=== PATIENT | male | born 1975 ===

== ENCOUNTER 2017-05-04 20:59 | Inpatient (IN) | payer MEDICARE, MEDICAID ==
[2017-05-04 20:59] VITALS: BMI 27.4
[2017-05-04] MEDS ORDERED: Sodium Chloride 0.9% 1,000 ML IV STA (22:27)
[2017-05-04] MEDS ORDERED: Oxycodone/Acetaminophen 5/325 mg Tab PO STA (22:39)
[2017-05-04 22:58] LABS: VENOUS BLOOD GAS BASE EXCESS -10.5 mmol/L (0.0-2.0); VENOUS BLOOD GAS MODE ROOM AIR; VENOUS BLOOD GAS PCO2 67 mmHg (40-60); VENOUS BLOOD PH 7.09 (7.32-7.43)
[2017-05-04] MEDS ORDERED: Povidone Iodine Topical 10% Sol ONE (22:58)
[2017-05-04] MEDS ORDERED: Lidocaine 2% w Epi 1:100,000 Inj IJ ONE (22:59)
[2017-05-04 23:00] LABS: BASO # 0.1 K/uL (0.0-0.2); BASO % 1.5 % (0.0-2.0); EOS % 0.3 % (0.0-4.0); HEMATOCRIT 40.2 % (35.0-51.0); LYMPH # 1.2 K/uL (1.0-4.3); LYMPH % 18.7 % (20.0-40.0); MEAN CELL VOLUME 84.7 fl (80.0-94.0); MEAN CORPUSCULAR HEMOGLOBIN 28.1 pg (27.0-31.0); MEAN CORPUSCULAR HGB CONC 33.2 g/dL (33.0-37.0); MEAN PLATELET VOLUME 10.5 fl (7.2-11.7); MONO # 0.5 K/uL (0.0-0.8); MONO % 8.4 % (0.0-10.0); NEUT # 4.6 K/uL (1.8-7.0); NEUT % 71.1 % (50.0-75.0); NRBC % 0.1 % (0.0-0.0); RED CELL DISTRIBUTION WIDTH 15.1 % (11.5-14.5); WHITE BLOOD COUNT 6.4 K/uL (4.8-10.8)
[2017-05-04] MEDS ORDERED: Insulin Regular 100 units/ml IVP STA (23:00)
[2017-05-04 23:10] LABS: ALB/GLOB RATIO 1.1 (1.0-2.1); ALKALINE PHOSPHATASE 169 U/L (38-126); ALT/SGPT 58 U/L (21-72); AST/SGOT 36 U/L (17-59); BILIRUBIN,TOTAL 1.1 mg/dl (0.2-1.3); BLOOD UREA NITROGEN 15 mg/dl (9-20); CALCIUM 9.4 mg/dL (8.4-10.2); CARBON DIOXIDE 19 mmol/L (22-30); CHLORIDE 103 mmol/L (98-107); GFR AFRICAN-AMERICAN > 60; SODIUM 132 mmol/l (132-148); TOTAL PROTEIN 7.4 G/DL (6.3-8.2)
[2017-05-04 23:13] LABS: GLUCOSE,RANDOM 602 mg/dL (75-110)
[2017-05-04] MEDS ORDERED: Piperacillin/Tazobact 3.375 GM in Sodium Chloride 0.9% 100 ML IV STA (23:45)
[2017-05-04] MEDS ORDERED: Insulin Regular 100 UNITS in Sodium Chloride 0.9% 100 ML IV SCH (23:45)
[2017-05-04 23:53] LABS: POTASSIUM 4.5 MMOL/L (3.6-5.0)
--- NOTE | 2017-05-04 23:54 | ED PDOC ---
HPI: Skin/Bite Injury Time Seen by Provider: 05/04/17 21:30 Chief Complaint (Nursing): Abnormal Skin Integrity Chief Complaint (Provider): LEFT leg abscess Onset/Duration Of Symptoms: Days (2 weeks) Current Symptoms Are (Timing): Still Present Quality Of Symptoms: Painful, Swollen Additional Complaint(s): Gradual onset No fever/chills Reports compliance with diabetes meds Denies lesions elsewhere PMD Dr Alex Klein Past Medical History Reviewed: Historical Data, Nursing Documentation, Vital Signs Vital Signs: Last Vital Signs Temp 98.2 F 05/05/17 12:00 Pulse 76 05/05/17 12:00 Resp 14 05/05/17 12:00 BP 96/62 L 05/05/17 12:00 Pulse Ox 99 05/05/17 12:00 - Medical History PMH: Diabetes, HTN, Hypercholesterolemia, Hypothyroidism Denies: Chronic Kidney Disease - Surgical History Surgical History: Appendectomy, Tonsillectomy Other surgeries: Toe amputation - Family History Family History: States: No Known Family Hx - Social History Drugs: Denies - Immunization History Hx Tetanus Toxoid Vaccination: Yes Hx Influenza Vaccination: Yes Hx Pneumococcal Vaccination: No - Home Medications Home Medications: Ambulatory Orders Medication Instructions Recorded Insulin Detemir [Levemir] 80 unit SC HS 11/08/14 Aspirin [Ecotrin] 81 mg PO DAILY 03/27/17 Atorvastatin Calcium 40 mg PO DAILY 03/27/17 Clopidogrel [Plavix] 75 mg PO DAILY 03/27/17 Fenofibrate [Triglide] 160 mg PO DAILY 03/27/17 Gabapentin [Neurontin] 800 mg PO BID 03/27/17 Insulin Lispro [Humalog (Insulin 45 unit SQ TID 03/27/17 Lispro)] Levothyroxine [Synthroid] 1 tab PO DAILY 03/27/17 Lisinopril 2.5 mg PO DAILY 03/27/17 [id number] Ethyl Esters [OMEGA 3] 2 tab PO BID 03/27/17 Topiramate [Topamax] 50 mg PO BID 03/27/17 Cyclobenzaprine [Flexeril] 10 mg PO HS 05/05/17 Metoprolol Tartrate [Lopressor] 12.5 mg PO BID 05/05/17 Vit B Comp C 19/Folic Acid/D3 1 tab PO DAILY 05/05/17 [Nephronex-Sl Tablet] - Allergies Allergies/Adverse Reactions: Allergies Allergy/AdvReac Type Severity Reaction Status Date / Time No Known Allergies Allergy Verified 11/08/14 21:27 Review of Systems ROS Statement: Except As Marked, All Systems Reviewed And Found Negative Constitutional: Negative for: Fever, Chills Physical Exam - Reviewed Nursing Documentation Reviewed: Yes Vital Signs Reviewed: Yes - Physical Exam Appears: Positive for: Uncomfortable, In Acute Distress Head Exam: Positive for: ATRAUMATIC, NORMOCEPHALIC Skin: Positive for: Warm, Dry, Rash (Multiple excoriated psoriatic areas on extremities, LEFT upper inner thigh: fluctuant dark erythematous lesion) Eye Exam: Positive for: EOMI, PERRL ENT: Positive for: Other (tacky muc membranes). Negative for: Pharyngeal Erythema, Tonsillar Exudate Neck: Positive for: Painless ROM, Supple Cardiovascular/Chest: Positive for: Murmur, Tachycardia (reg rhythm) Respiratory: Positive for: Normal Breath Sounds. Negative for: Respiratory Distress Gastrointestinal/Abdominal: Positive for: Soft. Negative for: Tenderness Back: Positive for: Normal Inspection. Negative for: Decreased ROM Extremity: Positive for: Other (extremity muscle wasting) Lymphatic: Negative for: Adenopathy Neurologic/Psych: Positive for: Alert. Negative for: Motor/Sensory Deficits - Laboratory Results Result Diagrams: 05/05/17 05:30 05/05/17 15:30 - ECG O2 Sat by Pulse Oximetry: 99 - Progress ED Course And Treament: Pt initially only wanted I&D of abscess but strongly advised to have evaluation given history of uncontrolled diabetes, making him prone to more severe infection and sepsis. He was agreeable to having labwork performed, and when results demonstrated possible DKA, he was very reluctant to have IV placed. He refused to have large line placed in neck and allowed RN to place peripheral IV , which was done successfully. It was advised that he have a larger line anyway for multiple IV meds and aggressive fluid hydration, but he refused. IV antibiotics, IV insulin infusion, IVF ordered. Condition: Improving,but remains with symptoms - Critical Care Total Time (In Min): 30 Documented Critical Care: Time excludes all time spent performint seperately billable procedures Disposition - Clinical Impression Clinical Impression: Groin abscess, DKA (diabetic ketoacidoses) Discussed With DrLenny: Angel Howell Counseled Patient/Family Regarding: Studies Performed, Diagnosis - Disposition Disposition Time: 23:00 Condition: CRITICAL - Pt Status Changed To: Hospital Disposition Of: Inpatient - Admit Certification Admit to Inpatient:: After my assessment, the patient will require hospitalization for at least two midnights. This is because of the severity of symptoms shown, intensity of services needed, and/or the medical risk in this patient being treated as an outpatient. - POA Present On Arrival: Poor Glycemic Control - Incision & Drainage Of Abscess Anesthesia: Lidocaine 2%, With Epi Prep Used: Betadine Procedure: Incised W/Scalpel Blade#: (11), Drained Pus (yellow and bloody and malodorous), Probed To Break Up Loculations, Packed W/Gauze, Cultures Obtained And Sent To Lab
[2017-05-05] MEDS ORDERED: Vancomycin 1 g Inj ONE (00:04)
[2017-05-05] MEDS ORDERED: Piperacillin/Tazobact 3.375 gm Inj IVPB ONE (00:04)
[2017-05-05] MEDS ORDERED: Insulin Regular 100 units/ml ONE (00:06)
--- NOTE | 2017-05-05 00:11 | CP.PCM.CON ---
History of Present Illness - History of Present Illness History of Present Illness: PCP: Dr Alex Klein Vascular Surgeon: Dr Vigil of [facility] Reason for Consult: Critical care Management Chief Complaint: Left thigh abscess Patient seen and examined in the ED HPI: He is a 41 years old male with Hx of HTN, PVD s/p right toes amputation and arterial stent placement at the left lower extremity. [facility] with a two weeks pain swelling with erythema at the surrounding site.He was having difficulty to walk because of the pain. No fever , chills, Dysuria, urinary frequency nor diarrhea. His last skin abscess was at the age of 16 years. 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 absent: Anorexia, Chills, Fever, Headache - EENT Eyes: Requires Corrective Lenses. absent: Diplopia, Floaters, Photophobia, Sees Flashes Ears: absent: Decreased Hearing, Ear Discharge, Ear Pain, Tinnitus Nose/Mouth/Throat: absent: Epistaxis, Nasal Congestion, Nasal Discharge, Sinus Pain, Sinus Pressure - Cardiovascular Cardiovascular: absent: Chest Pain, Dyspnea, Edema - Respiratory Respiratory: absent: Cough, Dyspnea, Wheezing, Chest Congestion - Gastrointestinal Gastrointestinal: absent: Abdominal Pain, Diarrhea, Melena, Nausea, Vomiting - Genitourinary Genitourinary: absent: Dysuria, Flank Pain, Hematuria, Urinary Frequency - Musculoskeletal Musculoskeletal: Arthralgias, Myalgias - Integumentary Integumentary: Swelling. absent: Pruritus, Rash Additional comments: left Heel with ulceration - Neurological Neurological: absent: Confusion, Focal Weakness, Headaches, Vertigo, Weakness - Psychiatric Psychiatric: absent: Anxiety, Confusion, Depression, Panic Attacks - Endocrine Endocrine: Polydipsia, Polyphagia. absent: Palpitations, Polyuria - Hematologic/Lymphatic Hematologic: absent: Easy Bleeding, Easy Bruising Past Patient History - Past Medical History & Family History Past Medical History?: Yes - Past Social History Smoking Status: Never Smoked Chewing Tobacco Use: No Cigar Use: No Alcohol: None Drugs: Denies Home Situation {Lives}: With Family - CARDIAC Hx Hypercholesterolemia: Yes Hx Hypertension: Yes - PULMONARY Hx Respiratory Disorders: No - NEUROLOGICAL Hx Neurological Disorder: Yes (PERIPHERAL NEUROPATHY) - HEENT Hx HEENT Problems: No - RENAL Hx Chronic Kidney Disease: No - ENDOCRINE/METABOLIC Hx Diabetes Mellitus Type 2: Yes Hx Hypothyroidism: Yes - HEMATOLOGICAL/ONCOLOGICAL Hx Blood Disorders: No - INTEGUMENTARY Hx Dermatological Problems: Yes (HX GANGRENE TOES RIGHT FOOT AMPUTATION) - MUSCULOSKELETAL/RHEUMATOLOGICAL Hx Musculoskeletal Disorders: Yes Other/Comment: 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 - GASTROINTESTINAL Hx Gastrointestinal Disorders: No - GENITOURINARY/GYNECOLOGICAL Hx Genitourinary Disorders: No - PSYCHIATRIC Hx Psychophysiologic Disorder: No Hx Substance Use: No - SURGICAL HISTORY Hx Appendectomy: Yes Hx Tonsillectomy: Yes - ANESTHESIA Hx Anesthesia: Yes Hx Anesthesia Reactions: No Hx Malignant Hyperthermia: No Meds Allergies/Adverse Reactions: Allergies Allergy/AdvReac Type Severity Reaction Status Date / Time No Known Allergies Allergy Verified 11/08/14 21:27 - Medications Medications: Current Medications Vancomycin HCl 1 gm/ Sodium (Chloride) 250 mls @ 166.667 mls/hr IV STAT STA Stop: 05/05/17 01:14 Piperacillin Sod/Tazobactam (Sod 3.375 gm/ Sodium Chloride) 100 mls @ 100 mls/ hr IV STAT STA Stop: 05/05/17 00:44 Insulin Human Regular 100 (units/ Sodium Chloride) 101 mls @ 8.08 mls/hr IV .[id number] JULIANA; 8 UNITS/HR PRN Reason: Protocol Physical Exam - Constitutional Appears: No Acute Distress - Head Exam Head Exam: ATRAUMATIC, NORMAL INSPECTION, NORMOCEPHALIC - Eye Exam Eye Exam: EOMI, Normal appearance Pupil Exam: NORMAL ACCOMODATION, PERRL - ENT Exam ENT Exam: Mucous Membranes Moist, Normal Exam, Normal External Ear Exam, Normal Oropharynx - Neck Exam Neck exam: Positive for: Normal Inspection, Tenderness - Respiratory Exam Respiratory Exam: Clear to Auscultation Bilateral. absent: Rales, Rhonchi, Wheezes - Cardiovascular Exam Cardiovascular Exam: REGULAR RHYTHM, RRR, +S2. absent: Gallop, JVD - GI/Abdominal Exam GI & Abdominal Exam: Normal Bowel Sounds, Organomegaly, Soft. absent: Mass, Pulsatile Mass, Tenderness - Rectal Exam Rectal Exam: Deferred - Extremities Exam Additional comments: Pain to the left leg. - Back Exam Back exam: NORMAL INSPECTION. absent: CVA tenderness (L), CVA tenderness (R) - Neurological Exam Neurological exam: Alert, CN II-XII Intact, Oriented x3, Reflexes Normal - Psychiatric Exam Psychiatric exam: Normal Affect, Normal Mood - Skin Skin Exam: Dry, Intact, Normal Color, Warm - Additional Findings Additional findings: Swelling 2cm Fluccent, surrounded by erythema, painful to palpation Results - Vital Signs Recent Vital Signs: Last Vital Signs Temp 98.1 F 05/04/17 21:24 Pulse 101 H 05/04/17 21:24 Resp 20 05/04/17 21:24 BP 120/70 05/04/17 21:24 Pulse Ox 99 05/05/17 00:00 - Labs Result Diagrams: 05/04/17 22:50 05/04/17 22:50 Labs: Laboratory Results - last 24 hr 05/04/17 05/04/17 05/04/17 22:48 22:50 22:50 WBC 6.4 RBC 4.75 Hgb 13.3 Hct 40.2 MCV 84.7 MCH 28.1 MCHC 33.2 RDW 15.1 H Plt Count 139 MPV 10.5 Neut % (Auto) 71.1 Lymph % (Auto) 18.7 L [place] % (Auto) 8.4 Eos % (Auto) 0.3 Baso % (Auto) 1.5 Neut # 4.6 Lymph # 1.2 [place] # 0.5 Eos # 0.0 Baso # 0.1 pO2 42 VBG pH 7.09 L* VBG pCO2 67 H* VBG HCO3 15.6 VBG Total CO2 22.4 VBG O2 Sat (Calc) 72.8 H VBG Base Excess -10.5 L Sodium 122.0 L 132 Chloride 97.0 L 103 Glucose 660 H* Lactate 1.8 FiO2 21.0 Crit Value Called To leandro An md Crit Value Called By Aileen gutierrez Crit Value Read Back Y Blood Gas Notified Time 2257 Potassium 4.5 Carbon Dioxide 19 L Anion Gap 15 BUN 15 Creatinine 0.9 Est GFR ( Amer) > 60 Est GFR (Non-Af Amer) > 60 Random Glucose 602 H* Calcium 9.4 Total Bilirubin 1.1 AST 36 ALT 58 Alkaline Phosphatase 169 H Total Protein 7.4 Albumin 3.9 Globulin 3.6 Albumin/Globulin Ratio 1.1 Assessment & Plan - Assessment and Plan (Free Text) Assessment: #. DKA #. DM II with Peripheral Neuropathy #. Left groin Abscess #. HTN #. PVD Plan: 41 years old male with Hx of HTN, PVD s/p right toes amputation and arterial stent placement at the left lower extremity. He was sent from the [facility] with a two weeks pain swelling with erythema at the surrounding site.He was having difficulty to walk because of the pain. No fever, chills, Dysuria, nor urinary frequency. #. DKA Triggered by the abscess/Cellulitis - IV Fluids NS 200mls/hr - IV Insulin drip according to DKA protocol - Follow Electrolytes #. DM II with Peripheral Neuropathy - Treat as above. Restart Sub Q levemir and Lispro when acidosis is resolved - Pain management - Follow HbA1c #. Left groin Abscess - Consult ID Dr Beach - Vancomycin 1gm Q12h - Zosyn IVPB Q6H #. HTN - Metoprolol/Lisinopril - Follow Blood pressures #. PVD - ASA/ Plavix #. Stress Ulcer prophylaxis with Pepcid #. DVT Prophylaxis with Lovenox # Code Status: Full - Date & Time Date: 05/05/17 Time: 00:10
[2017-05-05 01:45] LABS: VENOUS BLOOD GAS BASE EXCESS -4.9 mmol/L (0.0-2.0); VENOUS BLOOD GAS PCO2 35 mmHg (40-60); VENOUS BLOOD PH 7.36 (7.32-7.43)
[2017-05-05] MEDS ORDERED: Sodium Chloride 0.9% 1,000 ML IV SCH (01:45)
[2017-05-05] MEDS ORDERED: Potassium Chloride 20 mEq ER Tab PO ONE (01:47)
[2017-05-05 06:19] LABS: BASO # 0.2 K/uL (0.0-0.2); EOS # 0.1 K/uL (0.0-0.7); EOS % 1.2 % (0.0-4.0); HEMATOCRIT 35.7 % (35.0-51.0); LYMPH # 0.9 K/uL (1.0-4.3); LYMPH % 14.4 % (20.0-40.0); MEAN CELL VOLUME 85.4 fl (80.0-94.0); MEAN CORPUSCULAR HEMOGLOBIN 27.8 pg (27.0-31.0); MEAN CORPUSCULAR HGB CONC 32.6 g/dL (33.0-37.0); MEAN PLATELET VOLUME 10.1 fl (7.2-11.7); MONO # 0.4 K/uL (0.0-0.8); MONO % 7.2 % (0.0-10.0); NEUT # 4.6 K/uL (1.8-7.0); NEUT % 74.2 % (50.0-75.0); NRBC % 0.1 % (0.0-0.0); PLATELET COUNT 124 K/uL (130-400); WHITE BLOOD COUNT 6.2 K/uL (4.8-10.8)
[2017-05-05] MEDS ORDERED: Levothyroxine 25 MCG TAB PO SCH (06:30)
[2017-05-05 07:02] LABS: BLOOD UREA NITROGEN 14 mg/dl (9-20); CALCIUM 8.5 mg/dL (8.4-10.2); CARBON DIOXIDE 19 mmol/L (22-30); CHLORIDE 111 mmol/L (98-107); GFR AFRICAN-AMERICAN > 60; GLUCOSE,RANDOM 271 mg/dL (75-110); PHOSPHOROUS 2.9 mg/dl (2.5-4.5); SODIUM 138 mmol/l (132-148)
[2017-05-05 07:20] LABS: POTASSIUM 3.3 MMOL/L (3.6-5.0)
[2017-05-05 07:43] LABS: EOSINOPHIL 2 % (0-7); NEUTROPHIL 77 % (42-75); TOTAL CELLS COUNTED 100
[2017-05-05 07:44] LABS: LARGE PLATELETS PRESENT
[2017-05-05] MEDS ORDERED: Patient's Own Med (Gabapentin [Neurontin] 800 MG) PO SCH (09:00)
[2017-05-05] MEDS: Levothyroxine 25 MCG TAB PO SCH (09:10)
[2017-05-05] MEDS: Enoxaparin 40 mg Syringe SC SCH (09:11)
[2017-05-05] MEDS: Potassium CL 10 MEQ/50 ML 50 ML IVPB SCH ×2 (09:17→11:30)
[2017-05-05] MEDS: Piperacillin/Tazobact 3.375 GM in Sodium Chloride 0.9% 100 ML IVPB SCH ×3 (09:20→21:30)
[2017-05-05] MEDS ORDERED: Insulin Lispro (humaLOG) 100 Units/ml Inj SC SCH (11:30)
[2017-05-05 16:05] LABS: BLOOD UREA NITROGEN 11 mg/dl (9-20); CALCIUM 8.3 mg/dL (8.4-10.2); CARBON DIOXIDE 19 mmol/L (22-30); CHLORIDE 111 mmol/L (98-107); GFR AFRICAN-AMERICAN > 60; GLUCOSE,RANDOM 209 mg/dL (75-110); SODIUM 138 mmol/l (132-148)
[2017-05-05] MEDS: Insulin Lispro (humaLOG) 100 Units/ml Inj SC SCH (16:30)
--- NOTE | 2017-05-05 16:30 | CP.PCM.CON ---
History of Present Illness - History of Present Illness History of Present Illness: Surgery: Dr. Barrett Reason for consult: left groin abscess CC: left groin abscess HPI: Patient is a 41 y/o male w/ hx of DM and PVD presents complaining of left groin pain and swelling for the past couple of days. He denies f/c/n/v. He denies having similar symptoms in the past. Patient abscess was drained in ER and culture was obtained. Packing placed in wound. Upon arrival to ED patient found to have elevated sugar reading and concern was for DKA. Patient was admitted to [facility] for treatment. PMH: DM, PAD, HTN, Hypothyroid, neuropathy PSH: right TMA, LLE stent placed, appy Social: denies drug or ETOH abuse. Review of Systems - Review of Systems All systems: reviewed and no additional remarkable complaints except Review of Systems: unless stated in HPI Past Patient History - Past Medical History & Family History Past Medical History?: Yes - Past Social History Smoking Status: Never Smoked Chewing Tobacco Use: No Cigar Use: No Alcohol: None Drugs: Denies Home Situation {Lives}: With Family - CARDIAC Hx Hypercholesterolemia: Yes Hx Hypertension: Yes - PULMONARY Hx Respiratory Disorders: No - NEUROLOGICAL Hx Neurological Disorder: Yes (PERIPHERAL NEUROPATHY) - HEENT Hx HEENT Problems: No - RENAL Hx Chronic Kidney Disease: No - ENDOCRINE/METABOLIC Hx Diabetes Mellitus Type 2: Yes Hx Hypothyroidism: Yes - HEMATOLOGICAL/ONCOLOGICAL Hx Blood Disorders: No - INTEGUMENTARY Hx Dermatological Problems: Yes (HX GANGRENE TOES RIGHT FOOT AMPUTATION) - MUSCULOSKELETAL/RHEUMATOLOGICAL Hx Musculoskeletal Disorders: Yes Other/Comment: 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 - GASTROINTESTINAL Hx Gastrointestinal Disorders: No - GENITOURINARY/GYNECOLOGICAL Hx Genitourinary Disorders: No - PSYCHIATRIC Hx Psychophysiologic Disorder: No Hx Substance Use: No - SURGICAL HISTORY Hx Appendectomy: Yes Hx Tonsillectomy: Yes - ANESTHESIA Hx Anesthesia: Yes Hx Anesthesia Reactions: No Hx Malignant Hyperthermia: No Meds Allergies/Adverse Reactions: Allergies Allergy/AdvReac Type Severity Reaction Status Date / Time No Known Allergies Allergy Verified 11/08/14 21:27 - Medications Medications: Current Medications Aspirin (Ecotrin) 81 mg PO DAILY [facility] Last Admin: 05/05/17 09:10 Dose: 81 mg Atorvastatin Calcium (Lipitor) 40 mg PO DAILY [facility] Last Admin: 05/05/17 09:12 Dose: 40 mg Clopidogrel Bisulfate (Plavix) 75 mg PO DAILY [facility] Last Admin: 05/05/17 09:13 Dose: 75 mg Cyclobenzaprine HCl (Flexeril) 10 mg PO HS [facility] Enoxaparin Sodium (Lovenox) 40 mg SC DAILY [facility] PRN Reason: Protocol Last Admin: 05/05/17 09:11 Dose: 40 mg Famotidine (Pepcid) 20 mg IVP Q12 [facility] Last Admin: 05/05/17 09:16 Dose: 20 mg Fenofibrate (Tricor) 145 mg PO DAILY [facility] Last Admin: 05/05/17 09:10 Dose: 145 mg Gabapentin (Neurontin) 800 mg PO BID [facility] Last Admin: 05/05/17 09:11 Dose: 800 mg Insulin Human Regular 100 (units/ Sodium Chloride) 101 mls @ 8.08 mls/hr IV .[id number] JULIANA; 8 UNITS/HR PRN Reason: Protocol Sodium Chloride (Sodium Chloride 0.9%) 1,000 mls @ 200 mls/hr IV .Q5H [facility] Stop: 05/06/17 01:37 Last Admin: 05/05/17 01:38 Dose: 200 mls/hr Vancomycin HCl 1 gm/ Sodium (Chloride) 250 mls @ 166.667 mls/hr IVPB Q12 [facility] Last Admin: 05/05/17 09:18 Dose: 166.667 mls/hr Piperacillin Sod/Tazobactam (Sod 3.375 gm/ Sodium Chloride) 100 mls @ 100 mls/ hr IVPB Q6 [facility] Last Admin: 05/05/17 09:20 Dose: 100 mls/hr Ketorolac Tromethamine (Toradol) 15 mg IVP Q6 PRN PRN Reason: Pain, moderate (4-7) Ketorolac Tromethamine (Toradol) 30 mg IM Q6 PRN PRN Reason: Pain, severe (8-10) Last Admin: 05/05/17 01:40 Dose: 30 mg Levothyroxine Sodium (Synthroid) 25 mcg PO DAILY@0630 [facility] Last Admin: 05/05/17 09:10 Dose: 25 mcg Lisinopril (Zestril) 2.5 mg PO DAILY [facility] Last Admin: 05/05/17 09:19 Dose: 2.5 mg Metoprolol Tartrate (Lopressor) 12.5 mg PO BID [facility] Last Admin: 05/05/17 09:10 Dose: 12.5 mg Physical Exam - Constitutional Appears: Non-toxic, No Acute Distress - Head Exam Head Exam: ATRAUMATIC, NORMOCEPHALIC - ENT Exam ENT Exam: Mucous Membranes Moist - Respiratory Exam Respiratory Exam: NORMAL BREATHING PATTERN. absent: Respiratory Distress - Cardiovascular Exam Cardiovascular Exam: REGULAR RHYTHM. absent: Tachycardia - GI/Abdominal Exam GI & Abdominal Exam: Soft. absent: Distended, Guarding, Tenderness - Extremities Exam Extremities exam: Negative for: calf tenderness Additional comments: right TMA. Left groin abscess, golf ball size, small incision in area of fluctuance, packing in place. mild erythema surrounding incision. NO drainage expressable from wound. Results - Vital Signs Recent Vital Signs: Last Vital Signs Temp 98.2 F 05/05/17 12:00 Pulse 76 05/05/17 12:00 Resp 14 05/05/17 12:00 BP 96/62 L 05/05/17 12:00 Pulse Ox 99 05/05/17 12:00 - Labs Result Diagrams: 05/05/17 05:30 05/05/17 15:30 Labs: Laboratory Results - last 24 hr 05/05/17 05/05/17 05/05/17 01:42 03:35 04:17 WBC RBC Hgb Hct MCV MCH MCHC RDW Plt Count MPV Neut % (Auto) Lymph % (Auto) [place] % (Auto) Eos % (Auto) Baso % (Auto) Neut # Lymph # [place] # Eos # Baso # Neutrophils % (Manual) Lymphocytes % (Manual) Monocytes % (Manual) Eosinophils % (Manual) Platelet Estimate Large Platelets Anisocytosis (manual) pO2 47 VBG pH 7.36 VBG pCO2 35 L VBG HCO3 20.7 VBG Total CO2 20.9 L VBG O2 Sat (Calc) 88.5 H VBG Base Excess -4.9 L VBG Potassium 3.5 L Sodium 140.0 Chloride 112.0 H Glucose 379 H Lactate 1.2 FiO2 21.0 Potassium Carbon Dioxide Anion Gap BUN Creatinine Est GFR ( Amer) Est GFR (Non-Af Amer) POC Glucose (mg/dL) 361 H 367 H Random Glucose Calcium Phosphorus Magnesium Venous Blood Potassium 3.5 L 09/10/2005/05/17 05/05/17 05:25 05:30 05:30 WBC 6.2 RBC 4.19 L Hgb 11.7 L Hct 35.7 MCV 85.4 MCH 27.8 MCHC 32.6 L RDW 15.0 H Plt Count 124 L MPV 10.1 Neut % (Auto) 74.2 Lymph % (Auto) 14.4 L [place] % (Auto) 7.2 Eos % (Auto) 1.2 Baso % (Auto) 3.0 H Neut # 4.6 Lymph # 0.9 L [place] # 0.4 Eos # 0.1 Baso # 0.2 Neutrophils % (Manual) 77 H Lymphocytes % (Manual) 18 L Monocytes % (Manual) 3 Eosinophils % (Manual) 2 Platelet Estimate Slightly decreased L Large Platelets Present Anisocytosis (manual) Slight pO2 VBG pH VBG pCO2 VBG HCO3 VBG Total CO2 VBG O2 Sat (Calc) VBG Base Excess VBG Potassium Sodium 138 Chloride 111 H Glucose Lactate FiO2 Potassium 3.3 L Carbon Dioxide 19 L Anion Gap 11 BUN 14 Creatinine 0.9 Est GFR ( Amer) > 60 Est GFR (Non-Af Amer) > 60 POC Glucose (mg/dL) 321 H Random Glucose 271 H Calcium 8.5 Phosphorus 2.9 Magnesium 2.0 Venous Blood Potassium 05/05/17 05/05/17 05/05/17 07:02 08:04 09:01 WBC RBC Hgb Hct MCV MCH MCHC RDW Plt Count MPV Neut % (Auto) Lymph % (Auto) [place] % (Auto) Eos % (Auto) Baso % (Auto) Neut # Lymph # [place] # Eos # Baso # Neutrophils % (Manual) Lymphocytes % (Manual) Monocytes % (Manual) Eosinophils % (Manual) Platelet Estimate Large Platelets Anisocytosis (manual) pO2 VBG pH VBG pCO2 VBG HCO3 VBG Total CO2 VBG O2 Sat (Calc) VBG Base Excess VBG Potassium Sodium Chloride Glucose Lactate FiO2 Potassium Carbon Dioxide Anion Gap BUN Creatinine Est GFR ( Amer) Est GFR (Non-Af Amer) POC Glucose (mg/dL) 242 H 175 H 142 H Random Glucose Calcium Phosphorus Magnesium Venous Blood Potassium 05/05/17 05/05/17 05/05/17 09:56 11:07 12:00 WBC RBC Hgb Hct MCV MCH MCHC RDW Plt Count MPV Neut % (Auto) Lymph % (Auto) [place] % (Auto) Eos % (Auto) Baso % (Auto) Neut # Lymph # [place] # Eos # Baso # Neutrophils % (Manual) Lymphocytes % (Manual) Monocytes % (Manual) Eosinophils % (Manual) Platelet Estimate Large Platelets Anisocytosis (manual) pO2 VBG pH VBG pCO2 VBG HCO3 VBG Total CO2 VBG O2 Sat (Calc) VBG Base Excess VBG Potassium Sodium Chloride Glucose Lactate FiO2 Potassium Carbon Dioxide Anion Gap BUN Creatinine Est GFR ( Amer) Est GFR (Non-Af Amer) POC Glucose (mg/dL) 204 H 207 H 189 H Random Glucose Calcium Phosphorus Magnesium Venous Blood Potassium 05/05/17 05/05/17 05/05/17 13:24 14:08 15:12 WBC RBC Hgb Hct MCV MCH MCHC RDW Plt Count MPV Neut % (Auto) Lymph % (Auto) [place] % (Auto) Eos % (Auto) Baso % (Auto) Neut # Lymph # [place] # Eos # Baso # Neutrophils % (Manual) Lymphocytes % (Manual) Monocytes % (Manual) Eosinophils % (Manual) Platelet Estimate Large Platelets Anisocytosis (manual) pO2 VBG pH VBG pCO2 VBG HCO3 VBG Total CO2 VBG O2 Sat (Calc) VBG Base Excess VBG Potassium Sodium Chloride Glucose Lactate FiO2 Potassium Carbon Dioxide Anion Gap BUN Creatinine Est GFR ( Amer) Est GFR (Non-Af Amer) POC Glucose (mg/dL) 214 H 213 H 212 H Random Glucose Calcium Phosphorus Magnesium Venous Blood Potassium 05/05/17 05/05/17 15:30 16:17 WBC RBC Hgb Hct MCV MCH MCHC RDW Plt Count MPV Neut % (Auto) Lymph % (Auto) [place] % (Auto) Eos % (Auto) Baso % (Auto) Neut # Lymph # [place] # Eos # Baso # Neutrophils % (Manual) Lymphocytes % (Manual) Monocytes % (Manual) Eosinophils % (Manual) Platelet Estimate Large Platelets Anisocytosis (manual) pO2 VBG pH VBG pCO2 VBG HCO3 VBG Total CO2 VBG O2 Sat (Calc) VBG Base Excess VBG Potassium Sodium 138 Chloride 111 H Glucose Lactate FiO2 Potassium 4.0 Carbon Dioxide 19 L Anion Gap 12 BUN 11 Creatinine 0.9 Est GFR ( Amer) > 60 Est GFR (Non-Af Amer) > 60 POC Glucose (mg/dL) 263 H Random Glucose 209 H Calcium 8.3 L Phosphorus Magnesium Venous Blood Potassium Assessment & Plan - Assessment and Plan (Free Text) Assessment: 41 y/o male with left groin abscess s/p I&D Plan: -change packing Sunday -warm compresses to groin -dry dressing in place -no further surgical management at this time -con abx and f/u cultures -d/w Dr. Barrett [facility] PGY3
[2017-05-05] MEDS ORDERED: Ergocalciferol 50,000 Intl Units Cap PO SCH ×2 (17:00)
[2017-05-05] MEDS: Cilostazol 100 mg Tab UD PO SCH (17:31)
--- NOTE | 2017-05-05 21:58 | PN ---
DATE: 05/05/2017 CRITICAL CARE PROGRESS NOTE The patient in ICU, bed 422. TIME SPENT: 35 minutes. SUBJECTIVE: The patient is seen and examined at the bedside. Case discussed with overnight hospitalist. Events since admission noted. Past medical, surgical, and social history reviewed. A 41-year-old male with history of diabetes mellitus type II insulin requiring with peripheral neuropathy, hypertension, hyperlipidemia, hypothyroidism, peripheral vascular disease status post right foot partial amputation, appendectomy, and tonsillectomy admitted with complaining of pain and swelling of left groin, noted to have an abscess plus status post incision and drainage, admitted to ICU for control of hyperglycemia with a blood sugar on admission 602 mg/dL. The patient is complaining of pain at the site of incision otherwise unremarkable. No headache, shortness of breath, chest pain, palpitations, abdominal pain, diarrhea, or dysuria. PHYSICAL EXAMINATION VITAL SIGNS: VITAL SIGNS: Temperature 98.2, heart rate 76, blood pressure 109/73, respiratory rate 14, oxygen saturating 99% on room air. Intake of 1782 and output 900. Balance positive 882. Weight 170 pounds. HEAD, EYES, EARS, NOSE, AND THROAT: Pupils are reactive. Conjunctivae pink. Sclerae white. NECK: Supple. CHEST: Bilateral breath sounds clear to auscultation. HEART: Rhythm regular. S1 and S2 normal intensity. No S3, S4 gallop. No audible murmur. ABDOMEN: Bowel sounds present and soft. Liver and spleen not palpable. Bladder not distended. EXTREMITIES: Left heel with ulceration. Induration of left inguinal area status post incision. Dressing intact. LABORATORY DATA: WBC 6.2, hemoglobin 11.7, hematocrit 35.7,and platelet count 124. Neutrophils 74, lymphocytes 14.4, monocytes 7.2. ABG, pH 7.36, PO2 of 35, PCO2 47. Glucose 379, lactate 1.2. SMA-7, sodium 138, potassium 3.3, chloride 111, CO2 19, blood urea nitrogen 14, creatinine 0.9, and random glucose 242, the last was 204. Calcium 8.5, phosphorus 2.9, magnesium 2, with anion gap of 8. CURRENT MEDICATIONS: Aspirin 81 mg p.o. daily, Lipitor 40 mg p.o. daily, Plavix 75 mg p.o. daily, Flexeril 10 mg p.o. at bedtime, Lovenox 40 subcutaneous daily, Pepcid 20 mg IV q. 12 hours, TriCor 145 mg p.o. daily, Neurontin 800 mg p.o. twice daily, insulin drip as per DKA protocol, Toradol 50 mg IV q. 6 hours p.r.n. for pain, levothyroxine 25 mcg daily, Zestril 2.5 mg p.o. daily, Lopressor 12.5 p.o. twice daily, Zosyn 3.375 g IV q. 6 hours, and vancomycin 1 g IV q. 12 hours. IMPRESSION: 1. Neurology: Oriented to name, place, and time. 2. Cardiac: Hypertension controlled on metoprolol and lisinopril. 3. Pulmonary: Stable. 4. Endocrine: Admitted with hyperglycemia with normal anion gap, and questionable DKA, on insulin drip as per protocol to maintain until surgical evaluation is completed and no other surgical exploration is planned. 5. Infectious Disease: Inguinal abscess status post incision and drainage. Culture report pending. Infectious Disease evaluation requested. 6. Gastrointestinal: Remains no issues. 7. Skin: Right foot partial amputation. Out of bed to chair once insulin drip is completed, DVT prophylaxis. Lorenzo Parsons MD
[2017-05-05] MEDS ORDERED: Insulin Detemir 100 Units/ml Inj SC SCH ×2 (22:00)
[2017-05-06] MEDS: Piperacillin/Tazobact 3.375 GM in Sodium Chloride 0.9% 100 ML IVPB SCH ×3 (03:01→16:46)
[2017-05-06] MEDS: Levothyroxine 25 MCG TAB PO SCH (07:19)
[2017-05-06] MEDS: Insulin Lispro (humaLOG) 100 Units/ml Inj SC SCH ×3 (07:30→16:40)
--- NOTE | 2017-05-06 07:39 | CP.PCM.PN ---
Subjective - Date & Time of Evaluation Date of Evaluation: 05/06/17 Time of Evaluation: 07:37 - Subjective Subjective: Surgery: Dr. Barrett Patient reports some discomfort to groin. Denies f/c. Reports drainage from abscess. Objective - Vital Signs/Intake and Output Vital Signs (last 24 hours): Temp Pulse Resp BP Pulse Ox 97.8 F 82 14 90/54 L 98 05/06/17 04:00 05/06/17 06:00 05/06/17 04:00 05/06/17 06:00 05/06/17 04:00 Intake and Output: 05/06/17 05/06/17 06:59 18:59 Intake Total 2350 Output Total 300 Balance 2049 - Medications Medications: Current Medications Aspirin (Ecotrin) 81 mg PO DAILY [facility] Last Admin: 05/05/17 09:10 Dose: 81 mg Atorvastatin Calcium (Lipitor) 40 mg PO DAILY [facility] Last Admin: 05/05/17 09:12 Dose: 40 mg Cilostazol (Pletal) 100 mg PO BID [facility] Last Admin: 05/05/17 17:31 Dose: 100 mg Clopidogrel Bisulfate (Plavix) 75 mg PO DAILY [facility] Last Admin: 05/05/17 09:13 Dose: 75 mg Cyclobenzaprine HCl (Flexeril) 10 mg PO HS [facility] Last Admin: 05/05/17 22:50 Dose: 10 mg Enoxaparin Sodium (Lovenox) 40 mg SC DAILY [facility] PRN Reason: Protocol Last Admin: 05/05/17 09:11 Dose: 40 mg Ergocalciferol (Drisdol 50,000 Intl Units Cap) 1 cap PO Q7D [facility] Last Admin: 05/05/17 17:31 Dose: 1 cap Famotidine (Pepcid) 20 mg IVP Q12 [facility] Last Admin: 05/05/17 21:29 Dose: 20 mg Fenofibrate (Tricor) 145 mg PO DAILY [facility] Last Admin: 05/05/17 09:10 Dose: 145 mg Gabapentin (Neurontin) 800 mg PO BID [facility] Last Admin: 05/05/17 09:11 Dose: 800 mg Vancomycin HCl 1 gm/ Sodium (Chloride) 250 mls @ 166.667 mls/hr IVPB Q12 [facility] Last Admin: 05/05/17 22:50 Dose: 166.667 mls/hr Piperacillin Sod/Tazobactam (Sod 3.375 gm/ Sodium Chloride) 100 mls @ 100 mls/ hr IVPB Q6 [facility] Last Admin: 05/06/17 03:01 Dose: 100 mls/hr Insulin Detemir (Levemir) 80 units SC HS [facility] Last Admin: 05/05/17 22:51 Dose: 80 units Insulin Human Lispro (Humalog) 45 units SC TIDAC [facility] Last Admin: 05/05/17 16:30 Dose: 45 units Ketorolac Tromethamine (Toradol) 15 mg IVP Q6 PRN PRN Reason: Pain, moderate (4-7) Ketorolac Tromethamine (Toradol) 30 mg IM Q6 PRN PRN Reason: Pain, severe (8-10) Last Admin: 05/06/17 03:00 Dose: 30 mg Levothyroxine Sodium (Synthroid) 25 mcg PO DAILY@0630 [facility] Last Admin: 05/06/17 07:19 Dose: 25 mcg Lisinopril (Zestril) 2.5 mg PO DAILY [facility] Last Admin: 05/05/17 09:19 Dose: 2.5 mg Metoprolol Tartrate (Lopressor) 12.5 mg PO BID [facility] Last Admin: 05/05/17 09:10 Dose: 12.5 mg - Labs Labs: 05/05/17 05:30 05/05/17 15:30 - Constitutional Appears: Non-toxic, No Acute Distress - Head Exam Head Exam: ATRAUMATIC, NORMOCEPHALIC - Eye Exam Eye Exam: EOMI, Normal appearance - ENT Exam ENT Exam: Mucous Membranes Moist - Respiratory Exam Respiratory Exam: NORMAL BREATHING PATTERN. absent: Respiratory Distress - Cardiovascular Exam Cardiovascular Exam: REGULAR RHYTHM. absent: Tachycardia - Extremities Exam Additional comments: left groin abscess s/p I&D, dressing w/ dry SA drainage. Packing removed from cavity. Clean dry dressing replaced. no erythema noted. Assessment and Plan - Assessment and Plan (Free Text) Assessment: 41 y/o male with left groin abscess s/p I&D Plan: -change packing Sunday -warm compresses to groin -dry dressing in place -no further surgical management at this time -con abx and f/u cultures -d/w Dr. Barrett [facility] PGY3 Plan: -packing removed -warm compresses to groin -dry dressing in place -no further surgical management at this time -con abx and f/u cultures -d/w Dr. Barrett [facility] PGY3
[2017-05-06] MEDS: Cilostazol 100 mg Tab UD PO SCH ×2 (09:15→16:45)
[2017-05-06 09:16] VITALS: BP 99/50; PULSE 78
[2017-05-06] MEDS: Enoxaparin 40 mg Syringe SC SCH (09:16)
[2017-05-06 12:08] VITALS: TEMP 98.7
[2017-05-06 15:28] LABS: BLOOD UREA NITROGEN 10 mg/dl (9-20); CALCIUM 8.5 mg/dL (8.4-10.2); CARBON DIOXIDE 20 mmol/L (22-30); CHLORIDE 113 mmol/L (98-107); GFR AFRICAN-AMERICAN > 60; GLUCOSE,RANDOM 161 mg/dL (75-110); POTASSIUM 3.8 MMOL/L (3.6-5.0); SODIUM 140 mmol/l (132-148)
[2017-05-06 16:40] LABS: RBC URINE 1 /hpf (0-3); URINE BILIRUBIN NEGATIVE (NEGATIVE); URINE BLOOD NEGATIVE (NEGATIVE); URINE COLOR YELLOW (YELLOW); URINE GLUCOSE (UA) >=500 mg/dL (Normal); URINE KETONE NEGATIVE (NEGATIVE); URINE LEUKOCYTE ESTERASE NEG Leu/uL (Negative); URINE PROTEIN NEGATIVE (NEGATIVE); URINE UROBILINOGEN 0.2-1.0 mg/dL (0.2-1.0); WBC URINE 1 /hpf (0-5)
--- NOTE | 2017-05-06 16:49 | PN ---
DATE: 05/06/2017 CRITICAL CARE PROGRESS NOTE The patient in ICU, bed 422. TIME SPENT: 35 minutes. SUBJECTIVE: The patient seen and examined at the bedside. Events since admission reviewed. Past medical, surgical, and social history noted. A 41-year-old male with diabetes mellitus type II insulin requiring, peripheral neuropathy, peripheral vascular disease status post stent to left leg, hypertension, hyperlipidemia, hypothyroidism, status post transmetatarsal amputation, appendectomy and tonsillectomy, admitted with pain and swelling of left groin with abscess, status post incision and drainage in the ear, seen by surgical consult. No further fluctuation or drainage noted. Packing in place, dressing changed, off insulin drip, started on usual bolus and basal insulin regimen. This morning, alert, awake, follows commands appropriately, complaining of discomfort at the left groin from the incision site. PHYSICAL EXAMINATION VITAL SIGNS: Temperature 98.2, telemetry sinus rhythm, respiratory rate 16 thoracoabdominal, blood pressure 99/50, oxygen saturation 98%. Intake 2350, output 1300. Positive balance 1050. Weight 170 pounds. HEAD, EYES, EARS, NOSE, AND THROAT: Pupils reactive. Conjunctivae pink. Sclerae white. NECK: Supple. CHEST: Bilateral breath sounds clear to auscultation. HEART: Rhythm regular. S1 and S2 normal intensity. No S3, S4 gallop. No audible murmur. ABDOMEN: Bowel sounds present, soft. Liver and spleen not palpable. Bladder not distended. EXTREMITIES: Incision with packing noted on the left groin. Transmetatarsal amputation. Dorsalis pedis palpable but reduced in intensity. LABORATORY DATA: No new lab data from today. CURRENT MEDICATIONS: Noted, include aspirin, atorvastatin, Pletal, Plavix, Flexeril, Lovenox, Pepcid, TriCor, insulin Levemir 80 units subcu at night and insulin lispro 45 units 3 times a day. IMPRESSION: Abscess, left inguinal area, status post incision and drainage, packing intact, minimal drainage; continue current antibiotic vancomycin and Zosyn; diabetes mellitus type 2, on Levemir and lispro; hypothyroidism, on levothyroxine; hypertension controlled on lisinopril and metoprolol. Keep head of bed 30 degrees up. The patient can be monitored in the med surgical floor, optimize the medications to control hyperglycemia, follow up by ID, and optimize treatment for inguinal abscess. Lorenzo Parsons MD [facility]
[2017-05-06 17:42] VITALS: RESP 22; O2SAT 100
--- NOTE | 2017-05-07 04:04 | DS ---
REASON FOR ADMISSION: This is a 41-year-old male with history of insulin-dependent diabetes mellitus, who was admitted for uncontrolled diabetes in the range of 600 and left upper thigh abscess. COURSE OF HOSPITALIZATION: The patient's abscess was drained in the emergency room, and he was started on both vancomycin and Zosyn. The patient also was started on insulin drip due to uncontrolled diabetes with dehydration and mild ketoacidosis. The patient was switched to long-acting insulin, and he did well. The patient also was cleared by Surgery and he was discharged home on clindamycin 300 mg 3 times a day with probiotic, and he will follow with primary care physician. The patient was not compliant with diabetes medication, and he was advised regarding compliance and to resume his home medication and follow with his primary care physician. FINAL DIAGNOSES: Left upper thigh abscess, uncontrolled diabetes with acidosis due to noncompliance as well as due to the left upper thigh abscess. Angel Howell MD
--- NOTE | 2017-05-08 08:23 | HP ---
HISTORY OF PRESENT ILLNESS: This is a 41 years old male with history of insulin dependent diabetes mellitus for the last 19 years. The patient has been on multiple medications including insulin. The patient stated that he was not compliant to his insulin regimen as. The patient was complaining of pain on the left upper thigh, it was started before 2 weeks and it was building up. The patient was evaluated in the emergency room where he was found to have left upper thigh abscess and he had partial I&D in the emergency room. The patient also was found to have blood glucose of 602 and anion gap of 15. The patient was admitted to intensive care unit for DKA secondary to noncompliance of insulin regimen and left upper thigh abscess. REVIEW OF SYSTEMS: Reveal that the patient has numbness and weakness of the left side of the face with also ptosis, for which the patient has been followed with neuroophthalmologist during the last one month. Other review of system is negative. ALLERGIES: NO KNOWN ALLERGIES. HOME MEDICATIONS: Include; Humalog 45 units 3 times a day, Levemir 80 units at bedtime, Topamax 50 mg twice a day, metoprolol 12.5 twice a day, lisinopril 2.5 once a day, Synthroid, gabapentin, fenofibrate, Flexeril, Plavix, atorvastatin and aspirin. PAST MEDICAL HISTORY: Insulin dependent diabetes mellitus, diabetic neuropathy, left-sided upper eyelid ptosis and hypothyroidism. FAMILY HISTORY: Noncontributory. SOCIAL HISTORY: Denies history of smoking, EtOH or substance abuse. PHYSICAL EXAMINATION GENERAL: The patient is in bed, comfortable, not in any cardiopulmonary distress. VITAL SIGNS: Blood pressure 109/73, temperature 97.9, respiratory rate 17 and pulse 80. HEENT: Pupils equal, reactive to light. Normal appearing mucosa of the conjunctivae, oropharyngeal and nasal membrane mucosa. NECK: Supple. No JVD. No carotid bruit. No lymph node. No thyromegaly. CHEST AND LUNGS: Bilateral symmetrical expansion. Good air exchange. No rales. No rhonchi. CARDIOVASCULAR SYSTEM: PMI not localized. S1 and S2. No additional sounds. ABDOMEN: Normoactive bowel sounds. No tenderness. No organomegaly. No masses. EXTREMITIES: No cyanosis, no clubbing, no edema. CENTRAL NERVOUS SYSTEM: Alert, awake and oriented x2. No neurological deficits could be appreciated except for the left upper eyelid ptosis. ASSESSMENT: 1. Diabetic ketoacidosis. 2. Left upper thigh abscess. 3. Hypothyroidism. 4. Diabetic neuropathy. PLAN: We will change IV fluids to D5 half normal saline. Adjust supplemental electrolytes and give potassium chloride 40 mEq today. Monitor any change of the electrolytes and continue insulin drip. Discussed the patient condition in detail with the patient himself who expressed understanding at the bedside. The patient also was discussed with the tape stringer as well as with the nurse. Time spent in this patient was 40 minutes. [facility] MD Dante
== END 2017-05-06 17:30 | disposition home or self-care (01) | DRG 579 ==
LOC: H.ER 20:59 → H.ERHOLD 23:54 → OBSVTOIN 23:54 → H.ICU/CCU 05-05 02:07
PROVIDERS: ADMIT Internal Medicine; ATTEND Internal Medicine
PROC: 0Y960ZZ Drainage of Left Inguinal Region, Open Approach (ICD-10-PCS; principal; 2017-05-04)
DX: L02.214 Cutaneous abscess of groin (principal); E13.10 Other specified diabetes mellitus with ketoacidosis without coma; E11.42 Type 2 diabetes mellitus with diabetic polyneuropathy; E11.51 Type 2 diabetes mellitus with diabetic peripheral angiopathy without gangrene; L97.429 Non-pressure chronic ulcer of left heel and midfoot with unspecified severity; I10 Essential (primary) hypertension; Z79.4 Long term (current) use of insulin; E78.00 Pure hypercholesterolemia, unspecified; E03.9 Hypothyroidism, unspecified; E78.5 Hyperlipidemia, unspecified; Z91.19 Patient's noncompliance with other medical treatment and regimen; E86.0 Dehydration; Z89.431 Acquired absence of right foot

== ENCOUNTER 2017-09-15 13:39 | Inpatient (IN) | payer MEDICARE, MEDICAID ==
[2017-09-15 13:39] VITALS: BMI 27.4
[2017-09-15] MEDS ORDERED: Morphine 4 MG/ML VIAL ONE ×3 (14:12→18:48)
[2017-09-15 14:43] LABS: BASO # 0.1 K/uL (0.0-0.2); BASO % 0.9 % (0.0-2.0); EOS % 0.2 % (0.0-4.0); HEMOGLOBIN 11.3 g/dL (12.0-18.0); LYMPH # 2.4 K/uL (1.0-4.3); LYMPH % 20.8 % (20.0-40.0); MEAN CELL VOLUME 82.9 fl (80.0-94.0); MEAN CORPUSCULAR HEMOGLOBIN 26.7 pg (27.0-31.0); MEAN CORPUSCULAR HGB CONC 32.2 g/dL (33.0-37.0); MEAN PLATELET VOLUME 8.8 fl (7.2-11.7); MONO # 0.8 K/uL (0.0-0.8); MONO % 6.5 % (0.0-10.0); NEUT # 8.3 K/uL (1.8-7.0); NEUT % 71.6 % (50.0-75.0); NRBC % 0.1 % (0.0-0.0); RBC 4.24 Mil/uL (4.40-5.90); RED CELL DISTRIBUTION WIDTH 14.1 % (11.5-14.5); WHITE BLOOD COUNT 11.6 K/uL (4.8-10.8)
--- NOTE | 2017-09-15 14:45 | RAD ---
HISTORY: SOB COMPARISON: No prior. FINDINGS: LUNGS: No active pulmonary disease. PLEURA: No significant pleural effusion identified, no pneumothorax apparent. CARDIOVASCULAR: Normal. OSSEOUS STRUCTURES: No significant abnormalities. VISUALIZED UPPER ABDOMEN: Normal. OTHER FINDINGS: None. IMPRESSION: No active disease.
[2017-09-15 15:01] LABS: ALB/GLOB RATIO 0.7 (1.0-2.1); ALBUMIN 3.9 g/dL (3.5-5.0); CALCIUM 9.6 mg/dL (8.4-10.2); GFR AFRICAN-AMERICAN > 60; GFR NON-AFRICAN AMERICAN > 60; LIPASE 305 U/L (23-300)
[2017-09-15 15:14] LABS: B-TYPE NATRIURETIC PEPTIDE 137 pg/ml (0-450)
[2017-09-15 15:15] LABS: ALT/SGPT 30 U/L (21-72); AST/SGOT 69 U/L (17-59); BLOOD UREA NITROGEN 14 mg/dl (9-20)
[2017-09-15] MEDS ORDERED: Sodium Chloride 0.9% 50 ML IV ONE (15:16)
[2017-09-15] MEDS ORDERED: Iodixanol 320 MG/ML 100 ML BOTTLE IV ONE (15:16)
[2017-09-15] MEDS ORDERED: Sodium Chloride 0.9% 1,000 ML IV STA (15:22)
[2017-09-15 15:38] LABS: INR 1.2 (0.9-1.2); PARTIAL THROMBOPLASTIN TIME 28.9 Seconds (25.6-37.1); PROTHROMBIN TIME 13.6 Seconds (9.8-13.1)
[2017-09-15 15:40] LABS: VENOUS BLOOD GAS BASE EXCESS 4.3 mmol/L (0.0-2.0); VENOUS BLOOD GAS PCO2 53 mmHg (40-60); VENOUS BLOOD GAS PO2 28 mm/Hg (30-55); VENOUS BLOOD PH 7.37 (7.32-7.43)
--- NOTE | 2017-09-15 17:18 | CT ---
PROCEDURE: CT Chest with contrast (Pulmonary Angiogram) HISTORY: chest pain tachycardia recent L BKA COMPARISON: None available. TECHNIQUE: Axial computed tomography images were obtained of the chest in the pulmonary arterial phase of enhancement. Coronal and sagittal reformatted images were created and reviewed. Intravenous contrast dose: 100 mL Visipaque 320 Radiation dose: Total exam DLP = 415 mGy-cm. This CT exam was performed using one or more of the following dose reduction techniques: Automated exposure control, adjustment of the mA and/or kV according to patient size, and/or use of iterative reconstruction technique. FINDINGS: PULMONARY ARTERIES: Unremarkable. No pulmonary embolism. AORTA: No acute findings. No thoracic aortic aneurysm. LUNGS: Dependent atelectasis. No nodule, mass or pulmonary consolidation. PLEURAL SPACES: Unremarkable. No effusion or pneuomothorax. HEART: Unremarkable. No cardiomegaly. No significant pericardial effusion. LYMPH NODES: No lymphadenopathy. BONES, CHEST WALL: Unremarkable. No fracture or destructive lesion OTHER FINDINGS: Unremarkable. IMPRESSION: Unremarkable CT pulmonary angiogram. No pulmonary embolus.
--- NOTE | 2017-09-15 17:45 | ED PDOC ---
HPI: Chest Pain Time Seen by Provider: 09/15/17 14:00 Chief Complaint (Nursing): Chest Pain Chief Complaint (Provider): chest pain, SOB, leg pain History Per: Patient, Family (mother) Onset/Duration Of Symptoms: Hrs (4), Sudden Onset Current Symptoms Are (Timing): Still Present Severity: Severe Quality: Sharp, Tightness Associated Symptoms: Dyspnea. denies: Nausea, Diaphoresis Modifying Factors: None Exacerbating Factors: Movement, Deep Breathing Additional Complaint(s): 41yo male s/p L B[facility], presents c/o sudden onset chest pain and SOB this morning. Denies syncope, fever, cough or hemoptysis. States takes pradaxa and ASA daily. BKA due to severe PVD. Past Medical History Reviewed: Historical Data, Nursing Documentation, Vital Signs Vital Signs: Last Vital Signs Temp 96.7 F L 09/15/17 13:42 Pulse 101 H 09/15/17 16:03 Resp 16 09/15/17 16:03 BP 128/78 09/15/17 16:03 Pulse Ox 97 09/15/17 16:03 - Medical History PMH: Anxiety, Diabetes, HTN, Hypercholesterolemia, Hypothyroidism Denies: Chronic Kidney Disease Other PMH: PVD - Surgical History Surgical History: Appendectomy, Tonsillectomy Other surgeries: R TMA , L BKA - Living Arrangements Living Arrangements: [facility] - Social History Current smoker - smoking cessation education provided: No - Immunization History Hx Tetanus Toxoid Vaccination: Yes Hx Influenza Vaccination: Yes Hx Pneumococcal Vaccination: No - Home Medications Home Medications: Ambulatory Orders Medication Instructions Recorded Acetaminophen [Tylenol 325mg tab] 2 tab PO Q4 09/15/17 Acetaminophen/Oxycodone Hydr 1 tab PO Q6 PRN 09/15/17 [Percocet 2.5/325 mg Tab] Aluminum Hydroxide/Magnesium 30 ml PO QID 09/15/17 [Maalox Plus 30 ml] Clopidogrel [Plavix] 75 mg PO DAILY 09/15/17 Famotidine [Pepcid] 20 mg PO DAILY 09/15/17 Fentanyl [Duragesic Patch] 1 patch TOP Q72 09/15/17 Gabapentin [Neurontin] 800 mg PO TID 09/15/17 Insulin Glargine, Recombina 12 unit SC HS 09/15/17 [Lantus] Insulin Lispro [humALOG] 1 unit SC BID 09/15/17 Levothyroxine [Synthroid] 25 mg PO DAILY 09/15/17 Magnesium Hydroxide [Milk Of 30 ml PO DAILY PRN 09/15/17 Magnesia] Metoprolol Tartrate [Lopressor] 25 mg PO Q12 09/15/17 Temazepam [Restoril] 15 mg PO HS 09/15/17 guaiFENesin [Robitussin] 10 ml PO Q4 09/15/17 oxyCODONE/Acetaminophen [Percocet 1 tab PO Q6 PRN 09/15/17 5/325 mg Tab] - Allergies Allergies/Adverse Reactions: Allergies Allergy/AdvReac Type Severity Reaction Status Date / Time No Known Allergies Allergy Verified 11/08/14 21:27 Review of Systems ROS Statement: Except As Marked, All Systems Reviewed And Found Negative Constitutional: Negative for: Fever, Chills Cardiovascular: Positive for: Chest Pain, Palpitations, Light Headedness. Negative for: Orthopnea, Edema Respiratory: Positive for: Cough, Shortness of Breath Gastrointestinal: Negative for: Abdominal Pain Genitourinary Male: Negative for: Dysuria Musculoskeletal: Negative for: Neck Pain Skin: Negative for: Rash, Lesions Neurological: Positive for: Weakness, Dizziness. Negative for: Numbness, Headache Psych: Negative for: Suicidal ideation Physical Exam - Reviewed Nursing Documentation Reviewed: Yes Vital Signs Reviewed: Yes - Physical Exam Appears: Positive for: Non-toxic, Uncomfortable (chronically ill appearing) Head Exam: Positive for: ATRAUMATIC, NORMAL INSPECTION, NORMOCEPHALIC Skin: Positive for: Normal Color, Warm, DRY Eye Exam: Positive for: EOMI, Normal appearance, PERRL ENT: Positive for: Normal ENT Inspection Neck: Positive for: Normal, Painless ROM Cardiovascular/Chest: Positive for: Tachycardia, Other (fentanyl 50mg patch on anterior chest wall). Negative for: Irregularly Irregular Respiratory: Positive for: Normal Breath Sounds. Negative for: Rhonchi, Respiratory Distress Gastrointestinal/Abdominal: Positive for: Bowel Sounds, Soft. Negative for: Tenderness Back: Positive for: Normal Inspection Extremity: Positive for: Tenderness, Swelling (mild LLE BKA stump edema, mynor in place, no bleeding or discharge) Neurologic/Psych: Positive for: Alert, Oriented. Negative for: Motor/Sensory Deficits - Laboratory Results Result Diagrams: 09/15/17 14:33 09/15/17 14:33 - ECG O2 Sat by Pulse Oximetry: 97 Disposition - Disposition Condition: STABLE
[2017-09-15] MEDS ORDERED: OXYCODONE HYDR PO PRN (18:10)
[2017-09-15] MEDS ORDERED: Magnesium Hydroxide Susp 30 ml UD PO PRN (18:10)
[2017-09-15] MEDS ORDERED: ACETAMINOPHEN PO PRN (18:10)
--- NOTE | 2017-09-15 18:15 | CP.PCM.HP ---
History of Present Illness - History of Present Illness History of Present Illness: chief complaint chest pain History of present illness: 41-year-old male past medical history of Diabetes, HTN, Hypercholesterolemia, Hypothyroidism, and is status post left BKA 2 weeks ago at [facility], presents to the emergency room today with acute onset chest pain several hours prior to admission, moderate in nature associated with dyspnea nonradiating. In the ER, patient EKG and troponin have been unremarkable. We will trend cardiac enzymes and rule out for concern for ACS. Patient is hemodynamically stable in no distress. ROS: Per HPI all other systems reviewed by me Present on Admission - Present on Admission Any Indicators Present on Admission: No Past Patient History - Past Medical History & Family History Past Medical History?: Yes - Past Social History Smoking Status: Never Smoked - CARDIAC Hx Hypercholesterolemia: Yes Hx Hypertension: Yes - PULMONARY Hx Respiratory Disorders: No - NEUROLOGICAL Hx Neurological Disorder: Yes (PERIPHERAL NEUROPATHY) Other/Comment: Neuralgia, Neuritis - HEENT Hx HEENT Problems: No - RENAL Hx Chronic Kidney Disease: No - ENDOCRINE/METABOLIC Hx Hypothyroidism: Yes - HEMATOLOGICAL/ONCOLOGICAL Hx Blood Disorders: No - INTEGUMENTARY Hx Dermatological Problems: Yes (HX GANGRENE TOES RIGHT FOOT AMPUTATION) - MUSCULOSKELETAL/RHEUMATOLOGICAL Hx Musculoskeletal Disorders: Yes Other/Comment: 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 - GASTROINTESTINAL Hx Gastrointestinal Disorders: No - GENITOURINARY/GYNECOLOGICAL Hx Genitourinary Disorders: No - PSYCHIATRIC Hx Anxiety: Yes - SURGICAL HISTORY Hx Appendectomy: Yes Hx Tonsillectomy: Yes - ANESTHESIA Hx Anesthesia: Yes Hx Anesthesia Reactions: No Hx Malignant Hyperthermia: No Meds Allergies/Adverse Reactions: Allergies Allergy/AdvReac Type Severity Reaction Status Date / Time No Known Allergies Allergy Verified 11/08/14 21:27 Physical Exam - Constitutional Appears: Non-toxic, No Acute Distress - Head Exam Head Exam: ATRAUMATIC, NORMOCEPHALIC - Eye Exam Eye Exam: EOMI, Normal appearance, PERRL Pupil Exam: NORMAL ACCOMODATION - ENT Exam ENT Exam: Mucous Membranes Moist, Normal Oropharynx - Neck Exam Neck exam: Positive for: Full Rom, Normal Inspection - Respiratory Exam Respiratory Exam: Clear to Auscultation Bilateral, NORMAL BREATHING PATTERN - Cardiovascular Exam Cardiovascular Exam: RRR, +S1, +S2 - GI/Abdominal Exam GI & Abdominal Exam: Normal Bowel Sounds, Soft. absent: Organomegaly, Tenderness - Extremities Exam Extremities exam: Negative for: joint swelling, pedal edema - Back Exam Back exam: absent: CVA tenderness (L), CVA tenderness (R), paraspinal tenderness - Neurological Exam Neurological exam: Alert, Oriented x3 - Psychiatric Exam Psychiatric exam: Normal Affect, Normal Mood Results - Vital Signs Recent Vital Signs: Last Vital Signs Temp 96.7 F L 09/15/17 13:42 Pulse 101 H 09/15/17 16:03 Resp 16 09/15/17 16:03 BP 128/78 09/15/17 16:03 Pulse Ox 97 09/15/17 17:46 - Labs Result Diagrams: 09/15/17 14:33 09/15/17 14:33 Labs: Laboratory Results - last 24 hr 09/15/17 09/15/17 09/15/17 14:33 14:33 14:33 WBC 11.6 H D RBC 4.24 L Hgb 11.3 L Hct 35.1 MCV 82.9 D MCH 26.7 L MCHC 32.2 L RDW 14.1 Plt Count 430 H D MPV 8.8 Neut % (Auto) 71.6 Lymph % (Auto) 20.8 [place] % (Auto) 6.5 Eos % (Auto) 0.2 Baso % (Auto) 0.9 Neut # 8.3 H Lymph # 2.4 Jewell # 0.8 Eos # 0.0 Baso # 0.1 PT 13.6 H INR 1.2 APTT 28.9 pO2 VBG pH VBG pCO2 VBG HCO3 VBG Total CO2 VBG O2 Sat (Calc) VBG Base Excess VBG Potassium Glucose Lactate FiO2 Sodium 137 Potassium 5.0 Chloride 99 Carbon Dioxide 29 Anion Gap 14 BUN 14 Creatinine 0.8 Est GFR ( Amer) > 60 Est GFR (Non-Af Amer) > 60 Random Glucose 196 H Calcium 9.6 Total Bilirubin 0.6 AST 69 H D ALT 30 Alkaline Phosphatase 273 H D Troponin I < 0.0120 NT-Pro-B Natriuret Pep 137 Total Protein 9.2 H Albumin 3.9 Globulin 5.3 H Albumin/Globulin Ratio 0.7 L Lipase 305 H Venous Blood Potassium 09/15/17 15:24 WBC RBC Hgb Hct MCV MCH MCHC RDW Plt Count MPV Neut % (Auto) Lymph % (Auto) Jewell % (Auto) Eos % (Auto) Baso % (Auto) Neut # Lymph # Jewell # Eos # Baso # PT INR APTT pO2 28 L VBG pH 7.37 VBG pCO2 53 VBG HCO3 27.3 VBG Total CO2 32.2 H VBG O2 Sat (Calc) 55.1 VBG Base Excess 4.3 H VBG Potassium 4.5 Glucose 174 H Lactate 0.9 FiO2 21.0 Sodium 136.0 Potassium Chloride 102.0 Carbon Dioxide Anion Gap BUN Creatinine Est GFR ( Amer) Est GFR (Non-Af Amer) Random Glucose Calcium Total Bilirubin AST ALT Alkaline Phosphatase Troponin I NT-Pro-B Natriuret Pep Total Protein Albumin Globulin Albumin/Globulin Ratio Lipase Venous Blood Potassium 4.5 Assessment & Plan - Assessment and Plan (Free Text) Plan: 41-year-old male past medical history of Diabetes, HTN, Hypercholesterolemia, Hypothyroidism, and is status post left BKA 2 weeks ago at [facility], presents to the emergency room today with acute onset chest pain several hours prior to admission, moderate in nature associated with dyspnea nonradiating. In the ER, patient EKG and troponin have been unremarkable. We will trend cardiac enzymes and rule out for concern for ACS. Patient is hemodynamically stable in no distress. Chest Pain CAD? EKG and Troponin in ER intially unremarkable trend cardiac enzymes, lipid panel pending cont ASA, Plavix monitor on telemetry overnight DM accuchecks insulin sliding scale home lantus S/P BKA pain control with percocet and fentanyl patch Hypothyroid cont synthroid VTE ppx lovenox
[2017-09-15] MEDS ORDERED: Oxycodone/Acetaminophen 5/325 mg Tab PO PRN (18:51)
[2017-09-15] MEDS: Morphine 4 MG/ML VIAL IVP PRN (21:30)
[2017-09-15] MEDS ORDERED: Insulin Detemir 100 Units/ml Inj SC SCH (22:00)
[2017-09-15] MEDS: Insulin Lispro (humaLOG) 100 Units/ml Inj SC SCH (23:08)
[2017-09-15] MEDS: Alum-Mag Hydrox-Simethicone Susp (30 mL) PO SCH (23:09)
[2017-09-16] MEDS: Morphine 4 MG/ML VIAL IVP PRN ×2 (03:00→08:22)
[2017-09-16] MEDS ORDERED: Morphine 4 MG/ML VIAL IVP ONE (05:00)
[2017-09-16 06:25] LABS: HEMOGLOBIN 10.6 g/dL (12.0-18.0); MEAN CELL VOLUME 83.1 fl (80.0-94.0); MEAN CORPUSCULAR HEMOGLOBIN 26.8 pg (27.0-31.0); MEAN CORPUSCULAR HGB CONC 32.3 g/dL (33.0-37.0); RBC 3.95 Mil/uL (4.40-5.90); RED CELL DISTRIBUTION WIDTH 14.4 % (11.5-14.5); WHITE BLOOD COUNT 8.6 K/uL (4.8-10.8)
[2017-09-16] MEDS ORDERED: Levothyroxine 25 MCG TAB PO SCH (06:30)
[2017-09-16 06:45] LABS: BLOOD UREA NITROGEN 10 mg/dl (9-20); CALCIUM 9.1 mg/dL (8.4-10.2); GFR AFRICAN-AMERICAN > 60; GFR NON-AFRICAN AMERICAN > 60; HDL CHOLESTEROL 25 MG/DL (30-70)
[2017-09-16] MEDS: Insulin Lispro (humaLOG) 100 Units/ml Inj SC SCH ×2 (06:46→12:37)
[2017-09-16 06:53] LABS: LDL CHOLESTEROL < 30 mg/dL (0-129)
[2017-09-16] MEDS ORDERED: Enoxaparin 40 mg Syringe SC SCH (09:00)
--- NOTE | 2017-09-16 09:27 | CP.PCM.DIS ---
Provider - Provider Date of Admission: 09/15/17 17:43 Attending physician: Lilia Daniel DO Primary care physician: Dr. Hickey Consults: none Time Spent in preparation of Discharge (in minutes): 15 Hospital Course - Lab Results Lab Results: Most Recent Lab Values WBC 8.6 K/uL (4.8-10.8) 09/16/17 05:50 RBC 3.95 Mil/uL (4.40-5.90) L 09/16/17 05:50 Hgb 10.6 g/dL (12.0-18.0) L 09/16/17 05:50 Hct 32.8 % (35.0-51.0) L 09/16/17 05:50 MCV 83.1 fl (80.0-94.0) 09/16/17 05:50 MCH 26.8 pg (27.0-31.0) L 09/16/17 05:50 MCHC 32.3 g/dL (33.0-37.0) L 09/16/17 05:50 RDW 14.4 % (11.5-14.5) 09/16/17 05:50 Plt Count 350 K/uL (130-400) 09/16/17 05:50 MPV 8.8 fl (7.2-11.7) 09/15/17 14:33 Neut % (Auto) 71.6 % (50.0-75.0) 09/15/17 14:33 Lymph % (Auto) 20.8 % (20.0-40.0) 09/15/17 14:33 [place] % (Auto) 6.5 % (0.0-10.0) 09/15/17 14:33 Eos % (Auto) 0.2 % (0.0-4.0) 09/15/17 14:33 Baso % (Auto) 0.9 % (0.0-2.0) 09/15/17 14:33 Neut # 8.3 K/uL (1.8-7.0) H 09/15/17 14:33 Lymph # 2.4 K/uL (1.0-4.3) 09/15/17 14:33 [place] # 0.8 K/uL (0.0-0.8) 09/15/17 14:33 Eos # 0.0 K/uL (0.0-0.7) 09/15/17 14:33 Baso # 0.1 K/uL (0.0-0.2) 09/15/17 14:33 PT 13.6 Seconds (9.8-13.1) H 09/15/17 14:33 INR 1.2 (0.9-1.2) 09/15/17 14:33 APTT 28.9 Seconds (25.6-37.1) 09/15/17 14:33 pO2 28 mm/Hg (30-55) L 09/15/17 15:24 VBG pH 7.37 (7.32-7.43) 09/15/17 15:24 VBG pCO2 53 mmHg (40-60) 09/15/17 15:24 VBG HCO3 27.3 mmol/L 09/15/17 15:24 VBG Total CO2 32.2 mmol/L (22-28) H 09/15/17 15:24 VBG O2 Sat (Calc) 55.1 % (40-65) 09/15/17 15:24 VBG Base Excess 4.3 mmol/L (0.0-2.0) H 09/15/17 15:24 VBG Potassium 4.5 mmol/L (3.6-5.2) 09/15/17 15:24 Sodium 136.0 mmol/L (132-148) 09/15/17 15:24 Chloride 102.0 mmol/L (98-107) 09/15/17 15:24 Glucose 174 mg/dL (75-110) H 09/15/17 15:24 Lactate 0.9 mmol/L (0.7-2.1) 09/15/17 15:24 FiO2 21.0 % 09/15/17 15:24 Sodium 139 mmol/l (132-148) 09/16/17 05:50 Potassium 4.3 MMOL/L (3.6-5.0) 09/16/17 05:50 Chloride 103 mmol/L (98-107) 09/16/17 05:50 Carbon Dioxide 26 mmol/L (22-30) 09/16/17 05:50 Anion Gap 14 (10-20) 09/16/17 05:50 BUN 10 mg/dl (9-20) 09/16/17 05:50 Creatinine 0.7 mg/dl (0.8-1.5) L 09/16/17 05:50 Est GFR ( Amer) > 60 09/16/17 05:50 Est GFR (Non-Af Amer) > 60 09/16/17 05:50 POC Glucose (mg/dL) 126 mg/dL (65-110) H 09/16/17 05:35 Random Glucose 145 mg/dL (75-110) H 09/16/17 05:50 Calcium 9.1 mg/dL (8.4-10.2) 09/16/17 05:50 Total Bilirubin 0.6 mg/dl (0.2-1.3) 09/15/17 14:33 AST 69 U/L (17-59) H D 09/15/17 14:33 ALT 30 U/L (21-72) 09/15/17 14:33 Alkaline Phosphatase 273 U/L (38-126) H D 09/15/17 14:33 Troponin I < 0.0120 ng/mL (0.00-0.120) 09/16/17 05:50 NT-Pro-B Natriuret Pep 137 pg/ml (0-450) 09/15/17 14:33 Total Protein 9.2 G/DL (6.3-8.2) H 09/15/17 14:33 Albumin 3.9 g/dL (3.5-5.0) 09/15/17 14:33 Globulin 5.3 gm/dL (2.2-3.9) H 09/15/17 14:33 Albumin/Globulin Ratio 0.7 (1.0-2.1) L 09/15/17 14:33 Triglycerides 167 mg/DL (0-149) H 09/16/17 05:50 Cholesterol 85 mg/dL (0-199) 09/16/17 05:50 LDL Cholesterol Direct < 30 mg/dL (0-129) 09/16/17 05:50 HDL Cholesterol 25 MG/DL (30-70) L 09/16/17 05:50 Lipase 305 U/L (23-300) H 09/15/17 14:33 Venous Blood Potassium 4.5 mmol/L (3.6-5.2) 09/15/17 15:24 - Hospital Course Hospital Course: 41-year-old male with past medical history of Diabetes, HTN, Hypercholesterolemia, Hypothyroidism, and is status post left BKA 2 weeks ago at [facility], presented to the emergency room today with acute onset chest pain several hours prior to admission, moderate in nature associated with dyspnea nonradiating. In the ER, patient EKG and troponin have been unremarkable. CT chest showed no PE , no active disease. patient was placed under observation in telemtery for chest pain to rule out ACS. . cardiac enzymes were prdered Q8 hours and were all negative.Acute coronary syndrome ruled out. At present patient is chest pain free, hemodynamically stable. Will discharge patient back to [facility] with same home mediations. Follow up with PMD Dr. Hickey 1. Atypical Chest Pain-- ACS ruled out trop x3 negative continue ASa and plavix 2.DM controlled accuchecks insulin sliding scale home lantus 3.S/P left BKA pain control with percocet and fentanyl patch 4.Hypothyroid cont synthroid 5.HTN resumed home meds controlled 6. Anemia unclear etiology Hgb 10 Discharge Exam - Head Exam Head Exam: ATRAUMATIC, NORMOCEPHALIC - Eye Exam Eye Exam: PERRL - ENT Exam ENT Exam: Mucous Membranes Moist, Normal Exam - Neck Exam Neck exam: Normal Inspection - Respiratory Exam Respiratory Exam: Clear to PA & Lateral, NORMAL BREATHING PATTERN. absent: Rhonchi, Wheezes, Respiratory Distress - Cardiovascular Exam Cardiovascular Exam: REGULAR RHYTHM, RRR, +S1, +S2. absent: JVD - GI/Abdominal Exam GI & Abdominal Exam: Normal Bowel Sounds, Soft. absent: Distended, Guarding, Rebound, Tenderness - Rectal Exam Rectal Exam: Deferred - Extremities Exam Additional comments: Left BKA stump with mynor and edema right TMA - Back Exam Back exam: NORMAL INSPECTION - Neurological Exam Neurological exam: Alert, CN II-XII Intact, Oriented x3 - Psychiatric Exam Psychiatric exam: Normal Affect - Skin Skin Exam: Dry, Warm Discharge Plan - Follow Up Plan Condition: STABLE Disposition: TRANSF TO SNF Patient education suggested?: Yes Referrals: Juan Hickey MD [Family Provider] -
[2017-09-16] MEDS: Alum-Mag Hydrox-Simethicone Susp (30 mL) PO SCH ×2 (10:01→12:39)
[2017-09-16 12:41] VITALS: BP 99/67; PULSE 96; RESP 18; TEMP 98.4; O2SAT 95
== END 2017-09-16 15:00 | DRG 313 ==
LOC: H.ER 13:39 → H.ERHOLD 17:43 → H.TEL 19:38
PROVIDERS: ADMIT Student in an Organized Health Care Education/Training Program; ATTEND Student in an Organized Health Care Education/Training Program
DX: R07.89 Other chest pain (principal); E11.42 Type 2 diabetes mellitus with diabetic polyneuropathy; E11.51 Type 2 diabetes mellitus with diabetic peripheral angiopathy without gangrene; E78.00 Pure hypercholesterolemia, unspecified; Z89.512 Acquired absence of left leg below knee; Z90.49 Acquired absence of other specified parts of digestive tract; F41.9 Anxiety disorder, unspecified; Z89.421 Acquired absence of other right toe(s); D64.9 Anemia, unspecified; E03.9 Hypothyroidism, unspecified; Z79.4 Long term (current) use of insulin

== ENCOUNTER 2017-09-20 00:55 | Observation (INO) | payer MEDICARE, MEDICAID ==
[2017-09-20 00:56] VITALS: BMI 27.4
--- NOTE | 2017-09-20 01:39 | ED PDOC ---
Lower Extremity Pain/Injury Time Seen by Provider: 09/20/17 01:14 Chief Complaint (Nursing): Lower Extremity Problem/Injury Chief Complaint (Provider): Left Leg Pain History Per: Patient History/Exam Limitations: no limitations Onset/Duration Of Symptoms: Days (14 days ago) Current Symptoms Are (Timing): Still Present Additional Complaint(s): 41 y/o male with a history Diabetes Mellitus and Peripheral Arterial Disease, presents to the ED complaining of intractable leg pain radiating to the lower back, onset of 14 days ago. Patient reports of having a below the knee amputation, secondary to the patient's PAD, 2 weeks ago at [facility] , and states that the pain began shortly after. As per facility, patient has received Percocet around the clock, is on a Fentanyl patch without any relief. Of note, patient also sustained a toe amputation on the right foot. pcp: Juan Hickey Past Medical History Reviewed: Historical Data, Nursing Documentation, Vital Signs Vital Signs: Last Vital Signs Temp 98.4 F 09/20/17 00:58 Pulse 119 H 09/20/17 00:58 Resp 16 09/20/17 00:58 BP 131/72 09/20/17 00:58 Pulse Ox 98 09/20/17 00:58 - Medical History PMH: Anxiety, Diabetes, HTN, Hypercholesterolemia, Hypothyroidism Denies: Chronic Kidney Disease Other PMH: Peripheral Arterial Disease - Surgical History Surgical History: Appendectomy, Tonsillectomy Other surgeries: Below knee amputation to left leg; Amputation of toes on rt foot - Family History Family History: States: Unknown Family Hx - Social History Current smoker - smoking cessation education provided: No Ex-Smoker (has not smoked in the last 12 months): No Alcohol: None Drugs: Denies - Immunization History Hx Tetanus Toxoid Vaccination: Yes Hx Influenza Vaccination: Yes Hx Pneumococcal Vaccination: No - Home Medications Home Medications: Ambulatory Orders Medication Instructions Recorded Acetaminophen [Tylenol 325mg tab] 2 tab PO Q4 09/15/17 Acetaminophen/Oxycodone Hydr 1 tab PO Q6 PRN 09/15/17 [Percocet 2.5/325 mg Tab] Aluminum Hydroxide/Magnesium 30 ml PO QID 09/15/17 [Maalox Plus 30 ml] Clopidogrel [Plavix] 75 mg PO DAILY 09/15/17 Famotidine [Pepcid] 20 mg PO DAILY 09/15/17 Fentanyl [Duragesic Patch] 1 patch TOP Q72 09/15/17 Gabapentin [Neurontin] 800 mg PO TID 09/15/17 Insulin Glargine, Recombina 12 unit SC HS 09/15/17 [Lantus] Insulin Lispro [humALOG] 1 unit SC BID 09/15/17 Levothyroxine [Synthroid] 25 mg PO DAILY 09/15/17 Magnesium Hydroxide [Milk Of 30 ml PO DAILY PRN 09/15/17 Magnesia] Metoprolol Tartrate [Lopressor] 25 mg PO Q12 09/15/17 Temazepam [Restoril] 15 mg PO HS 09/15/17 guaiFENesin [Robitussin] 10 ml PO Q4 09/15/17 oxyCODONE/Acetaminophen [Percocet 1 tab PO Q6 PRN 09/15/17 5/325 mg Tab] - Allergies Allergies/Adverse Reactions: Allergies Allergy/AdvReac Type Severity Reaction Status Date / Time No Known Allergies Allergy Verified 11/08/14 21:27 Review of Systems ROS Statement: Except As Marked, All Systems Reviewed And Found Negative Constitutional: Negative for: Fever Musculoskeletal: Positive for: Back Pain (lower back pain), Leg Pain (left ) Skin: Negative for: Rash Physical Exam - Reviewed Nursing Documentation Reviewed: Yes Vital Signs Reviewed: Yes - Physical Exam Appears: Positive for: Non-toxic, No Acute Distress. Negative for: Uncomfortable Head Exam: Positive for: ATRAUMATIC, NORMOCEPHALIC Skin: Positive for: Normal Color, Warm Eye Exam: Positive for: Normal appearance, EOMI, PERRL Neck: Positive for: Normal, Painless ROM, Supple Cardiovascular/Chest: Positive for: Regular Rate, Rhythm. Negative for: Murmur Respiratory: Positive for: Normal Breath Sounds. Negative for: Respiratory Distress Pulses-Radial (L): 2+ Pulses-Radial (R): 2+ Gastrointestinal/Abdominal: Positive for: Normal Exam, Soft. Negative for: Tenderness Back: Positive for: Normal Inspection Extremity: Positive for: Normal ROM, Tenderness (mild tenderness to left belown knee), Other (soft, mild tender, no crepitus, no discharge, no erythema, wound present at site of amputation is healing, Scar along amputation site). Negative for: Pedal Edema, Swelling Neurologic/Psych: Positive for: Alert, Oriented. Negative for: Motor/Sensory Deficits - Laboratory Results Result Diagrams: 09/20/17 01:55 09/20/17 01:55 - ECG O2 Sat by Pulse Oximetry: 98 (RA) Pulse Ox Interpretation: Normal Medical Decision Making Medical Decision Making: Time: --01:24 Impression: --Leg Pain status post BKA Differential: --Post operative pain vs. Pain from Peripheral Arterial Disease vs. Sciatica vs. Diabetic Neuropathy. R/o osteomyelitis. No evidence of compartment syndrome. Plan: --CT EXT Lower with Contrast --Labs --Erythrocyte Sedimentation --Hydromorphone 1mg IVP --Finger Stick Reassess --03:43 EXAM:CT Left Lower Extremity With Intravenous Contrast, Femur FINDINGS: Bones/joints: Below the knee amputation. No acute fracture. No dislocation. No definite cortical destruction. Heterotopic ossification about left ischium. Soft tissues: No discrete peripherally enhancing fluid collection. Vasculature: Atherosclerotic disease of visualized arteries. Stents within left superficial femoral to popliteal arteries. Occlusion of superficial femoral to popliteal arteries. Moderate stenosis of left common femoral artery. IMPRESSION: 1. Below the knee amputation. 2. Occlusion of left superficial femoral to popliteal arteries. 3. Incidental/non-acute findings are described above. Thank you for allowing us to participate in the care of your patient. --:18 Labs reviewed and were remarkable for elevated ESR. Patient still complains of sever pain that has not improved after being given Hydromorphone. Patient to be admitted under [facility] for intractable pain. Scribe Attestation: Documented by Frandy Aviles acting as a scribe for Andi Frances MD Disposition - Clinical Impression Clinical Impression: Intractable pain, Left leg pain - Patient ED Disposition Is Patient to be Admitted: Yes Discussed With DrLenny: Javon Crockett Doctor Will See Patient In The: Hospital Counseled Patient/Family Regarding: Studies Performed, Diagnosis, Need For Followup - Disposition Disposition Time: :18 Condition: FAIR - Pt Status Changed To: Hospital Disposition Of: Observation - POA Present On Arrival: None
[2017-09-20 02:23] LABS: BLOOD UREA NITROGEN 13 mg/dl (9-20); CALCIUM 9.5 mg/dL (8.4-10.2); GFR AFRICAN-AMERICAN > 60; GFR NON-AFRICAN AMERICAN > 60
[2017-09-20 02:29] LABS: BASO % 0.5 % (0.0-2.0); EOS # 0.1 K/uL (0.0-0.7); EOS % 0.6 % (0.0-4.0); HEMOGLOBIN 10.4 g/dL (12.0-18.0); LYMPH % 19.9 % (20.0-40.0); MEAN CORPUSCULAR HEMOGLOBIN 26.4 pg (27.0-31.0); MEAN CORPUSCULAR HGB CONC 32.2 g/dL (33.0-37.0); MEAN PLATELET VOLUME 8.5 fl (7.2-11.7); MONO # 0.6 K/uL (0.0-0.8); MONO % 5.9 % (0.0-10.0); NEUT # 7.4 K/uL (1.8-7.0); NEUT % 73.1 % (50.0-75.0); PLATELET COUNT 347 K/uL (130-400); RBC 3.93 Mil/uL (4.40-5.90); RED CELL DISTRIBUTION WIDTH 14.3 % (11.5-14.5); WHITE BLOOD COUNT 10.1 K/uL (4.8-10.8)
[2017-09-20] MEDS ORDERED: Sodium Chloride 0.9% 50 ML IV ONE (02:52)
[2017-09-20] MEDS ORDERED: Iohexol 300 100 ML IJ ONE (02:52)
--- NOTE | 2017-09-20 03:43 | CT ---
EXAM: CT Left Lower Extremity With Intravenous Contrast, Femur CLINICAL HISTORY: 41 years old, male; Pain; Thigh; Left; Prior surgery; Surgery date: <1 month; Surgery type: Bka; Additional info: Left lower leg pain sp bka TECHNIQUE: Axial computed tomography images of the left femur with intravenous contrast. All CT scans at this facility use one or more dose reduction techniques, viz.: automated exposure control; ma/kV adjustment per patient size (including targeted exams where dose is matched to indication; i.e. head); or iterative reconstruction technique. Coronal and sagittal reformatted images were created and reviewed. CONTRAST: 90 mL of cucmlxyal673 administered intravenously. COMPARISON: No relevant prior studies available. FINDINGS: Bones/joints: Below the knee amputation. No acute fracture. No dislocation. No definite cortical destruction. Heterotopic ossification about left ischium. Soft tissues: No discrete peripherally enhancing fluid collection. Vasculature: Atherosclerotic disease of visualized arteries. Stents within left superficial femoral to popliteal arteries. Occlusion of superficial femoral to popliteal arteries. Moderate stenosis of left common femoral artery. IMPRESSION: 1. Below the knee amputation. 2. Occlusion of left superficial femoral to popliteal arteries. 3. Incidental/non-acute findings are described above.
[2017-09-20] MEDS ORDERED: Sodium Chloride 0.9% 1,000 ML IV STA (04:19)
[2017-09-20] MEDS ORDERED: HYDROmorphone 0.5 mg/0.5 ml ISec IVP ONE (06:05)
[2017-09-20] MEDS ORDERED: Magnesium Hydroxide Susp 30 ml UD PO PRN (06:06)
[2017-09-20] MEDS ORDERED: HYDROmorphone 0.5 mg/0.5 ml ISec ONE (06:08)
[2017-09-20] MEDS ORDERED: HYDROmorphone 0.5 mg/0.5 ml ISec IVP PRN (06:10)
[2017-09-20] MEDS ORDERED: Silver Sulfadiazine 1% Cream (20 gm) TOP SCH (06:15)
[2017-09-20] MEDS ORDERED: Albuterol 0.042% Inhal Sol (1.25 mg/3 mL) UD INH SCH (06:15)
--- NOTE | 2017-09-20 06:46 | CP.PCM.HP ---
History of Present Illness - History of Present Illness History of Present Illness: This is a 41 year old male with a pmh significant for diabetes mellitus, HTN, hypercholesterolemia, hypothyroidism, s/p left BKA 2.5 weeks ago at [facility], who presented to the ED today complaining of worsening pain to his BKA site since yesterday. The pain is sharp, shooting pain, characterized as severe. The patient is on Fentanyl, Percocet, and Gabapentin at home for this pain but relates that these medications are not helping. In the ED, he has gotten Dilaudid with only minimal relief. The patient is to be admitted for further workup and management. He is hemodynamically stable at this time. Denies chest pain, sob, lethargy, headache, nausea, vomiting, or diarrhea. Labs are significant for an ESR of > 120. ROS: Per HPI all other systems reviewed by me. Present on Admission - Present on Admission Any Indicators Present on Admission: Yes History of Uncontrolled Diabetes: Yes Past Patient History - Past Medical History & Family History Past Medical History?: Yes - Past Social History Alcohol: None Drugs: Denies - CARDIAC Hx Hypercholesterolemia: Yes Hx Hypertension: Yes - PULMONARY Hx Respiratory Disorders: No - NEUROLOGICAL Hx Neurological Disorder: Yes (PERIPHERAL NEUROPATHY) Other/Comment: Neuralgia, Neuritis - HEENT Hx HEENT Problems: No - RENAL Hx Chronic Kidney Disease: No - ENDOCRINE/METABOLIC Hx Hypothyroidism: Yes - HEMATOLOGICAL/ONCOLOGICAL Hx Blood Disorders: No - INTEGUMENTARY Hx Dermatological Problems: Yes (HX GANGRENE TOES RIGHT FOOT AMPUTATION) - MUSCULOSKELETAL/RHEUMATOLOGICAL Hx Falls: No - GASTROINTESTINAL Hx Gastrointestinal Disorders: No - GENITOURINARY/GYNECOLOGICAL Hx Genitourinary Disorders: No - PSYCHIATRIC Hx Anxiety: Yes - SURGICAL HISTORY Hx Appendectomy: Yes Hx Tonsillectomy: Yes - ANESTHESIA Hx Anesthesia: Yes Hx Anesthesia Reactions: No Hx Malignant Hyperthermia: No Meds Allergies/Adverse Reactions: Allergies Allergy/AdvReac Type Severity Reaction Status Date / Time No Known Allergies Allergy Verified 11/08/14 21:27 Physical Exam - Additional Findings Additional findings: - Head Exam Head Exam: ATRAUMATIC, NORMOCEPHALIC - Eye Exam Eye Exam: PERRL - ENT Exam ENT Exam: Mucous Membranes Moist, Normal Exam - Neck Exam Neck exam: Normal Inspection - Respiratory Exam Respiratory Exam: Clear to PA & Lateral, NORMAL BREATHING PATTERN. absent: Rhonchi, Wheezes, Respiratory Distress - Cardiovascular Exam Cardiovascular Exam: REGULAR RHYTHM, RRR, +S1, +S2. absent: JVD - GI/Abdominal Exam GI & Abdominal Exam: Normal Bowel Sounds, Soft. absent: Distended, Guarding, Rebound, Tenderness - Rectal Exam Rectal Exam: Deferred - Extremities Exam Additional comments: Left BKA stump with mynor and edema right TMA - Back Exam Back exam: NORMAL INSPECTION - Neurological Exam Neurological exam: Alert, CN II-XII Intact, Oriented x3 - Psychiatric Exam Psychiatric exam: Normal Affect - Skin Skin Exam: Dry, Warm Results - Vital Signs Recent Vital Signs: Last Vital Signs Temp 98.2 F 09/20/17 04:19 Pulse 111 H 09/20/17 06:30 Resp 12 09/20/17 06:30 BP 90/56 L 09/20/17 06:30 Pulse Ox 97 09/20/17 06:30 - Labs Result Diagrams: 09/20/17 01:55 09/20/17 01:55 Labs: Laboratory Results - last 24 hr 09/20/17 09/20/17 09/20/17 01:39 01:55 01:55 WBC 10.1 RBC 3.93 L Hgb 10.4 L Hct 32.2 L MCV 82.0 MCH 26.4 L MCHC 32.2 L RDW 14.3 Plt Count 347 MPV 8.5 Neut % (Auto) 73.1 Lymph % (Auto) 19.9 L [place] % (Auto) 5.9 Eos % (Auto) 0.6 Baso % (Auto) 0.5 Neut # 7.4 H Lymph # 2.0 [place] # 0.6 Eos # 0.1 Baso # 0.0 ESR > 120 H Sodium 140 Potassium 4.3 Chloride 103 Carbon Dioxide 30 Anion Gap 11 BUN 13 Creatinine 0.8 Est GFR ( Amer) > 60 Est GFR (Non-Af Amer) > 60 POC Glucose (mg/dL) 120 H Random Glucose 131 H Calcium 9.5 Assessment & Plan - Assessment and Plan (Free Text) Plan: ASSESSMENT/PLAN This is a 41 year old male with a pmh significant for diabetes mellitus, HTN, hypercholesterolemia, hypothyroidism, s/p left BKA 2.5 weeks ago at [facility], who presented to the ED today complaining of worsening pain to his BKA site since yesterday. The pain is sharp, shooting pain, characterized as severe. The patient is on Fentanyl, Percocet, and Gabapentin at home for this pain but relates that these medications are not helping. In the ED, he has gotten Dilaudid with only minimal relief. The patient is to be admitted for further workup and management of his pain 1) Intractable pain to left BKA site - Place on tele/obs - Consultation with Dr. Harvey for PAD - Pain management consultation - Dilaudid sliding scale - Continue Fentanyl patch - Continue Gabapentin 2) DM - Accuchecks - Insulin sliding scale - Home lantus 3) Hypothyroidism - Continue Synthroid 4) DVT prophylaxis - Heparin SQ
[2017-09-20] MEDS ORDERED: Alum-Mag Hydrox-Simethicone Susp (30 mL) PO PRN (07:17)
[2017-09-20] MEDS ORDERED: Insulin Lispro (humaLOG) 100 Units/ml Inj SC SCH (07:30)
[2017-09-20] MEDS: Insulin Lispro (humaLOG) 100 Units/ml Inj SC SCH ×5 (07:45→22:52)
[2017-09-20] MEDS: Levothyroxine 25 MCG TAB PO SCH (08:00)
[2017-09-20] MEDS: Sodium Chloride 0.9% 1,000 ML IV SCH ×2 (08:09→14:15)
[2017-09-20] MEDS ORDERED: Alum-Mag Hydrox-Simethicone Susp (30 mL) PO SCH (09:00)
[2017-09-20] MEDS: HYDROmorphone 0.5 mg/0.5 ml ISec IVP PRN ×2 (11:55→17:57)
[2017-09-20] MEDS: Cilostazol 100 mg Tab UD PO SCH ×2 (11:58→22:25)
[2017-09-20] MEDS: Lidocaine 5% Patch TD SCH (12:05)
[2017-09-20] MEDS: guaiFENesin 100 mg/5 ml Syrup UD PO SCH ×3 (12:08→22:40)
--- NOTE | 2017-09-20 12:58 | CP.PCM.CON ---
History of Present Illness - History of Present Illness History of Present Illness: I was asked to evaluate patient given history of PAD. Patient is a 41 year old male with PMH DM, HTN, severe PAD who is s/p L BKA. The patient had surgery at [facility] one week ago, and now presents with pain in the surgical limb. He denies chest pain or dyspnea. Review of Systems - Constitutional Constitutional: absent: As Per HPI, Anorexia, Chills, Daytime Sleepiness, Excessive Sweating, Fatigue, Fever, Frequent Falls, Headache, Increased Appetite , Lethargy, Malaise, Night Sweats, Snoring, Sleep Apnea, Weight Gain, Weight Loss, Weakness, Other - EENT Eyes: absent: As Per HPI, Blind Spots, Blurred Vision, Change in Vision, Decreased Night Vision, Diplopia, Discharge, Dry Eye, Exophthalmos, Floaters, Irritation, Itchy Eyes, Loss of Peripheral Vision, Pain, Photophobia, Requires Corrective Lenses, Sees Flashes, Spots in Vision, Tunnel Vision, Other Visual Disturbances, Loss of Vision, Other Ears: absent: As Per HPI, Decreased Hearing, Ear Discharge, Ear Pain, Tinnitus, Abnormal Hearing, Disequilibrium, Dizziness, Other Nose/Mouth/Throat: absent: As Per HPI, Epistaxis, Nasal Congestion, Nasal Discharge, Nasal Obstruction, Nasal Trauma, Nose Pain, Post Nasal Drip, Sinus Pain, Sinus Pressure, Bleeding Gums, Change in Voice, Dental Pain, Dry Mouth, Dysphagia, Halitosis, Hoarsness, Lip Swelling, Mouth Lesions, Mouth Pain, Odynophagia, Sore Throat, Throat Swelling, Tongue Swelling, Facial Pain, Neck Pain, Neck Mass, Other - Cardiovascular Cardiovascular: absent: As Per HPI, Acrocyanosis, Chest Pain, Chest Pain at Rest , Chest Pain with Activity, Claudication, Diaphoresis, Dyspnea, Dyspnea on Exertion, Edema, Irregular Heart Rhythm, Pain Radiating to Arm/Neck/Jaw, Leg Edema, Leg Ulcers, Lightheadedness, Orthopnea, Palpitations, Paroxysmal Nocturnal Dyspnea, Pedal Edema, Radiating Pain, Rapid Heart Rate, Slow Heart Rate, Syncope, Other - Respiratory Respiratory: absent: As Per HPI, Cough, Dyspnea, Hemoptysis, Dyspnea on Exertion , Wheezing, Snoring, Stridor, Pain on Inspiration, Chest Congestion, Excessive Mucous Production, Change in Mucous Color, Pain with Coughing, Other - Gastrointestinal Gastrointestinal: absent: As Per HPI, Abdominal Pain, Belching, Bloating, Change in Bowel Habits, Change in Stool Character, Coffee Ground Emesis, Constipation, Cramping, Diarrhea, Dyspepsia, Dysphagia, Early Satiety, Excessive Flatus, Fecal Incontinence, Heartburn, Hematemesis, Hematochezia, Loose Stools, Melena, Nausea, Odynophagia, Temesmus, Vomiting, Other - Genitourinary Genitourinary: absent: As Per HPI, Change in Urinary Stream, Difficulty Urinating, Dysuria, Flank Pain, Hematuria, Pyuria, Nocturia, Urinary Incontinence, Urinary Frequency, Urinary Hesitance, Urinary Urgency, Voiding Freq/Small Amts, Freq UTI, Hx Renal/Bladder Calculi, Hx /Renal Surgery, Bladder Distension, Other - Musculoskeletal Musculoskeletal: Radiating Pain into Limb - Integumentary Integumentary: absent: As Per HPI, Acne, Alopecia, Bleeding Lesions, Change in Hair, Change in Nails, Change in Pigmentation, Changing Lesions, Dry Skin, Erythema, Furuncle, Hirsutism, Lesions, New Lesions, Non-Healing Lesions, Photosensitivity, Pruritus, Rash, Skin Pain, Skin Ulcer, Sores, Striae, Swelling , Unusual Bruising, Wounds, Jaundice, Other - Neurological Neurological: absent: As Per HPI, Abnormal Gait, Abnormal Hearing, Abnormal Movements, Abnormal Speech, Behavioral Changes, Burning Sensations, Confusion, Convulsions, Disequilibrium, Dizziness, Numbness, Focal Weakness, Frequent Falls , Headaches, Lack of Coordination, Loss of Vision, Memory Loss, Paresthesias, Radicular Pain, Restless Legs, Sensory Deficit, Syncope, Tingling, Tremor, Vertigo, Weakness, Other Visual Disturbances, Other - Psychiatric Psychiatric: absent: As Per HPI, Abnormal Sleep Pattern, Anhedonia, Anxiety, Auditory Hallucinations, Behavioral Changes, Change in Appetite, Change in Libido, Confusion, Depression, Difficulty Concentrating, Hallucinations, Homicidal Ideation, Hopelessness, Irritability, Memory Loss, Mood Swings, Panic Attacks, Paranoia, Suicidal Ideation, Visual Hallucinations, Tactile Hallucinations, Other - Endocrine Endocrine: absent: As Per HPI, Change in Body Appearance, Change in Libido, Cold Intolorance, Deepening of Voice, Excessive Sweating, Fatigue, Flushing, Heat Intolorance, Increase in Ring/Shoe/Hat Size, Palpitations, Polydipsia, Polyphagia, Polyuria, Other - Hematologic/Lymphatic Hematologic: absent: As Per HPI, Easy Bleeding, Easy Bruising, Lymphadenopathy, Other Past Patient History - Past Medical History & Family History Past Medical History?: Yes - Past Social History Smoking Status: Former Smoker - CARDIAC Hx Cardiac Disorders: Yes (HTN) Hx Hypercholesterolemia: Yes Hx Hypertension: Yes Hx Peripheral Vascular Disease: Yes - PULMONARY Hx Respiratory Disorders: No - NEUROLOGICAL Hx Neurological Disorder: Yes (PERIPHERAL NEUROPATHY) - HEENT Hx HEENT Problems: No - RENAL Hx Chronic Kidney Disease: No - ENDOCRINE/METABOLIC Hx Endocrine Disorders: Yes Hx Diabetes Mellitus Type 2: Yes Hx Hypothyroidism: Yes - HEMATOLOGICAL/ONCOLOGICAL Hx Blood Disorders: No Hx AIDS: No Hx Human Immunodeficiency Virus (HIV): No - INTEGUMENTARY Hx Dermatological Problems: Yes (HX GANGRENE TOES RIGHT FOOT AMPUTATION) - MUSCULOSKELETAL/RHEUMATOLOGICAL Hx Musculoskeletal Disorders: No Hx Falls: No - GASTROINTESTINAL Hx Gastrointestinal Disorders: No - GENITOURINARY/GYNECOLOGICAL Hx Genitourinary Disorders: No - PSYCHIATRIC Hx Psychophysiologic Disorder: Yes Hx Anxiety: Yes Hx Substance Use: No - SURGICAL HISTORY Hx Surgeries: Yes Hx Amputation: Yes Hx Appendectomy: Yes Hx Tonsillectomy: Yes Other/Comment: lt. BKA, rt. foot toe amputations - ANESTHESIA Hx Anesthesia: Yes Hx Anesthesia Reactions: No Hx Malignant Hyperthermia: No Has any member of the family had a problem w/ anesthesia?: No Meds Allergies/Adverse Reactions: Allergies Allergy/AdvReac Type Severity Reaction Status Date / Time No Known Allergies Allergy Verified 11/08/14 21:27 - Medications Medications: Current Medications Acetaminophen (Tylenol 325mg Tab) 650 mg PO Q4H PRN PRN Reason: Pain, Mild (1-3) Al Hydrox/Mg Hydrox/Simethicone (Maalox Plus 30 Ml) 30 ml PO QID PRN PRN Reason: Indigestion Atorvastatin Calcium (Lipitor) 40 mg PO HS [facility] Bacitracin (Bacitracin Oint) 1 applic TOP HS [facility] Cilostazol (Pletal) 100 mg PO Q12 [facility] Last Admin: 09/20/17 11:58 Dose: 100 mg Clopidogrel Bisulfate (Plavix) 75 mg PO DAILY [facility] Last Admin: 09/20/17 12:11 Dose: 75 mg Docusate Sodium (Colace) 100 mg PO Q12 [facility] Last Admin: 09/20/17 11:58 Dose: 100 mg Famotidine (Pepcid) 20 mg PO DAILY [facility] Last Admin: 09/20/17 12:11 Dose: 20 mg Fentanyl (Duragesic) 1 patch TD Q72 [facility] PRN Reason: Protocol Gabapentin (Neurontin) 800 mg PO TID [facility] Last Admin: 09/20/17 12:06 Dose: 800 mg Guaifenesin (Robitussin) 200 mg PO Q4 [facility] Last Admin: 09/20/17 12:08 Dose: Not Given Heparin Sodium (Porcine) (Heparin) 5,000 units SC Q12 [facility] PRN Reason: Protocol Last Admin: 09/20/17 12:15 Dose: 5,000 units Hydromorphone HCl (Dilaudid) 0.5 mg IVP Q6 PRN PRN Reason: Pain, moderate (4-7) Hydromorphone HCl (Dilaudid) 1 mg IVP Q6H PRN PRN Reason: Pain, severe (8-10) Last Admin: 09/20/17 11:55 Dose: 1 mg Sodium Chloride (Sodium Chloride 0.9%) 1,000 mls @ 125 mls/hr IV .Q8H [facility] Last Admin: 09/20/17 08:09 Dose: 125 mls/hr Insulin Detemir (Levemir) 14 units SC [facility] Insulin Human Lispro (Humalog) 0 units SC ACCU-CHECK [facility] PRN Reason: Protocol Last Admin: 09/20/17 12:22 Dose: Not Given Lactic Acid (Lac-Hydrin 12% Lotion (225 G)) 1 applic TOP BID [facility] Last Admin: 09/20/17 12:14 Dose: 1 applic Levothyroxine Sodium (Synthroid) 25 mcg PO DAILY@0630 [facility] Last Admin: 09/20/17 08:00 Dose: 25 mcg Lidocaine (Lidoderm) 1 ea TD DAILY [facility] Last Admin: 09/20/17 12:05 Dose: 1 ea Magnesium Hydroxide (Milk Of Magnesia) 30 ml PO DAILY PRN PRN Reason: Constipation Mirtazapine (Remeron) 15 mg PO HS [facility] Ondansetron HCl (Zofran Inj) 4 mg IVP Q6 PRN PRN Reason: Nausea/Vomiting Silver Sulfadiazine (Silvadene 1% 20 Gm) 1 ea TOP QSHIFT [facility] Temazepam (Restoril) 15 mg PO HS [facility] Physical Exam - Constitutional Appears: Non-toxic - Head Exam Head Exam: NORMAL INSPECTION - Eye Exam Eye Exam: Normal appearance - ENT Exam ENT Exam: Mucous Membranes Moist - Neck Exam Neck exam: Positive for: Normal Inspection - Respiratory Exam Respiratory Exam: NORMAL BREATHING PATTERN - Cardiovascular Exam Cardiovascular Exam: REGULAR RHYTHM - GI/Abdominal Exam GI & Abdominal Exam: Normal Bowel Sounds - Rectal Exam Rectal Exam: Deferred - Extremities Exam Additional comments: BKA site c/D/I - Back Exam Back exam: NORMAL INSPECTION - Neurological Exam Neurological exam: Alert, Oriented x3 - Psychiatric Exam Psychiatric exam: Normal Affect - Skin Skin Exam: Normal Color Results - Vital Signs Recent Vital Signs: Last Vital Signs Temp 99.2 F 09/20/17 12:00 Pulse 112 H 09/20/17 12:00 Resp 18 09/20/17 12:00 BP 174/68 H 09/20/17 12:00 Pulse Ox 97 09/20/17 12:00 - Labs Result Diagrams: 09/20/17 01:55 09/20/17 01:55 Labs: Laboratory Results - last 24 hr 09/20/17 09/20/17 09/20/17 01:39 01:55 01:55 WBC 10.1 RBC 3.93 L Hgb 10.4 L Hct 32.2 L MCV 82.0 MCH 26.4 L MCHC 32.2 L RDW 14.3 Plt Count 347 MPV 8.5 Neut % (Auto) 73.1 Lymph % (Auto) 19.9 L [place] % (Auto) 5.9 Eos % (Auto) 0.6 Baso % (Auto) 0.5 Neut # 7.4 H Lymph # 2.0 [place] # 0.6 Eos # 0.1 Baso # 0.0 ESR > 120 H Sodium 140 Potassium 4.3 Chloride 103 Carbon Dioxide 30 Anion Gap 11 BUN 13 Creatinine 0.8 Est GFR ( Amer) > 60 Est GFR (Non-Af Amer) > 60 POC Glucose (mg/dL) 120 H Random Glucose 131 H Calcium 9.5 09/20/17 09/20/17 07:47 10:46 WBC RBC Hgb Hct MCV MCH MCHC RDW Plt Count MPV Neut % (Auto) Lymph % (Auto) [place] % (Auto) Eos % (Auto) Baso % (Auto) Neut # Lymph # [place] # Eos # Baso # ESR Sodium Potassium Chloride Carbon Dioxide Anion Gap BUN Creatinine Est GFR ( Amer) Est GFR (Non-Af Amer) POC Glucose (mg/dL) 124 H 135 H Random Glucose Calcium - EKG Data EKG Interpreted by: Myself Assessment & Plan (1) PAD (peripheral artery disease) Assessment and Plan: Patient has surgical site pain. no signs of limb infection. recommend pain control. can consider arterial duplex, but limb is warm. continue Plavix, Pletal. Status: Acute
--- NOTE | 2017-09-20 14:17 | CARD ---
APPROVED REPORT EKG Measurement Heart [id number] <Conclusion> Sinus tachycardia Otherwise normal ECG
[2017-09-20] MEDS ORDERED: Bacitracin OINT 15GM TOP SCH (22:00)
[2017-09-20] MEDS: Insulin Detemir 100 Units/ml Inj SC SCH (23:11)
[2017-09-21] MEDS: guaiFENesin 100 mg/5 ml Syrup UD PO SCH ×6 (00:58→21:35)
[2017-09-21] MEDS: Sodium Chloride 0.9% 1,000 ML IV SCH ×3 (00:58→21:35)
[2017-09-21 06:33] LABS: HEMOGLOBIN 9.4 g/dL (12.0-18.0); MEAN CELL VOLUME 82.9 fl (80.0-94.0); MEAN CORPUSCULAR HEMOGLOBIN 27.1 pg (27.0-31.0); MEAN CORPUSCULAR HGB CONC 32.7 g/dL (33.0-37.0); RBC 3.45 Mil/uL (4.40-5.90); RED CELL DISTRIBUTION WIDTH 14.6 % (11.5-14.5); WHITE BLOOD COUNT 7.1 K/uL (4.8-10.8)
[2017-09-21] MEDS: Levothyroxine 25 MCG TAB PO SCH (06:39)
[2017-09-21 06:59] LABS: BLOOD UREA NITROGEN 6 mg/dl (9-20); CALCIUM 8.8 mg/dL (8.4-10.2); GFR AFRICAN-AMERICAN > 60; GFR NON-AFRICAN AMERICAN > 60
[2017-09-21] MEDS: Insulin Lispro (humaLOG) 100 Units/ml Inj SC SCH ×3 (08:31→16:40)
[2017-09-21] MEDS: Lidocaine 5% Patch TD SCH (08:32)
[2017-09-21] MEDS: Cilostazol 100 mg Tab UD PO SCH ×2 (08:34→21:22)
[2017-09-21] MEDS: Oxycodone/Acetaminophen 5/325 mg Tab PO PRN ×2 (13:03→21:24)
--- NOTE | 2017-09-21 14:05 | CP.PCM.DIS ---
Provider - Provider Date of Admission: 09/20/17 04:10 Attending physician: Rogerio Crockett DO Primary care physician: Juan Hickey MD Consults: cardiology consult Time Spent in preparation of Discharge (in minutes): 20 Hospital Course - Lab Results Lab Results: Most Recent Lab Values WBC 7.1 K/uL (4.8-10.8) 09/21/17 04:18 RBC 3.45 Mil/uL (4.40-5.90) L 09/21/17 04:18 Hgb 9.4 g/dL (12.0-18.0) L 09/21/17 04:18 Hct 28.6 % (35.0-51.0) L 09/21/17 04:18 MCV 82.9 fl (80.0-94.0) 09/21/17 04:18 MCH 27.1 pg (27.0-31.0) 09/21/17 04:18 MCHC 32.7 g/dL (33.0-37.0) L 09/21/17 04:18 RDW 14.6 % (11.5-14.5) H 09/21/17 04:18 Plt Count 301 K/uL (130-400) 09/21/17 04:18 MPV 8.5 fl (7.2-11.7) 09/20/17 01:55 Neut % (Auto) 73.1 % (50.0-75.0) 09/20/17 01:55 Lymph % (Auto) 19.9 % (20.0-40.0) L 09/20/17 01:55 [place] % (Auto) 5.9 % (0.0-10.0) 09/20/17 01:55 Eos % (Auto) 0.6 % (0.0-4.0) 09/20/17 01:55 Baso % (Auto) 0.5 % (0.0-2.0) 09/20/17 01:55 Neut # 7.4 K/uL (1.8-7.0) H 09/20/17 01:55 Lymph # 2.0 K/uL (1.0-4.3) 09/20/17 01:55 [place] # 0.6 K/uL (0.0-0.8) 09/20/17 01:55 Eos # 0.1 K/uL (0.0-0.7) 09/20/17 01:55 Baso # 0.0 K/uL (0.0-0.2) 09/20/17 01:55 ESR > 120 mm/hr (0-15) H 09/20/17 01:55 Sodium 142 mmol/l (132-148) 09/21/17 04:18 Potassium 3.7 MMOL/L (3.6-5.0) 09/21/17 04:18 Chloride 106 mmol/L (98-107) 09/21/17 04:18 Carbon Dioxide 28 mmol/L (22-30) 09/21/17 04:18 Anion Gap 12 (10-20) 09/21/17 04:18 BUN 6 mg/dl (9-20) L 09/21/17 04:18 Creatinine 0.7 mg/dl (0.8-1.5) L 09/21/17 04:18 Est GFR ( Amer) > 60 09/21/17 04:18 Est GFR (Non-Af Amer) > 60 09/21/17 04:18 POC Glucose (mg/dL) 100 mg/dL (65-110) 09/21/17 11:04 Random Glucose 92 mg/dL (75-110) 09/21/17 04:18 Calcium 8.8 mg/dL (8.4-10.2) 09/21/17 04:18 - Hospital Course Hospital Course: 41 year old male with a pmh significant for diabetes mellitus, HTN, hypercholesterolemia, hypothyroidism,PED , s/p left BKA 2.5 weeks ago at [facility] brought to Er for evaluation from [facility] ( [facility] ) complaining of worsening pain to his BKA site. The pain is sharp, shooting pain , characterized as severe. The patient is on Fentanyl, Percocet, and Gabapentin for this pain but relates that these medications are not helping. In the ED, he has gotten Dilaudid with only minimal relief. The patient was placed under observation for pain control His lab work up showed ESR 120. Physical exam of the stump showed well healing surgical wound with mynor in place Interventional cardiology was called to evaluate patient , Dr. Harvey give the results of CT of LLE that showed :Atherosclerotic disease of visualized arteries. Stents within left superficial femoral to popliteal arteries. Occlusion of superficial femoral to popliteal arteries. Moderate stenosis of left common femoral artery. 2. Occlusion of left superficial femoral to popliteal arteries. As per Dr. Harvey patient has no signs of occlusion since the limb is warm and need to continue Plavix, pletal and Statin Patient has no signs of infection . Most likely pain is due to recent surgical [place]. [place] [address] mg po TID . Continue Fentanyl and percoset PRN for pain . PT consulted and stump was wrapped up with jeff bandage to help with pain . Desensitization techniques were taught to patient. All findings and results were discussed with patient and mother and all questions answered. Will discharge patient back to [facility].Follow up with his surgeon as scheduled for staple removal 1. Intractable pain to left BKA site surgical site pain no signs of infection increased gabapentin to 1200 mg po TID Continue Fentanyl and percoset follow up with his surgeon for staple removal 2. DM controlled Accuchecks Insulin sliding scale Home lantus 3. Hypothyroidism Continue Synthroid 4. PAD interventional cardio consulted continue pletal , statin and plavix Ct LLE : 1. Below the knee amputation. 2. Occlusion of left superficial femoral to popliteal arteries. interventional cardio consulted Dr. Harvey, and recommended Pletal , plavix and statin 5. Anemia of chronic disease Hgb stable , 9.4 6. Anixiety / depression on Remeron and xanax Discharge Exam - Head Exam Head Exam: NORMAL INSPECTION - Eye Exam Eye Exam: Nystagmus - ENT Exam ENT Exam: Mucous Membranes Moist, Normal Exam - Neck Exam Neck exam: Full Rom - Respiratory Exam Respiratory Exam: Clear to PA & Lateral, NORMAL BREATHING PATTERN. absent: Rales, Rhonchi, Wheezes, Respiratory Distress - Cardiovascular Exam Cardiovascular Exam: Tachycardia, REGULAR RHYTHM, +S1, +S2. absent: JVD - GI/Abdominal Exam GI & Abdominal Exam: Normal Bowel Sounds, Soft. absent: Distended, Guarding, Rebound, Tenderness - Rectal Exam Rectal Exam: Deferred - Extremities Exam Additional comments: left BKA stump with mynor in place , no erythema right TMA - Back Exam Back exam: NORMAL INSPECTION - Neurological Exam Neurological exam: Alert, CN II-XII Intact - Psychiatric Exam Psychiatric exam: Anxious, Flat Affect - Skin Skin Exam: Dry, Pallor, Warm Discharge Plan - Discharge Medications Prescriptions: Gabapentin 1,200 mg PO TID #160 tablet - Follow Up Plan Condition: STABLE Disposition: TRANSF TO SNF Patient education suggested?: Yes Additional Instructions: Follow up with ortho as scheduled Referrals: Juan Hickey MD [Primary Care Provider] -
[2017-09-21 16:17] VITALS: O2SAT 95
[2017-09-21 19:16] VITALS: BP 103/68; PULSE 104; RESP 18; TEMP 98
[2017-09-21] MEDS: Insulin Detemir 100 Units/ml Inj SC SCH (21:32)
== END 2017-09-21 22:45 ==
LOC: H.ER 00:55 → UNDOADMOB 04:10 → H.ERHOLD 04:10 → H.TEL 09:19
PROVIDERS: ADMIT Internal Medicine; ATTEND Internal Medicine
DX: G89.18 Other acute postprocedural pain (principal); Y83.5 Amputation of limb(s) as the cause of abnormal reaction of the patient, or of later complication, without mention of misadventure at the time of the procedure; E11.51 Type 2 diabetes mellitus with diabetic peripheral angiopathy without gangrene; Z89.421 Acquired absence of other right toe(s); I10 Essential (primary) hypertension; E78.00 Pure hypercholesterolemia, unspecified; E03.9 Hypothyroidism, unspecified; E11.42 Type 2 diabetes mellitus with diabetic polyneuropathy; D63.8 Anemia in other chronic diseases classified elsewhere; F32.9 Major depressive disorder, single episode, unspecified; F41.9 Anxiety disorder, unspecified; Z89.512 Acquired absence of left leg below knee
CPT/HCPCS: 36415; 73701; 80048; 82948; 85025; 85027; 85651; 93005; 96361; 96372; 96374; 96376; 97162; 97530; 99283; G0378; G8978; G8979; J1170; J1644; J7040; Q9967

== ENCOUNTER 2017-09-23 18:59 | Emergency (ER) | payer MEDICARE, MEDICAID ==
[2017-09-23 18:59] VITALS: BMI 27.4
[2017-09-23 19:04] VITALS: BP 125/72; PULSE 116; RESP 16; TEMP 99.1; O2SAT 100
[2017-09-23] MEDS ORDERED: Oxycodone/Acetaminophen 5/325 mg Tab PO STA (20:19)
[2017-09-23] MEDS ORDERED: Oxycodone/Acetaminophen 5/325 mg Tab ONE (20:30)
--- NOTE | 2017-09-23 20:52 | ED PDOC ---
Lower Extremity Pain/Injury Time Seen by Provider: 09/23/17 19:09 Chief Complaint (Nursing): Lower Extremity Problem/Injury Chief Complaint (Provider): Pain to Left Stump History Per: Patient History/Exam Limitations: no limitations Onset/Duration Of Symptoms: Persistent Current Symptoms Are (Timing): Still Present Additional Complaint(s): Jason Nolen, a 41 year old male presents to the Emergency Department complaining of persistent pain to his left stump. He has had a below the knee amputation about two weeks ago and has been taking Tylenol, Percocet, and Fentanyl patch for pain relief. Yesterday, at the rehab, he fell in the bathroom so the pain has now radiated to his stomach. He was admitted to ED on September 21 for similar complaint and was evaluated and then discharged home with diagnosis of post-surgical pain. PMD: Dr Juan Lopez Past Medical History Reviewed: Historical Data, Nursing Documentation, Vital Signs Vital Signs: Last Vital Signs Temp 99.1 F 09/23/17 19:01 Pulse 116 H 09/23/17 19:01 Resp 16 09/23/17 19:01 BP 125/72 09/23/17 19:01 Pulse Ox 100 09/23/17 19:01 - Medical History PMH: Anxiety, Diabetes, HTN, Hypercholesterolemia, Hypothyroidism Denies: HIV, Chronic Kidney Disease - Surgical History Surgical History: Appendectomy, Tonsillectomy - Family History Family History: States: Unknown Family Hx - Immunization History Hx Tetanus Toxoid Vaccination: Yes Hx Influenza Vaccination: Yes Hx Pneumococcal Vaccination: No - Home Medications Home Medications: Ambulatory Orders Medication Instructions Recorded Aluminum Hydroxide/Magnesium 30 ml PO QID 09/15/17 [Maalox Plus 30 ml] Clopidogrel [Plavix] 75 mg PO DAILY 09/15/17 Famotidine [Pepcid] 20 mg PO DAILY 09/15/17 Fentanyl [Duragesic Patch] 50 mcg TOP Q72 09/15/17 Insulin Glargine, Recombina 14 unit SC HS 09/15/17 [Lantus] Insulin Lispro [humALOG] 1 unit SC ACHS 09/15/17 Levothyroxine [Synthroid] 25 mg PO DAILY 09/15/17 Magnesium Hydroxide [Milk Of 30 ml PO DAILY PRN 09/15/17 Magnesia] Temazepam [Restoril] 15 mg PO HS 09/15/17 guaiFENesin [Robitussin] 10 ml PO Q4 09/15/17 oxyCODONE/Acetaminophen [Percocet 1 tab PO Q6 PRN 09/15/17 5/325 mg Tab] ALPRAZolam [Xanax] 0.25 mg PO Q6H 09/20/17 Acetaminophen [Tylenol 325mg tab] 650 mg PO Q4H 09/20/17 Albuterol 0.042% [Albuterol 0.042% 1 inh NEB Q6H 09/20/17 Inhal Lisa (1.25mg/3ml) UD] Ammonium Lactate 12% [Lac-Hydrin 1 appl TOP BID 09/20/17 12% Lotion (225 g)] Atorvastatin Calcium 40 mg PO HS 09/20/17 Bacitracin Ointment [Bacitracin] 1 appl TOP HS 09/20/17 Cilostazol [Pletal] 100 mg PO Q12 09/20/17 Docusate [Colace] 100 mg PO Q12 09/20/17 Methyl Salicylate/Menthol [Bengay 1 patch TOP DAILY 09/20/17 Greaseless Cream] Mirtazapine [Remeron] 15 mg PO HS 09/20/17 Silver Sulfadiazine 1% [Silvadene 1 appl TOP QSHIFT 09/20/17 1%] Gabapentin 1,200 mg PO TID #160 tablet 09/21/17 Diclofenac Sodium [Voltaren] 100 gm TP BID PRN #1 tub 09/23/17 traMADol [Ultram] 50 mg PO TID PRN #10 tab 09/23/17 - Allergies Allergies/Adverse Reactions: Allergies Allergy/AdvReac Type Severity Reaction Status Date / Time No Known Allergies Allergy Verified 11/08/14 21:27 Review of Systems ROS Statement: Except As Marked, All Systems Reviewed And Found Negative (As per HPI, otherwise negative) Constitutional: Negative for: Fever, Chills Musculoskeletal: Positive for: Leg Pain Physical Exam - Reviewed Nursing Documentation Reviewed: Yes Vital Signs Reviewed: Yes - Physical Exam Appears: Positive for: Non-toxic, In Acute Distress (but also somewhat sleepy) Head Exam: Positive for: ATRAUMATIC, NORMOCEPHALIC Skin: Positive for: Warm, Dry. Negative for: Rash Extremity: Positive for: Other (LEFT stump: healing surgical wound with mynor clean dry and intact, no disharge, no erythema, some tenderness to palpation diffusely around stump, warm extremity except for the most distal part of stump (but similar in temp to distal part of contralateral stump) <2 sec CR) Lymphatic: Negative for: Adenopathy Neurologic/Psych: Positive for: Other (Somewhat sleepy but arousable, has slightly slurred speech) - ECG O2 Sat by Pulse Oximetry: 100 (RA) Pulse Ox Interpretation: Normal Medical Decision Making Medical Decision Making: Time: 19:26 Initial Impression: Post-surgery pain, contusion of lower left extremity Initial Plan: --Knee Views LT --Percocet 5/325mg --Toradol 15mg --Ultram 50mg PO DW Dr Harvey Cardiology/Interventional, who evaluated pt in last admission. Advises no other intervention at this point. DW Dr Holden Surgeon who performed amputation. Pt likely has persistent ischemic pain and that the plan was to evaluate for how healing went with AKA, but BKA is highly considered. Pain was anticipated because BKA may be the more definitive surgery. Pt reports persistent pain, however somewhat sleepy. Clinically does not warrant further narcotic medication in ER, no hospitalization. Will rx tramadol to add to regiment, also strongly recommended pain management. Scribe Attestation: Documented by Celestino Pierson, acting as a scribe for Azalea An MD Provider Scribe Attestation: All medical record entries made by the Scribe were at my direction and personally dictated by me. I have reviewed the chart and agree that the record accurately reflects my personal performance of the history, physical exam, medical decision making, and the department course for this patient. I have also personally directed, reviewed, and agree with the discharge instructions and disposition. Disposition - Clinical Impression Clinical Impression: Amputation stump pain - Disposition Referrals: Michael Castaneda MD [Staff Provider] - (FOLLOW UP WITH PAIN MANAGEMENT SOON POSSIBLE) Juan Lopez MD [Staff Provider] - 09/24/17 (YOU MAY NEED TO SEE DR LOPEZ FOR REFERRAL TO PAIN MANAGEMENT) Disposition: Routine/Home Disposition Time: 21:00 Condition: STABLE Additional Instructions: PLEASE FOLLOW UP SOON YOU CAN WITH YOUR SURGEON Prescriptions: Diclofenac Sodium [Voltaren] 100 gm TP BID PRN #1 tub PRN Reason: PAIN traMADol [Ultram] 50 mg PO TID PRN #10 tab PRN Reason: SEVERE PAIN ONLY Instructions: Pain Management After Surgery (GEN), Narcotic Pain Management (ED ) Forms: SeeJay (Chinese)
--- NOTE | 2017-09-24 08:28 | RAD ---
PROCEDURE: Left Knee Radiographs. HISTORY: Pain. COMPARISON: None. FINDINGS: BONES: No acute fracture or destructive bony lesion identified. Patient is status post a below the knee amputation as well as lengthy series of wall stents placed at the region of the distal left superficial femoral artery and left popliteal artery as well. Vascular calcifications are identified posteriorly at popliteal fossa in skin mynor noted at the below the amputation resection site. Postop changes felt to manifest by edematous changes in the distal stump soft tissues. No emphysema soft tissue changes are identified or definitive retained radiodense foreign body. JOINTS: Normal. No osteoarthritis. JOINT EFFUSION: None. OTHER FINDINGS: None. IMPRESSION: Mild postoperative changes are seen seen status post [id number] amputation. No acute fracture dislocation identified. A a lengthy series of wall stents are noted in the posterior distal thigh and knee soft tissues
== END 2017-09-23 21:45 | disposition home or self-care (01) ==
LOC: H.ER 18:59
DX: T87.89 Other complications of amputation stump (principal); E11.9 Type 2 diabetes mellitus without complications; Z79.4 Long term (current) use of insulin; E03.9 Hypothyroidism, unspecified; E78.00 Pure hypercholesterolemia, unspecified; I10 Essential (primary) hypertension
CPT/HCPCS: 73562; 96372; 99284; J1885

== ENCOUNTER 2017-10-05 18:53 | Observation (INO) | payer MEDICARE, MEDICAID ==
[2017-10-05 18:53] VITALS: BMI 27.4
--- NOTE | 2017-10-05 20:07 | ED PDOC ---
HPI: Chest Pain Time Seen by Provider: 10/05/17 19:31 Chief Complaint (Nursing): Chest Pain Chief Complaint (Provider): Chest Pain History Per: Patient History/Exam Limitations: no limitations Onset/Duration Of Symptoms: Hrs (2 hours agp) Current Symptoms Are (Timing): Still Present Additional Complaint(s): 42 yo male, brought in by EMS, with a history of hypertension, peripheral vascular disease, diabetes, and chronic leg pain, presents to the ED with non- radiating, non-exertion anterior chest pain, onset of 2 hours ago. Patient reports of being given Aspirin for the pain and experienced minimal relief. 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 Patient also states that he currently sees a vascular doctor at [facility], who diagnosed him with stage one gangrene and states that he plans to meet with him to schedule a surgery soon. Of note, patient currently stays at a rehab facility where he is prescribed a fentanyl patch and takes Tramadol, Plavix, and Percocet for his chronic leg pain. He denies any leg swelling, difficulty breathing, palpitations, or dizziness. Past Medical History Reviewed: Historical Data, Nursing Documentation, Vital Signs Vital Signs: Last Vital Signs Temp 98.1 F 10/06/17 02:00 Pulse 99 H 10/06/17 02:00 Resp 18 10/06/17 02:26 BP 129/71 10/06/17 02:00 Pulse Ox 95 10/06/17 02:00 - Medical History PMH: Anxiety, Diabetes, HTN, Hypercholesterolemia, Hypothyroidism Denies: HIV, Chronic Kidney Disease Other PMH: peripheral vascular disease and chronic leg pain - Surgical History Surgical History: Appendectomy, Tonsillectomy Other surgeries: below the knee amputation on the left leg and right toe amputation - Family History Family History: States: Unknown Family Hx - Living Arrangements Living Arrangements: Other (rehab facility) - Social History Current smoker - smoking cessation education provided: No Ex-Smoker (has not smoked in the last 12 months): No Alcohol: None Drugs: Denies - Immunization History Hx Tetanus Toxoid Vaccination: Yes Hx Influenza Vaccination: Yes Hx Pneumococcal Vaccination: No - Home Medications Home Medications: Ambulatory Orders Medication Instructions Recorded Aluminum Hydroxide/Magnesium 30 ml PO QID 09/15/17 [Maalox Plus 30 ml] Clopidogrel [Plavix] 75 mg PO DAILY 09/15/17 Famotidine [Pepcid] 20 mg PO DAILY 09/15/17 Fentanyl [Duragesic Patch] 50 mcg TOP Q72 09/15/17 Insulin Glargine, Recombina 14 unit SC HS 09/15/17 [Lantus] Insulin Lispro [humALOG] 1 unit SC ACHS 09/15/17 Levothyroxine [Synthroid] 25 mg PO DAILY 09/15/17 Magnesium Hydroxide [Milk Of 30 ml PO DAILY PRN 09/15/17 Magnesia] Temazepam [Restoril] 15 mg PO HS 09/15/17 oxyCODONE/Acetaminophen [Percocet 1 tab PO Q6 PRN 09/15/17 5/325 mg Tab] ALPRAZolam [Xanax] 0.25 mg PO Q6H 09/20/17 Acetaminophen [Tylenol 325mg tab] 650 mg PO Q4H 09/20/17 Albuterol 0.042% [Albuterol 0.042% 1 inh NEB Q6H 09/20/17 Inhal Lisa (1.25mg/3ml) UD] Ammonium Lactate 12% [Lac-Hydrin 1 appl TOP BID 09/20/17 12% Lotion (225 g)] Atorvastatin Calcium 40 mg PO HS 09/20/17 Bacitracin Ointment [Bacitracin] 1 appl TOP HS 09/20/17 Cilostazol [Pletal] 100 mg PO Q12 09/20/17 Docusate [Colace] 100 mg PO Q12 09/20/17 Mirtazapine [Remeron] 15 mg PO HS 09/20/17 Silver Sulfadiazine 1% [Silvadene 1 appl TOP QSHIFT 09/20/17 1%] Gabapentin 1,200 mg PO TID #160 tablet 09/21/17 Diclofenac Sodium [Voltaren] 100 gm TP BID PRN #1 tub 09/23/17 traMADol [Ultram] 50 mg PO TID PRN #10 tab 09/23/17 - Allergies Allergies/Adverse Reactions: Allergies Allergy/AdvReac Type Severity Reaction Status Date / Time No Known Allergies Allergy Verified 11/08/14 21:27 WESLEY Risk Score for UA/NSTEMI - WESLEY Risk Score Age > 64: NO 3 or more CAD Risk Factors: YES Known CAD (Stenosis greater than 50%): NO Aspirin use in past 7 days: YES Severe Angina: NO EKG ST changes greater than 0.5mm: NO Positive Cardiac Marker: NO WESLEY Score: 2 Risk %: 8% Wells Criteria for PE - Wells Criteria for Pulmonary Embolism Clinical Signs and Symptoms of DVT: No P.E is #1 Diagnosis, or Equally Likely: No Heart Rate >100: No Immobilization at least 3 days;Surgery previous 4 weeks: No Previous, objectively diagnosed PE or DVT: No Hemoptysis: No Malignancy w/treatment within 6 months, or palliative: No Total Score: 0 Review of Systems ROS Statement: Except As Marked, All Systems Reviewed And Found Negative Cardiovascular: Positive for: Chest Pain (anterior ). Negative for: Palpitations Respiratory: Negative for: Shortness of Breath Musculoskeletal: Positive for: Leg Pain (chronic). Negative for: Other (leg swelling) Neurological: Negative for: Dizziness Physical Exam - Reviewed Nursing Documentation Reviewed: Yes Vital Signs Reviewed: Yes - Physical Exam Appears: Positive for: Non-toxic, Uncomfortable (due to pain) Head Exam: Positive for: ATRAUMATIC, NORMAL INSPECTION, NORMOCEPHALIC Skin: Positive for: Normal Color, Warm Eye Exam: Positive for: Normal appearance, EOMI, PERRL Neck: Positive for: Normal, Painless ROM, Supple Cardiovascular/Chest: Positive for: Regular Rate, Rhythm. Negative for: Murmur Respiratory: Positive for: Normal Breath Sounds. Negative for: Respiratory Distress Back: Positive for: Normal Inspection Extremity: Positive for: Normal ROM, Tenderness (to stump when touched), Deformity (below knee status post amputation: there is a stump; chronic discoloration and scar o on bottom of the stump). Negative for: Pedal Edema, Swelling, Other (redness; ) Neurologic/Psych: Positive for: Alert, Oriented - Laboratory Results Result Diagrams: 10/05/17 20:31 10/05/17 20:31 - ECG ECG Rhythm: Positive for: Normal QRS, Sinus Tachycardia. Negative for: ST/T Changes Rate: 108 O2 Sat by Pulse Oximetry: 96 (RA) Pulse Ox Interpretation: Normal Medical Decision Making Medical Decision Making: Time: --19:47 Impression: --Chest Pain and Chronic Leg Pain Differential: --Rule out Acute Coronary Syndrome, Chronic Leg Pain due to chronic Gangrene of the left leg status post amputation, stump Plan: --ECG --Labs --Troponin I --Partial Thromboplastin time --Prothrombin time --chest x-ray --Aspirin 325 mg PO --Nitroglycerin 0.4mg Reassess --21:49 Provider discussed case with the hospitalist, Dr. Palacios. Patient to be admitted under Dr. Palacios Diagnosis: Chest pain, observation and telemetry Scribe Attestation: Documented by Frandy Aviles acting as a scribe for Andi Frances MD. Provider Attestation: All medical record entries made by the Scribe were at my direction and personally dictated by me. I have reviewed the chart and agree that the record accurately reflects my personal performance of the history, physical exam, medical decision making, and the department course for this patient. I have also personally directed, reviewed, and agree with the discharge instructions and disposition. Disposition - Clinical Impression Clinical Impression: Chest pain, Left leg pain, Intractable pain - Patient ED Disposition Is Patient to be Admitted: Yes Discussed With : Sara Palacios Doctor Will See Patient In The: ED - Disposition Disposition Time: 21:49 Condition: FAIR - Pt Status Changed To: Hospital Disposition Of: Observation - POA Present On Arrival: None
[2017-10-05 20:35] LABS: BASO # 0.1 K/uL (0.0-0.2); BASO % 0.9 % (0.0-2.0); EOS % 0.4 % (0.0-4.0); HEMOGLOBIN 10.2 g/dL (12.0-18.0); LYMPH # 2.2 K/uL (1.0-4.3); LYMPH % 21.3 % (20.0-40.0); MEAN CELL VOLUME 80.5 fl (80.0-94.0); MEAN CORPUSCULAR HGB CONC 32.3 g/dL (33.0-37.0); MEAN PLATELET VOLUME 8.3 fl (7.2-11.7); MONO # 0.6 K/uL (0.0-0.8); MONO % 6.2 % (0.0-10.0); NEUT # 7.4 K/uL (1.8-7.0); NEUT % 71.2 % (50.0-75.0); RBC 3.93 Mil/uL (4.40-5.90); RED CELL DISTRIBUTION WIDTH 15.1 % (11.5-14.5); WHITE BLOOD COUNT 10.3 K/uL (4.8-10.8)
[2017-10-05 21:06] LABS: INR 1.3 (0.9-1.2); PROTHROMBIN TIME 14.7 Seconds (9.8-13.1)
[2017-10-05] MEDS ORDERED: Oxycodone/Acetaminophen 5/325 mg Tab PO STA (21:17)
[2017-10-05 21:20] LABS: BLOOD UREA NITROGEN 16 mg/dl (9-20); GFR AFRICAN-AMERICAN > 60; GFR NON-AFRICAN AMERICAN > 60
[2017-10-05 21:21] LABS: CALCIUM 9.9 mg/dL (8.4-10.2)
[2017-10-05] MEDS ORDERED: Insulin Detemir 100 Units/ml Inj SC SCH (22:00)
--- NOTE | 2017-10-05 22:08 | CP.PCM.HP ---
History of Present Illness - History of Present Illness History of Present Illness: CC: CP HPI: This is a 42 y/o male with MHx significant for known DM2 and PVD with multiple amputations, HTN, HLD, hypothyroid and chronic pain who is brought to the ED with CP. CP had onset about 2-3 hours ago at rest. There was no radiation , no SOB. No f/c/n/v/d. Of note, patient is followed at [facility] where he has his vascular surgeon and where his procedures are done. ROS: 14 systems reviewed, negative other than HPI MHx: DM2, HTN, HLD, Hypothyroid, anxiety, PVD SHx: Appx, tonsils, BKA on L, and R toe Family Hx: Not able to provide Social Hx: Lives in rehab facility, no tobacco, no EtOH Present on Admission - Present on Admission Any Indicators Present on Admission: No Past Patient History - Past Medical History & Family History Past Medical History?: Yes - Past Social History Alcohol: None Drugs: Denies - CARDIAC Hx Hypercholesterolemia: Yes Hx Hypertension: Yes - PULMONARY Hx Respiratory Disorders: No - NEUROLOGICAL Hx Neurological Disorder: Yes (PERIPHERAL NEUROPATHY) - HEENT Hx HEENT Problems: No - RENAL Hx Chronic Kidney Disease: No - ENDOCRINE/METABOLIC Hx Hypothyroidism: Yes - HEMATOLOGICAL/ONCOLOGICAL Hx Human Immunodeficiency Virus (HIV): No - INTEGUMENTARY Hx Dermatological Problems: Yes (HX GANGRENE TOES RIGHT FOOT AMPUTATION) - MUSCULOSKELETAL/RHEUMATOLOGICAL Hx Musculoskeletal Disorders: No Hx Falls: No - GASTROINTESTINAL Hx Gastrointestinal Disorders: No - GENITOURINARY/GYNECOLOGICAL Hx Genitourinary Disorders: No - PSYCHIATRIC Hx Anxiety: Yes - SURGICAL HISTORY Hx Appendectomy: Yes Hx Tonsillectomy: Yes - ANESTHESIA Hx Anesthesia: Yes Hx Anesthesia Reactions: No Hx Malignant Hyperthermia: No Meds Allergies/Adverse Reactions: Allergies Allergy/AdvReac Type Severity Reaction Status Date / Time No Known Allergies Allergy Verified 11/08/14 21:27 Physical Exam - Constitutional Appears: Cachectic, Chronically Ill - Head Exam Head Exam: ATRAUMATIC, NORMOCEPHALIC - Eye Exam Eye Exam: EOMI, PERRL - ENT Exam ENT Exam: Mucous Membranes Moist - Neck Exam Neck exam: Positive for: Full Rom - Respiratory Exam Respiratory Exam: Clear to Auscultation Bilateral, NORMAL BREATHING PATTERN - Cardiovascular Exam Cardiovascular Exam: REGULAR RHYTHM, +S1, +S2 - GI/Abdominal Exam GI & Abdominal Exam: Normal Bowel Sounds, Soft - Extremities Exam Additional comments: L BKA - Neurological Exam Neurological exam: Alert, CN II-XII Intact, Oriented x3 - Psychiatric Exam Psychiatric exam: Normal Affect, Normal Mood - Skin Skin Exam: Dry, Warm Results - Vital Signs Recent Vital Signs: Last Vital Signs Temp 98.0 F 10/05/17 19:00 Pulse 108 H 10/05/17 21:52 Resp 18 10/05/17 21:30 BP 118/77 10/05/17 19:00 Pulse Ox 96 10/05/17 21:52 - Labs Result Diagrams: 10/05/17 20:31 10/05/17 20:31 Labs: Laboratory Results - last 24 hr 10/05/17 10/05/17 10/05/17 20:31 20:31 20:31 WBC 10.3 RBC 3.93 L Hgb 10.2 L Hct 31.6 L MCV 80.5 D MCH 26.0 L MCHC 32.3 L RDW 15.1 H Plt Count 406 H D MPV 8.3 Neut % (Auto) 71.2 Lymph % (Auto) 21.3 Ogle % (Auto) 6.2 Eos % (Auto) 0.4 Baso % (Auto) 0.9 Neut # (Auto) 7.4 H Lymph # (Auto) 2.2 Ogle # (Auto) 0.6 Eos # (Auto) 0.0 Baso # (Auto) 0.1 PT 14.7 H INR 1.3 H APTT 25.0 L Sodium 141 Potassium 4.6 Chloride 101 Carbon Dioxide 26 Anion Gap 19 BUN 16 Creatinine 0.8 Est GFR ( Amer) > 60 Est GFR (Non-Af Amer) > 60 Random Glucose 112 H Calcium 9.9 Troponin I < 0.0120 - EKG Data EKG Interpreted by: Myself EKG shows normal: Sinus rhythm Rate: Normal - Impressions Impression: No acute findings - Imaging and Cardiology Chest x-ray Status: Image reviewed by me (WNL) Assessment & Plan (1) Chest pain Assessment and Plan: 42 y/o with DM and and PVD among other medical conditions presenting again with CP. 1) CP/PVD/HLD -obs tele -Serial trops -EKG in AM -Consider echo in AM -ASA, SLNG -Cont Plavix, statin 2) DM2 -Accucheck achs with SSI -Cont LA insulin -DM2 diet 3) Hypothyroid -- cont home medications 4) DVT PPx -- SQ Lovenox Status: Acute (2) PAD (peripheral artery disease) Status: Acute (3) DM2 (diabetes mellitus, type 2) Status: Acute (4) Hypothyroid Status: Acute (5) HTN (hypertension) Status: Acute (6) HLD (hyperlipidemia) Status: Acute
[2017-10-05] MEDS ORDERED: Oxycodone/Acetaminophen 5/325 mg Tab PO PRN (22:21)
[2017-10-05] MEDS ORDERED: Albuterol 0.042% Inhal Sol (1.25 mg/3 mL) UD ONE (22:47)
[2017-10-05] MEDS: Albuterol 0.042% Inhal Sol (1.25 mg/3 mL) UD INH SCH (23:03)
[2017-10-06] MEDS ORDERED: Levothyroxine 25 MCG TAB PO SCH ×2 (06:30→09:00)
[2017-10-06] MEDS: Albuterol 0.042% Inhal Sol (1.25 mg/3 mL) UD INH SCH (08:14)
[2017-10-06] MEDS: Insulin Lispro (humaLOG) 100 Units/ml Inj SC SCH ×2 (08:30→11:56)
[2017-10-06 08:42] LABS: HEMOGLOBIN 9.6 g/dL (12.0-18.0); MEAN CELL VOLUME 81.2 fl (80.0-94.0); MEAN CORPUSCULAR HEMOGLOBIN 25.5 pg (27.0-31.0); MEAN CORPUSCULAR HGB CONC 31.4 g/dL (33.0-37.0); RBC 3.75 Mil/uL (4.40-5.90); WHITE BLOOD COUNT 8.8 K/uL (4.8-10.8)
[2017-10-06] MEDS ORDERED: Cilostazol 100 mg Tab UD PO SCH (09:00)
[2017-10-06] MEDS ORDERED: Enoxaparin 40 mg Syringe SC SCH (09:00)
[2017-10-06 09:07] LABS: BLOOD UREA NITROGEN 15 mg/dl (9-20); CALCIUM 9.7 mg/dL (8.4-10.2); GFR AFRICAN-AMERICAN > 60; GFR NON-AFRICAN AMERICAN > 60
--- NOTE | 2017-10-06 09:34 | CARD ---
APPROVED REPORT EKG Measurement Heart [id number] IA [id number] <Conclusion> Normal sinus rhythm Nonspecific intraventricular conduction delay Borderline ECG
--- NOTE | 2017-10-06 09:34 | CARD ---
APPROVED REPORT EKG Measurement Heart [id number] FL [id number] <Conclusion> Sinus tachycardia Nonspecific intraventricular conduction delay Borderline ECG
--- NOTE | 2017-10-06 10:33 | RAD ---
PROCEDURE: CHEST RADIOGRAPH, 1 VIEW HISTORY: chest pain COMPARISON: Chest radiograph dated 09/15/2017 FINDINGS: LUNGS: Clear. PLEURA: No pneumothorax or pleural fluid seen. CARDIOVASCULAR: Normal. OSSEOUS STRUCTURES: No significant abnormalities. VISUALIZED UPPER ABDOMEN: Normal. OTHER FINDINGS: None. IMPRESSION: No active disease.
[2017-10-06] MEDS: Alum-Mag Hydrox-Simethicone Susp (30 mL) PO SCH ×2 (11:32→14:16)
[2017-10-06 12:16] VITALS: RESP 20; TEMP 98.3
[2017-10-06 16:12] VITALS: BP 109/73; PULSE 111; O2SAT 98
--- NOTE | 2017-10-06 19:30 | CP.PCM.DIS ---
Provider - Provider Date of Admission: 10/05/17 21:46 Attending physician: Sara Palacios MD Primary care physician: Dr. Hickey Time Spent in preparation of Discharge (in minutes): 15 Hospital Course - Lab Results Lab Results: Most Recent Lab Values WBC 10.3 K/uL (4.8-10.8) 10/05/17 20: RBC 3.93 Mil/uL (4.40-5.90) L 10/05/17 20: Hgb 10.2 g/dL (12.0-18.0) L 10/05/17 20: Hct 31.6 % (35.0-51.0) L 10/05/17 20: MCV 80.5 fl (80.0-94.0) 10/05/17 20: MCH 26.0 pg (27.0-31.0) L 10/05/17 20: MCHC 32.3 g/dL (33.0-37.0) L 10/05/17 20: RDW 15.1 % (11.5-14.5) H 10/05/17 20: Plt Count 406 K/uL (130-400) H 10/05/17 20: MPV 8.3 fl (7.2-11.7) 10/05/17 20: Neut % (Auto) 71.2 % (50.0-75.0) 10/05/17 20: Lymph % (Auto) 21.3 % (20.0-40.0) 10/05/17 20: [place] % (Auto) 6.2 % (0.0-10.0) 10/05/17 20: Eos % (Auto) 0.4 % (0.0-4.0) 10/05/17 20: Baso % (Auto) 0.9 % (0.0-2.0) 10/05/17 20: Neut # (Auto) 7.4 K/uL (1.8-7.0) H 10/05/17 20: Lymph # (Auto) 2.2 K/uL (1.0-4.3) 10/05/17 20: [place] # (Auto) 0.6 K/uL (0.0-0.8) 10/05/17 20:31 Eos # (Auto) 0.0 K/uL (0.0-0.7) 10/05/17 20:31 Baso # (Auto) 0.1 K/uL (0.0-0.2) 10/05/17 20:31 PT 14.7 Seconds (9.8-13.1) H 10/05/17 20:31 INR 1.3 (0.9-1.2) H 10/05/17 20:31 APTT 25.0 Seconds (25.6-37.1) L 10/05/17 20:31 Sodium 139 mmol/l (132-148) 10/06/17 07:25 Potassium 4.2 MMOL/L (3.6-5.0) 10/06/17 07:25 Chloride 101 mmol/L (98-107) 10/06/17 07:25 Carbon Dioxide 28 mmol/L (22-30) 10/06/17 07:25 Anion Gap 14 (10-20) 10/06/17 07:25 BUN 15 mg/dl (9-20) 10/06/17 07:25 Creatinine 0.7 mg/dl (0.8-1.5) L 10/06/17 07:25 Est GFR ( Amer) > 60 10/06/17 07:25 Est GFR (Non-Af Amer) > 60 10/06/17 07:25 POC Glucose (mg/dL) 116 mg/dL (65-110) H 10/06/17 11:06 Random Glucose 104 mg/dL (75-110) 10/06/17 07:25 Calcium 9.7 mg/dL (8.4-10.2) 10/06/17 07:25 Troponin I < 0.0120 ng/mL (0.00-0.120) 10/06/17 13:00 - Hospital Course Hospital Course: 41-year-old male with past medical history of Diabetes, HTN, Hypercholesterolemia, Hypothyroidism, status post left BKA at [facility] name, presented to the emergency room today with acute onset chest pain several hours prior to admission, moderate in.Patient was placed under observation in telemetry for chest pain to rule out ACS. Cardiac enzymes were cycled q6 h x 3 and were all negative.Acute coronary syndrome ruled out. At present patient is chest pain free, hemodynamically stable. Will discharge patient back to [facility] with same home mediations. Follow up with PMD Dr. Hickey Follow up with his equipment validation specialist Dr. Harvey Follow up with 1. Atypical Chest Pain-- ACS ruled out trop x3 negative continue ASa and plavix 2.DM controlled accuchecks insulin sliding scale home lantus 3.S/P left BKA pain control with percocet, gabapentin and fentanyl patch follow up with his surgeon next week Sunday 4.Hypothyroid cont synthroid 5.HTN resumed home meds controlled 6. Anemia unclear etiology Hgb 10 Discharge Exam - Head Exam Head Exam: ATRAUMATIC, NORMAL INSPECTION, NORMOCEPHALIC Additional comments: chronically ill - Eye Exam Eye Exam: Nystagmus, PERRL Pupil Exam: NORMAL ACCOMODATION - ENT Exam ENT Exam: Normal Exam Additional comments: dry lips - Neck Exam Neck exam: Normal Inspection - Respiratory Exam Respiratory Exam: Clear to PA & Lateral, NORMAL BREATHING PATTERN. absent: Rales, Rhonchi, Wheezes - Cardiovascular Exam Cardiovascular Exam: REGULAR RHYTHM, RRR, +S1, +S2. absent: JVD - GI/Abdominal Exam GI & Abdominal Exam: Normal Bowel Sounds, Soft. absent: Tenderness - Rectal Exam Rectal Exam: Deferred - Extremities Exam Additional comments: right AKA left BKA with mynor in place , dry overlying scab 4 x 4 cm - Neurological Exam Neurological exam: Alert, CN II-XII Intact - Psychiatric Exam Psychiatric exam: Normal Affect - Skin Skin Exam: Dry, Warm Discharge Plan - Follow Up Plan Condition: FAIR Disposition: REHAB FACILITY/REHAB UNIT Instructions: Chest Pain (DC) Additional Instructions: Follow up with his vascular/ ortho surgeon follow up with Dr. Harvey his equipment validation specialist
== END 2017-10-06 16:28 ==
LOC: H.ER 18:53 → H.ERHOLD 21:46 → H.TEL 10-06 01:40
PROVIDERS: ADMIT Internal Medicine; ATTEND Internal Medicine
DX: R07.89 Other chest pain (principal); E11.51 Type 2 diabetes mellitus with diabetic peripheral angiopathy without gangrene; I10 Essential (primary) hypertension; G89.29 Other chronic pain; Z89.512 Acquired absence of left leg below knee; F41.9 Anxiety disorder, unspecified; E03.9 Hypothyroidism, unspecified; E78.00 Pure hypercholesterolemia, unspecified; E11.40 Type 2 diabetes mellitus with diabetic neuropathy, unspecified; E78.5 Hyperlipidemia, unspecified; D64.9 Anemia, unspecified; Z89.421 Acquired absence of other right toe(s)
CPT/HCPCS: 36415; 71045; 80048; 82948; 84484; 85025; 85027; 85610; 85730; 93005; 96374; 99285; G0378; J1170; J1650

== ENCOUNTER 2017-10-16 14:18 | Inpatient (IN) | payer MEDICARE, MEDICAID ==
[2017-10-16 14:18] VITALS: BMI 27.4
[2017-10-16] MEDS ORDERED: Etomidate 20 mg/10ml Inj IV ONE (15:16)
[2017-10-16] MEDS ORDERED: Succinylcholine 200 mg/10 ml Inj IV ONE (15:16)
[2017-10-16] MEDS ORDERED: Naloxone 0.4 mg/ml Inj (Adult) ONE (15:17)
[2017-10-16] MEDS ORDERED: Propofol 10 mg/ml 2,000 MG/200 ML VIAL ONE (15:17)
[2017-10-16] MEDS ORDERED: Glucagon Recombinant 1 mg Inj ONE (15:17)
[2017-10-16] MEDS ORDERED: Propofol 10 mg/ml Inj (20 ML) ONE (15:17)
[2017-10-16 15:30] LABS: ABG ALLEN TEST YES; ARTERIAL BLOOD GAS HCO3 23.7 mmol/L (21-28); ARTERIAL BLOOD GAS O2 SAT 99.6 % (95-98); ARTERIAL BLOOD GAS PCO2 57 mm/Hg (35-45); ARTERIAL BLOOD GAS PH 7.27 (7.35-7.45); ARTERIAL BLOOD GAS PO2 275 mm/Hg (80-100); ARTERIAL BLOOD GAS TCO2 27.9 mmol/L (22-28)
--- NOTE | 2017-10-16 16:06 | ED PDOC ---
Hyperglycemia/Hypoglycemia Time Seen by Provider: 10/16/17 14:32 Chief Complaint (Nursing): Altered Mental Status Chief Complaint (Provider): altered mental status History Per: EMS History/Exam Limitations: clinical condition : The patient does not have any of the infectious symptoms listed except for those marked. Additional Complaint(s): Brought from home by EMS. Pt was reported to be poorly responsive at home and reported that the patient was possibly hypoglycemic. Pt had just been discharged from [facility] after AKA (initially was a BKA). Past Medical History Reviewed: Historical Data, Nursing Documentation, Vital Signs Vital Signs: Last Vital Signs Temp Pulse 102 H 10/16/17 15:08 Resp 14 10/16/17 14:26 BP 93/57 L 10/16/17 14:26 Pulse Ox 74 L 10/16/17 14:26 - Medical History PMH: Anxiety, Diabetes, HTN, Hypercholesterolemia, Hypothyroidism Denies: HIV, Chronic Kidney Disease - Surgical History Surgical History: Appendectomy, Tonsillectomy Other surgeries: AKA Left lower leg - Family History Family History: States: Unknown Family Hx - Social History Current smoker - smoking cessation education provided: No Drugs: Denies - Immunization History Hx Tetanus Toxoid Vaccination: Yes Hx Influenza Vaccination: Yes Hx Pneumococcal Vaccination: No - Home Medications Home Medications: Ambulatory Orders Medication Instructions Recorded Clopidogrel [Plavix] 75 mg PO DAILY 09/15/17 Fentanyl [Duragesic Patch] 50 mcg TOP Q72 09/15/17 Levothyroxine [Synthroid] 25 mg PO DAILY 09/15/17 ALPRAZolam [Xanax] 0.25 mg PO Q6H PRN 09/20/17 Atorvastatin Calcium 40 mg PO QPM 09/20/17 Cilostazol [Pletal] 100 mg PO Q12 09/20/17 Aspirin [Ecotrin] 81 mg PO DAILY 10/16/17 Dabigatran [Pradaxa] 75 mg PO Q12H 10/16/17 Fenofibrate [Triglide] 160 mg PO DAILY 10/16/17 Gabapentin 1,200 mg PO Q12H 10/16/17 HYDROmorphone [Dilaudid] 2 mg PO Q4H PRN 10/16/17 Insulin Detemir [Levemir] 90 unit SC HS 10/16/17 Insulin Lispro [humALOG] 50 unit SC ACTID 10/16/17 Lisinopril [Zestril] 2.5 mg PO DAILY 10/16/17 Metoprolol Tartrate [Lopressor] 12.5 mg PO Q12H 10/16/17 [id number] Ethyl Esters 1 GM 1 gm PO Q12H 10/16/17 [Lovaza] Pantoprazole [Protonix EC Tab] 40 mg PO DAILY 10/16/17 Tamsulosin [Flomax] 0.4 mg PO DAILY 10/16/17 Temazepam [Restoril] 15 mg PO HS 10/16/17 Vitamin B Complex/Vitamin C 1 tab PO DAILY 10/16/17 [Berocca] Zolpidem [Ambien] 5 mg PO HS PRN 10/16/17 - Allergies Allergies/Adverse Reactions: Allergies Allergy/AdvReac Type Severity Reaction Status Date / Time No Known Allergies Allergy Verified 10/16/17 14:25 Review of Systems Review Of Systems: ROS cannot be obtained secondary to pt's inabilty to answer questions. Physical Exam - Reviewed Nursing Documentation Reviewed: Yes Vital Signs Reviewed: Yes - Physical Exam Appears: Positive for: In Acute Distress (poorly responsive ) Head Exam: Positive for: ATRAUMATIC, NORMOCEPHALIC Skin: Positive for: Pallor (and cool) Eye Exam: Positive for: Other (roving eye movements) ENT: Positive for: Other (bilateral nasal trumpets) Neck: Positive for: Supple, Trachea Midline Cardiovascular/Chest: Positive for: Chest Non Tender, Tachycardia. Negative for : Murmur Respiratory: Positive for: Other (shallow breaths). Negative for: Accessory Muscle Use, Crackles, Wheezing Gastrointestinal/Abdominal: Positive for: Soft. Negative for: Tenderness Back: Positive for: Normal Inspection. Negative for: Decreased ROM Extremity: Positive for: Other (LEFT AKA) - Laboratory Results Result Diagrams: 10/16/17 16:27 10/16/17 16:27 - ECG O2 Sat by Pulse Oximetry: 74 - Progress ED Course And Treament: At bedside at time of arrival due to critical state. Minimal response to painful stimuli. Accucheck <20. Access difficult and RIGHT femoral central line placed. D50 given with arousal of patient, but pt vomited with possible aspiration. He became apneic and pulseless and CPR was started. Pt intubate after aggressive suctioning of emesis. ROSC after ~5 min. Levophed and amiodarone started. EKG changed from wide complex tachycardia to narrow rate controlled afib to sinus tach. Inital repeat accucheck after 2 rounds of D50 was 151, then fell to 81. Additional D50 given to maintain glucose at higher level. Pt slowly became more alert, BP in low normal range. At times appear very somnolent but arousable to voice and appears to interact with . He 315p Pt on levophed drip and IVF maintaining BP. Propofol drip that was initially started discontinued due to low BPs. Disposition - Disposition
--- NOTE | 2017-10-16 16:18 | RAD ---
HISTORY: code blue COMPARISON: 10/05/2017. FINDINGS: LUNGS: Perihilar infiltrates right greater than left likely asymmetrical pulmonary edema. PLEURA: No significant pleural effusion identified, no pneumothorax apparent. CARDIOVASCULAR: No radiographic findings to suggest acute or significant cardiovascular disease. OSSEOUS STRUCTURES: No significant abnormalities. VISUALIZED UPPER ABDOMEN: Normal. OTHER FINDINGS: Satisfactory position of recently placed endotracheal tube. IMPRESSION: Asymmetric perihilar infiltrates likely acute pulmonary edema. Satisfactory position of recently placed endotracheal tube.
[2017-10-16] MEDS ORDERED: Dextrose 50% SYRINGE Inj (50 ml) ONE (16:35)
--- NOTE | 2017-10-16 16:45 | CP.CCUPN ---
<Maria L Steinberg - Last Filed: 10/16/17 17:43> CCU Subjective - Physician Review Subjective (Free Text): 10/16/17 42 y/o Male with PMHx of IDDM, HTN, Hypercholesterolemia, Hypothyroidism, S/P left AKA in [facility]. Patient was recently discharge from [facility] after Left AKA (initially was a BKA). Patient was brought from home by EMS because he was unresponsive at home and possible hypoglycemic as per his report. Noted in records that in ER accucheck was <20, and patient was found to have difficult IV access, and a right femoral central line was placed in ER. D50 given with arousal of patient, but patient vomited with possible aspiration, became apneic and pulseless, and CPR was started. Patient was intubated after aggressive suctioning of emesis. ROSC after epinephrine once and defibrillation. Patient was started on levophed drip and amiodarone. 10/16/17 16:58 Critical Care Time Spent (in minutes): 45 CCU Objective - Vital Signs / Intake & Output Vital Signs (Last 4 hours): Vital Signs Pulse Resp BP Pulse Ox 10/16/17 16:25 74 L 10/16/17 15:08 102 H 10/16/17 14:26 85 14 93/57 L 74 L Intake and Output (Last 8hrs): Intake & Output 10/16/17 10/16/17 10/16/17 06:59 14:59 22:59 Weight 145 lb - Physical Exam Physical Exam Limitations: Positive for: Other (intubated) Respiratory/Chest: Positive for: Other (intubated on mechanical ventilation) Cardiovascular: Positive for: Regular Rate and Rhythm, Normal S1, S2, Tachycardic Lower Extremity: Positive for: Other (left AKA) - Patient Studies Lab Studies: Lab Studies 10/16/17 10/16/17 10/16/17 Range/Units 16:07 15:20 15:06 pCO2 57 H (35-45) mm/Hg pO2 275 H (80-100) mm/Hg HCO3 23.7 (21-28) mmol/L ABG pH 7.27 L (7.35-7.45) ABG Total CO2 27.9 (22-28) mmol/L ABG O2 Saturation 99.6 H (95-98) % ABG Base Excess -1.7 (-2.0-3.0) mmol/L Prabhakar Test Yes ABG Potassium 3.1 L (3.6-5.2) mmol/L A-a O2 Difference 367.0 mm/Hg Sodium 139.0 (132-148) mmol/L Chloride 104.0 (98-107) mmol/L Glucose 510 H* D (75-110) mg/dL Lactate 4.1 H* (0.7-2.1) mmol/L Vent Mode Prvc/ac Mechanical Rate 12 FiO2 100.0 % Tidal Volume 500 PEEP 5 Crit Value Called To Dr leandro conner Crit Value Called By Rt Crit Value Read Back Y Blood Gas Notified Time 1529 POC Glucose (mg/dL) 419 H* 281 H (65-110) mg/dL Arterial Blood Potassium 3.1 L (3.6-5.2) mmol/L Laboratory Results - last 24 hr 10/16/17 10/16/17 10/16/17 15:06 15:20 16:07 pCO2 57 H pO2 275 H HCO3 23.7 ABG pH 7.27 L ABG Total CO2 27.9 ABG O2 Saturation 99.6 H ABG Base Excess -1.7 Prabhakar Test Yes ABG Potassium 3.1 L A-a O2 Difference 367.0 Sodium 139.0 Chloride 104.0 Glucose 510 H* D Lactate 4.1 H* Vent Mode Prvc/ac Mechanical Rate 12 FiO2 100.0 Tidal Volume 500 PEEP 5 Crit Value Called To Dr leandro conner Crit Value Called By Rt Crit Value Read Back Y Blood Gas Notified Time 1529 POC Glucose (mg/dL) 281 H 419 H* Arterial Blood Potassium 3.1 L EKG/Cardiology Studies: Cardiology / EKG Studies 10/16/17 14:52 ELECTROCARDIOGRAM Stat Comment: Mode Of Transportation: Reason For Exam: code [id number] 10/16/17 15:46 ELECTROCARDIOGRAM Stat Comment: Mode Of Transportation: Reason For Exam: ROSC ELECTROCARDIOGRAM Stat Comment: Mode Of Transportation: Reason For Exam: rhythm change Fingerstick Blood Sugar Results: 20 Review of Systems - Review of Systems Review of Systems: unable to assess because patient is intubated Assessment/Plan - Assessment and Plan (Free Text) Assessment: 42 y/o Male with PMHx of IDDM, HTN, Hypercholesterolemia, Hypothyroidism, S/P left AKA presenting with altered mental status and hypoglycemic event, s/p cardiorespiratory arrest and CPR/defibrillation. Plan: Cardiac Arrest -ICU unit -S/P CPR in ER -Intubated In ER -s/p epinephrine once -s/p defibrillation -continuous cardiac sonographer -has a right femoral central line placed in Er -consider propofol for sedation -F/u ABG and CXR in AM -S/P intubation CXR pending official reading -No in Hypothermia protocol because GCS >8 Circulatory shock -on levophed -re-assess and titrate as needed Respiratory acidosis -most likely 2/2 to cardiorespiratory arrest -ABG showed PH 7.27 -hypercapnia 57 -Intubated on Mechanical ventilation -f/u ABG in AM Anemia -Acute on chronic anemia -H/H: 7.7/24.6 -consider PRBC transfusion Hypokalemia -K+ 3.1 -replace potassium Hypertension -hold BP meds for now Insulin Dependent Diabetes Mellitus -Hypoglycemic event, s/p Cardiac arrest -s/p D50 IV once in ER -Accucheck ACHS -hold insulin for now -hypoglycemic protocol Hypothyroidism -hold levothyroxine for now Prophylaxis -Protonix 40 mg IV daily for stress ulcer prophylaxis -Heparin 5000 units SC Q 12 for DVT prophylaxis -pressure ulcers precautions - Date & Time Date: 10/16/17 Time: 16:00 <Wilfrid Dial - Last Filed: 10/16/17 18:48> CCU Objective - Vital Signs / Intake & Output Vital Signs (Last 4 hours): Vital Signs Pulse Resp BP Pulse Ox 10/16/17 17:31 74 L 10/16/17 16:30 106 H 27 H 92/46 L 97 10/16/17 16:00 110 H 23 87/58 L 97 10/16/17 15:30 118 H 104/63 23 L 10/16/17 15:08 102 H 10/16/17 15:00 77 23 80/36 L 99 Intake and Output (Last 8hrs): Intake & Output 10/16/17 10/16/17 10/16/17 06:59 14:59 22:59 Weight 145 lb - Medications Active Medications: Active Medications Generic Name Dose Route Start Last Admin Trade Name Freq PRN Reason Stop Dose Admin Heparin Sodium (Porcine) 5,000 units 10/16/17 21:00 Heparin SC Q12 [facility] Protocol Propofol 1,000 mg in 100 mls @ 1.973 mls/hr 10/16/17 18:00 10/16/17 18:17 Diprivan IV 10/17/17 17:57 5 mcg/kg/min .Q24H JULIANA 1.973 mls/hr Protocol Administration 5 MCG/KG/MIN Lactated Ringer's 1,000 mls @ 75 mls/hr 10/16/17 18:15 Lactated Ringer's IV .[id number] [facility] Clindamycin Phosphate 600 mg in 50 mls @ 50 mls/hr 10/16/17 18:15 Cleocin In Normal Saline IVPB Q8 [facility] Protocol Insulin Human Lispro 0 units 10/16/17 22:00 Humalog SC Q6 [facility] Protocol Levothyroxine Sodium 25 mcg 10/17/17 06:30 Synthroid PO DAILY@0630 [facility] - Patient Studies Lab Studies: Lab Studies 10/16/17 10/16/17 10/16/17 Range/Units 16:27 16:27 16:27 WBC 12.2 H (4.8-10.8) K/uL RBC 3.08 L (4.40-5.90) Mil/uL Hgb 7.7 L D (12.0-18.0) g/dL Hct 24.6 L (35.0-51.0) % MCV 79.9 L (80.0-94.0) fl MCH 25.1 L (27.0-31.0) pg MCHC 31.4 L (33.0-37.0) g/dL RDW 15.7 H (11.5-14.5) % Plt Count 360 (130-400) K/uL MPV 8.5 (7.2-11.7) fl Neut % (Auto) 92.4 H (50.0-75.0) % Lymph % (Auto) 5.7 L (20.0-40.0) % [place] % (Auto) 1.6 (0.0-10.0) % Eos % (Auto) 0.1 (0.0-4.0) % Baso % (Auto) 0.2 (0.0-2.0) % Neut # (Auto) 11.3 H (1.8-7.0) K/uL Lymph # (Auto) 0.7 L (1.0-4.3) K/uL [place] # (Auto) 0.2 (0.0-0.8) K/uL Eos # (Auto) 0.0 (0.0-0.7) K/uL Baso # (Auto) 0.0 (0.0-0.2) K/uL PT 15.1 H (9.8-13.1) Seconds INR 1.4 H (0.9-1.2) APTT 16.6 L (25.6-37.1) Seconds pCO2 (35-45) mm/Hg pO2 (80-100) mm/Hg HCO3 (21-28) mmol/L ABG pH (7.35-7.45) ABG Total CO2 (22-28) mmol/L ABG O2 Saturation (95-98) % ABG Base Excess (-2.0-3.0) mmol/L Prabhakar Test ABG Potassium (3.6-5.2) mmol/L A-a O2 Difference mm/Hg Sodium 143 (132-148) mmol/L Chloride 105 (98-107) mmol/L Glucose (75-110) mg/dL Lactate (0.7-2.1) mmol/L Vent Mode Mechanical Rate FiO2 % Tidal Volume PEEP Crit Value Called To Crit Value Called By Crit Value Read Back Blood Gas Notified Time Potassium 3.1 L (3.6-5.0) MMOL/L Carbon Dioxide 29 (22-30) mmol/L Anion Gap 12 (10-20) BUN 10 (9-20) mg/dl Creatinine 0.6 L (0.8-1.5) mg/dl Est GFR ( Amer) > 60 Est GFR (Non-Af Amer) > 60 POC Glucose (mg/dL) (65-110) mg/dL Random Glucose 378 H (75-110) mg/dL Calcium 9.4 (8.4-10.2) mg/dL Phosphorus 5.5 H (2.5-4.5) mg/dl Magnesium 1.8 (1.6-2.3) MG/DL Total Bilirubin 0.6 (0.2-1.3) mg/dl AST 234 H D (17-59) U/L ALT 101 H D (21-72) U/L Alkaline Phosphatase 124 (38-126) U/L Troponin I 0.0180 (0.00-0.120) ng/mL NT-Pro-B Natriuret Pep 318 (0-450) pg/ml Total Protein 6.3 (6.3-8.2) G/DL Albumin 2.5 L D (3.5-5.0) g/dL Globulin 3.8 (2.2-3.9) gm/dL Albumin/Globulin Ratio 0.7 L (1.0-2.1) Arterial Blood Potassium (3.6-5.2) mmol/L Alcohol, Quantitative < 10 (0-10) mg/dl Blood Type Antibody Screen BBK History Checked 10/16/17 10/16/17 10/16/17 Range/Units 16:20 16:07 15:20 WBC (4.8-10.8) K/uL RBC (4.40-5.90) Mil/uL Hgb (12.0-18.0) g/dL Hct (35.0-51.0) % MCV (80.0-94.0) fl MCH (27.0-31.0) pg MCHC (33.0-37.0) g/dL RDW (11.5-14.5) % Plt Count (130-400) K/uL MPV (7.2-11.7) fl Neut % (Auto) (50.0-75.0) % Lymph % (Auto) (20.0-40.0) % [place] % (Auto) (0.0-10.0) % Eos % (Auto) (0.0-4.0) % Baso % (Auto) (0.0-2.0) % Neut # (Auto) (1.8-7.0) K/uL Lymph # (Auto) (1.0-4.3) K/uL [place] # (Auto) (0.0-0.8) K/uL Eos # (Auto) (0.0-0.7) K/uL Baso # (Auto) (0.0-0.2) K/uL PT (9.8-13.1) Seconds INR (0.9-1.2) APTT (25.6-37.1) Seconds pCO2 57 H (35-45) mm/Hg pO2 275 H (80-100) mm/Hg HCO3 23.7 (21-28) mmol/L ABG pH 7.27 L (7.35-7.45) ABG Total CO2 27.9 (22-28) mmol/L ABG O2 Saturation 99.6 H (95-98) % ABG Base Excess -1.7 (-2.0-3.0) mmol/L Prabhakar Test Yes ABG Potassium 3.1 L (3.6-5.2) mmol/L A-a O2 Difference 367.0 mm/Hg Sodium 139.0 (132-148) mmol/L Chloride 104.0 (98-107) mmol/L Glucose 510 H* D (75-110) mg/dL Lactate 4.1 H* (0.7-2.1) mmol/L Vent Mode Prvc/ac Mechanical Rate 12 FiO2 100.0 % Tidal Volume 500 PEEP 5 Crit Value Called To Dr leandro conner Crit Value Called By Rt Crit Value Read Back Y Blood Gas Notified Time 1529 Potassium (3.6-5.0) MMOL/L Carbon Dioxide (22-30) mmol/L Anion Gap (10-20) BUN (9-20) mg/dl Creatinine (0.8-1.5) mg/dl Est GFR ( Amer) Est GFR (Non-Af Amer) POC Glucose (mg/dL) 419 H* (65-110) mg/dL Random Glucose (75-110) mg/dL Calcium (8.4-10.2) mg/dL Phosphorus (2.5-4.5) mg/dl Magnesium (1.6-2.3) MG/DL Total Bilirubin (0.2-1.3) mg/dl AST (17-59) U/L ALT (21-72) U/L Alkaline Phosphatase (38-126) U/L Troponin I (0.00-0.120) ng/mL NT-Pro-B Natriuret Pep (0-450) pg/ml Total Protein (6.3-8.2) G/DL Albumin (3.5-5.0) g/dL Globulin (2.2-3.9) gm/dL Albumin/Globulin Ratio (1.0-2.1) Arterial Blood Potassium 3.1 L (3.6-5.2) mmol/L Alcohol, Quantitative (0-10) mg/dl Blood Type A POSITIVE Antibody Screen Negative BBK History Checked No verified bt 10/16/17 Range/Units 15:06 WBC (4.8-10.8) K/uL RBC (4.40-5.90) Mil/uL Hgb (12.0-18.0) g/dL Hct (35.0-51.0) % MCV (80.0-94.0) fl MCH (27.0-31.0) pg MCHC (33.0-37.0) g/dL RDW (11.5-14.5) % Plt Count (130-400) K/uL MPV (7.2-11.7) fl Neut % (Auto) (50.0-75.0) % Lymph % (Auto) (20.0-40.0) % [place] % (Auto) (0.0-10.0) % Eos % (Auto) (0.0-4.0) % Baso % (Auto) (0.0-2.0) % Neut # (Auto) (1.8-7.0) K/uL Lymph # (Auto) (1.0-4.3) K/uL [place] # (Auto) (0.0-0.8) K/uL Eos # (Auto) (0.0-0.7) K/uL Baso # (Auto) (0.0-0.2) K/uL PT (9.8-13.1) Seconds INR (0.9-1.2) APTT (25.6-37.1) Seconds pCO2 (35-45) mm/Hg pO2 (80-100) mm/Hg HCO3 (21-28) mmol/L ABG pH (7.35-7.45) ABG Total CO2 (22-28) mmol/L ABG O2 Saturation (95-98) % ABG Base Excess (-2.0-3.0) mmol/L Prabhakar Test ABG Potassium (3.6-5.2) mmol/L A-a O2 Difference mm/Hg Sodium (132-148) mmol/L Chloride (98-107) mmol/L Glucose (75-110) mg/dL Lactate (0.7-2.1) mmol/L Vent Mode Mechanical Rate FiO2 % Tidal Volume PEEP Crit Value Called To Crit Value Called By Crit Value Read Back Blood Gas Notified Time Potassium (3.6-5.0) MMOL/L Carbon Dioxide (22-30) mmol/L Anion Gap (10-20) BUN (9-20) mg/dl Creatinine (0.8-1.5) mg/dl Est GFR ( Amer) Est GFR (Non-Af Amer) POC Glucose (mg/dL) 281 H (65-110) mg/dL Random Glucose (75-110) mg/dL Calcium (8.4-10.2) mg/dL Phosphorus (2.5-4.5) mg/dl Magnesium (1.6-2.3) MG/DL Total Bilirubin (0.2-1.3) mg/dl AST (17-59) U/L ALT (21-72) U/L Alkaline Phosphatase (38-126) U/L Troponin I (0.00-0.120) ng/mL NT-Pro-B Natriuret Pep (0-450) pg/ml Total Protein (6.3-8.2) G/DL Albumin (3.5-5.0) g/dL Globulin (2.2-3.9) gm/dL Albumin/Globulin Ratio (1.0-2.1) Arterial Blood Potassium (3.6-5.2) mmol/L Alcohol, Quantitative (0-10) mg/dl Blood Type Antibody Screen BBK History Checked Laboratory Results - last 24 hr 10/16/17 10/16/17 10/16/17 15:06 15:20 16:07 WBC RBC Hgb Hct MCV MCH MCHC RDW Plt Count MPV Neut % (Auto) Lymph % (Auto) [place] % (Auto) Eos % (Auto) Baso % (Auto) Neut # (Auto) Lymph # (Auto) [place] # (Auto) Eos # (Auto) Baso # (Auto) PT INR APTT pCO2 57 H pO2 275 H HCO3 23.7 ABG pH 7.27 L ABG Total CO2 27.9 ABG O2 Saturation 99.6 H ABG Base Excess -1.7 Prabhakar Test Yes ABG Potassium 3.1 L A-a O2 Difference 367.0 Sodium 139.0 Chloride 104.0 Glucose 510 H* D Lactate 4.1 H* Vent Mode Prvc/ac Mechanical Rate 12 FiO2 100.0 Tidal Volume 500 PEEP 5 Crit Value Called To Dr leandro conner Crit Value Called By Rt Crit Value Read Back Y Blood Gas Notified Time 1529 Potassium Carbon Dioxide Anion Gap BUN Creatinine Est GFR ( Amer) Est GFR (Non-Af Amer) POC Glucose (mg/dL) 281 H 419 H* Random Glucose Calcium Phosphorus Magnesium Total Bilirubin AST ALT Alkaline Phosphatase Troponin I NT-Pro-B Natriuret Pep Total Protein Albumin Globulin Albumin/Globulin Ratio Arterial Blood Potassium 3.1 L Alcohol, Quantitative Blood Type Antibody Screen BBK History Checked 10/16/17 10/16/17 10/16/17 16:20 16:27 16:27 WBC 12.2 H RBC 3.08 L Hgb 7.7 L D Hct 24.6 L MCV 79.9 L MCH 25.1 L MCHC 31.4 L RDW 15.7 H Plt Count 360 MPV 8.5 Neut % (Auto) 92.4 H Lymph % (Auto) 5.7 L [place] % (Auto) 1.6 Eos % (Auto) 0.1 Baso % (Auto) 0.2 Neut # (Auto) 11.3 H Lymph # (Auto) 0.7 L [place] # (Auto) 0.2 Eos # (Auto) 0.0 Baso # (Auto) 0.0 PT INR APTT pCO2 pO2 HCO3 ABG pH ABG Total CO2 ABG O2 Saturation ABG Base Excess Prabhakar Test ABG Potassium A-a O2 Difference Sodium 143 Chloride 105 Glucose Lactate Vent Mode Mechanical Rate FiO2 Tidal Volume PEEP Crit Value Called To Crit Value Called By Crit Value Read Back Blood Gas Notified Time Potassium 3.1 L Carbon Dioxide 29 Anion Gap 12 BUN 10 Creatinine 0.6 L Est GFR ( Amer) > 60 Est GFR (Non-Af Amer) > 60 POC Glucose (mg/dL) Random Glucose 378 H Calcium 9.4 Phosphorus 5.5 H Magnesium 1.8 Total Bilirubin 0.6 AST 234 H D ALT 101 H D Alkaline Phosphatase 124 Troponin I 0.0180 NT-Pro-B Natriuret Pep 318 Total Protein 6.3 Albumin 2.5 L D Globulin 3.8 Albumin/Globulin Ratio 0.7 L Arterial Blood Potassium Alcohol, Quantitative < 10 Blood Type A POSITIVE Antibody Screen Negative BBK History Checked No verified bt 10/16/17 16:27 WBC RBC Hgb Hct MCV MCH MCHC RDW Plt Count MPV Neut % (Auto) Lymph % (Auto) [place] % (Auto) Eos % (Auto) Baso % (Auto) Neut # (Auto) Lymph # (Auto) [place] # (Auto) Eos # (Auto) Baso # (Auto) PT 15.1 H INR 1.4 H APTT 16.6 L pCO2 pO2 HCO3 ABG pH ABG Total CO2 ABG O2 Saturation ABG Base Excess Prabhakar Test ABG Potassium A-a O2 Difference Sodium Chloride Glucose Lactate Vent Mode Mechanical Rate FiO2 Tidal Volume PEEP Crit Value Called To Crit Value Called By Crit Value Read Back Blood Gas Notified Time Potassium Carbon Dioxide Anion Gap BUN Creatinine Est GFR ( Amer) Est GFR (Non-Af Amer) POC Glucose (mg/dL) Random Glucose Calcium Phosphorus Magnesium Total Bilirubin AST ALT Alkaline Phosphatase Troponin I NT-Pro-B Natriuret Pep Total Protein Albumin Globulin Albumin/Globulin Ratio Arterial Blood Potassium Alcohol, Quantitative Blood Type Antibody Screen BBK History Checked EKG/Cardiology Studies: Cardiology / EKG Studies 10/16/17 14:52 ELECTROCARDIOGRAM Stat Comment: Mode Of Transportation: Reason For Exam: code [id number] 10/16/17 15:46 ELECTROCARDIOGRAM Stat Comment: Mode Of Transportation: Reason For Exam: ROSC ELECTROCARDIOGRAM Stat Comment: Mode Of Transportation: Reason For Exam: rhythm change 10/16/17 16:44 ELECTROCARDIOGRAM Stat Comment: Mode Of Transportation: Reason For Exam: rhythm change Critical Care Progress Note - Nutrition Nutrition: Nutrition Category Date Time Status NPO Diet [DIET] Diets 10/17/17 Breakfast Ordered Attending/Attestation - Attestation I have personally seen and examined this patient.: Yes I have fully participated in the care of the patient.: Yes I have reviewed all pertinent clinical information: Yes Notes (Text): 10/16/17 18:41 I have seen and examined the patient. Medical records, lab studies, and imaging were reviewed by me and a management plan was formulated on multidisciplinary rounds with resident Dr. Steinberg. I agree with their above documented assessment and plan. The patient was intubated for airway protection secondary to aspiration immediately after his cardiac arrest. He is alert and following commands, no indication for hypothermia protocol. I am keeping him intubated as we are unsure as to whether his aspiration has caused a pneumonitis or pneumonia. Started empirically on clindamycin. Will monitor and initiate pressure support trials depending on his pulmonary status tomorrow. Critical Care Time minutes. Multi-disciplinary rounds were performed with house staff, nursing, speech therapy, respiratory therapy, pharmacy and nutrition with integrated input from the primary team/attending and other consulting services. The documented time is cumulative and includes review of patient data/exams/labs/chart review and examination of the patient on rounds and throughout the day; time is exclusive of any procedures or teaching time.
[2017-10-16 16:56] LABS: BASO % 0.2 % (0.0-2.0); EOS % 0.1 % (0.0-4.0); HEMOGLOBIN 7.7 g/dL (12.0-18.0); LYMPH # 0.7 K/uL (1.0-4.3); LYMPH % 5.7 % (20.0-40.0); MEAN CELL VOLUME 79.9 fl (80.0-94.0); MEAN CORPUSCULAR HEMOGLOBIN 25.1 pg (27.0-31.0); MEAN CORPUSCULAR HGB CONC 31.4 g/dL (33.0-37.0); MEAN PLATELET VOLUME 8.5 fl (7.2-11.7); MONO # 0.2 K/uL (0.0-0.8); MONO % 1.6 % (0.0-10.0); NEUT # 11.3 K/uL (1.8-7.0); NEUT % 92.4 % (50.0-75.0); PLATELET COUNT 360 K/uL (130-400); RBC 3.08 Mil/uL (4.40-5.90); RED CELL DISTRIBUTION WIDTH 15.7 % (11.5-14.5); WHITE BLOOD COUNT 12.2 K/uL (4.8-10.8)
[2017-10-16 16:57] LABS: B-TYPE NATRIURETIC PEPTIDE 318 pg/ml (0-450)
[2017-10-16 17:02] LABS: ALB/GLOB RATIO 0.7 (1.0-2.1); ALBUMIN 2.5 g/dL (3.5-5.0); ALT/SGPT 101 U/L (21-72); AST/SGOT 234 U/L (17-59); BLOOD UREA NITROGEN 10 mg/dl (9-20); CALCIUM 9.4 mg/dL (8.4-10.2); GFR AFRICAN-AMERICAN > 60; GFR NON-AFRICAN AMERICAN > 60; MAGNESIUM 1.8 MG/DL (1.6-2.3)
[2017-10-16 17:15] LABS: INR 1.4 (0.9-1.2); PROTHROMBIN TIME 15.1 Seconds (9.8-13.1)
[2017-10-16 17:16] LABS: PARTIAL THROMBOPLASTIN TIME 16.6 Seconds (25.6-37.1)
[2017-10-16] MEDS ORDERED: Midazolam 2 MG/2 ML VIAL ONE (17:49)
--- NOTE | 2017-10-16 17:54 | CP.PCM.HP ---
History of Present Illness - History of Present Illness History of Present Illness: 42 yo male with history of DM2, HTN, HLD, Hypothyroid recently discharged last night from [facility] after having AKA of the left leg. claimed that she noted the patient profusely diaphoretic while in bed, awake but not talking. She did an accuchek and it read as 32mg%. According to her the patient received Levemir 90 units SC last night and this morning Humulog 50 units SC. She called 911 and when they arrived patient was very lethargic and barely responsive. He was immediately brought to the ER and was intubated. Patient also received IV glucose. Present on Admission - Present on Admission Any Indicators Present on Admission: No History of DVT/PE: No History of Uncontrolled Diabetes: No Urinary Catheter: No Decubitus Ulcer Present: No Review of Systems - Review of Systems Systems not reviewed;Unavailable: Intubated Past Patient History - Tetanus Immunizations Tetanus Immunization: Unknown - Past Medical History & Family History Past Medical History?: Yes - Past Social History Smoking Status: Never Smoked Alcohol: None Drugs: Denies Home Situation {Lives}: With Family - CARDIAC Hx Hypercholesterolemia: Yes Hx Hypertension: Yes - PULMONARY Hx Respiratory Disorders: No - NEUROLOGICAL Hx Neurological Disorder: No - HEENT Hx HEENT Problems: No - RENAL Hx Chronic Kidney Disease: No - ENDOCRINE/METABOLIC Hx Hypothyroidism: Yes - HEMATOLOGICAL/ONCOLOGICAL Hx Human Immunodeficiency Virus (HIV): No - INTEGUMENTARY Hx Dermatological Problems: No - MUSCULOSKELETAL/RHEUMATOLOGICAL Hx Musculoskeletal Disorders: Yes Hx Falls: Yes Hx Unsteady Gait: Yes - GASTROINTESTINAL Hx Gastrointestinal Disorders: No - GENITOURINARY/GYNECOLOGICAL Hx Genitourinary Disorders: No - PSYCHIATRIC Hx Anxiety: Yes - SURGICAL HISTORY Hx Amputation: Yes (right TMA; Left BKA, Aug, 2017; Left, AKA, Oct, 2017) Hx Appendectomy: Yes Hx Tonsillectomy: Yes - ANESTHESIA Hx Anesthesia: Yes Hx Anesthesia Reactions: No Hx Malignant Hyperthermia: No Meds Allergies/Adverse Reactions: Allergies Allergy/AdvReac Type Severity Reaction Status Date / Time No Known Allergies Allergy Verified 10/16/17 14:25 Physical Exam - Constitutional Appears: No Acute Distress (intubated), Other - Head Exam Head Exam: ATRAUMATIC - Eye Exam Eye Exam: PERRL. absent: Scleral icterus - Neck Exam Neck exam: Negative for: Meningismus - Respiratory Exam Respiratory Exam: absent: Rhonchi, Wheezes, Respiratory Distress - Cardiovascular Exam Cardiovascular Exam: Tachycardia - GI/Abdominal Exam GI & Abdominal Exam: Soft. absent: Tenderness - Rectal Exam Rectal Exam: Deferred - Extremities Exam Extremities exam: Negative for: normal inspection (Right TMA; Left AKA) - Neurological Exam Neurological exam: Altered - Psychiatric Exam Psychiatric exam: Flat Affect - Skin Skin Exam: Dry, Intact Results - Vital Signs Recent Vital Signs: Last Vital Signs Temp Pulse 102 H 10/16/17 15:08 Resp 14 10/16/17 14:26 BP 93/57 L 10/16/17 14:26 Pulse Ox 74 L 10/16/17 17:31 - Labs Result Diagrams: 10/16/17 16:27 10/16/17 16:27 Labs: Laboratory Results - last 24 hr 10/16/17 10/16/17 10/16/17 15:06 15:20 16:07 WBC RBC Hgb Hct MCV MCH MCHC RDW Plt Count MPV Neut % (Auto) Lymph % (Auto) [place] % (Auto) Eos % (Auto) Baso % (Auto) Neut # (Auto) Lymph # (Auto) [place] # (Auto) Eos # (Auto) Baso # (Auto) PT INR APTT pCO2 57 H pO2 275 H HCO3 23.7 ABG pH 7.27 L ABG Total CO2 27.9 ABG O2 Saturation 99.6 H ABG Base Excess -1.7 Prabhakar Test Yes ABG Potassium 3.1 L A-a O2 Difference 367.0 Sodium 139.0 Chloride 104.0 Glucose 510 H* D Lactate 4.1 H* Vent Mode Prvc/ac Mechanical Rate 12 FiO2 100.0 Tidal Volume 500 PEEP 5 Crit Value Called To Dr leandro conner Crit Value Called By Rt Crit Value Read Back Y Blood Gas Notified Time 1529 Potassium Carbon Dioxide Anion Gap BUN Creatinine Est GFR ( Amer) Est GFR (Non-Af Amer) POC Glucose (mg/dL) 281 H 419 H* Random Glucose Calcium Phosphorus Magnesium Total Bilirubin AST ALT Alkaline Phosphatase Troponin I NT-Pro-B Natriuret Pep Total Protein Albumin Globulin Albumin/Globulin Ratio Arterial Blood Potassium 3.1 L Alcohol, Quantitative 10/16/17 10/16/17 10/16/17 16:27 16:27 16:27 WBC 12.2 H RBC 3.08 L Hgb 7.7 L D Hct 24.6 L MCV 79.9 L MCH 25.1 L MCHC 31.4 L RDW 15.7 H Plt Count 360 MPV 8.5 Neut % (Auto) 92.4 H Lymph % (Auto) 5.7 L [place] % (Auto) 1.6 Eos % (Auto) 0.1 Baso % (Auto) 0.2 Neut # (Auto) 11.3 H Lymph # (Auto) 0.[address] [place] # (Auto) 0.2 Eos # (Auto) 0.0 Baso # (Auto) 0.0 PT 15.1 H INR 1.4 H APTT 16.6 L pCO2 pO2 HCO3 ABG pH ABG Total CO2 ABG O2 Saturation ABG Base Excess Prabhakar Test ABG Potassium A-a O2 Difference Sodium 143 Chloride 105 Glucose Lactate Vent Mode Mechanical Rate FiO2 Tidal Volume PEEP Crit Value Called To Crit Value Called By Crit Value Read Back Blood Gas Notified Time Potassium 3.1 L Carbon Dioxide 29 Anion Gap 12 BUN 10 Creatinine 0.6 L Est GFR ( Amer) > 60 Est GFR (Non-Af Amer) > 60 POC Glucose (mg/dL) Random Glucose 378 H Calcium 9.4 Phosphorus 5.5 H Magnesium 1.8 Total Bilirubin 0.6 AST 234 H D ALT 101 H D Alkaline Phosphatase 124 Troponin I 0.0180 NT-Pro-B Natriuret Pep 318 Total Protein 6.3 Albumin 2.5 L D Globulin 3.8 Albumin/Globulin Ratio 0.7 L Arterial Blood Potassium Alcohol, Quantitative < 10 Assessment & Plan - Assessment and Plan (Free Text) Assessment: 42 yo male with history of DM2, HTN, HLD, Hypothyroid recently discharged last night from [facility] left post AKA. This morning patient was noted to be severely diaphoretic and lethargic with an accuchek of 32mg%. 911 was called and patient was brought to ER where he received IV glucose and was intubated to protect the airway. 1. Hypoglycemia serial Troponin and EKG endocrinology consult with Dr Regulo JERRY with normal Lispro coverage intubated to protect airway prepare patient for possible extubation 2. DM2 BS uncontrolled accuchek KEYLAS with Lispro coverage 3. 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 DVT Prophylaxis Heparin 5000 units SC q 12hrs
[2017-10-16] MEDS ORDERED: Midazolam 2 MG/2 ML VIAL IV ONE (17:56)
[2017-10-16] MEDS ORDERED: Propofol 10 mg/ml 1,000 MG/100 ML VIAL IV SCH (18:00)
[2017-10-16] MEDS ORDERED: Clindamycin 600mg/50ml NS 600 MG/50 ML BAG IVPB SCH (18:15)
[2017-10-16] MEDS ORDERED: Lactated Ringer's 1,000 ML IV SCH (18:15)
[2017-10-16 19:18] LABS: ANISOCYTOSIS MARKED; BANDS 7 % (0-2); HYPOCHROMIC MODERATE; LYMPHOCYTE 7 % (20-50); MICROCYTOSIS MODERATE; MONOCYTE 3 % (0-10); NEUTROPHIL 83 % (42-75); OVALOCYTES SLIGHT; PLATELET ESTIMATE NORMAL (NORMAL); POIKILOCYTOSIS SLIGHT; SICKLE CELLS MODERATE; TOTAL CELLS COUNTED 100
[2017-10-16 19:19] LABS: BURR CELLS SLIGHT; TARGET CELLS SLIGHT
[2017-10-16] MEDS ORDERED: Insulin Lispro (humaLOG) 100 Units/ml Inj SC SCH (22:00)
[2017-10-17] MEDS: Insulin Lispro (humaLOG) 100 Units/ml Inj SC SCH ×6 (00:40→20:06)
[2017-10-17] MEDS ORDERED: Propofol 10 mg/ml 1,000 MG/100 ML VIAL IV SCH (02:15)
[2017-10-17 04:41] LABS: ABG ALLEN TEST YES; ARTERIAL BLOOD GAS O2 SAT 99.4 % (95-98); ARTERIAL BLOOD GAS PCO2 45 mm/Hg (35-45); ARTERIAL BLOOD GAS PH 7.45 (7.35-7.45); ARTERIAL BLOOD GAS PO2 125 mm/Hg (80-100); ARTERIAL BLOOD GAS TCO2 32.7 mmol/L (22-28)
--- NOTE | 2017-10-17 05:09 | CON ---
DATE: ENDOCRINOLOGY CONSULTATION LOCATION: In ICU room 425. HISTORY OF PRESENT ILLNESS: This is a 42-year-old male with known history of type 2 insulin-requiring diabetes presenting here with symptomatic hypoglycemia and associated lethargy and hypersomnolence and was found to have a blood glucose level of 32 mg/dL at home and was given D50 bolus injections with a brief bout of responsiveness and was brought to the Emergency Room as noted thereof. However in the Emergency Room, the repeat glucose level was less than 20 mg/dL as noted and the had given him Levemir 90 units last night and Humalog 50 units this morning as noted. His oral intake has been quite variable and suboptimal at this time since the very recent discharge from [facility] following an above knee amputation in the left leg as noted. Moreover in the Emergency Room, he became tachycardic and tachypneic and had supervening vomiting episodes with possible aspiration pneumonia with sudden apnea and hypoxemia and asystole and was thus intubated thereof. He is being referred now for diabetic evaluation and management. PAST MEDICAL HISTORY: As per the discussion with the and review of the hospital records, he was actually been given a high dose of an insulin combination with Levemir given as 90 units subcu at bedtime daily and Humalog given as 50 units subcu t.i.d. before meals as noted. His primary physician is Dr. Perico Klein in [place]. History of type 2 insulin-requiring diabetes, on the above insulin regimen as mentioned, history of hypertensive cardiovascular disease and dyslipidemia. Also known history of diabetic retinopathy and polyneuropathy with severe diabetic vasculopathy with peripheral arterial disease as noted. He had a prior right transmetatarsal amputation a few years ago followed in 08/2017 with a left below-knee amputation as noted. This month in 10/2017, he underwent a left above knee amputation at [facility] as noted, history of hypertensive cardiovascular disease and dyslipidemia, history of cardiac tachyarrhythmias, currently on oral anticoagulation therapy, using Pradaxa medications as noted, history of generalized anxiety and insomnia, on psychotropic medications, history of hypothyroidism, currently on a very low-dose levothyroxine at 25 mcg daily as noted. FAMILY HISTORY: Positive for hypertension and diabetes. SOCIAL HISTORY: The patient has supportive family. No known substance use. REVIEW OF SYSTEMS: Not possible at this time, but the chart has been reviewed in detail and the [facility] [employer] notes have been also reviewed in detail. PHYSICAL EXAMINATION: GENERAL: This is an overweight male, currently intubated and sedated. VITAL SIGNS: Blood pressure of 90/70, pulse of 120 beats per minute regular, temperature 100, respirations as per ventilator parameters. Height is 5 feet 2 inches, weight is 145 pounds. HEENT: Head normocephalic. Eyes: Anicteric with very pale conjunctivae. Funduscopy is not possible at this time. Ears, nose and throat otherwise normal. NECK: Supple. Thyroid gland is normal in size. No carotid bruits or cervical adenopathy. CARDIOPULMONARY: Some adynamic precordium. S1, S2 is rapid and regular. LUNGS: Shows scattered rhonchi. ABDOMEN: Abdomen is flat, soft with positive bowel sounds. EXTREMITIES: The right lower extremity showed no edema with diminished pulses. The left above-knee amputation stump has a dry dressing as noted. LABORATORY DATA: The chemistries showed a BUN of 10, sodium 143, potassium 3.1, chloride 105, CO2 of 29, glucose 378 and creatinine 0.6. The latest fingerstick is 156 and earlier the glucose following D50 bolus injection was 419 mg/dL. ASSESSMENT: This is a 42-year-old male with known history of type 2 insulin-requiring diabetes, who underwent a recent left above-knee amputation and was just discharged from [facility] and developed supervening symptomatic hypoglycemia and associated neuroglycopenic and hyperadrenergic manifestations noted both at the home and in the Emergency Room. Moreover, he also had sudden onset of vomiting episodes and possible acute aspiration pneumonia with subsequent acute respiratory failure and is now currently endotracheally intubated and sedated at this time. He also has diabetic microvascular complications of retinopathy and severe polyneuropathy with diabetic macrovascular complications of coronary artery disease and peripheral arterial disease and vasculopathy with a previous right transmetatarsal amputation and a recent left above-knee amputation as noted. Plan of management as discussed with the nursing staff. We will intensify his glucose monitoring and we will modify the Humalog coverage as given and ordered. We will do fingerstick glucose every 4 hours and Humalog with Humalog insulin coverage as given. We will also start him on basal insulin with Levemir to be given as 12 units subcu every 12 hours at 08:00 a.m. and 08:00 p.m. daily as ordered and we will titrate incrementally as indicated to optimize metabolic control. We will obtain a hemoglobin A1c to confirm his prior glycemic control and baseline thyroid function studies will be ordered and we will modify his levothyroxine dose accordingly. They have ordered lactated Ringer's solution as given and we will recommend potassium supplementation as noted. We will obtain serial chemistries and supplement accordingly as needed. We will follow. Vania Rajput MD
[2017-10-17 05:28] LABS: BASO % 0.2 % (0.0-2.0); HEMOGLOBIN 7.9 g/dL (12.0-18.0); LYMPH # 1.2 K/uL (1.0-4.3); MEAN CELL VOLUME 79.4 fl (80.0-94.0); MEAN CORPUSCULAR HEMOGLOBIN 25.2 pg (27.0-31.0); MEAN CORPUSCULAR HGB CONC 31.7 g/dL (33.0-37.0); MEAN PLATELET VOLUME 8.2 fl (7.2-11.7); MONO # 0.6 K/uL (0.0-0.8); MONO % 4.9 % (0.0-10.0); NEUT # 10.4 K/uL (1.8-7.0); NEUT % 84.9 % (50.0-75.0); RBC 3.14 Mil/uL (4.40-5.90); RED CELL DISTRIBUTION WIDTH 15.7 % (11.5-14.5); WHITE BLOOD COUNT 12.2 K/uL (4.8-10.8)
[2017-10-17 05:47] LABS: ALB/GLOB RATIO 0.7 (1.0-2.1); ALBUMIN 2.7 g/dL (3.5-5.0); ALT/SGPT 93 U/L (21-72); AST/SGOT 153 U/L (17-59); BLOOD UREA NITROGEN 8 mg/dl (9-20); CALCIUM 9.1 mg/dL (8.4-10.2); GFR AFRICAN-AMERICAN > 60; GFR NON-AFRICAN AMERICAN > 60; HDL CHOLESTEROL 17 MG/DL (30-70)
[2017-10-17 05:56] LABS: T4 8.37 ug/dl (5.5-11.0)
[2017-10-17 06:08] LABS: LDL CHOLESTEROL < 30 mg/dL (0-129)
[2017-10-17] MEDS: Lactated Ringer's 1,000 ML IV SCH ×2 (06:09→12:36)
[2017-10-17] MEDS: Clindamycin 600mg/50ml NS 600 MG/50 ML BAG IVPB SCH ×2 (06:10→13:14)
[2017-10-17] MEDS: Levothyroxine 25 MCG TAB PO SCH (06:10)
[2017-10-17] MEDS: Insulin Detemir 100 Units/ml Inj SC SCH ×2 (08:00→20:10)
[2017-10-17] MEDS ORDERED: Enoxaparin 40 mg Syringe SC SCH (09:00)
[2017-10-17] MEDS ORDERED: Pneumococcal 23-Valent Vaccine IM ONE (09:00)
[2017-10-17] MEDS ORDERED: Albuterol-Ipratrop 3 mg / 0.5 (3 ml) UD ONE (09:15)
[2017-10-17] MEDS: Piperacillin/Tazobact 3.375 GM in Sodium Chloride 0.9% 100 ML IVPB SCH ×2 (10:40→17:10)
--- NOTE | 2017-10-17 11:52 | PCM.PROC ---
Procedures Attestation:: I certify that I have explained the specified Operation(s) or Procedure(s), risks, benefits and reasonable alternatives to the Patient and/or other person responsible. The opportunity was given to ask questions and all questions answered - Extubation Clinical Parameters: Resolution/Stabilization of disease process, Intact Cough/ Gag Reflex, Spontaneous Respirations, Acceptable Vent Settings (FIO2<50%, PEEP<8 , PaO2>75, pH>7.25) Weaning Criteria Met: Yes General Weaning Approaches: Pressure Support Ventilation (PSV) Weaning Patient Condition: Patient has been successfully extubated and assessed Oxygen Therapy: O2 via Venti Mask Patient Tolerated Procedure: Well, No Complications
--- NOTE | 2017-10-17 14:17 | CARD ---
APPROVED REPORT EKG Measurement Heart [id number] <Conclusion> Sinus tachycardia ST & Marked T wave abnormality, consider lateral ischemia Prolonged QT Abnormal ECG excessive artefact to read correctly-recommend repeat
--- NOTE | 2017-10-17 14:18 | CARD ---
APPROVED REPORT EKG Measurement Heart [id number] <Conclusion> Atrial fibrillation ST & T wave abnormality, consider lateral ischemia Abnormal ECG
--- NOTE | 2017-10-17 14:39 | CP.CCUPN ---
CCU Subjective - Physician Review Subjective (Free Text): All Physician notes ad Nursing notes reviewed: Awake and responsive, agitated, after Propofol vacation sedation, excellent tolerance to SBTs on low level CPAP PS, decision made to extubate and tolerated well. He denies any CP, SOB, fatigue, sleepiness, nor appears distressed. Yet, he remains on Levophed at 15 mcg/min. e remains on Levophed at 15 mcg/min. Other Vitals and I/Os reviewed. T max 103.5F on admission and no recurrent fever spikes noted. No new or recurrent malignant arrhythmias. ROS: No other pertinent negs or positives on + system review PMSFH: All other historical Nursing and physician documentation reviewed to date; no new pertinent info noted relevant to current medical problems. CXR: ETT position OK above christine, prominent gastric air noted, less than yesterday, mild R worse than L interstitial hilar changes. (my interp) IMPRESSION / MAJOR PROBLEMS NOW: 1. Acute Hypoxemic resp failure 2 Aspiration Pneumonia 2. s/p V Fib Arrest 3. s/p Severe Hypoglycemia on admission 4. Acute on Chronic Anemia, no blood loss suspected. 5. s/p Left AKA PLAN: 1. Extubation to 50%VM, later switched to nasal cannula at 8 LPM. 2. Empiric abx coverage for Aspiration PNA noted, could change coverage with Zosyn, and consider adding Vanco for HCAP organisms (to avoid further discourse with Tiana, claiming she is a Clinical Specialist Pharmacist and questioning indication for Clindamycin use in Aspiration Pneumonia). 3. PRBCs today. 4. Wean Vasopressors. 5. Monitor serial blood glucose levels. Follow repeat K levels. CCU Objective - Vital Signs / Intake & Output Vital Signs (Last 4 hours): Vital Signs Temp Pulse Resp BP Pulse Ox 10/17/17 13:00 95 H 21 116/77 98 10/17/17 12:00 99.1 F 99 H 39 H 126/63 95 10/17/17 11:00 99 H 18 115/70 100 Intake and Output (Last 8hrs): Intake & Output 10/16/17 10/17/17 10/17/17 22:59 06:59 14:59 Intake Total 1130 20 563 Output Total 600 Balance 530 20 563 Weight 139 lb Intake: IV 1030 20 463 Intake, Piggyback 100 100 Output: Urine 600 Urethral (Bryant) 600 - Physical Exam Head: Positive for: Normocephalic Pupils: Positive for: PERRL Extroacular Muscles: Positive for: EOMI Conjunctiva: Positive for: Normal Mouth: Positive for: Moist Mucous Membranes Neck: Positive for: Normal Range of Motion. Negative for: JVD, Bruit Respiratory/Chest: Positive for: Clear to Auscultation. Negative for: Accessory Muscle Use, Wheezes Cardiovascular: Positive for: Regular Rate and Rhythm, Normal S1, S2. Negative for: Murmurs, Rub Abdomen: Positive for: Normal Bowel Sounds. Negative for: Tenderness, Distention, Mass/Organomegaly Lower Extremity: Positive for: Other (left AKA and R TMA) Neurological: Positive for: GCS=15 Skin: Positive for: Warm, Dry. Negative for: Rashes Psychiatric: Positive for: Alert, Oriented x 3. Negative for: Agitated, Lethargic - Medications Active Medications: Active Medications Generic Name Dose Route Start Last Admin Trade Name Freq PRN Reason Stop Dose Admin Acetaminophen 650 mg 10/16/17 22:58 10/16/17 23:07 Tylenol 650 Mg Supp LA 650 mg Q6 PRN Administration Fever >100.4 F Enoxaparin Sodium 40 mg 10/17/17 09:00 10/17/17 10:39 Lovenox SC 40 mg DAILY JULIANA Administration Protocol Propofol 1,000 mg in 100 mls @ 1.973 mls/hr 10/16/17 18:00 10/16/17 23:30 Diprivan IV 10/17/17 17:57 20 mcg/kg/min .Q24H JULIANA 7.893 mls/hr Protocol Titration 5 MCG/KG/MIN Lactated Ringer's 1,000 mls @ 125 mls/hr 10/17/17 04:03 10/17/17 12:36 Lactated Ringer's IV Not Given .Q8H JULIANA Propofol 1,000 mg in 100 mls @ 1.973 mls/hr 10/17/17 02:15 Diprivan IV 10/18/17 06:34 .Q24H JULIANA Protocol 5 MCG/KG/MIN Piperacillin Sod/Tazobactam 100 mls @ 100 mls/hr 10/17/17 10:00 10/17/17 10: 40 Sod 3.375 gm/ Sodium Chloride IVPB 100 mls/hr Q6 JULIANA Administration Protocol Norepinephrine Bitartrate 8 mg 258 mls @ 33.86 mls/hr 10/17/17 08:00 / Dextrose IV 10/17/17 15:37 .Q7H38M ONE 17.5 MCG/MIN Insulin Detemir 12 units 10/17/17 08:00 10/17/17 08:00 Levemir SC Not Given Q12H JULIANA Insulin Human Lispro 0 units 10/17/17 00:00 10/17/17 12:35 Humalog SC Not Given Q4H JULIANA Levothyroxine Sodium 25 mcg 10/17/17 06:30 10/17/17 06:10 Synthroid PO Not Given DAILY@0630 JULIANA Pantoprazole Sodium 40 mg 10/17/17 09:00 10/17/17 10:39 Protonix Inj IVP 40 mg DAILY JULIANA Administration - Patient Studies Lab Studies: Lab Studies 10/17/17 10/17/17 10/17/17 Range/Units 11:33 09:25 04:29 WBC (4.8-10.8) K/uL RBC (4.40-5.90) Mil/uL Hgb (12.0-18.0) g/dL Hct (35.0-51.0) % MCV (80.0-94.0) fl MCH (27.0-31.0) pg MCHC (33.0-37.0) g/dL RDW (11.5-14.5) % Plt Count (130-400) K/uL MPV (7.2-11.7) fl Neut % (Auto) (50.0-75.0) % Lymph % (Auto) (20.0-40.0) % [place] % (Auto) (0.0-10.0) % Eos % (Auto) (0.0-4.0) % Baso % (Auto) (0.0-2.0) % Neut # (Auto) (1.8-7.0) K/uL Lymph # (Auto) (1.0-4.3) K/uL [place] # (Auto) (0.0-0.8) K/uL Eos # (Auto) (0.0-0.7) K/uL Baso # (Auto) (0.0-0.2) K/uL Neutrophils % (Manual) (42-75) % Band Neutrophils % (0-2) % Lymphocytes % (Manual) (20-50) % Monocytes % (Manual) (0-10) % Platelet Estimate (NORMAL) Hypochromasia (manual) Poikilocytosis (manual Anisocytosis (manual) Microcytosis (manual) Sickle Cells Target Cells Ovalocytes Rafa Cells PT (9.8-13.1) Seconds INR (0.9-1.2) APTT (25.6-37.1) Seconds pCO2 45 (35-45) mm/Hg pO2 125 H (80-100) mm/Hg HCO3 30.0 H (21-28) mmol/L ABG pH 7.45 (7.35-7.45) ABG Total CO2 32.7 H (22-28) mmol/L ABG O2 Saturation 99.4 H (95-98) % ABG Base Excess 6.4 H (-2.0-3.0) mmol/L Prabhakar Test Yes ABG Potassium 3.3 L (3.6-5.2) mmol/L A-a O2 Difference 247.0 mm/Hg Sodium 142.0 (132-148) mmol/L Chloride 109.0 H (98-107) mmol/L Glucose 154 H (75-110) mg/dL Lactate 1.3 (0.7-2.1) mmol/L Vent Mode A/c Mechanical Rate 14 FiO2 60.0 % Tidal Volume 500 PEEP 5 Crit Value Called To Crit Value Called By Crit Value Read Back Blood Gas Notified Time Potassium (3.6-5.0) MMOL/L Carbon Dioxide (22-30) mmol/L Anion Gap (10-20) BUN (9-20) mg/dl Creatinine (0.8-1.5) mg/dl Est GFR ( Amer) Est GFR (Non-Af Amer) POC Glucose (mg/dL) 198 H 158 H (65-110) mg/dL Random Glucose (75-110) mg/dL Hemoglobin A1c (4.2-6.5) % Calcium (8.4-10.2) mg/dL Phosphorus (2.5-4.5) mg/dl Magnesium (1.6-2.3) MG/DL Total Bilirubin (0.2-1.3) mg/dl AST (17-59) U/L ALT (21-72) U/L Alkaline Phosphatase (38-126) U/L Troponin I (0.00-0.120) ng/mL NT-Pro-B Natriuret Pep (0-450) pg/ml Total Protein (6.3-8.2) G/DL Albumin (3.5-5.0) g/dL Globulin (2.2-3.9) gm/dL Albumin/Globulin Ratio (1.0-2.1) Triglycerides (0-149) mg/DL Cholesterol (0-199) mg/dL LDL Cholesterol Direct (0-129) mg/dL HDL Cholesterol (30-70) MG/DL Free T4 (0.78-2.19) ng/dL Thyroxine (T4) (5.5-11.0) ug/dl TSH 3rd Generation (0.46-4.68) mIU/ML Arterial Blood Potassium 3.3 L (3.6-5.2) mmol/L Alcohol, Quantitative (0-10) mg/dl Blood Type Blood Type Confirm Antibody Screen Crossmatch BBK History Checked 10/17/17 10/17/17 10/17/17 Range/Units 04:20 04:20 04:20 WBC (4.8-10.8) K/uL RBC (4.40-5.90) Mil/uL Hgb (12.0-18.0) g/dL Hct (35.0-51.0) % MCV (80.0-94.0) fl MCH (27.0-31.0) pg MCHC (33.0-37.0) g/dL RDW (11.5-14.5) % Plt Count (130-400) K/uL MPV (7.2-11.7) fl Neut % (Auto) (50.0-75.0) % Lymph % (Auto) (20.0-40.0) % [place] % (Auto) (0.0-10.0) % Eos % (Auto) (0.0-4.0) % Baso % (Auto) (0.0-2.0) % Neut # (Auto) (1.8-7.0) K/uL Lymph # (Auto) (1.0-4.3) K/uL [place] # (Auto) (0.0-0.8) K/uL Eos # (Auto) (0.0-0.7) K/uL Baso # (Auto) (0.0-0.2) K/uL Neutrophils % (Manual) (42-75) % Band Neutrophils % (0-2) % Lymphocytes % (Manual) (20-50) % Monocytes % (Manual) (0-10) % Platelet Estimate (NORMAL) Hypochromasia (manual) Poikilocytosis (manual Anisocytosis (manual) Microcytosis (manual) Sickle Cells Target Cells Ovalocytes Fence Cells PT (9.8-13.1) Seconds INR (0.9-1.2) APTT (25.6-37.1) Seconds pCO2 (35-45) mm/Hg pO2 (80-100) mm/Hg HCO3 (21-28) mmol/L ABG pH (7.35-7.45) ABG Total CO2 (22-28) mmol/L ABG O2 Saturation (95-98) % ABG Base Excess (-2.0-3.0) mmol/L Prabhakar Test ABG Potassium (3.6-5.2) mmol/L A-a O2 Difference mm/Hg Sodium 145 (132-148) mmol/L Chloride 105 (98-107) mmol/L Glucose (75-110) mg/dL Lactate (0.7-2.1) mmol/L Vent Mode Mechanical Rate FiO2 % Tidal Volume PEEP Crit Value Called To Crit Value Called By Crit Value Read Back Blood Gas Notified Time Potassium 3.4 L (3.6-5.0) MMOL/L Carbon Dioxide 32 H (22-30) mmol/L Anion Gap 11 (10-20) BUN 8 L (9-20) mg/dl Creatinine 0.7 L (0.8-1.5) mg/dl Est GFR ( Amer) > 60 Est GFR (Non-Af Amer) > 60 POC Glucose (mg/dL) (65-110) mg/dL Random Glucose 148 H (75-110) mg/dL Hemoglobin A1c 9.1 H D (4.2-6.5) % Calcium 9.1 (8.4-10.2) mg/dL Phosphorus (2.5-4.5) mg/dl Magnesium (1.6-2.3) MG/DL Total Bilirubin 0.5 (0.2-1.3) mg/dl AST 153 H D (17-59) U/L ALT 93 H (21-72) U/L Alkaline Phosphatase 129 H (38-126) U/L Troponin I (0.00-0.120) ng/mL NT-Pro-B Natriuret Pep (0-450) pg/ml Total Protein 6.7 (6.3-8.2) G/DL Albumin 2.7 L (3.5-5.0) g/dL Globulin 4.0 H (2.2-3.9) gm/dL Albumin/Globulin Ratio 0.7 L (1.0-2.1) Triglycerides 122 D (0-149) mg/DL Cholesterol < 50 (0-199) mg/dL LDL Cholesterol Direct < 30 (0-129) mg/dL HDL Cholesterol 17 L (30-70) MG/DL Free T4 1.82 (0.78-2.19) ng/dL Thyroxine (T4) 8.37 (5.5-11.0) ug/dl TSH 3rd Generation 1.15 (0.46-4.68) mIU/ML Arterial Blood Potassium (3.6-5.2) mmol/L Alcohol, Quantitative (0-10) mg/dl Blood Type Blood Type Confirm Antibody Screen Crossmatch BBK History Checked 10/17/17 10/17/17 10/17/17 Range/Units 04:20 04:10 00:56 WBC 12.2 H (4.8-10.8) K/uL RBC 3.14 L (4.40-5.90) Mil/uL Hgb 7.9 L (12.0-18.0) g/dL Hct 25.0 L (35.0-51.0) % MCV 79.4 L (80.0-94.0) fl MCH 25.2 L (27.0-31.0) pg MCHC 31.7 L (33.0-37.0) g/dL RDW 15.7 H (11.5-14.5) % Plt Count 408 H (130-400) K/uL MPV 8.2 (7.2-11.7) fl Neut % (Auto) 84.9 H (50.0-75.0) % Lymph % (Auto) 10.0 L (20.0-40.0) % [place] % (Auto) 4.9 (0.0-10.0) % Eos % (Auto) 0.0 (0.0-4.0) % Baso % (Auto) 0.2 (0.0-2.0) % Neut # (Auto) 10.4 H (1.8-7.0) K/uL Lymph # (Auto) 1.2 (1.0-4.3) K/uL [place] # (Auto) 0.6 (0.0-0.8) K/uL Eos # (Auto) 0.0 (0.0-0.7) K/uL Baso # (Auto) 0.0 (0.0-0.2) K/uL Neutrophils % (Manual) (42-75) % Band Neutrophils % (0-2) % Lymphocytes % (Manual) (20-50) % Monocytes % (Manual) (0-10) % Platelet Estimate (NORMAL) Hypochromasia (manual) Poikilocytosis (manual Anisocytosis (manual) Microcytosis (manual) Sickle Cells Target Cells Ovalocytes Fence Cells PT (9.8-13.1) Seconds INR (0.9-1.2) APTT (25.6-37.1) Seconds pCO2 (35-45) mm/Hg pO2 (80-100) mm/Hg HCO3 (21-28) mmol/L ABG pH (7.35-7.45) ABG Total CO2 (22-28) mmol/L ABG O2 Saturation (95-98) % ABG Base Excess (-2.0-3.0) mmol/L Prabhakar Test ABG Potassium (3.6-5.2) mmol/L A-a O2 Difference mm/Hg Sodium (132-148) mmol/L Chloride (98-107) mmol/L Glucose (75-110) mg/dL Lactate (0.7-2.1) mmol/L Vent Mode Mechanical Rate FiO2 % Tidal Volume PEEP Crit Value Called To Crit Value Called By Crit Value Read Back Blood Gas Notified Time Potassium (3.6-5.0) MMOL/L Carbon Dioxide (22-30) mmol/L Anion Gap (10-20) BUN (9-20) mg/dl Creatinine (0.8-1.5) mg/dl Est GFR ( Amer) Est GFR (Non-Af Amer) POC Glucose (mg/dL) 135 H 202 H (65-110) mg/dL Random Glucose (75-110) mg/dL Hemoglobin A1c (4.2-6.5) % Calcium (8.4-10.2) mg/dL Phosphorus (2.5-4.5) mg/dl Magnesium (1.6-2.3) MG/DL Total Bilirubin (0.2-1.3) mg/dl AST (17-59) U/L ALT (21-72) U/L Alkaline Phosphatase (38-126) U/L Troponin I (0.00-0.120) ng/mL NT-Pro-B Natriuret Pep (0-450) pg/ml Total Protein (6.3-8.2) G/DL Albumin (3.5-5.0) g/dL Globulin (2.2-3.9) gm/dL Albumin/Globulin Ratio (1.0-2.1) Triglycerides (0-149) mg/DL Cholesterol (0-199) mg/dL LDL Cholesterol Direct (0-129) mg/dL HDL Cholesterol (30-70) MG/DL Free T4 (0.78-2.19) ng/dL Thyroxine (T4) (5.5-11.0) ug/dl TSH 3rd Generation (0.46-4.68) mIU/ML Arterial Blood Potassium (3.6-5.2) mmol/L Alcohol, Quantitative (0-10) mg/dl Blood Type Blood Type Confirm Antibody Screen Crossmatch BBK History Checked 10/16/17 10/16/17 10/16/17 Range/Units 21:29 16:27 16:27 WBC 12.2 H (4.8-10.8) K/uL RBC 3.08 L (4.40-5.90) Mil/uL Hgb 7.7 L D (12.0-18.0) g/dL Hct 24.6 L (35.0-51.0) % MCV 79.9 L (80.0-94.0) fl MCH 25.1 L (27.0-31.0) pg MCHC 31.4 L (33.0-37.0) g/dL RDW 15.7 H (11.5-14.5) % Plt Count 360 (130-400) K/uL MPV 8.5 (7.2-11.7) fl Neut % (Auto) 92.4 H (50.0-75.0) % Lymph % (Auto) 5.7 L (20.0-40.0) % [place] % (Auto) 1.6 (0.0-10.0) % Eos % (Auto) 0.1 (0.0-4.0) % Baso % (Auto) 0.2 (0.0-2.0) % Neut # (Auto) 11.3 H (1.8-7.0) K/uL Lymph # (Auto) 0.7 L (1.0-4.3) K/uL [place] # (Auto) 0.2 (0.0-0.8) K/uL Eos # (Auto) 0.0 (0.0-0.7) K/uL Baso # (Auto) 0.0 (0.0-0.2) K/uL Neutrophils % (Manual) 83 H (42-75) % Band Neutrophils % 7 H (0-2) % Lymphocytes % (Manual) 7 L (20-50) % Monocytes % (Manual) 3 (0-10) % Platelet Estimate Normal (NORMAL) Hypochromasia (manual) Moderate Poikilocytosis (manual Slight Anisocytosis (manual) Marked Microcytosis (manual) Moderate Sickle Cells Moderate Target Cells Slight Ovalocytes Slight Rafa Cells Slight PT 15.1 H (9.8-13.1) Seconds INR 1.4 H (0.9-1.2) APTT 16.6 L (25.6-37.1) Seconds pCO2 (35-45) mm/Hg pO2 (80-100) mm/Hg HCO3 (21-28) mmol/L ABG pH (7.35-7.45) ABG Total CO2 (22-28) mmol/L ABG O2 Saturation (95-98) % ABG Base Excess (-2.0-3.0) mmol/L Prabhakar Test ABG Potassium (3.6-5.2) mmol/L A-a O2 Difference mm/Hg Sodium (132-148) mmol/L Chloride (98-107) mmol/L Glucose (75-110) mg/dL Lactate (0.7-2.1) mmol/L Vent Mode Mechanical Rate FiO2 % Tidal Volume PEEP Crit Value Called To Crit Value Called By Crit Value Read Back Blood Gas Notified Time Potassium (3.6-5.0) MMOL/L Carbon Dioxide (22-30) mmol/L Anion Gap (10-20) BUN (9-20) mg/dl Creatinine (0.8-1.5) mg/dl Est GFR ( Amer) Est GFR (Non-Af Amer) POC Glucose (mg/dL) 156 H (65-110) mg/dL Random Glucose (75-110) mg/dL Hemoglobin A1c (4.2-6.5) % Calcium (8.4-10.2) mg/dL Phosphorus (2.5-4.5) mg/dl Magnesium (1.6-2.3) MG/DL Total Bilirubin (0.2-1.3) mg/dl AST (17-59) U/L ALT (21-72) U/L Alkaline Phosphatase (38-126) U/L Troponin I (0.00-0.120) ng/mL NT-Pro-B Natriuret Pep (0-450) pg/ml Total Protein (6.3-8.2) G/DL Albumin (3.5-5.0) g/dL Globulin (2.2-3.9) gm/dL Albumin/Globulin Ratio (1.0-2.1) Triglycerides (0-149) mg/DL Cholesterol (0-199) mg/dL LDL Cholesterol Direct (0-129) mg/dL HDL Cholesterol (30-70) MG/DL Free T4 (0.78-2.19) ng/dL Thyroxine (T4) (5.5-11.0) ug/dl TSH 3rd Generation (0.46-4.68) mIU/ML Arterial Blood Potassium (3.6-5.2) mmol/L Alcohol, Quantitative (0-10) mg/dl Blood Type Blood Type Confirm Antibody Screen Crossmatch BBK History Checked 10/16/17 10/16/17 10/16/17 Range/Units 16:27 16:20 16:07 WBC (4.8-10.8) K/uL RBC (4.40-5.90) Mil/uL Hgb (12.0-18.0) g/dL Hct (35.0-51.0) % MCV (80.0-94.0) fl MCH (27.0-31.0) pg MCHC (33.0-37.0) g/dL RDW (11.5-14.5) % Plt Count (130-400) K/uL MPV (7.2-11.7) fl Neut % (Auto) (50.0-75.0) % Lymph % (Auto) (20.0-40.0) % [place] % (Auto) (0.0-10.0) % Eos % (Auto) (0.0-4.0) % Baso % (Auto) (0.0-2.0) % Neut # (Auto) (1.8-7.0) K/uL Lymph # (Auto) (1.0-4.3) K/uL [place] # (Auto) (0.0-0.8) K/uL Eos # (Auto) (0.0-0.7) K/uL Baso # (Auto) (0.0-0.2) K/uL Neutrophils % (Manual) (42-75) % Band Neutrophils % (0-2) % Lymphocytes % (Manual) (20-50) % Monocytes % (Manual) (0-10) % Platelet Estimate (NORMAL) Hypochromasia (manual) Poikilocytosis (manual Anisocytosis (manual) Microcytosis (manual) Sickle Cells Target Cells Ovalocytes Rafa Cells PT (9.8-13.1) Seconds INR (0.9-1.2) APTT (25.6-37.1) Seconds pCO2 (35-45) mm/Hg pO2 (80-100) mm/Hg HCO3 (21-28) mmol/L ABG pH (7.35-7.45) ABG Total CO2 (22-28) mmol/L ABG O2 Saturation (95-98) % ABG Base Excess (-2.0-3.0) mmol/L Prabhakar Test ABG Potassium (3.6-5.2) mmol/L A-a O2 Difference mm/Hg Sodium 143 (132-148) mmol/L Chloride 105 (98-107) mmol/L Glucose (75-110) mg/dL Lactate (0.7-2.1) mmol/L Vent Mode Mechanical Rate FiO2 % Tidal Volume PEEP Crit Value Called To Crit Value Called By Crit Value Read Back Blood Gas Notified Time Potassium 3.1 L (3.6-5.0) MMOL/L Carbon Dioxide 29 (22-30) mmol/L Anion Gap 12 (10-20) BUN 10 (9-20) mg/dl Creatinine 0.6 L (0.8-1.5) mg/dl Est GFR ( Amer) > 60 Est GFR (Non-Af Amer) > 60 POC Glucose (mg/dL) 419 H* (65-110) mg/dL Random Glucose 378 H (75-110) mg/dL Hemoglobin A1c (4.2-6.5) % Calcium 9.4 (8.4-10.2) mg/dL Phosphorus 5.5 H (2.5-4.5) mg/dl Magnesium 1.8 (1.6-2.3) MG/DL Total Bilirubin 0.6 (0.2-1.3) mg/dl AST 234 H D (17-59) U/L ALT 101 H D (21-72) U/L Alkaline Phosphatase 124 (38-126) U/L Troponin I 0.0180 (0.00-0.120) ng/mL NT-Pro-B Natriuret Pep 318 (0-450) pg/ml Total Protein 6.3 (6.3-8.2) G/DL Albumin 2.5 L D (3.5-5.0) g/dL Globulin 3.8 (2.2-3.9) gm/dL Albumin/Globulin Ratio 0.7 L (1.0-2.1) Triglycerides (0-149) mg/DL Cholesterol (0-199) mg/dL LDL Cholesterol Direct (0-129) mg/dL HDL Cholesterol (30-70) MG/DL Free T4 (0.78-2.19) ng/dL Thyroxine (T4) (5.5-11.0) ug/dl TSH 3rd Generation (0.46-4.68) mIU/ML Arterial Blood Potassium (3.6-5.2) mmol/L Alcohol, Quantitative < 10 (0-10) mg/dl Blood Type A POSITIVE Blood Type Confirm Antibody Screen Negative Crossmatch See Detail BBK History Checked No verified bt 10/16/17 10/16/17 10/16/17 Range/Units 15:20 15:06 15:00 WBC (4.8-10.8) K/uL RBC (4.40-5.90) Mil/uL Hgb (12.0-18.0) g/dL Hct (35.0-51.0) % MCV (80.0-94.0) fl MCH (27.0-31.0) pg MCHC (33.0-37.0) g/dL RDW (11.5-14.5) % Plt Count (130-400) K/uL MPV (7.2-11.7) fl Neut % (Auto) (50.0-75.0) % Lymph % (Auto) (20.0-40.0) % [place] % (Auto) (0.0-10.0) % Eos % (Auto) (0.0-4.0) % Baso % (Auto) (0.0-2.0) % Neut # (Auto) (1.8-7.0) K/uL Lymph # (Auto) (1.0-4.3) K/uL [place] # (Auto) (0.0-0.8) K/uL Eos # (Auto) (0.0-0.7) K/uL Baso # (Auto) (0.0-0.2) K/uL Neutrophils % (Manual) (42-75) % Band Neutrophils % (0-2) % Lymphocytes % (Manual) (20-50) % Monocytes % (Manual) (0-10) % Platelet Estimate (NORMAL) Hypochromasia (manual) Poikilocytosis (manual Anisocytosis (manual) Microcytosis (manual) Sickle Cells Target Cells Ovalocytes Fence Cells PT (9.8-13.1) Seconds INR (0.9-1.2) APTT (25.6-37.1) Seconds pCO2 57 H (35-45) mm/Hg pO2 275 H (80-100) mm/Hg HCO3 23.7 (21-28) mmol/L ABG pH 7.27 L (7.35-7.45) ABG Total CO2 27.9 (22-28) mmol/L ABG O2 Saturation 99.6 H (95-98) % ABG Base Excess -1.7 (-2.0-3.0) mmol/L Prabhakar Test Yes ABG Potassium 3.1 L (3.6-5.2) mmol/L A-a O2 Difference 367.0 mm/Hg Sodium 139.0 (132-148) mmol/L Chloride 104.0 (98-107) mmol/L Glucose 510 H* D (75-110) mg/dL Lactate 4.1 H* (0.7-2.1) mmol/L Vent Mode Prvc/ac Mechanical Rate 12 FiO2 100.0 % Tidal Volume 500 PEEP 5 Crit Value Called To Dr leandro conner Crit Value Called By Rt Crit Value Read Back Y Blood Gas Notified Time 1529 Potassium (3.6-5.0) MMOL/L Carbon Dioxide (22-30) mmol/L Anion Gap (10-20) BUN (9-20) mg/dl Creatinine (0.8-1.5) mg/dl Est GFR ( Amer) Est GFR (Non-Af Amer) POC Glucose (mg/dL) 281 H (65-110) mg/dL Random Glucose (75-110) mg/dL Hemoglobin A1c (4.2-6.5) % Calcium (8.4-10.2) mg/dL Phosphorus (2.5-4.5) mg/dl Magnesium (1.6-2.3) MG/DL Total Bilirubin (0.2-1.3) mg/dl AST (17-59) U/L ALT (21-72) U/L Alkaline Phosphatase (38-126) U/L Troponin I (0.00-0.120) ng/mL NT-Pro-B Natriuret Pep (0-450) pg/ml Total Protein (6.3-8.2) G/DL Albumin (3.5-5.0) g/dL Globulin (2.2-3.9) gm/dL Albumin/Globulin Ratio (1.0-2.1) Triglycerides (0-149) mg/DL Cholesterol (0-199) mg/dL LDL Cholesterol Direct (0-129) mg/dL HDL Cholesterol (30-70) MG/DL Free T4 (0.78-2.19) ng/dL Thyroxine (T4) (5.5-11.0) ug/dl TSH 3rd Generation (0.46-4.68) mIU/ML Arterial Blood Potassium 3.1 L (3.6-5.2) mmol/L Alcohol, Quantitative (0-10) mg/dl Blood Type Blood Type Confirm A POSITIVE Antibody Screen Crossmatch BBK History Checked Laboratory Results - last 24 hr 10/16/17 10/16/17 10/16/17 15:00 15:06 15:20 WBC RBC Hgb Hct MCV MCH MCHC RDW Plt Count MPV Neut % (Auto) Lymph % (Auto) [place] % (Auto) Eos % (Auto) Baso % (Auto) Neut # (Auto) Lymph # (Auto) [place] # (Auto) Eos # (Auto) Baso # (Auto) Neutrophils % (Manual) Band Neutrophils % Lymphocytes % (Manual) Monocytes % (Manual) Platelet Estimate Hypochromasia (manual) Poikilocytosis (manual Anisocytosis (manual) Microcytosis (manual) Sickle Cells Target Cells Ovalocytes Fence Cells PT INR APTT pCO2 57 H pO2 275 H HCO3 23.7 ABG pH 7.27 L ABG Total CO2 27.9 ABG O2 Saturation 99.6 H ABG Base Excess -1.7 Prabhakar Test Yes ABG Potassium 3.1 L A-a O2 Difference 367.0 Sodium 139.0 Chloride 104.0 Glucose 510 H* D Lactate 4.1 H* Vent Mode Prvc/ac Mechanical Rate 12 FiO2 100.0 Tidal Volume 500 PEEP 5 Crit Value Called To Dr leandro conner Crit Value Called By Rt Crit Value Read Back Y Blood Gas Notified Time 1529 Potassium Carbon Dioxide Anion Gap BUN Creatinine Est GFR ( Amer) Est GFR (Non-Af Amer) POC Glucose (mg/dL) 281 H Random Glucose Hemoglobin A1c Calcium Phosphorus Magnesium Total Bilirubin AST ALT Alkaline Phosphatase Troponin I NT-Pro-B Natriuret Pep Total Protein Albumin Globulin Albumin/Globulin Ratio Triglycerides Cholesterol LDL Cholesterol Direct HDL Cholesterol Free T4 Thyroxine (T4) TSH 3rd Generation Arterial Blood Potassium 3.1 L Alcohol, Quantitative Blood Type Blood Type Confirm A POSITIVE Antibody Screen Crossmatch BBK History Checked 10/16/17 10/16/17 10/16/17 16:07 16:20 16:27 WBC RBC Hgb Hct MCV MCH MCHC RDW Plt Count MPV Neut % (Auto) Lymph % (Auto) [place] % (Auto) Eos % (Auto) Baso % (Auto) Neut # (Auto) Lymph # (Auto) [place] # (Auto) Eos # (Auto) Baso # (Auto) Neutrophils % (Manual) Band Neutrophils % Lymphocytes % (Manual) Monocytes % (Manual) Platelet Estimate Hypochromasia (manual) Poikilocytosis (manual Anisocytosis (manual) Microcytosis (manual) Sickle Cells Target Cells Ovalocytes Fence Cells PT INR APTT pCO2 pO2 HCO3 ABG pH ABG Total CO2 ABG O2 Saturation ABG Base Excess Prabhakar Test ABG Potassium A-a O2 Difference Sodium 143 Chloride 105 Glucose Lactate Vent Mode Mechanical Rate FiO2 Tidal Volume PEEP Crit Value Called To Crit Value Called By Crit Value Read Back Blood Gas Notified Time Potassium 3.1 L Carbon Dioxide 29 Anion Gap 12 BUN 10 Creatinine 0.6 L Est GFR ( Amer) > 60 Est GFR (Non-Af Amer) > 60 POC Glucose (mg/dL) 419 H* Random Glucose 378 H Hemoglobin A1c Calcium 9.4 Phosphorus 5.5 H Magnesium 1.8 Total Bilirubin 0.6 AST 234 H D ALT 101 H D Alkaline Phosphatase 124 Troponin I 0.0180 NT-Pro-B Natriuret Pep 318 Total Protein 6.3 Albumin 2.5 L D Globulin 3.8 Albumin/Globulin Ratio 0.7 L Triglycerides Cholesterol LDL Cholesterol Direct HDL Cholesterol Free T4 Thyroxine (T4) TSH 3rd Generation Arterial Blood Potassium Alcohol, Quantitative < 10 Blood Type A POSITIVE Blood Type Confirm Antibody Screen Negative Crossmatch See Detail BBK History Checked No verified bt 10/16/17 10/16/17 10/16/17 16:27 16:27 21:29 WBC 12.2 H RBC 3.08 L Hgb 7.7 L D Hct 24.6 L MCV 79.9 L MCH 25.1 L MCHC 31.4 L RDW 15.7 H Plt Count 360 MPV 8.5 Neut % (Auto) 92.4 H Lymph % (Auto) 5.7 L [place] % (Auto) 1.6 Eos % (Auto) 0.1 Baso % (Auto) 0.2 Neut # (Auto) 11.3 H Lymph # (Auto) 0.7 L [place] # (Auto) 0.2 Eos # (Auto) 0.0 Baso # (Auto) 0.0 Neutrophils % (Manual) 83 H Band Neutrophils % 7 H Lymphocytes % (Manual) 7 L Monocytes % (Manual) 3 Platelet Estimate Normal Hypochromasia (manual) Moderate Poikilocytosis (manual Slight Anisocytosis (manual) Marked Microcytosis (manual) Moderate Sickle Cells Moderate Target Cells Slight Ovalocytes Slight Rafa Cells Slight PT 15.1 H INR 1.4 H APTT 16.6 L pCO2 pO2 HCO3 ABG pH ABG Total CO2 ABG O2 Saturation ABG Base Excess Prabhakar Test ABG Potassium A-a O2 Difference Sodium Chloride Glucose Lactate Vent Mode Mechanical Rate FiO2 Tidal Volume PEEP Crit Value Called To Crit Value Called By Crit Value Read Back Blood Gas Notified Time Potassium Carbon Dioxide Anion Gap BUN Creatinine Est GFR ( Amer) Est GFR (Non-Af Amer) POC Glucose (mg/dL) 156 H Random Glucose Hemoglobin A1c Calcium Phosphorus Magnesium Total Bilirubin AST ALT Alkaline Phosphatase Troponin I NT-Pro-B Natriuret Pep Total Protein Albumin Globulin Albumin/Globulin Ratio Triglycerides Cholesterol LDL Cholesterol Direct HDL Cholesterol Free T4 Thyroxine (T4) TSH 3rd Generation Arterial Blood Potassium Alcohol, Quantitative Blood Type Blood Type Confirm Antibody Screen Crossmatch BBK History Checked 10/17/17 10/17/17 10/17/17 00:56 04:10 04:20 WBC 12.2 H RBC 3.14 L Hgb 7.9 L Hct 25.0 L MCV 79.4 L MCH 25.2 L MCHC 31.7 L RDW 15.7 H Plt Count 408 H MPV 8.2 Neut % (Auto) 84.9 H Lymph % (Auto) 10.0 L [place] % (Auto) 4.9 Eos % (Auto) 0.0 Baso % (Auto) 0.2 Neut # (Auto) 10.4 H Lymph # (Auto) 1.2 [place] # (Auto) 0.6 Eos # (Auto) 0.0 Baso # (Auto) 0.0 Neutrophils % (Manual) Band Neutrophils % Lymphocytes % (Manual) Monocytes % (Manual) Platelet Estimate Hypochromasia (manual) Poikilocytosis (manual Anisocytosis (manual) Microcytosis (manual) Sickle Cells Target Cells Ovalocytes Rafa Cells PT INR APTT pCO2 pO2 HCO3 ABG pH ABG Total CO2 ABG O2 Saturation ABG Base Excess Prabhakar Test ABG Potassium A-a O2 Difference Sodium Chloride Glucose Lactate Vent Mode Mechanical Rate FiO2 Tidal Volume PEEP Crit Value Called To Crit Value Called By Crit Value Read Back Blood Gas Notified Time Potassium Carbon Dioxide Anion Gap BUN Creatinine Est GFR ( Amer) Est GFR (Non-Af Amer) POC Glucose (mg/dL) 202 H 135 H Random Glucose Hemoglobin A1c Calcium Phosphorus Magnesium Total Bilirubin AST ALT Alkaline Phosphatase Troponin I NT-Pro-B Natriuret Pep Total Protein Albumin Globulin Albumin/Globulin Ratio Triglycerides Cholesterol LDL Cholesterol Direct HDL Cholesterol Free T4 Thyroxine (T4) TSH 3rd Generation Arterial Blood Potassium Alcohol, Quantitative Blood Type Blood Type Confirm Antibody Screen Crossmatch BBK History Checked 10/17/17 10/17/17 10/17/17 04:20 04:20 04:20 WBC RBC Hgb Hct MCV MCH MCHC RDW Plt Count MPV Neut % (Auto) Lymph % (Auto) [place] % (Auto) Eos % (Auto) Baso % (Auto) Neut # (Auto) Lymph # (Auto) [place] # (Auto) Eos # (Auto) Baso # (Auto) Neutrophils % (Manual) Band Neutrophils % Lymphocytes % (Manual) Monocytes % (Manual) Platelet Estimate Hypochromasia (manual) Poikilocytosis (manual Anisocytosis (manual) Microcytosis (manual) Sickle Cells Target Cells Ovalocytes Fence Cells PT INR APTT pCO2 pO2 HCO3 ABG pH ABG Total CO2 ABG O2 Saturation ABG Base Excess Prabhakar Test ABG Potassium A-a O2 Difference Sodium 145 Chloride 105 Glucose Lactate Vent Mode Mechanical Rate FiO2 Tidal Volume PEEP Crit Value Called To Crit Value Called By Crit Value Read Back Blood Gas Notified Time Potassium 3.4 L Carbon Dioxide 32 H Anion Gap 11 BUN 8 L Creatinine 0.7 L Est GFR ( Amer) > 60 Est GFR (Non-Af Amer) > 60 POC Glucose (mg/dL) Random Glucose 148 H Hemoglobin A1c 9.1 H D Calcium 9.1 Phosphorus Magnesium Total Bilirubin 0.5 AST 153 H D ALT 93 H Alkaline Phosphatase 129 H Troponin I NT-Pro-B Natriuret Pep Total Protein 6.7 Albumin 2.7 L Globulin 4.0 H Albumin/Globulin Ratio 0.7 L Triglycerides 122 D Cholesterol < 50 LDL Cholesterol Direct < 30 HDL Cholesterol 17 L Free T4 1.82 Thyroxine (T4) 8.37 TSH 3rd Generation 1.15 Arterial Blood Potassium Alcohol, Quantitative Blood Type Blood Type Confirm Antibody Screen Crossmatch BBK History Checked 10/17/17 10/17/17 10/17/17 04:29 09:25 11:33 WBC RBC Hgb Hct MCV MCH MCHC RDW Plt Count MPV Neut % (Auto) Lymph % (Auto) [place] % (Auto) Eos % (Auto) Baso % (Auto) Neut # (Auto) Lymph # (Auto) [place] # (Auto) Eos # (Auto) Baso # (Auto) Neutrophils % (Manual) Band Neutrophils % Lymphocytes % (Manual) Monocytes % (Manual) Platelet Estimate Hypochromasia (manual) Poikilocytosis (manual Anisocytosis (manual) Microcytosis (manual) Sickle Cells Target Cells Ovalocytes Rafa Cells PT INR APTT pCO2 45 pO2 125 H HCO3 30.0 H ABG pH 7.45 ABG Total CO2 32.7 H ABG O2 Saturation 99.4 H ABG Base Excess 6.4 H Prabhakar Test Yes ABG Potassium 3.3 L A-a O2 Difference 247.0 Sodium 142.0 Chloride 109.0 H Glucose 154 H Lactate 1.3 Vent Mode A/c Mechanical Rate 14 FiO2 60.0 Tidal Volume 500 PEEP 5 Crit Value Called To Crit Value Called By Crit Value Read Back Blood Gas Notified Time Potassium Carbon Dioxide Anion Gap BUN Creatinine Est GFR ( Amer) Est GFR (Non-Af Amer) POC Glucose (mg/dL) 158 H 198 H Random Glucose Hemoglobin A1c Calcium Phosphorus Magnesium Total Bilirubin AST ALT Alkaline Phosphatase Troponin I NT-Pro-B Natriuret Pep Total Protein Albumin Globulin Albumin/Globulin Ratio Triglycerides Cholesterol LDL Cholesterol Direct HDL Cholesterol Free T4 Thyroxine (T4) TSH 3rd Generation Arterial Blood Potassium 3.3 L Alcohol, Quantitative Blood Type Blood Type Confirm Antibody Screen Crossmatch BBK History Checked Radiology Impressions: See Above Fingerstick Blood Sugar Results: 198 Critical Care Progress Note - Nutrition Nutrition: Nutrition Category Date Time Status NPO Diet [DIET] Diets 10/17/17 Breakfast Active
--- NOTE | 2017-10-17 14:39 | CARD ---
APPROVED REPORT EKG Measurement Heart [id number] <Conclusion> Atrial fibrillation Left bundle branch block Abnormal ECG
--- NOTE | 2017-10-17 15:03 | CP.PCM.PN ---
Subjective - Date & Time of Evaluation Date of Evaluation: 10/17/17 Time of Evaluation: 09:00 - Subjective Subjective: Patient was seen and examined bedside.Weaning protocol initiated by second time worker this Am , propofol drip on hold, on Levophed drip Patient awake , alert ,following commands Extubated and placed on NRM FIO2 40 %, appears somewhat sleepy, restless BP 100/61 HR 94 Tmax 103.9 last 24 hours CXR showing vascular congestion and possible RML infiltrate Objective - Vital Signs/Intake and Output Vital Signs (last 24 hours): Temp Pulse Resp BP Pulse Ox 99.1 F 90 18 140/74 98 10/17/17 12:00 10/17/17 14:00 10/17/17 14:00 10/17/17 14:00 10/17/17 14:00 Intake and Output: 10/17/17 10/17/17 06:59 18:59 Intake Total 50 633 Balance 50 633 - Medications Medications: Current Medications Acetaminophen (Tylenol 650 Mg Supp) 650 mg OH Q6 PRN PRN Reason: Fever >100.4 F Last Admin: 10/16/17 23:07 Dose: 650 mg Enoxaparin Sodium (Lovenox) 40 mg SC DAILY JULIANA PRN Reason: Protocol Last Admin: 10/17/17 10:39 Dose: 40 mg Lactated Ringer's (Lactated Ringer's) 1,000 mls @ 125 mls/hr IV .Q8H [facility] Last Admin: 10/17/17 12:36 Dose: Not Given Piperacillin Sod/Tazobactam (Sod 3.375 gm/ Sodium Chloride) 100 mls @ 100 mls/ hr IVPB Q6 JULIANA PRN Reason: Protocol Last Admin: 10/17/17 10:40 Dose: 100 mls/hr Norepinephrine Bitartrate 8 mg (/ Dextrose) 258 mls @ 33.86 mls/hr IV .Q7H38M ONE PRN Reason: 17.5 MCG/MIN Stop: 10/17/17 15:37 Insulin Detemir (Levemir) 12 units SC Q12H [facility] Last Admin: 10/17/17 08:00 Dose: Not Given Insulin Human Lispro (Humalog) 0 units SC Q4H [facility] Last Admin: 10/17/17 12:35 Dose: Not Given Levothyroxine Sodium (Synthroid) 25 mcg PO DAILY@0630 [facility] Last Admin: 10/17/17 06:10 Dose: Not Given Pantoprazole Sodium (Protonix Inj) 40 mg IVP DAILY [facility] Last Admin: 10/17/17 10:39 Dose: 40 mg - Labs Labs: 10/17/17 04:20 10/17/17 04:20 PT 15.1 Seconds (9.8-13.1) H 10/16/17 16:27 INR 1.4 (0.9-1.2) H 10/16/17 16:27 APTT 16.6 Seconds (25.6-37.1) L 10/16/17 16:27 - Constitutional Appears: No Acute Distress, Chronically Ill, Other (sleepy, restless ) - Head Exam Head Exam: ATRAUMATIC, NORMOCEPHALIC Additional comments: pallor - Eye Exam Eye Exam: EOMI, Nystagmus - ENT Exam ENT Exam: Mucous Membranes Dry - Neck Exam Neck Exam: Normal Inspection - Respiratory Exam Respiratory Exam: Clear to Ausculation Bilateral, Rhonchi, NORMAL BREATHING PATTERN. absent: Rales, Wheezes, Respiratory Distress - Cardiovascular Exam Cardiovascular Exam: Tachycardia, RRR, +S1, +S2. absent: JVD - GI/Abdominal Exam GI & Abdominal Exam: Soft, Normal Bowel Sounds. absent: Distended, Guarding, Tenderness, Rebound - Rectal Exam Rectal Exam: Deferred - Extremities Exam Additional comments: left AKA with mynor in p[jeff, clean wound healing well right TMA stump - Back Exam Back Exam: NORMAL INSPECTION - Neurological Exam Neuro motor strength exam: Left Upper Extremity: 5, Right Upper Extremity: 5, Left Lower Extremity: 5, Right Lower Extremity: 5 Additional comments: lethargic , sleepy, restless, following commands - Psychiatric Exam Psychiatric exam: Flat Affect - Skin Skin Exam: Dry, Pallor, Warm Assessment and Plan - Assessment and Plan (Free Text) Assessment: 42 yo male with history of DM2, HTN, HLD, Hypothyroid was discharged last night from [facility] after having AKA of the left leg. claimed that she noted the patient profusely diaphoretic while in bed, awake but not talking. She did an accuchek and it read as 32mg%. According to her the patient received Levemir 90 units SC last night and this morning Humulog 50 units SC. She called 911 and when they arrived patient was very lethargic and barely responsive. He was noted to have no IV access ,immediately brought to the ER . In ER accuchecks recorded < 20 . Glucose IV was given , patient vomited , possibly aspirated , went into acute respiratory failure with apnea, asystoly ,intubated , given epi and amiodarone and defibrilated x1 with return of ROSC .Was admitted in ICU s/p cardiac arrest and acute respiratory failure secondary to aspiration Pneumonia and hypoglycemia.Was intubated on PRVC/ AC mode and started on levophed drip.With no acute issues overnight This morning extubated after weaning trial, but restless and sleepy Tmax 103 last 24 hours , CXr showed vascular congestion and possible RML infiltrate WBC 12 k 1. Cardiac arrest cardiac arrest after acute respiratory failure with asystoly on monitor and return of ROSC after 5 min , after administration of Epinephrine ,defibrilalation x1 and amiodarone IV for wide QRS complex tachyarrythmia on Levophed IV for BP control Extubated after weaning trial today. Continue O2 via NRM FIO2 40 % .Maintain Fall Safety measures since patient is somewhat sleepy. Avoid any sedatives Will try to meri off Levophed . Continue IVF and transfuse 2 unit PRBc for anemia 2. Acute respiratory failure with hypercarbia ,possible secondary to aspiration pneumonia CXR today showed vascular congestion and possible RML infiltrate ( as read by me ) d/c Clindamycin and started Zosyn Tmax 103 last 24 hours Follow up cultures Duonebs RTC extubated after weaning trial . Continue O2 via NRM FIO2 40 %, duonebs 3. Hypoglycemia with AMS and lethargy Severe hypoglycemia Acc<20 Patient was on Levemir 90 unit SQ HS and Humolog 50 units SQ TID at home. Has labile PO intake Endocrinologty cosnulted Dr. Rajput HGb A1c 9.1 Discontinued levemir and Humalog. 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 Chronic anemia Hgb 7.9 Will transfuse 2 unit PRBC today for more circulatory support Repeat CBC in Am 6. 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 Hypothyroidism Check TSH resume Synthroid 8. Hypertension on Levophed drip, will meri Metoprolol and lisinopril on hold 9. Paroxysmal Afib at present in SR received amiodarone Will resume Pradaxa 10.Anxiety on temazepam, xanax and Ambien Hold for now 11. Dyslipidemia on fenofibrates, atorvastatin and Kindred 3 12. BPH on flomax will d/c Manny 13. DVT Prophylaxis d/c lovenox resume pradaxa
--- NOTE | 2017-10-17 15:09 | RAD ---
HISTORY: on vent, s/p aspiration COMPARISON: October 16, 2017. FINDINGS: LUNGS: Improving pulmonary edema. PLEURA: No significant pleural effusion identified, no pneumothorax apparent. CARDIOVASCULAR: Normal. OSSEOUS STRUCTURES: No significant abnormalities. VISUALIZED UPPER ABDOMEN: Normal. OTHER FINDINGS: Stable position endotracheal tube. IMPRESSION: No active disease. Resolution of pulmonary edema.
--- NOTE | 2017-10-17 15:49 | PN ---
DATE: ENDO FOLLOWUP NOTE LOCATION: ICU room 425. SUBJECTIVE: This is a 42-year-old male with recent acute respiratory failure following a possible aspiration pneumonia and supervening asystole and hypoxemia and has been endotracheally intubated at this time and is being followed closely for metabolic management. He presented here with symptomatic hypoglycemia and associated neuroglycopenic and manifestations of the same. His glucose levels are fluctuating and are ranging from 158 mg/dL to 198 mg/dL. His latest chemistry showed BUN of 8, sodium of 145, potassium of 3.4, chloride of 105, CO2 of 32, glucose of 148, and creatinine of 0.7. His A1c is 9.1%, which is elevated and indicative of suboptimal metabolic control of his diabetic condition even prior to this admission. His thyroid studies are normal with T4 of 8.37 and TSH of 1.15 and a free T4 of 1.82. He remains clinically and biochemically euthyroid at this time as noted. ASSESSMENT: This is a 42-year-old male with uncontrolled and decompensated type 2 insulin-requiring diabetes presenting here with symptomatic hypoglycemia related to a suboptimal oral intake at this time and developed supervening aspiration pneumonia and acute respiratory failure, currently endotracheally intubated and sedated at this time. PLAN OF MANAGEMENT: He is being followed closely here in the ICU for closer hemodynamic and metabolic management and workup as noted. We will continue the basal insulin given as Levemir at 12 units subcu every 12 hours and 8:00 a.m. and 8:00 p.m. daily as ordered. We will continue the intensive glucose monitoring with glucose testing done every 4 hours with Humalog coverage scale as ordered. We will obtain serial chemistries and supplement accordingly as needed. We will also continue the IV hydration as ordered. We will follow. Vania Rajput MD
[2017-10-17] MEDS: Omega-3-Acid Ethyl Esters 1 GM Cap PO SCH (17:36)
--- NOTE | 2017-10-17 19:04 | CARD ---
APPROVED REPORT EXAM: Two-dimensional and M-mode echocardiogram with Doppler and color Doppler. Other Information Quality : GoodRhythm : NSR INDICATION Post Cardiac Arrest 2D DIMENSIONS IVSd1.07 (0.7-1.1cm)LVDd4.00 (3.9-5.9cm) LVOT Diameter2.14 (1.8-2.4cm)PWd0.74 (0.7-1.1cm) IVSs1.51 (0.8-1.2cm)LVDs2.58 (2.5-4.0cm) FS (%) 35.6 %PWs1.14 (0.8-1.2cm) M-Mode DIMENSIONS Left Atrium (MM)3.75 (2.5-4.0cm)IVSd1.19 (0.7-1.1cm) Aortic Root2.72 (2.2-3.7cm)LVDd4.28 (4.0-5.6cm) Aortic Cusp Exc.2.20 (1.5-2.0cm)PWd0.91 (0.7-1.1cm) IVSs1.48 cmFS (%) 33 % LVDs2.87 (2.0-3.8cm)PWs1.48 cm Mitral Valve MV E Dhcpbdku68.8cm/sMV DECEL [id number] A Lbsrhole91.7cm/s MV [id number]/A ratio3.2MVA (PHT)5.63cm2 TDI Lateral E' Peak V16.79cm/sMedial E' Peak V15.89cm/sE/Lateral E'4.6 E/Medial E'4.8 Pulmonary Valve PV Peak Gmibipqh83.4cm/s Tricuspid Valve TR Peak [id number] [id number] Peak Gr.26mmHg [id number] LEFT VENTRICLE The left ventricle is normal in size. There is normal left ventricular wall thickness. Left ventricle systolic function is mildly impaired. The Ejection Fraction is - 50%. The septal wall appears hypokinetic to mildly diskinetic(best seen on the 2D short axis view). The other segments of the left ventricle have adequate contraction. The left ventricular diastolic function is normal. No left ventricle thrombus noted on this study. There is no ventricular septal defect visualized. There is no left ventricular aneurysm. There is no mass noted in the left ventricle. RIGHT VENTRICLE The right ventricle is normal size. There is normal right ventricular wall thickness. The right ventricular systolic function is normal. ATRIA The left atrium size is normal. There is no thrombus suspected in the left atrium. The right atrium size is normal. The interatrial septum is intact with no evidence for an atrial septal defect. AORTIC VALVE The aortic valve is normal in structure. No aortic regurgitation is present. There is no aortic valvular stenosis. MITRAL VALVE The mitral valve is normal in structure. There is no evidence of mitral valve prolapse. There is no mitral valve stenosis. Mitral regurgitation is trace. TRICUSPID VALVE The tricuspid valve is normal in structure. There is mild tricuspid regurgitation. Right ventricular systolic pressure is estimated at 35 mmHg. There is no tricuspid valve prolapse or vegetation. There is no tricuspid valve stenosis. PULMONIC VALVE The pulmonary valve is normal in structure. There is no pulmonic valvular regurgitation. GREAT VESSELS The aortic root is normal in size. The IVC is normal in size and collapses >50% with inspiration. PERICARDIAL EFFUSION The pericardium appears normal. There is no pleural effusion. <Conclusion> The study is only of fair quality. The left ventricle is normal in size and wall thickness. Left ventricle systolic function is mildly impaired. The Ejection Fraction is - 50%. The left atrium, right ventricle and right atrium are normal in size. The mitral, aortic and tricuspid valves are normal. There is trace mitral regurgitation and mild tricuspid regurgitation.
[2017-10-17] MEDS: Cilostazol 100 mg Tab UD PO SCH (20:12)
[2017-10-17] MEDS ORDERED: Chlorhexidine Gluconate 1 APPL/PKT TP ONE (21:09)
[2017-10-17] MEDS: Piperacillin/Tazobact 4.5 GM in Sodium Chloride 0.9% 100 ML IVPB SCH (21:19)
[2017-10-18] MEDS: Insulin Lispro (humaLOG) 100 Units/ml Inj SC SCH ×7 (00:29→22:08)
[2017-10-18] MEDS: Piperacillin/Tazobact 4.5 GM in Sodium Chloride 0.9% 100 ML IVPB SCH ×4 (04:49→21:36)
[2017-10-18 06:12] LABS: HEMOGLOBIN 8.7 g/dL (12.0-18.0); MEAN CELL VOLUME 83.3 fl (80.0-94.0); MEAN CORPUSCULAR HEMOGLOBIN 26.2 pg (27.0-31.0); MEAN CORPUSCULAR HGB CONC 31.4 g/dL (33.0-37.0); RBC 3.32 Mil/uL (4.40-5.90); RED CELL DISTRIBUTION WIDTH 16.7 % (11.5-14.5); WHITE BLOOD COUNT 14.7 K/uL (4.8-10.8)
[2017-10-18 06:16] LABS: ALB/GLOB RATIO 0.7 (1.0-2.1); ALBUMIN 2.6 g/dL (3.5-5.0); ALT/SGPT 67 U/L (21-72); AST/SGOT 78 U/L (17-59); BLOOD UREA NITROGEN 9 mg/dl (9-20); GFR AFRICAN-AMERICAN > 60; GFR NON-AFRICAN AMERICAN > 60
[2017-10-18] MEDS ORDERED: Levothyroxine 25 MCG TAB PO SCH (06:30)
[2017-10-18] MEDS: Omega-3-Acid Ethyl Esters 1 GM Cap PO SCH ×3 (06:47→16:30)
[2017-10-18] MEDS: Levothyroxine 25 MCG TAB PO SCH (06:48)
[2017-10-18] MEDS: Insulin Detemir 100 Units/ml Inj SC SCH (08:30)
[2017-10-18] MEDS: Cilostazol 100 mg Tab UD PO SCH ×2 (09:00→21:36)
[2017-10-18] MEDS: Pantoprazole 40 mg EC Tab PO SCH (09:00)
[2017-10-18] MEDS ORDERED: Potassium Chloride 20 mEq ER Tab PO ONE (09:41)
[2017-10-18] MEDS: Sodium Chloride 0.9% 1,000 ML IV SCH ×2 (09:45→19:45)
--- NOTE | 2017-10-18 09:53 | RAD ---
PROCEDURE: CHEST RADIOGRAPH, 1 VIEW HISTORY: s/p extubation COMPARISON: None available. FINDINGS: LUNGS: Vague patchy opacities again seen in the mid to lower lung honeycutt left greater than right consistent possibly representing some combination of atelectasis and or infiltrate left greater than right PLEURA: No pneumothorax or pleural fluid seen. CARDIOVASCULAR: Normal. OSSEOUS STRUCTURES: No significant abnormalities. VISUALIZED UPPER ABDOMEN: Normal. OTHER FINDINGS: None. IMPRESSION: Vague patchy opacities again seen in the mid to lower lung honeycutt left greater than right consistent possibly representing some combination of atelectasis and or infiltrate left greater than right
--- NOTE | 2017-10-18 12:52 | CP.CCUPN ---
CCU Subjective - Physician Review Events Since Last Encounter (Free Text): 10/18/17 12:42 alert and oriented, no complaints, threatened to leave AMA. CCU Objective - Vital Signs / Intake & Output Vital Signs (Last 4 hours): Vital Signs Temp Pulse Resp BP Pulse Ox 10/18/17 12:00 98.5 F 90 18 95/52 L 77 L 10/18/17 10:00 80 32 H 84/49 L 90 L 10/18/17 09:00 77 26 H 80/53 L 91 L Intake and Output (Last 8hrs): Intake & Output 10/17/17 10/18/17 10/18/17 22:59 06:59 14:59 Intake Total 885 0 440 Output Total 1000 500 Balance -115 -500 440 Weight 139 lb Intake: IV 135 0 220 Intake, Piggyback 200 100 Oral 200 120 Blood Product 350 Output: Urine 1000 500 Urethral (Kim) 1000 500 Other: # Bowel Movements 0 - Physical Exam Head: Positive for: Normocephalic Pupils: Positive for: PERRL Extroacular Muscles: Positive for: EOMI Conjunctiva: Positive for: Normal Mouth: Positive for: Moist Mucous Membranes Neck: Positive for: Normal Range of Motion. Negative for: JVD, Bruit Respiratory/Chest: Positive for: Clear to Auscultation. Negative for: Accessory Muscle Use, Wheezes Cardiovascular: Positive for: Regular Rate and Rhythm, Normal S1, S2. Negative for: Murmurs, Rub Abdomen: Positive for: Normal Bowel Sounds. Negative for: Tenderness, Distention, Mass/Organomegaly Lower Extremity: Positive for: Other (left AKA and R TMA) Neurological: Positive for: GCS=15, CN II-XII Intact Skin: Positive for: Warm, Dry. Negative for: Rashes Psychiatric: Positive for: Alert, Oriented x 3. Negative for: Agitated, Lethargic - Medications Active Medications: Active Medications Generic Name Dose Route Start Last Admin Trade Name Freq PRN Reason Stop Dose Admin Acetaminophen 650 mg 10/16/17 22:58 10/17/17 21:10 Tylenol 650 Mg Supp DC 650 mg Q6 PRN Administration Fever >100.4 F Aspirin 81 mg 10/18/17 09:00 10/18/17 08:59 Ecotrin PO 81 mg DAILY JULIANA Administration Atorvastatin Calcium 40 mg 10/17/17 18:00 10/17/17 17:35 Lipitor PO Not Given QPM JULIANA Cilostazol 100 mg 10/17/17 21:00 10/18/17 09:00 Pletal PO 100 mg Q12 JULIANA Administration Clopidogrel Bisulfate 75 mg 10/18/17 09:00 10/18/17 09:00 Plavix PO 75 mg DAILY JULIANA Administration Dabigatran 75 mg 10/17/17 16:45 10/18/17 06:48 Pradaxa PO Not Given Q12H [facility] Protocol Fenofibrate 145 mg 10/18/17 09:00 10/18/17 09:01 Tricor PO 145 mg DAILY JULIANA Administration Gabapentin 1,200 mg 10/17/17 16:15 10/18/17 06:48 Neurontin PO Not Given Q12H [facility] Hydromorphone HCl 2 mg 10/17/17 16:13 10/18/17 02:33 Dilaudid PO 2 mg Q4H PRN Administration Pain, severe (8-10) Norepinephrine Bitartrate 4 mg 254 mls @ 66.67 mls/hr 10/17/17 16:00 15:30 / Dextrose IV 5 mcg/min .Q3H49M JULIANA 19.05 mls/hr Protocol Titration 17.5 MCG/MIN Piperacillin Sod/Tazobactam 100 mls @ 100 mls/hr 10/17/17 22:00 10/18/17 09: 09 Sod 4.5 gm/ Sodium Chloride IVPB 100 mls/hr Q6 JULIANA Administration Protocol Sodium Chloride 1,000 mls @ 100 mls/hr 10/18/17 09:45 10/18/17 09:45 Sodium Chloride 0.9% IV 10/19/17 09:43 100 mls/hr .Q10H JULIANA Administration Insulin Detemir 12 units 10/17/17 08:00 10/18/17 08:30 Levemir SC Not Given Q12H [facility] Insulin Human Lispro 0 units 10/17/17 00:00 10/18/17 12:27 Humalog SC Not Given Q4H [facility] Levothyroxine Sodium 25 mcg 10/17/17 06:30 10/18/17 06:48 Synthroid PO Not Given DAILY@0630 [facility] [id number]-9-Reir Ethyl Esters 1 gm 10/17/17 16:15 10/18/17 09:11 Lovaza PO 1 gm Q12H JULIANA Administration Pantoprazole Sodium 40 mg 10/17/17 09:00 10/18/17 09:01 Protonix Inj IVP Not Given DAILY JULIANA Pantoprazole Sodium 40 mg 10/18/17 09:00 10/18/17 09:00 Protonix Ec Tab PO 40 mg DAILY JULIANA Administration - Patient Studies Lab Studies: Microbiology Studies 10/16/17 07:43 MRSA Culture (Admit) - Final Naris MRSA NOT DETECTED 10/17/17 Unknown Blood Culture - Preliminary Blood-Thru Central Line NO GROWTH AFTER 24 HOURS 10/17/17 Unknown Blood Culture - Preliminary Blood-Thru Central Line NO GROWTH AFTER 24 HOURS 10/16/17 08:41 Gram Stain - Final Trachasp 10/17/17 07:43 Gram Stain - Final Leg - Left Lab Studies 10/18/17 10/18/17 10/18/17 Range/Units 12:11 08:03 05:35 WBC (4.8-10.8) K/uL RBC (4.40-5.90) Mil/uL Hgb (12.0-18.0) g/dL Hct (35.0-51.0) % MCV (80.0-94.0) fl MCH (27.0-31.0) pg MCHC (33.0-37.0) g/dL RDW (11.5-14.5) % Plt Count (130-400) K/uL Sodium 144 (132-148) mmol/l Potassium 3.3 L (3.6-5.0) MMOL/L Chloride 105 (98-107) mmol/L Carbon Dioxide 32 H (22-30) mmol/L Anion Gap 10 (10-20) BUN 9 (9-20) mg/dl Creatinine 0.8 (0.8-1.5) mg/dl Est GFR ( Amer) > 60 Est GFR (Non-Af Amer) > 60 POC Glucose (mg/dL) 80 134 H (65-110) mg/dL Random Glucose 121 H (75-110) mg/dL Calcium 9.0 (8.4-10.2) mg/dL Total Bilirubin 0.8 (0.2-1.3) mg/dl AST 78 H D (17-59) U/L ALT 67 (21-72) U/L Alkaline Phosphatase 133 H (38-126) U/L Total Protein 6.3 (6.3-8.2) G/DL Albumin 2.6 L (3.5-5.0) g/dL Globulin 3.7 (2.2-3.9) gm/dL Albumin/Globulin Ratio 0.7 L (1.0-2.1) Blood Type Antibody Screen Crossmatch BBK History Checked 10/18/17 10/18/17 10/17/17 Range/Units 05:35 03:35 23:41 WBC 14.7 H (4.8-10.8) K/uL RBC 3.32 L (4.40-5.90) Mil/uL Hgb 8.7 L (12.0-18.0) g/dL Hct 27.7 L (35.0-51.0) % MCV 83.3 D (80.0-94.0) fl MCH 26.2 L (27.0-31.0) pg MCHC 31.4 L (33.0-37.0) g/dL RDW 16.7 H (11.5-14.5) % Plt Count 288 D (130-400) K/uL Sodium (132-148) mmol/l Potassium (3.6-5.0) MMOL/L Chloride (98-107) mmol/L Carbon Dioxide (22-30) mmol/L Anion Gap (10-20) BUN (9-20) mg/dl Creatinine (0.8-1.5) mg/dl Est GFR ( Amer) Est GFR (Non-Af Amer) POC Glucose (mg/dL) 94 130 H (65-110) mg/dL Random Glucose (75-110) mg/dL Calcium (8.4-10.2) mg/dL Total Bilirubin (0.2-1.3) mg/dl AST (17-59) U/L ALT (21-72) U/L Alkaline Phosphatase (38-126) U/L Total Protein (6.3-8.2) G/DL Albumin (3.5-5.0) g/dL Globulin (2.2-3.9) gm/dL Albumin/Globulin Ratio (1.0-2.1) Blood Type Antibody Screen Crossmatch BBK History Checked 0210/17/17 10/16/17 Range/Units 20:03 15:38 16:20 WBC (4.8-10.8) K/uL RBC (4.40-5.90) Mil/uL Hgb (12.0-18.0) g/dL Hct (35.0-51.0) % MCV (80.0-94.0) fl MCH (27.0-31.0) pg MCHC (33.0-37.0) g/dL RDW (11.5-14.5) % Plt Count (130-400) K/uL Sodium (132-148) mmol/l Potassium (3.6-5.0) MMOL/L Chloride (98-107) mmol/L Carbon Dioxide (22-30) mmol/L Anion Gap (10-20) BUN (9-20) mg/dl Creatinine (0.8-1.5) mg/dl Est GFR ( Amer) Est GFR (Non-Af Amer) POC Glucose (mg/dL) 140 H 157 H (65-110) mg/dL Random Glucose (75-110) mg/dL Calcium (8.4-10.2) mg/dL Total Bilirubin (0.2-1.3) mg/dl AST (17-59) U/L ALT (21-72) U/L Alkaline Phosphatase (38-126) U/L Total Protein (6.3-8.2) G/DL Albumin (3.5-5.0) g/dL Globulin (2.2-3.9) gm/dL Albumin/Globulin Ratio (1.0-2.1) Blood Type A POSITIVE Antibody Screen Negative Crossmatch See Detail BBK History Checked No verified bt Laboratory Results - last 24 hr 10/16/17 10/17/17 10/17/17 16:20 15:38 20:03 WBC RBC Hgb Hct MCV MCH MCHC RDW Plt Count Sodium Potassium Chloride Carbon Dioxide Anion Gap BUN Creatinine Est GFR ( Amer) Est GFR (Non-Af Amer) POC Glucose (mg/dL) 157 H 140 H Random Glucose Calcium Total Bilirubin AST ALT Alkaline Phosphatase Total Protein Albumin Globulin Albumin/Globulin Ratio Blood Type A POSITIVE Antibody Screen Negative Crossmatch See Detail BBK History Checked No verified bt 10/17/17 10/18/17 10/18/17 23:41 03:35 05:35 WBC 14.7 H RBC 3.32 L Hgb 8.7 L Hct 27.7 L MCV 83.3 D MCH 26.2 L MCHC 31.4 L RDW 16.7 H Plt Count 288 D Sodium Potassium Chloride Carbon Dioxide Anion Gap BUN Creatinine Est GFR ( Amer) Est GFR (Non-Af Amer) POC Glucose (mg/dL) 130 H 94 Random Glucose Calcium Total Bilirubin AST ALT Alkaline Phosphatase Total Protein Albumin Globulin Albumin/Globulin Ratio Blood Type Antibody Screen Crossmatch BBK History Checked 10/18/17 10/18/17 10/18/17 05:35 08:03 12:11 WBC RBC Hgb Hct MCV MCH MCHC RDW Plt Count Sodium 144 Potassium 3.3 L Chloride 105 Carbon Dioxide 32 H Anion Gap 10 BUN 9 Creatinine 0.8 Est GFR ( Amer) > 60 Est GFR (Non-Af Amer) > 60 POC Glucose (mg/dL) 134 H 80 Random Glucose 121 H Calcium 9.0 Total Bilirubin 0.8 AST 78 H D ALT 67 Alkaline Phosphatase 133 H Total Protein 6.3 Albumin 2.6 L Globulin 3.7 Albumin/Globulin Ratio 0.7 L Blood Type Antibody Screen Crossmatch BBK History Checked Fingerstick Blood Sugar Results: 80 Review of Systems - Review of Systems All systems: reviewed and no additional remarkable complaints except (no complaints) Critical Care Progress Note - Nutrition Nutrition: Nutrition Category Date Time Status Heart Healthy Diet [DIET] Diets 10/18/17 Lunch Active Assessment/Plan (1) Hypoglycemia Assessment and plan: 42 y/o Male with PMHx of IDDM, HTN, Hypercholesterolemia, Hypothyroidism, S/P left AKA in [place]. p/w hypoglycemic episode leading to PEA/Vfib arrest in ED, with rapid ROSC (5 min, 1 epi, 1 shock). Neuro: alert and oriented x 3 Pulm: no acute issues, breathing spontaneously on room air CV: hypotensive, but responsive to fluids. off of pressors. Hem: leucocytosis of uncertain etiology, SIRS possibly. ASA and plavix restarted. Renal: urine output wnl, will monitor Endo: DM type 2, sugars have been in good range, SISS for coverage. GI: heart healthy diet, with moderate consistent carbohydrates. patient is still not eating fully. ID: no acute issues. blood cultures negative so far. DVT proph - lovenox GI proph - protonix kim for strict I/O's during acute illness Code status - Full code Critical Care Time spent 35 minutes Multi-disciplinary rounds were performed with house staff, nursing, speech therapy, respiratory therapy, pharmacy and nutrition with integrated input from the primary team/attending and other consulting services. The documented time is cumulative and includes review of patient data/exams/labs/chart review and examination of the patient on rounds and throughout the day; time is exclusive of any procedures or teaching time. Current Visit: Yes Status: Acute
--- NOTE | 2017-10-18 15:51 | CP.PCM.PN ---
Subjective - Date & Time of Evaluation Date of Evaluation: 10/18/17 Time of Evaluation: 08:15 - Subjective Subjective: Patient was seen and examined today. He threatened to leave against medical advice today; however he was convinced to stay. Patient extubated yesterday- oxygenating well; however BP continues to run low in the systolic 90's. Currently taken off Levophed and BP being supported by fluids. Objective - Vital Signs/Intake and Output Vital Signs (last 24 hours): Temp Pulse Resp BP Pulse Ox 98.5 F 96 H 14 90/61 L 92 L 10/18/17 12:00 10/18/17 14:00 10/18/17 14:00 10/18/17 14:00 10/18/17 14:00 Intake and Output: 10/18/17 10/18/17 06:59 18:59 Intake Total 175 760 Output Total 500 Balance -325 760 - Medications Medications: Current Medications Acetaminophen (Tylenol 650 Mg Supp) 650 mg NM Q6 PRN PRN Reason: Fever >100.4 F Last Admin: 10/17/17 21:10 Dose: 650 mg Aspirin (Ecotrin) 81 mg PO DAILY [facility] Last Admin: 10/18/17 08:59 Dose: 81 mg Atorvastatin Calcium (Lipitor) 40 mg PO QPM [facility] Last Admin: 10/17/17 17:35 Dose: Not Given Cilostazol (Pletal) 100 mg PO Q12 [facility] Last Admin: 10/18/17 09:00 Dose: 100 mg Clopidogrel Bisulfate (Plavix) 75 mg PO DAILY [facility] Last Admin: 10/18/17 09:00 Dose: 75 mg Dabigatran (Pradaxa) 75 mg PO Q12H JULIANA PRN Reason: Protocol Last Admin: 10/18/17 06:48 Dose: Not Given Fenofibrate (Tricor) 145 mg PO DAILY [facility] Last Admin: 10/18/17 09:01 Dose: 145 mg Gabapentin (Neurontin) 1,200 mg PO Q12H [facility] Last Admin: 10/18/17 06:48 Dose: Not Given Hydromorphone HCl (Dilaudid) 2 mg PO Q4H PRN PRN Reason: Pain, severe (8-10) Last Admin: 10/18/17 02:33 Dose: 2 mg Norepinephrine Bitartrate 4 mg (/ Dextrose) 254 mls @ 66.67 mls/hr IV .Q3H49M JULIANA; 17.5 MCG/MIN PRN Reason: Protocol Last Titration: 10/17/17 15:30 Dose: 5 mcg/min, 19.05 mls/hr Piperacillin Sod/Tazobactam (Sod 4.5 gm/ Sodium Chloride) 100 mls @ 100 mls/hr IVPB Q6 JULIANA PRN Reason: Protocol Last Admin: 10/18/17 09:09 Dose: 100 mls/hr Sodium Chloride (Sodium Chloride 0.9%) 1,000 mls @ 100 mls/hr IV .Q10H [facility] Stop: 10/19/17 09:43 Last Admin: 10/18/17 09:45 Dose: 100 mls/hr Insulin Detemir (Levemir) 14 units SC HS JULIANA Insulin Human Lispro (Humalog) 0 units SC ACHS JULIANA Insulin Human Lispro (Humalog) 4 units SC AC JULIANA Levothyroxine Sodium (Synthroid) 25 mcg PO DAILY@0630 [facility] Last Admin: 10/18/17 06:48 Dose: Not Given Vbwei-1-Nbrl Ethyl Esters (Lovaza) 1 gm PO Q12H [facility] Last Admin: 10/18/17 09:11 Dose: 1 gm Pantoprazole Sodium (Protonix Inj) 40 mg IVP DAILY [facility] Last Admin: 10/18/17 09:01 Dose: Not Given Pantoprazole Sodium (Protonix Ec Tab) 40 mg PO DAILY [facility] Last Admin: 10/18/17 09:00 Dose: 40 mg - Labs Labs: 10/18/17 05:35 10/18/17 05:35 PT 15.1 Seconds (9.8-13.1) H 10/16/17 16:27 INR 1.4 (0.9-1.2) H 10/16/17 16:27 APTT 16.6 Seconds (25.6-37.1) L 10/16/17 16:27 - Additional Findings Additional findings: Physical exam: Constitutional- initially uncooperative, disheveled. Head- NCAT, PERRL Eye- PERRL, EOMI ENT- normal exam, MMM. Neck- normal inspection, supple, no JVD Respiratory- CTAB, no wheezes rales rhonchi Cardiovascular- RRR, +S1, +S2 no MRG GI/Abdominal- normal bowel sounds, soft, no mass, no hsm Skin- warm, dry Extremities Exam- Left TKA, Right RMA. no cyanosis or edema Neurological Exam- alert, awake, oriented Psych- depressed mood, flat affect Assessment and Plan - Assessment and Plan (Free Text) Plan: Assessment: 42 yo male with history of DM2, HTN, HLD, Hypothyroid was discharged from [facility] on 10/15 after having AKA of the left leg. claimed that she noted the patient profusely diaphoretic while in bed, awake but not talking. She did an accuchek and it read as 32. According to her the patient received Levemir 90 units SC on 10/15 and the morning of 10/16, Humulog 50 units SC. She called 911 and when they arrived patient was very lethargic and barely responsive. He was noted to have no IV access ,immediately brought to the ER . In ER accuchecks recorded < 20 . Glucose IV was given , patient vomited , possibly aspirated , went into acute respiratory failure with apnea, asystoly , intubated, given epi and amiodarone and defibrillated x1 with return of ROSC .Was admitted in ICU s/p cardiac arrest and acute respiratory failure secondary to aspiration Pneumonia and hypoglycemia.Was intubated on PRVC/ AC mode and started on levophed drip.With no acute issues overnight On 10/17: extubated after weaning trial, but restless and sleepy Tmax 103 last 24 hours , CXr showed vascular congestion and possible RML infiltrate. WBC 12 k. Today respiratory status improved; however 1. Cardiac arrest 10/16/2017 cardiac arrest after acute respiratory failure with asystoly on monitor and return of ROSC after 5 min , after administration of Epinephrine ,defibrilalation x1 and amiodarone IV for wide QRS complex tachyarrythmia on Levophed IV for BP control Extubated after weaning trial today. Continue O2 via NRM FIO2 40 % .Maintain Fall Safety measures since patient is somewhat sleepy. Avoid any sedatives Levophed discontinued for now. Continue IVF and transfuse 2 unit PRBc for anemia 2. Acute respiratory failure with hypercarbia ,possible secondary to aspiration pneumonia CXR 10/17 showed vascular congestion and possible RML infiltrate ( as read by me ) d/c Clindamycin and started Zosyn Tmax 103 last 24 hours Follow up cultures Duonebs RTC extubated after weaning trial . Continue O2 via NRM FIO2 40 %, duonebs 3. Hypoglycemia with AMS and lethargy Severe hypoglycemia Acc<20 Patient was on Levemir 90 unit SQ HS and Humolog 50 units SQ TID at home. Has labile PO intake Endocrinology consulted, Dr. Rajput HGb A1c 9.1 Discontinued levemir and Humalog. 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 Chronic anemia Hgb 7.9 -> 8.7 s/p 2 units PRBC on 10/17/2017 Repeat CBC in Am 6. Severe PVD with left AKA and right TMA poor circulation causing ischemic necrosis of distal extremities Post BKA of left leg, Aug, 2017; Post AKA, Oct, 2017 on the same leg Post Right TMA on Plavix, pletal , Pradaxa and statin at home on Percocet, Duragesix patch ,gabapentin, dilaudid PO at home Continue pain management, avoiding sedation since patient is sleepy resume plavix, pletal , statin , ASA 7. Hypothyroidism Check TSH resume Synthroid 8. Hypertension on Levophed drip, will meri Metoprolol and lisinopril on hold 9. Paroxysmal Afib at present in SR received amiodarone Will resume Pradaxa 10.Anxiety on temazepam, xanax and Ambien Hold for now 11. Dyslipidemia on fenofibrates, atorvastatin and [place] 3 12. BPH on flomax will d/c [place] 13. DVT Prophylaxis d/c lovenox resume pradaxa
[2017-10-18] MEDS ORDERED: Morphine 15 mg SR Tab PO ONE (18:55)
[2017-10-18] MEDS ORDERED: Insulin Detemir 100 Units/ml Inj SC SCH (22:00)
--- NOTE | 2017-10-18 22:55 | PN ---
ENDOCRINOLOGY FOLLOWUP NOTE DATE: LOCATION: ICU, room 425. SUBJECTIVE: This is a 42-year-old male with recent acute respiratory failure, currently extubated at this time with an ongoing Levophed drip infusion as noted and is being followed closely for metabolic management. He also presented here with symptomatic hypoglycemia and associated neuroglycopenic and hyperadrenergic manifestations of the same. His glucose levels today are ranging from 80 to 94 and 134 mg/dL. His latest chemistry shows a BUN of 9, sodium 144, potassium 3.3, chloride 105, CO2 of 32, glucose 121, and creatinine 0.8. So, at this time, we will modify his basal and bolus insulin regimen and change the fingerstick glucose tomorrow to a.c. and at bedtime with very low dose Humalog insulin coverage as given to obviate hypoglycemia and detailed orders have been given. We will also start him on a very low dose of prandial insulin with Humalog given as 4 units subcutaneously t.i.d. before meals as ordered. We will change his basal insulin to Levemir at 14 units subcutaneously at bedtime daily, to start tonight. We will discontinue the morning Levemir as ordered. We will obtain serial chemistries and supplement accordingly as needed. We will also continue the same levothyroxine given as 25 mcg daily as ordered. We will obtain serial thyroid studies and adjust his dose regimen accordingly. We will follow. Vania Rajput MD
[2017-10-19] MEDS: Piperacillin/Tazobact 4.5 GM in Sodium Chloride 0.9% 100 ML IVPB SCH ×2 (04:22→11:16)
[2017-10-19] MEDS: Omega-3-Acid Ethyl Esters 1 GM Cap PO SCH (04:25)
[2017-10-19 05:33] LABS: HEMOGLOBIN 7.9 g/dL (12.0-18.0); MEAN CELL VOLUME 83.2 fl (80.0-94.0); MEAN CORPUSCULAR HGB CONC 31.3 g/dL (33.0-37.0); RBC 3.05 Mil/uL (4.40-5.90); RED CELL DISTRIBUTION WIDTH 16.8 % (11.5-14.5)
[2017-10-19 05:44] LABS: BLOOD UREA NITROGEN 12 mg/dl (9-20); CALCIUM 8.4 mg/dL (8.4-10.2); GFR AFRICAN-AMERICAN > 60; GFR NON-AFRICAN AMERICAN > 60
[2017-10-19] MEDS: Sodium Chloride 0.9% 1,000 ML IV SCH (05:45)
[2017-10-19] MEDS: Levothyroxine 25 MCG TAB PO SCH (06:36)
[2017-10-19] MEDS: Insulin Lispro (humaLOG) 100 Units/ml Inj SC SCH ×2 (06:36→07:35)
[2017-10-19 08:18] VITALS: BP 109/34; RESP 18; TEMP 98.6; O2SAT 96
[2017-10-19] MEDS ORDERED: guaiFENesin 200 mg/10 ml Syrup UD PO ONE (08:25)
[2017-10-19] MEDS: Pantoprazole 40 mg EC Tab PO SCH (08:42)
[2017-10-19] MEDS: Cilostazol 100 mg Tab UD PO SCH (08:43)
[2017-10-19 10:15] VITALS: PULSE 76
--- NOTE | 2017-10-19 14:38 | CP.PCM.DIS ---
Provider - Provider Date of Admission: 10/16/17 15:31 Attending physician: Von Gibson MD Consults: Dr. Goddard/Dr. Dial- Floor Framer Time Spent in preparation of Discharge (in minutes): 25 Hospital Course - Lab Results Lab Results: Micro Results 10/16/17 08:41 Trachasp Gram Stain - Final 10/16/17 08:41 Trachasp Sputum Culture - Final NORMAL ORAL JENNIFER 10/17/17 Unknown Blood-Thru Central Line Blood Culture - Preliminary NO GROWTH AFTER 48 HOURS 10/17/17 Unknown Blood-Thru Central Line Blood Culture - Preliminary NO GROWTH AFTER 48 HOURS 10/16/17 07:43 Naris MRSA Culture (Admit) - Final MRSA NOT DETECTED 10/17/17 07:43 Leg - Left Gram Stain - Final Most Recent Lab Values WBC 12.0 K/uL (4.8-10.8) H 10/19/17 04:20 RBC 3.05 Mil/uL (4.40-5.90) L 10/19/17 04:20 Hgb 7.9 g/dL (12.0-18.0) L 10/19/17 04:20 Hct 25.4 % (35.0-51.0) L 10/19/17 04:20 MCV 83.2 fl (80.0-94.0) 10/19/17 04:20 MCH 26.0 pg (27.0-31.0) L 10/19/17 04:20 MCHC 31.3 g/dL (33.0-37.0) L 10/19/17 04:20 RDW 16.8 % (11.5-14.5) H 10/19/17 04:20 Plt Count 284 K/uL (130-400) 10/19/17 04:20 MPV 8.2 fl (7.2-11.7) 10/17/17 04:20 Neut % (Auto) 84.9 % (50.0-75.0) H 10/17/17 04:20 Lymph % (Auto) 10.0 % (20.0-40.0) L 10/17/17 04:20 Haines % (Auto) 4.9 % (0.0-10.0) 10/17/17 04:20 Eos % (Auto) 0.0 % (0.0-4.0) 10/17/17 04:20 Baso % (Auto) 0.2 % (0.0-2.0) 10/17/17 04:20 Neut # (Auto) 10.4 K/uL (1.8-7.0) H 10/17/17 04:20 Lymph # (Auto) 1.2 K/uL (1.0-4.3) 10/17/17 04:20 Haines # (Auto) 0.6 K/uL (0.0-0.8) 10/17/17 04:20 Eos # (Auto) 0.0 K/uL (0.0-0.7) 10/17/17 04:20 Baso # (Auto) 0.0 K/uL (0.0-0.2) 10/17/17 04:20 Neutrophils % (Manual) 83 % (42-75) H 10/16/17 16:27 Band Neutrophils % 7 % (0-2) H 10/16/17 16:27 Lymphocytes % (Manual) 7 % (20-50) L 10/16/17 16:27 Monocytes % (Manual) 3 % (0-10) 10/16/17 16:27 Platelet Estimate Normal (NORMAL) 10/16/17 16:27 Hypochromasia (manual) Moderate 10/16/17 16:27 Poikilocytosis (manual Slight 10/16/17 16:27 Anisocytosis (manual) Marked 10/16/17 16:27 Microcytosis (manual) Moderate 10/16/17 16:27 Sickle Cells Moderate 10/16/17 16:27 Target Cells Slight 10/16/17 16:27 Ovalocytes Slight 10/16/17 16:27 Rafa Cells Slight 10/16/17 16:27 PT 15.1 Seconds (9.8-13.1) H 10/16/17 16:27 INR 1.4 (0.9-1.2) H 10/16/17 16:27 APTT 16.6 Seconds (25.6-37.1) L 10/16/17 16:27 pCO2 45 mm/Hg (35-45) 10/17/17 04:29 pO2 125 mm/Hg (80-100) H 10/17/17 04:29 HCO3 30.0 mmol/L (21-28) H 10/17/17 04:29 ABG pH 7.45 (7.35-7.45) 10/17/17 04:29 ABG Total CO2 32.7 mmol/L (22-28) H 10/17/17 04:29 ABG O2 Saturation 99.4 % (95-98) H 10/17/17 04:29 ABG Base Excess 6.4 mmol/L (-2.0-3.0) H 10/17/17 04:29 Prabhakar Test Yes 10/17/17 04:29 ABG Potassium 3.3 mmol/L (3.6-5.2) L 10/17/17 04:29 A-a O2 Difference 247.0 mm/Hg 10/17/17 04:29 Sodium 142.0 mmol/L (132-148) 10/17/17 04:29 Chloride 109.0 mmol/L (98-107) H 10/17/17 04:29 Glucose 154 mg/dL (75-110) H 10/17/17 04:29 Lactate 1.3 mmol/L (0.7-2.1) 10/17/17 04:29 Vent Mode A/c 10/17/17 04:29 Mechanical Rate 14 10/17/17 04:29 FiO2 60.0 % 10/17/17 04:29 Tidal Volume 500 10/17/17 04:29 PEEP 5 10/17/17 04:29 Crit Value Called To Dr leandro conner 10/16/17 15:20 Crit Value Called By Rt 10/16/17 15:20 Crit Value Read Back Y 10/16/17 15:20 Blood Gas Notified Time 1529 10/16/17 15:20 Sodium 142 mmol/l (132-148) 10/19/17 04:20 Potassium 3.8 MMOL/L (3.6-5.0) 10/19/17 04:20 Chloride 108 mmol/L (98-107) H 10/19/17 04:20 Carbon Dioxide 26 mmol/L (22-30) 10/19/17 04:20 Anion Gap 12 (10-20) 10/19/17 04:20 BUN 12 mg/dl (9-20) 10/19/17 04:20 Creatinine 0.7 mg/dl (0.8-1.5) L 10/19/17 04:20 Est GFR ( Amer) > 60 10/19/17 04:20 Est GFR (Non-Af Amer) > 60 10/19/17 04:20 POC Glucose (mg/dL) 103 mg/dL (65-110) 10/19/17 10:04 Random Glucose 66 mg/dL (75-110) L 10/19/17 04:20 Hemoglobin A1c 9.1 % (4.2-6.5) H D 10/17/17 04:20 Calcium 8.4 mg/dL (8.4-10.2) 10/19/17 04:20 Phosphorus 5.5 mg/dl (2.5-4.5) H 10/16/17 16:27 Magnesium 1.8 MG/DL (1.6-2.3) 10/16/17 16:27 Total Bilirubin 0.8 mg/dl (0.2-1.3) 10/18/17 05:35 AST 78 U/L (17-59) H D 10/18/17 05:35 ALT 67 U/L (21-72) 10/18/17 05:35 Alkaline Phosphatase 133 U/L (38-126) H 10/18/17 05:35 Troponin I 0.0180 ng/mL (0.00-0.120) 10/16/17 16:27 NT-Pro-B Natriuret Pep 318 pg/ml (0-450) 10/16/17 16:27 Total Protein 6.3 G/DL (6.3-8.2) 10/18/17 05:35 Albumin 2.6 g/dL (3.5-5.0) L 10/18/17 05:35 Globulin 3.7 gm/dL (2.2-3.9) 10/18/17 05:35 Albumin/Globulin Ratio 0.7 (1.0-2.1) L 10/18/17 05:35 Triglycerides 122 mg/DL (0-149) D 10/17/17 04:20 Cholesterol < 50 mg/dL (0-199) 10/17/17 04:20 LDL Cholesterol Direct < 30 mg/dL (0-129) 10/17/17 04:20 HDL Cholesterol 17 MG/DL (30-70) L 10/17/17 04:20 Free T4 1.82 ng/dL (0.78-2.19) 10/17/17 04:20 Thyroxine (T4) 8.37 ug/dl (5.5-11.0) 10/17/17 04:20 TSH 3rd Generation 1.15 mIU/ML (0.46-4.68) 10/17/17 04:20 Arterial Blood Potassium 3.3 mmol/L (3.6-5.2) L 10/17/17 04:29 Alcohol, Quantitative < 10 mg/dl (0-10) 10/16/17 16:27 Blood Type A POSITIVE 10/16/17 16:20 Blood Type Confirm A POSITIVE 10/16/17 15:00 Antibody Screen Negative 10/16/17 16:20 Crossmatch See Detail 10/16/17 16:20 BBK History Checked No verified bt 10/16/17 16:20 - Hospital Course Hospital Course: 42 yo male with history of DM2, HTN, HLD, Hypothyroid was discharged from [facility] on 10/15 after having AKA of the left leg. claimed that she noted the patient profusely diaphoretic while in bed, awake but not talking. She did an accuchek and it read as 32. According to her the patient received Levemir 90 units SC on 10/15 and the morning of 10/16, Humulog 50 units SC. She called 911 and when they arrived patient was very lethargic and barely responsive. He was noted to have no IV access ,immediately brought to the ER . In ER accuchecks recorded < 20 . Glucose IV was given , patient vomited , possibly aspirated , went into acute respiratory failure with apnea, asystoly , intubated, given epi and amiodarone and defibrillated x1 with return of ROSC .Was admitted in ICU s/p cardiac arrest and acute respiratory failure secondary to aspiration Pneumonia and hypoglycemia.Was intubated on PRVC/ AC mode and started on levophed drip.With no acute issues overnight On 10/17: extubated after weaning trial, but restless and sleepy Tmax 103 last 24 hours , CXr showed vascular congestion and possible RML infiltrate. WBC 12 k. On 10/18 respiratory status improved, however patient continued to remain hypotensive. He threatened to leave against medical advice but was convinced to stay in the hospital On 10/19, today, again the patient desired to leave against medical advice. I repeatedly told both him and his at bedside that being a recent cardiac arrest patient he would continue to need careful monitoring in the ICU and that it would be detrimental, even life threatening, to his health to leave. He acknowledged understanding of this and of sound mind decided to leave against medical advice anyway. 1. Cardiac arrest 10/16/2017 2. Acute respiratory failure with hypercarbia ,possible secondary to aspiration pneumonia - dx with Clindamycin 300 mg po TID x 7 days and Bacid 1 tab po BID x10 days 3. 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 Chronic anemia 6. Severe PVD with left AKA and right TMA 7. Hypothyroidism 8. Hypertension hx 9. Paroxysmal Afib 10.Anxiety 11. Dyslipidemia Discharge Exam - Additional Findings Additional findings: Physical exam: Constitutional- initially uncooperative, disheveled. Head- NCAT, PERRL Eye- PERRL, EOMI ENT- normal exam, MMM. Neck- normal inspection, supple, no JVD Respiratory- CTAB, no wheezes rales rhonchi Cardiovascular- RRR, +S1, +S2 no MRG GI/Abdominal- normal bowel sounds, soft, no mass, no hsm Skin- warm, dry Extremities Exam- Left TKA, Right RMA. no cyanosis or edema Neurological Exam- alert, awake, oriented Psych- depressed mood, flat affect. Able to make own decisions. Discharge Plan - Discharge Medications Prescriptions: Clindamycin [Cleocin] 300 mg PO TID 7 Days #21 cap Lactobacillus Acidophilus [Acidophilus Lactobacillus] 1 each PO BID 10 Days #20 capsule - Follow Up Plan Condition: GUARDED Disposition: AGAINST MEDICAL ADVICE
--- NOTE | 2017-10-20 02:17 | PN ---
ENDOCRINOLOGY FOLLOWUP NOTE DATE: LOCATION: In room 425. SUBJECTIVE: This is a 42-year-old male with recent uncontrolled type 2 insulin-requiring diabetes presenting here with symptomatic hypoglycemia and has since then improved clinically and metabolically as noted thereof. However, his oral intake remains quite variable and suboptimal at this time with low normal glycemic levels noted overnight and glucose levels have ranged from 68 to 103 mg/dL. His latest chemistry showed a BUN of 12, sodium 142, potassium 3.8, chloride 108, CO2 of 26, glucose 66, and creatinine 0.7. So, at this time because of the variability of his oral intake and also with the recent left above-knee amputation with reduced ambulation and relatively bed-bound at this time, would continue the much lower insulin dose regimen as given. We will continue the Humalog given as 4 units subcu t.i.d. before meals as ordered. We will continue the Levemir given as 14 units subcu at bedtime daily as given. We will titrate incrementally as indicated to optimize metabolic control. We will follow and advise accordingly. Vania Rajput MD
== END 2017-10-19 11:03 | disposition left against medical advice (07) | DRG 637 ==
LOC: H.ER 14:18 → H.ERHOLD 15:31 → H.ICU/CCU 17:32
PROC: 5A1935Z Respiratory Ventilation, Less than 24 Consecutive Hours (ICD-10-PCS; principal; 2017-10-16)
PROC: 0BH17EZ Insertion of Endotracheal Airway into Trachea, Via Natural or Artificial Opening (ICD-10-PCS; 2017-10-16)
PROC: 06HY33Z Insertion of Infusion Device into Lower Vein, Percutaneous Approach (ICD-10-PCS; 2017-10-16)
PROC: 5A12012 Performance of Cardiac Output, Single, Manual (ICD-10-PCS; 2017-10-16)
PROC: 0BP1XDZ Removal of Intraluminal Device from Trachea, External Approach (ICD-10-PCS; 2017-10-17)
PROC: 30233N1 Transfusion of Nonautologous Red Blood Cells into Peripheral Vein, Percutaneous Approach (ICD-10-PCS; 2017-10-17)
DX: E11.649 Type 2 diabetes mellitus with hypoglycemia without coma (principal); J69.0 Pneumonitis due to inhalation of food and vomit; I46.9 Cardiac arrest, cause unspecified; J96.01 Acute respiratory failure with hypoxia; J96.02 Acute respiratory failure with hypercapnia; E87.2 Acidosis; E11.51 Type 2 diabetes mellitus with diabetic peripheral angiopathy without gangrene; I11.9 Hypertensive heart disease without heart failure; I48.0 Paroxysmal atrial fibrillation; E03.9 Hypothyroidism, unspecified; E11.42 Type 2 diabetes mellitus with diabetic polyneuropathy; E11.319 Type 2 diabetes mellitus with unspecified diabetic retinopathy without macular edema; E87.6 Hypokalemia; N40.0 Benign prostatic hyperplasia without lower urinary tract symptoms; E78.5 Hyperlipidemia, unspecified; E11.65 Type 2 diabetes mellitus with hyperglycemia; E78.00 Pure hypercholesterolemia, unspecified; F41.1 Generalized anxiety disorder; D64.9 Anemia, unspecified; Z89.612 Acquired absence of left leg above knee; Z78.1 Physical restraint status; Z79.4 Long term (current) use of insulin; Z79.01 Long term (current) use of anticoagulants; Z79.02 Long term (current) use of antithrombotics/antiplatelets; Z79.82 Long term (current) use of aspirin

== ENCOUNTER 2017-11-09 02:29 | Emergency (ER) | payer MEDICARE, MEDICAID ==
[2017-11-09 02:30] VITALS: BMI 27.4
[2017-11-09 02:48] VITALS: BP 103/69; RESP 16; TEMP 97.3
[2017-11-09] MEDS ORDERED: diaZEpam 10 mg/2 ml Inj IM STA (03:04)
--- NOTE | 2017-11-09 03:14 | ED PDOC ---
HPI: Back Time Seen by Provider: 11/09/17 02:37 Chief Complaint (Nursing): Back Pain Chief Complaint (Provider): Upper Back Pain History Per: Patient, Family ( at bedside) History/Exam Limitations: no limitations Onset/Duration Of Symptoms: Days (since 11/05/17) Current Symptoms Are (Timing): Still Present Quality Of Discomfort: Sharp Severity: Moderate Pain Scale Rating Of: 7 Previous Symptoms: Back Pain, Chronic Pain Associated Symptoms: None Exacerbating Factor(s): Movement, Sitting Additional Complaint(s): Patient is a 42 year old male with past medical history of uncontrolled DM and HTN who presents for evaluation of upper back pain since 11/05/17. Patient states the pain originates in the left upper back and radiates throughout the entire upper and lower back. Patient has a history of chronic upper back pain, for which he is under the care of Dr Valle in [place]. Patient states he saw Dr Valle on Sunday, and received steroid injections in his back which usually provide relief, however this time did not. Patient states he took Flexeril 10mg at 9pm and Ibuprofen 800mg at 11pm. Patient denies any recent trauma or falls. Otherwise: (-) fever (-) chest pain (-) abdominal pain (-) nausea (-) vomiting (-) SOB (-) cough (-) incontinence (-) saddle anesthesia (-) numbness/weakness (-) IVDA (-) recent weight loss. PMD Djebiyan - Risk Factors AAA Risk Factors: Pos: Hypertension Neg: Older Than 49 Years Of Age, Connective Tissue Disease, Marfan's Syndrome , Andrei-Danlos Syndrome, Prior AAA Past Medical History Reviewed: Historical Data, Nursing Documentation, Vital Signs Vital Signs: Last Vital Signs Temp 97.3 F L 11/09/17 02:46 Pulse 94 H 11/09/17 02:46 Resp 16 11/09/17 02:46 BP 103/69 11/09/17 02:46 Pulse Ox 97 11/09/17 02:46 - Medical History PMH: Anxiety, Diabetes, HTN, Hypercholesterolemia, Hypothyroidism Denies: HIV Other PMH: chronic back pain, cardiac arrest - Surgical History Surgical History: Appendectomy, Tonsillectomy Other surgeries: Amputation of right toes x5, above the knee amputation (L). - Family History Family History: States: Unknown Family Hx - Living Arrangements Living Arrangements: With Family - Social History Current smoker - smoking cessation education provided: No Alcohol: None Drugs: Denies - Immunization History Hx Tetanus Toxoid Vaccination: Yes Hx Influenza Vaccination: Yes Hx Pneumococcal Vaccination: No - Home Medications Home Medications: Ambulatory Orders Medication Instructions Recorded Clopidogrel [Plavix] 75 mg PO DAILY 09/15/17 Fentanyl [Duragesic Patch] 50 mcg TOP Q72 09/15/17 ALPRAZolam [Xanax] 0.25 mg PO Q6H PRN 09/20/17 Atorvastatin Calcium 40 mg PO QPM 09/20/17 Cilostazol [Pletal] 100 mg PO Q12 09/20/17 Aspirin [Ecotrin] 81 mg PO DAILY 10/16/17 Dabigatran [Pradaxa] 75 mg PO Q12H 10/16/17 Fenofibrate [Triglide] 160 mg PO DAILY 10/16/17 Gabapentin 1,200 mg PO Q12H 10/16/17 HYDROmorphone [Dilaudid] 2 mg PO Q4H PRN 10/16/17 Lisinopril [Zestril] 2.5 mg PO DAILY 10/16/17 [id number] Ethyl Esters 1 GM 1 gm PO Q12H 10/16/17 [Lovaza] Pantoprazole [Protonix EC Tab] 40 mg PO DAILY 10/16/17 Tamsulosin [Flomax] 0.4 mg PO DAILY 10/16/17 Temazepam [Restoril] 15 mg PO HS 10/16/17 Vitamin B Complex/Vitamin C 1 tab PO DAILY 10/16/17 [Berocca] Acetaminophen [Tylenol 650 mg Supp] 650 mg AL Q6 PRN sup 10/19/17 Clindamycin [Cleocin] 300 mg PO TID 7 Days #21 cap 10/19/17 Insulin Detemir [Levemir] 14 units SC HS vial 10/19/17 Lactobacillus Acidophilus 1 each PO BID 10 Days #20 capsule 10/19/17 [Acidophilus Lactobacillus] Levothyroxine [Synthroid] 25 mcg PO DAILY@0630 tab 10/19/17 - Allergies Allergies/Adverse Reactions: Allergies Allergy/AdvReac Type Severity Reaction Status Date / Time No Known Allergies Allergy Verified 11/09/17 02:45 Review of Systems ROS Statement: Except As Marked, All Systems Reviewed And Found Negative Constitutional: Negative for: Fever, Chills, Sweats, Weakness, Weight loss Cardiovascular: Negative for: Chest Pain, Palpitations Respiratory: Negative for: Cough, Shortness of Breath, Hemoptysis, SOB with Exertion, Pleuritic Pain Gastrointestinal: Negative for: Nausea, Vomiting, Abdominal Pain, Diarrhea Genitourinary Male: Negative for: Incontinence Musculoskeletal: Positive for: Back Pain (upper). Negative for: Neck Pain Skin: Negative for: Rash Neurological: Negative for: Weakness, Numbness Physical Exam - Reviewed Nursing Documentation Reviewed: Yes Vital Signs Reviewed: Yes - Physical Exam Appears: Positive for: Non-toxic, No Acute Distress, Uncomfortable Head Exam: Positive for: ATRAUMATIC, NORMOCEPHALIC Skin: Positive for: Normal Color, Warm, Dry Eye Exam: Positive for: Normal appearance Neck: Positive for: Painless ROM, Supple. Negative for: Pain On Movement Of Neck Cardiovascular/Chest: Positive for: Regular Rate, Rhythm Respiratory: Positive for: Normal Breath Sounds. Negative for: Decreased Breath Sounds, Accessory Muscle Use, Respiratory Distress Gastrointestinal/Abdominal: Positive for: Bowel Sounds (active x4), Soft. Negative for: Tenderness, Organomegaly, Mass, Distended, Guarding, Rebound Back: Positive for: Muscle Spasm (left parathoracic), Other (left parathoracic tenderness). Negative for: L CVA Tenderness, R CVA Tenderness, Vertebral Tenderness Extremity: Positive for: Normal ROM (of bilateral upper extremities), Deformity (L above the knee amputation). Negative for: Tenderness Neurologic/Psych: Positive for: Alert, Oriented. Negative for: Aphasia, Facial Droop - Laboratory Results Result Diagrams: 11/09/17 04:55 11/09/17 04:55 - ECG O2 Sat by Pulse Oximetry: 97 (RA) Pulse Ox Interpretation: Normal Medical Decision Making Medical Decision Making: Initial Impression: acute on chronic back pain, muscle spasm of upper back 0305 -- Valium PO -- Tramadol PO -- FSBS: 212 -- EKG: NSR@91bpm (-) ST elevations, normal axis, QTc 487 -- Re-evaluation 0420 On re-evaluation, patient denies improvement of symptoms despite Valium and Tramadol PO in ED. On exam, patient remains AAOx3, in no acute distress. Lungs clear to auscultation, cardiac RRR, abdomen soft, non-tender, repeat neuro exam shows no focal findings. Case discussed with Dr Cardenas, ED MD, who recommends inserting a saline lock, drawing CBC/CMP, and administering 4mg Morphine IV. Orders written. 0530 On re-evaluation, patient reports mild improvement of presenting symptoms. Pending lab results. [address] Cardenas. Patient seen at bedside by Dr Cardenas, who recommends additional 8mg Morphine and discharge as patient was offered admission for intractable pain, but declined. at bedside states she would prefer to take the patient to his pain management/back doctor later today. Patient remains AAOx3. Lungs clear to auscultation, cardiac RRR, abdomen soft, non-tender, repeat neuro exam shows no focal findings. Based on history, exam and diagnostic results, plan will be for outpatient follow up. Patient instructed to follow-up with pmd / the clinic in 1-2 days without fail. Return to the emergency room at any time for any new or worsening symptoms. Patient states he fully agrees with and understands discharge instructions. States that he agrees with the plan and disposition. Verbalized and repeated discharge instructions and plan. I have given the patient opportunity to ask any additional questions. Disposition - Clinical Impression Clinical Impression: Upper back pain on left side, Spasm of thoracic back muscle, Chronic back pain greater than 3 months duration - Patient ED Disposition Is Patient to be Admitted: No Counseled Patient/Family Regarding: Diagnosis, Need For Followup - Disposition Referrals: Rama Castellano [Primary Care Provider] - Disposition: Routine/Home Disposition Time: 05:58 Condition: FAIR Instructions: Upper Back Pain, Muscle Spasms (DC) Forms: LOAG (Chinese) Print Language: IRISH - POA Present On Arrival: None
[2017-11-09] MEDS ORDERED: Morphine 4 MG/ML VIAL IVP STA ×2 (04:32→05:57)
[2017-11-09 05:03] LABS: BASO % 0.5 % (0.0-2.0); EOS # 0.1 K/uL (0.0-0.7); EOS % 1.5 % (0.0-4.0); HEMOGLOBIN 10.6 g/dL (12.0-18.0); LYMPH # 1.5 K/uL (1.0-4.3); LYMPH % 21.1 % (20.0-40.0); MEAN CELL VOLUME 82.1 fl (80.0-94.0); MEAN CORPUSCULAR HEMOGLOBIN 26.5 pg (27.0-31.0); MEAN CORPUSCULAR HGB CONC 32.3 g/dL (33.0-37.0); MEAN PLATELET VOLUME 9.5 fl (7.2-11.7); MONO # 0.4 K/uL (0.0-0.8); MONO % 5.9 % (0.0-10.0); NEUT # 4.9 K/uL (1.8-7.0); NRBC % 0.2 % (0.0-0.0); RBC 4.01 Mil/uL (4.40-5.90); RED CELL DISTRIBUTION WIDTH 18.6 % (11.5-14.5); WHITE BLOOD COUNT 6.9 K/uL (4.8-10.8)
[2017-11-09 05:40] LABS: ALB/GLOB RATIO 0.8 (1.0-2.1); ALBUMIN 3.5 g/dL (3.5-5.0); ALT/SGPT 46 U/L (21-72); AST/SGOT 54 U/L (17-59); BLOOD UREA NITROGEN 17 mg/dl (9-20); CALCIUM 9.4 mg/dL (8.4-10.2); GFR AFRICAN-AMERICAN > 60; GFR NON-AFRICAN AMERICAN > 60
[2017-11-09 06:34] VITALS: PULSE 93
--- NOTE | 2017-11-09 13:15 | CARD ---
APPROVED REPORT EKG Measurement Heart [id number] <Conclusion> Normal sinus rhythm Incomplete LBBB Prolonged QT Abnormal ECG
[2017-11-09 22:27] VITALS: O2SAT 97
== END 2017-11-09 06:34 | disposition home or self-care (01) ==
LOC: H.ER 02:29
DX: M54.9 Dorsalgia, unspecified (principal); G89.29 Other chronic pain; E03.9 Hypothyroidism, unspecified; E11.9 Type 2 diabetes mellitus without complications; E78.00 Pure hypercholesterolemia, unspecified; Z79.01 Long term (current) use of anticoagulants; Z79.4 Long term (current) use of insulin; Z86.74 Personal history of sudden cardiac arrest; Z89.612 Acquired absence of left leg above knee; I10 Essential (primary) hypertension
CPT/HCPCS: 80053; 82948; 85025; 93005; 96374; 96376; 99282; J2270

== ENCOUNTER 2017-11-12 02:42 | Emergency (ER) | payer MEDICARE, MEDICAID ==
[2017-11-12 03:06] VITALS: BMI 23.3
[2017-11-12 03:17] VITALS: BP 94/66; PULSE 103; RESP 16; TEMP 97.6; O2SAT 98
--- NOTE | 2017-11-12 04:56 | ED PDOC ---
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 Patient reports pain in the upper part of his back that radiates down to his lower back. Patient took Motrin with some improvement. Seen here for similar symptoms and given Morphine which he reports is the only thing that helps. Last visit, he was offered admission, but his refused. He saw an orthopedist as a follow up and was given prescription for Oxycodone. It was not filled because nereyda's ANH number was not on script. He states he sees Dr. Maciel in [place] and was referred to pain management in [place]. He has an appointment this week. Otherwise: (-) paresthesias, (-) weakness, (-) acute bowel or bladder dysfunction, (-) fever. Past Medical History Reviewed: Historical Data, Nursing Documentation, Vital Signs Vital Signs: Last Vital Signs Temp 97.6 F 11/12/17 03:06 Pulse 103 H 11/12/17 03:06 Resp 16 11/12/17 03:06 BP 94/66 L 11/12/17 03:06 Pulse Ox 98 11/12/17 03:06 - Medical History PMH: Anxiety, Diabetes, HTN, Hypercholesterolemia, Hypothyroidism Denies: HIV, Chronic Kidney Disease - Surgical History Surgical History: Appendectomy, Tonsillectomy - Family History Family History: States: Unknown Family Hx - Immunization History Hx Tetanus Toxoid Vaccination: Yes Hx Influenza Vaccination: Yes Hx Pneumococcal Vaccination: No - Home Medications Home Medications: Ambulatory Orders Medication Instructions Recorded Clopidogrel [Plavix] 75 mg PO DAILY 09/15/17 Fentanyl [Duragesic Patch] 50 mcg TOP Q72 09/15/17 ALPRAZolam [Xanax] 0.25 mg PO Q6H PRN 09/20/17 Atorvastatin Calcium 40 mg PO QPM 09/20/17 Cilostazol [Pletal] 100 mg PO Q12 09/20/17 Aspirin [Ecotrin] 81 mg PO DAILY 10/16/17 Dabigatran [Pradaxa] 75 mg PO Q12H 10/16/17 Fenofibrate [Triglide] 160 mg PO DAILY 10/16/17 Gabapentin 1,200 mg PO Q12H 10/16/17 HYDROmorphone [Dilaudid] 2 mg PO Q4H PRN 10/16/17 Lisinopril [Zestril] 2.5 mg PO DAILY 10/16/17 [id number] Ethyl Esters 1 GM 1 gm PO Q12H 10/16/17 [Lovaza] Pantoprazole [Protonix EC Tab] 40 mg PO DAILY 10/16/17 Tamsulosin [Flomax] 0.4 mg PO DAILY 10/16/17 Temazepam [Restoril] 15 mg PO HS 10/16/17 Vitamin B Complex/Vitamin C 1 tab PO DAILY 10/16/17 [Berocca] Acetaminophen [Tylenol 650 mg Supp] 650 mg NE Q6 PRN sup 10/19/17 Clindamycin [Cleocin] 300 mg PO TID 7 Days #21 cap 10/19/17 Insulin Detemir [Levemir] 14 units SC HS vial 10/19/17 Lactobacillus Acidophilus 1 each PO BID 10 Days #20 capsule 10/19/17 [Acidophilus Lactobacillus] Levothyroxine [Synthroid] 25 mcg PO DAILY@0630 tab 10/19/17 - Allergies Allergies/Adverse Reactions: Allergies Allergy/AdvReac Type Severity Reaction Status Date / Time No Known Allergies Allergy Verified 11/12/17 03:05 Review of Systems ROS Statement: Except As Marked, All Systems Reviewed And Found Negative Musculoskeletal: Positive for: Back Pain Physical Exam - Reviewed Nursing Documentation Reviewed: Yes Vital Signs Reviewed: Yes - Physical Exam Comments: GENERAL APPEARANCE: Patient is awake, alert, oriented x 3, in no acute distress , in bed comfortably. SKIN: Warm, dry; (-) cyanosis. EYES: (-) conjunctival pallor. ENMT: Mucous membranes moist. NECK: (-) tenderness, (-) stiffness, (-) lymphadenopathy. CHEST AND RESPIRATORY: (-) rales, (-) rhonchi, (-) wheezes; breath sounds equal bilaterally. HEART AND CARDIOVASCULAR: (-) irregularity; (-) murmur, (-) gallop. ABDOMEN AND GI: Soft; (-) tenderness; (-) palpable mass. BACK: (-) paravertebral tenderness, (+) mild spasm to the upper back, (-) direct bony tenderness, (-) deformity. EXTREMITIES: (+) left AKA. Distal pulses good bilaterally. NEURO AND PSYCH: Mental status as above. Intact sensation bilaterally; normal strength in extension of the knees, plantar and dorsiflexion of the toes. DTRs symmetric. - ECG O2 Sat by Pulse Oximetry: 98 (RA) Pulse Ox Interpretation: Normal Medical Decision Making Medical Decision Making: Time: 04:03 Initial Plan: --6 mg Morphine IM --5 mg Valium PO [place] [employer] PUSHER aware shows that patient received a Rx for hydromorphone 2 mg #90 tablets on 10/15/17. On re-evaluation, patient reports improvement of pain. Patient is laying in bed comfortably in no acute distress. Advised to follow up with primary care physician and orthopedist in 1-2 days without fail. Advised that the ER will not be able to Rx any narcotic pain medication as the patient already has a Rx for oxycodone pending at this time. Patient states he fully agrees with and understands discharge instructions. States that he agrees with the plan and disposition. Verbalized and repeated discharge instructions and plan. I have given the patient opportunity to ask any additional questions. Scribe Attestation: Documented by Teressa Kaye, acting as a scribe for Jessica Arellano PA-C. Provider Scribe Attestation: All medical record entries made by the Scribe were at my direction and personally dictated by me. I have reviewed the chart and agree that the record accurately reflects my personal performance of the history, physical exam, medical decision making, and the department course for this patient. I have also personally directed, reviewed, and agree with the discharge instructions and disposition. Disposition - Clinical Impression Clinical Impression: Back pain - Disposition Condition: STABLE Additional Instructions: Thank you for letting us take care of you today. You were treated for back pain. The emergency medical care you received today was directed at your acute symptoms. It may take several days for your symptoms to resolve. Return to the Emergency Department if your symptoms worsen, do not improve, or if you have any other problems. Please contact your doctor in 2 days for re-evaluation and follow up. Bring any paperwork you were given at discharge with you along with any medications you are taking to your follow up visit. Our treatment cannot replace ongoing medical care by a primary care provider (PCP) outside of the emergency department. Thank you for allowing the [facility] team to be part of your care today. Instructions: Upper Back Pain (DC) Forms: [employer] (Romansh)
== END 2017-11-12 05:20 | disposition home or self-care (01) ==
LOC: H.ER 02:42
DX: M54.5 Low back pain (principal); E11.9 Type 2 diabetes mellitus without complications; Z89.612 Acquired absence of left leg above knee; Z89.421 Acquired absence of other right toe(s); I10 Essential (primary) hypertension; Z79.4 Long term (current) use of insulin; Z79.82 Long term (current) use of aspirin; Z79.01 Long term (current) use of anticoagulants; E78.00 Pure hypercholesterolemia, unspecified
CPT/HCPCS: 96372; 99282; J2270

== ENCOUNTER 2017-11-12 19:47 | Inpatient (IN) | payer MEDICARE, MEDICAID ==
[2017-11-12 19:47] VITALS: BMI 23.3
[~2017-11-12 19:47] MED LIST: levoFLOXacin 750 mg in D5W 750 MG/150 ML BAG IVPB STA
--- NOTE | 2017-11-12 21:05 | ED PDOC ---
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 Patient reports it originally started in the upper back but now he has pain/spasm in the lower, left back. Patient took Motrin with minimal improvement at 10AM. Seen here for similar symptoms Sunday and Sunday and given Morphine which he reports is the only thing that helps. Last two visits, he was offered admission, but his refused. He saw an orthopedist Sunday as a follow up and was given prescription for Oxycodone. It was not filled because doctor's ANH number was not on script. He states he sees Dr. Maciel in [place] and was referred to pain management in [place]. He has an appointment this week. Otherwise: (-) paresthesias, (-) weakness, (-) saddle anesthesia (-) acute bowel or bladder dysfunction, (-) fever. Past Medical History Reviewed: Historical Data, Nursing Documentation, Vital Signs Vital Signs: Last Vital Signs Temp 98 F 11/12/17 20:50 Pulse 78 11/12/17 20:50 Resp 18 11/12/17 20:50 BP 139/86 11/12/17 20:50 Pulse Ox 100 11/12/17 20:50 - Medical History PMH: Anxiety, Diabetes, HTN, Hypercholesterolemia, Hypothyroidism Denies: HIV, Chronic Kidney Disease - Surgical History Surgical History: Appendectomy, Tonsillectomy Other surgeries: amputation - Family History Family History: States: Unknown Family Hx - Living Arrangements Living Arrangements: With Family - Social History Current smoker - smoking cessation education provided: No Alcohol: None Drugs: Denies - Immunization History Hx Tetanus Toxoid Vaccination: Yes Hx Influenza Vaccination: Yes Hx Pneumococcal Vaccination: No - Home Medications Home Medications: Ambulatory Orders Medication Instructions Recorded Clopidogrel [Plavix] 75 mg PO DAILY 09/15/17 Fentanyl [Duragesic Patch] 50 mcg TOP Q72 09/15/17 ALPRAZolam [Xanax] 0.25 mg PO Q6H PRN 09/20/17 Atorvastatin Calcium 40 mg PO QPM 09/20/17 Cilostazol [Pletal] 100 mg PO Q12 09/20/17 Aspirin [Ecotrin] 81 mg PO DAILY 10/16/17 Dabigatran [Pradaxa] 75 mg PO Q12H 10/16/17 Fenofibrate [Triglide] 160 mg PO DAILY 10/16/17 Gabapentin 1,200 mg PO Q12H 10/16/17 HYDROmorphone [Dilaudid] 2 mg PO Q4H PRN 10/16/17 Lisinopril [Zestril] 2.5 mg PO DAILY 10/16/17 [id number] Ethyl Esters 1 GM 1 gm PO Q12H 10/16/17 [Lovaza] Pantoprazole [Protonix EC Tab] 40 mg PO DAILY 10/16/17 Tamsulosin [Flomax] 0.4 mg PO DAILY 10/16/17 Temazepam [Restoril] 15 mg PO HS 10/16/17 Vitamin B Complex/Vitamin C 1 tab PO DAILY 10/16/17 [Berocca] Acetaminophen [Tylenol 650 mg Supp] 650 mg SD Q6 PRN sup 10/19/17 Clindamycin [Cleocin] 300 mg PO TID 7 Days #21 cap 10/19/17 Insulin Detemir [Levemir] 14 units SC HS vial 10/19/17 Lactobacillus Acidophilus 1 each PO BID 10 Days #20 capsule 10/19/17 [Acidophilus Lactobacillus] Levothyroxine [Synthroid] 25 mcg PO DAILY@0630 tab 10/19/17 - Allergies Allergies/Adverse Reactions: Allergies Allergy/AdvReac Type Severity Reaction Status Date / Time No Known Allergies Allergy Verified 11/12/17 03:05 Review of Systems ROS Statement: Except As Marked, All Systems Reviewed And Found Negative Musculoskeletal: Positive for: Back Pain (lower) Physical Exam - Reviewed Nursing Documentation Reviewed: Yes Vital Signs Reviewed: Yes - Physical Exam Appears: Positive for: Uncomfortable Head Exam: Positive for: ATRAUMATIC, NORMOCEPHALIC Skin: Positive for: Warm, Dry Eye Exam: Positive for: EOMI, PERRL Neck: Positive for: Supple Cardiovascular/Chest: Positive for: Regular Rate, Rhythm. Negative for: Murmur Respiratory: Positive for: Normal Breath Sounds. Negative for: Decreased Breath Sounds, Accessory Muscle Use, Respiratory Distress Gastrointestinal/Abdominal: Positive for: Soft. Negative for: Tenderness, Mass , Distended, Guarding, Rebound Back: Positive for: Muscle Spasm (left paraspinal), Other (tenderness to left paralumbar region). Negative for: L CVA Tenderness, R CVA Tenderness, Vertebral Tenderness Neurologic/Psych: Positive for: Alert, Oriented (x3) - Laboratory Results Result Diagrams: 11/12/17 22:15 11/12/17 22:15 - ECG ECG Rhythm: Positive for: Sinus Rhythm (normal axis). Negative for: ST/T Changes Rate: 81 (bpm) O2 Sat by Pulse Oximetry: 100 (RA) Pulse Ox Interpretation: Normal Medical Decision Making Medical Decision Making: Time: 20:55 Initial Impression: Acute on chronic back pain Initial Plan: CT Abd Pelvis w/o Contrast EKG CXR Coags D-dimer CBC CMP Lipase Mag Phos U/A Troponin Morphine 4mg Zofran 4mg 2310 In light of elevated D-dimer, CTA ordered. On exam, patient remains AAOx3, in no acute distress. On exam, neck is supple, lungs CTA, cardiac RRR, abdomen is soft and non-tender, neuro exam shows no focal findings. VSS. 0000 Continuation of care per Dr Echavarria. Scribe Attestation: Documented by Benito Petersen, acting as a scribe for Maria L Hassan PA-C Provider Scribe Attestation: All medical record entries made by the Scribe were at my direction and personally dictated by me. I have reviewed the chart and agree that the record accurately reflects my personal performance of the history, physical exam, medical decision making, and the department course for this patient. I have also personally directed, reviewed, and agree with the discharge instructions and disposition. Disposition - Clinical Impression Clinical Impression: Chronic back pain, Intractable back pain - Patient ED Disposition Is Patient to be Admitted: Yes Counseled Patient/Family Regarding: Studies Performed, Diagnosis - Disposition Disposition Time: 00:00 Condition: FAIR Forms: [employer] (Lao) - Pt Status Changed To: Hospital Disposition Of: Inpatient - Admit Certification Admit to Inpatient:: After my assessment, the patient will require hospitalization for at least two midnights. This is because of the severity of symptoms shown, intensity of services needed, and/or the medical risk in this patient being treated as an outpatient. - POA Present On Arrival: None Results - Lab Results Lab Results: 11/12/17 11/12/17 11/12/17 22:15 22:15 22:15 WBC 6.9 RBC 4.26 L Hgb 11.2 L Hct 34.7 L MCV 81.3 MCH 26.2 L MCHC 32.2 L RDW 18.3 H Plt Count 250 MPV 8.7 Neut % (Auto) 74.4 Lymph % (Auto) 18.1 L [place] % (Auto) 6.6 Eos % (Auto) 0.6 Baso % (Auto) 0.3 Neut # (Auto) 5.1 Lymph # (Auto) 1.2 [place] # (Auto) 0.5 Eos # (Auto) 0.0 Baso # (Auto) 0.0 PT 12.0 INR 1.1 APTT 29.8 D-Dimer, Quantitative 2892 H Sodium 143 Potassium 4.4 Chloride 101 Carbon Dioxide 26 Anion Gap 20 BUN 13 Creatinine 0.6 L Est GFR ( Amer) > 60 Est GFR (Non-Af Amer) > 60 Random Glucose 129 H Calcium 10.0 Phosphorus 4.5 Magnesium 2.1 Total Bilirubin 0.7 AST 43 ALT 63 Alkaline Phosphatase 525 H D Troponin I < 0.0120 Total Protein 8.8 H Albumin 3.9 Globulin 4.8 H Albumin/Globulin Ratio 0.8 L Lipase 28
[2017-11-12] MEDS ORDERED: Morphine 4 MG/ML VIAL ONE (22:15)
[2017-11-12] MEDS ORDERED: Morphine 4 MG/ML VIAL IVP STA (22:16)
[2017-11-12 22:29] LABS: BASO % 0.3 % (0.0-2.0); EOS % 0.6 % (0.0-4.0); HEMOGLOBIN 11.2 g/dL (12.0-18.0); LYMPH # 1.2 K/uL (1.0-4.3); LYMPH % 18.1 % (20.0-40.0); MEAN CELL VOLUME 81.3 fl (80.0-94.0); MEAN CORPUSCULAR HEMOGLOBIN 26.2 pg (27.0-31.0); MEAN CORPUSCULAR HGB CONC 32.2 g/dL (33.0-37.0); MEAN PLATELET VOLUME 8.7 fl (7.2-11.7); MONO # 0.5 K/uL (0.0-0.8); MONO % 6.6 % (0.0-10.0); NEUT # 5.1 K/uL (1.8-7.0); NEUT % 74.4 % (50.0-75.0); RBC 4.26 Mil/uL (4.40-5.90); RED CELL DISTRIBUTION WIDTH 18.3 % (11.5-14.5); WHITE BLOOD COUNT 6.9 K/uL (4.8-10.8)
[2017-11-12 22:39] LABS: INR 1.1 (0.9-1.2); PARTIAL THROMBOPLASTIN TIME 29.8 Seconds (25.6-37.1)
[2017-11-12 22:42] LABS: ALB/GLOB RATIO 0.8 (1.0-2.1); ALBUMIN 3.9 g/dL (3.5-5.0); ALT/SGPT 63 U/L (21-72); AST/SGOT 43 U/L (17-59); BLOOD UREA NITROGEN 13 mg/dl (9-20); GFR AFRICAN-AMERICAN > 60; GFR NON-AFRICAN AMERICAN > 60; LIPASE 28 U/L (23-300)
--- NOTE | 2017-11-12 23:38 | CT ---
EXAM: CT Abdomen and Pelvis Without Intravenous Contrast CLINICAL HISTORY: 42 years old, male; Pain; Abdominal pain; Flank; Other: Bilateral; Prior surgery; Surgery date: 6+ months; Surgery type: Appendix; Additional info: Bl flank pain R/O stones TECHNIQUE: Axial computed tomography images of the abdomen and pelvis without intravenous contrast. All CT scans at this facility use one or more dose reduction techniques, viz.: automated exposure control; ma/kV adjustment per patient size (including targeted exams where dose is matched to indication; i.e. head); or iterative reconstruction technique. Coronal and sagittal reformatted images were created and reviewed. COMPARISON: CT - ABDOMEN^RENAL STONE (ADULT) 2011-08-03 21:17 FINDINGS: Lower thorax: Left lung base infiltrate possibly secondary to pneumonia. Mild bibasilar atelectasis. ABDOMEN: Liver: Unremarkable. Gallbladder and bile ducts: There has been a cholecystectomy. No ductal dilation. Pancreas: Unremarkable. No ductal dilation. Spleen: Unremarkable. No splenomegaly. Adrenals: Unremarkable. No mass. Kidneys and ureters: There is moderate left hydronephrosis and hydroureter secondary to a 4 mm stone in the left uterovesical junction. There is mild inflammatory left perinephric and periureteral stranding. The right kidney is normal. Stomach and bowel: Mildly distended gas-filled loops of proximal small bowel probably a localized ileus. Mildly distended gas filled cecum and in sitting colon. No mucosal thickening. PELVIS: Bladder: Unremarkable. No stones. Reproductive: Unremarkable as visualized. ABDOMEN and PELVIS: Intraperitoneal space: Unremarkable. No free air. No significant fluid collection. Bones/joints: No acute fracture. No dislocation. Soft tissues: Unremarkable. Vasculature: There are numerous benign phleboliths in the pelvis. No abdominal aortic aneurysm. Lymph nodes: Unremarkable. No enlarged lymph nodes. IMPRESSION: Moderate left hydroureteronephrosis secondary to 4 mm stone in the left UVJ. Left lung base infiltrate, possible pneumonia. Cholecystectomy. Mild small bowel ileus.
[2017-11-12] MEDS ORDERED: Sodium Chloride 0.9% 1,000 ML IV ONE (23:53)
[2017-11-13 00:08] LABS: ABG ALLEN TEST YES; ARTERIAL BLOOD GAS O2 SAT 99.8 % (95-98); ARTERIAL BLOOD GAS PCO2 42 mm/Hg (35-45); ARTERIAL BLOOD GAS PH 7.44 (7.35-7.45); ARTERIAL BLOOD GAS PO2 84 mm/Hg (80-100); ARTERIAL BLOOD GAS TCO2 29.8 mmol/L (22-28)
[2017-11-13] MEDS ORDERED: Iohexol 300 100 ML IJ ONE (01:40)
[2017-11-13] MEDS ORDERED: Morphine 4 MG/ML VIAL IVP ONE (02:09)
[2017-11-13] MEDS ORDERED: Morphine 4 MG/ML VIAL ONE ×2 (02:15→06:49)
--- NOTE | 2017-11-13 02:55 | ED PDOC ---
- Laboratory Results Result Diagrams: 11/12/17 22:15 11/12/17 22:15 - ECG O2 Sat by Pulse Oximetry: 100 (RA) Pulse Ox Interpretation: Normal Medical Decision Making Medical Decision Making: Time: --00:00 Reassess --Patient signed out to the provider by Dr. Echavarria pending CT Chest. --03:00 EXAM: CT Chest With Intravenous Contrast CLINICAL HISTORY: 42 years old, male; Pain; Chest pain; Other: Back pain; Additional info: Cp possible pna in left lobe TECHNIQUE: Axial computed tomography images of the chest with intravenous contrast. All CT scans at this facility use one or more dose reduction techniques, viz.: automated exposure control; ma/kV adjustment per patient size (including targeted exams where dose is matched to indication; i.e. head); or iterative reconstruction technique. Coronal and sagittal reformatted images were created and reviewed. CONTRAST: 95 mL of omnipaque 300 administered intravenously. COMPARISON: No relevant prior studies available. FINDINGS: Lungs: Mild atelectasis/scarring. Mild focal peripheral consolidation left lower lobe. Pleural space: No pneumothorax. No significant effusion. Heart: No cardiomegaly. No significant pericardial effusion. Bones/joints: No acute fracture. Soft tissues: Minimal gynecomastia. Vasculature: Several filling defects within lobar, segmental, subsegmental branches of pulmonary arteries. No saddle embolus. Lymph nodes: No pathologically enlarged lymph nodes. IMPRESSION: 1. Pulmonary emboli. 2. Left lower lobe consolidation. DDX: Infarct, pneumonia, atelectasis. 3. Incidental/non-acute findings are described above. --03:[address] Frederick and patient will be admitted under his service for telemetry. diagnosis: pulmonary embolism and possible pneumonia Scribe Attestation: Documented by Frandy Aviles acting as a scribe for Andi Frances MD. Provider Attestation: All medical record entries made by the Scribe were at my direction and personally dictated by me. I have reviewed the chart and agree that the record accurately reflects my personal performance of the history, physical exam, medical decision making, and the department course for this patient. I have also personally directed, reviewed, and agree with the discharge instructions and disposition. Disposition Discussed With : Ortiz Frederick Doctor Will See Patient In The: Hospital Counseled Patient/Family Regarding: Studies Performed, Diagnosis, Need For Followup - Clinical Impression Clinical Impression: Chronic back pain, Intractable back pain, Pulmonary embolism, Pneumonia - POA Present On Arrival: Deep Vein Thrombosis / PE - Disposition Disposition: Admitted as In-Patient Disposition Time: 03:00 Condition: FAIR
--- NOTE | 2017-11-13 03:01 | CT ---
EXAM: CT Chest With Intravenous Contrast CLINICAL HISTORY: 42 years old, male; Pain; Chest pain; Other: Back pain; Additional info: Cp possible pna in left lobe TECHNIQUE: Axial computed tomography images of the chest with intravenous contrast. All CT scans at this facility use one or more dose reduction techniques, viz.: automated exposure control; ma/kV adjustment per patient size (including targeted exams where dose is matched to indication; i.e. head); or iterative reconstruction technique. Coronal and sagittal reformatted images were created and reviewed. CONTRAST: 95 mL of omnipaque 300 administered intravenously. COMPARISON: No relevant prior studies available. FINDINGS: Lungs: Mild atelectasis/scarring. Mild focal peripheral consolidation left lower lobe. Pleural space: No pneumothorax. No significant effusion. Heart: No cardiomegaly. No significant pericardial effusion. Bones/joints: No acute fracture. Soft tissues: Minimal gynecomastia. Vasculature: Several filling defects within lobar, segmental, subsegmental branches of pulmonary arteries. No saddle embolus. Lymph nodes: No pathologically enlarged lymph nodes. IMPRESSION: 1. Pulmonary emboli. 2. Left lower lobe consolidation. DDX: Infarct, pneumonia, atelectasis. 3. Incidental/non-acute findings are described above.
[2017-11-13] MEDS ORDERED: Enoxaparin 60 mg Syringe SC STA (03:02)
[2017-11-13] MEDS ORDERED: levoFLOXacin 750 mg in D5W 150 ML BAG IVPB STA (03:31)
[2017-11-13] MEDS ORDERED: levoFLOXacin 750 mg in D5W 750 MG/150 ML BAG IVPB ONE (03:33)
[2017-11-13] MEDS ORDERED: levoFLOXacin 750 mg in D5W 750 MG/150 ML BAG IVPB STA (03:36)
[2017-11-13] MEDS: Morphine 4 MG/ML VIAL IVP PRN ×4 (06:54→21:26)
[2017-11-13] MEDS ORDERED: Sodium Chloride 0.9% 500 ML IV SCH (09:15)
--- NOTE | 2017-11-13 09:55 | RAD ---
HISTORY: abd pain COMPARISON: Chest radiograph dated 10/18/2017 FINDINGS: LUNGS: Patchy left basilar infiltrate. PLEURA: No significant pleural effusion identified, no pneumothorax apparent. CARDIOVASCULAR: Normal. OSSEOUS STRUCTURES: No significant abnormalities. VISUALIZED UPPER ABDOMEN: Normal. OTHER FINDINGS: Nonspecific gaseous distention of bowel. IMPRESSION: Patchy left basilar infiltrate. Nonspecific gaseous distention of bowel.
--- NOTE | 2017-11-13 12:40 | CARD ---
APPROVED REPORT EKG Measurement Heart [id number] <Conclusion> Normal sinus rhythm Nonspecific T wave abnormality Abnormal ECG
[2017-11-13] MEDS: Sodium Chloride 0.45% 1,000 ML IV SCH (16:53)
[2017-11-13] MEDS: Enoxaparin 60 mg Syringe SC SCH ×2 (16:54→21:28)
[2017-11-13] MEDS: Cilostazol 100 mg Tab UD PO SCH (16:55)
[2017-11-13] MEDS: Omega-3-Acid Ethyl Esters 1 GM Cap PO SCH (16:55)
--- NOTE | 2017-11-13 17:14 | CP.PCM.HP ---
History of Present Illness - History of Present Illness History of Present Illness: CC: Lower Back, & abdominal Pain History of Present Illness: A 42 year old male with a history of DM, HTN, Left AKA and Amputation of all five toes right foot, presents to the ED complaining of acute on chronic back pain beginning over 1 week ago. Patient reports it originally started in the upper back but now he has pain/spasm in the lower, left back. Patient took Motrin with minimal improvement at 10 AM. Seen here for similar symptoms Sunday and Sunday and given Morphine which he reports is the only thing that helps. Last two visits, he was offered admission, but his refused. He saw an orthopedist Sunday as a follow up and was given prescription for Oxycodone. It was not filled because doctor's ANH number was not on script. He states he sees Dr. Maciel in [place] and was referred to pain management in [place]. He has an appointment this week. ALso C/O abdominal pain. CT abdomen/Pelvis showed Incidental finding of Pneumonia and Central PE. Follwed up by CT Chest Confirmed PE, Pulmonary Infarction and Pneumonia. +Cough. Otherwise: (-) paresthesias, (-) weakness, (-) saddle anesthesia (-) acute bowel or bladder dysfunction, (-) fever. Present on Admission - Present on Admission Any Indicators Present on Admission: No Review of Systems - Review of Systems All systems: reviewed and no additional remarkable complaints except - Cardiovascular Cardiovascular: As Per HPI - Gastrointestinal Gastrointestinal: As Per HPI - Psychiatric Psychiatric: As Per HPI Past Patient History - Tetanus Immunizations Tetanus Immunization: Unknown - Past Medical History & Family History Past Medical History?: Yes Past Family History: Reviewed and not pertinent - Past Social History Smoking Status: Never Smoked Alcohol: None Drugs: Denies - CARDIAC Hx Cardiac Disorders: Yes Hx Hypercholesterolemia: Yes Hx Hypertension: Yes - PULMONARY Hx Respiratory Disorders: No - NEUROLOGICAL Hx Neurological Disorder: No - HEENT Hx HEENT Problems: No - RENAL Hx Chronic Kidney Disease: No - ENDOCRINE/METABOLIC Hx Endocrine Disorders: Yes Hx Diabetes Mellitus Type 2: Yes - HEMATOLOGICAL/ONCOLOGICAL Hx Blood Disorders: No Hx AIDS: No Hx Human Immunodeficiency Virus (HIV): No - INTEGUMENTARY Hx Dermatological Problems: No - MUSCULOSKELETAL/RHEUMATOLOGICAL Hx Musculoskeletal Disorders: Yes Hx Falls: No Other/Comment: 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, 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 - GASTROINTESTINAL Hx Gastrointestinal Disorders: No - GENITOURINARY/GYNECOLOGICAL Hx Genitourinary Disorders: No - PSYCHIATRIC Hx Psychophysiologic Disorder: Yes Hx Anxiety: Yes Hx Substance Use: No - SURGICAL HISTORY Hx Surgeries: Yes Hx Appendectomy: Yes Hx Tonsillectomy: Yes - ANESTHESIA Hx Anesthesia: Yes Hx Anesthesia Reactions: No Hx Malignant Hyperthermia: No Has any member of the family had a problem w/ anesthesia?: No Meds Home Medications: Home Medication List Medication Instructions Recorded Confirmed Type Acetaminophen with Codeine 1 each PO Q8 #20 tablet 11/15/17 Rx [Tylenol with Codeine #3 Tablet] Azithromycin [Zithromax Tri-Roger] 500 mg PO DAILY #5 tablet 11/15/17 Rx Dabigatran [Pradaxa] 75 mg PO BID #60 cap 11/15/17 Rx Ferrous Sulfate 325 mg PO TID #90 tablet 11/15/17 Rx Mirtazapine [Remeron] 7.5 mg PO HS #30 tab 11/15/17 Rx Allergies/Adverse Reactions: Allergies Allergy/AdvReac Type Severity Reaction Status Date / Time No Known Allergies Allergy Verified 11/12/17 03:05 Physical Exam - Constitutional Appears: In Acute Distress, Chronically Ill - Head Exam Head Exam: ATRAUMATIC, NORMAL INSPECTION, NORMOCEPHALIC - Eye Exam Eye Exam: EOMI, Normal appearance, PERRL - ENT Exam ENT Exam: Mucous Membranes Moist - Neck Exam Neck exam: Positive for: Full Rom, Normal Inspection - Respiratory Exam Respiratory Exam: Accessory Muscle Use, Decreased Breath Sounds, Rales. absent : Chest Wall Tenderness - Cardiovascular Exam Cardiovascular Exam: Tachycardia, +S1, +S2 - GI/Abdominal Exam GI & Abdominal Exam: Normal Bowel Sounds, Soft. absent: Firm, Rebound, Rigid, Tenderness - Extremities Exam Extremities exam: Positive for: calf tenderness, full ROM, joint swelling, normal inspection. Negative for: tenderness, pedal pulses present Additional comments: Left AKA with Brenda. Right foot Amputation. No signs of Infection. - Back Exam Back exam: FULL ROM, tenderness. absent: CVA tenderness (L), CVA tenderness (R) - Neurological Exam Neurological exam: Alert, CN II-XII Intact, Motor Sensory Deficit, Oriented x3 - Psychiatric Exam Psychiatric exam: Depressed Results - Vital Signs Recent Vital Signs: Last Vital Signs Temp 97.8 F 11/13/17 16:03 Pulse 86 11/13/17 16:03 Resp 20 11/13/17 16:03 BP 111/75 11/13/17 16:03 Pulse Ox 94 L 11/13/17 16:03 - Labs Result Diagrams: 11/14/17 04:20 11/14/17 04:20 Labs: Laboratory Results - last 24 hr 11/12/17 11/12/17 11/12/17 00:00 22:15 22:15 WBC 6.9 RBC 4.26 L Hgb 11.2 L Hct 34.7 L MCV 81.3 MCH 26.2 L MCHC 32.2 L RDW 18.3 H Plt Count 250 MPV 8.7 Neut % (Auto) 74.4 Lymph % (Auto) 18.1 L [place] % (Auto) 6.6 Eos % (Auto) 0.6 Baso % (Auto) 0.3 Neut # (Auto) 5.1 Lymph # (Auto) 1.2 [place] # (Auto) 0.5 Eos # (Auto) 0.0 Baso # (Auto) 0.0 PT INR APTT D-Dimer, Quantitative pCO2 42 pO2 84 HCO3 28.0 ABG pH 7.44 ABG Total CO2 29.8 H ABG O2 Saturation 99.8 H ABG Base Excess 3.9 H Prabhakar Test Yes ABG Potassium 4.3 A-a O2 Difference 13.0 Sodium 139.0 143 Chloride 106.0 101 Glucose 116 H Lactate 0.5 L FiO2 21.0 Potassium 4.4 Carbon Dioxide 26 Anion Gap 20 BUN 13 Creatinine 0.6 L Est GFR ( Amer) > 60 Est GFR (Non-Af Amer) > 60 POC Glucose (mg/dL) Random Glucose 129 H Calcium 10.0 Phosphorus 4.5 Magnesium 2.1 Total Bilirubin 0.7 AST 43 ALT 63 Alkaline Phosphatase 525 H D Troponin I < 0.0120 Total Protein 8.8 H Albumin 3.9 Globulin 4.8 H Albumin/Globulin Ratio 0.8 L Lipase 28 Arterial Blood Potassium 4.3 11/12/17 11/13/17 11/13/17 22:15 02:26 06:39 WBC RBC Hgb Hct MCV MCH MCHC RDW Plt Count MPV Neut % (Auto) Lymph % (Auto) [place] % (Auto) Eos % (Auto) Baso % (Auto) Neut # (Auto) Lymph # (Auto) [place] # (Auto) Eos # (Auto) Baso # (Auto) PT 12.0 INR 1.1 APTT 29.8 D-Dimer, Quantitative 2892 H pCO2 pO2 HCO3 ABG pH ABG Total CO2 ABG O2 Saturation ABG Base Excess Prabhakar Test ABG Potassium A-a O2 Difference Sodium Chloride Glucose Lactate FiO2 Potassium Carbon Dioxide Anion Gap BUN Creatinine Est GFR ( Amer) Est GFR (Non-Af Amer) POC Glucose (mg/dL) 100 69 Random Glucose Calcium Phosphorus Magnesium Total Bilirubin AST ALT Alkaline Phosphatase Troponin I Total Protein Albumin Globulin Albumin/Globulin Ratio Lipase Arterial Blood Potassium 11/13/17 11/13/17 11/13/17 07:19 13:43 15:44 WBC RBC Hgb Hct MCV MCH MCHC RDW Plt Count MPV Neut % (Auto) Lymph % (Auto) [place] % (Auto) Eos % (Auto) Baso % (Auto) Neut # (Auto) Lymph # (Auto) [place] # (Auto) Eos # (Auto) Baso # (Auto) PT INR APTT D-Dimer, Quantitative pCO2 pO2 HCO3 ABG pH ABG Total CO2 ABG O2 Saturation ABG Base Excess Prabhakar Test ABG Potassium A-a O2 Difference Sodium Chloride Glucose Lactate FiO2 Potassium Carbon Dioxide Anion Gap BUN Creatinine Est GFR ( Amer) Est GFR (Non-Af Amer) POC Glucose (mg/dL) 74 69 76 Random Glucose Calcium Phosphorus Magnesium Total Bilirubin AST ALT Alkaline Phosphatase Troponin I Total Protein Albumin Globulin Albumin/Globulin Ratio Lipase Arterial Blood Potassium - EKG Data EKG Interpreted by: Myself EKG shows normal: Sinus rhythm, [place], Intervals, ST-T waves Rate: Normal - Imaging and Cardiology CT Abdomen/Pelvis PO/IV Contrast: Status: Report reviewed by me Additional comment: IMPRESSION: Moderate left hydroureteronephrosis secondary to 4 mm stone in the left UVJ. Left lung base infiltrate, possible pneumonia. Cholecystectomy. Mild small bowel ileus. CT scan - chest Status: Report reviewed by me Additional comment: IMPRESSION: 1. Pulmonary emboli. 2. Left lower lobe consolidation. DDX: Infarct, pneumonia, atelectasis. 3. Incidental/non-acute findings are described above. Assessment & Plan (1) Pneumonia Assessment and Plan: IV ANtibiotics IVF PAin medication PRN Cultures ID Consult Status: Acute (2) Pulmonary embolism Assessment and Plan: Therapeutic Lovenox U/S Venous Doppler IVF Status: Acute Priority: High (3) Chronic back pain Assessment and Plan: PAin medication PRN Status: Chronic (4) DM2 (diabetes mellitus, type 2) Assessment and Plan: Metformin 500mg BID after 48hrs Status: Chronic (5) Poor appetite Assessment and Plan: Remeron 7.5mg Qhs Status: Chronic
--- NOTE | 2017-11-13 21:04 | US ---
EXAM: US Duplex Right Lower Extremity Veins CLINICAL HISTORY: 42 years old, male; Signs and symptoms; Other: Pe; Prior surgery; Surgery date: 6+ months; Surgery type: Lt leg amputatin TECHNIQUE: Real-time ultrasound scan of the veins of the right lower extremity with color Doppler flow, spectral waveform analysis and compression. COMPARISON: No relevant prior studies available. FINDINGS: Deep veins: Incomplete compressibility of mid to distal superficial femoral vein. Partial flow on color or spectral Doppler imaging. Superficial veins: No thrombosis. Soft tissues: No popliteal cyst. IMPRESSION: 1. DVT of right superficial femoral vein. EXAM: US Duplex Left Lower Extremity Veins CLINICAL HISTORY: 42 years old, male; Signs and symptoms; Other: Pe; Prior surgery; Surgery date: 6+ months; Surgery type: Lt leg amputatin TECHNIQUE: Real-time ultrasound scan of the veins of the left lower extremity with color Doppler flow, spectral waveform analysis and compression. COMPARISON: No relevant prior studies available. FINDINGS: Deep veins: Lack of compressibility of common femoral vein. No significant flow on color or spectral Doppler imaging. Incomplete compressibility of the proximal superficial femoral vein. Partial flow on color or spectral Doppler imaging. Superficial veins: No thrombosis. Soft tissues: No popliteal cyst. Other findings: [id number] amputation. IMPRESSION: 1. DVT of left common femoral and superficial femoral veins. 2. Incidental/non-acute findings are described above.
[2017-11-14] MEDS: Sodium Chloride 0.45% 1,000 ML IV SCH ×3 (02:16→09:26)
[2017-11-14] MEDS: Morphine 4 MG/ML VIAL IVP PRN ×4 (04:49→19:01)
[2017-11-14 05:22] LABS: BASO % 0.4 % (0.0-2.0); EOS # 0.1 K/uL (0.0-0.7); EOS % 1.8 % (0.0-4.0); HEMOGLOBIN 10.2 g/dL (12.0-18.0); LYMPH # 1.9 K/uL (1.0-4.3); LYMPH % 34.9 % (20.0-40.0); MEAN CELL VOLUME 81.2 fl (80.0-94.0); MEAN CORPUSCULAR HEMOGLOBIN 26.3 pg (27.0-31.0); MEAN CORPUSCULAR HGB CONC 32.4 g/dL (33.0-37.0); MEAN PLATELET VOLUME 8.3 fl (7.2-11.7); MONO # 0.4 K/uL (0.0-0.8); MONO % 7.4 % (0.0-10.0); NEUT % 55.5 % (50.0-75.0); NRBC % 0.1 % (0.0-0.0); RBC 3.88 Mil/uL (4.40-5.90); RED CELL DISTRIBUTION WIDTH 18.2 % (11.5-14.5); WHITE BLOOD COUNT 5.5 K/uL (4.8-10.8)
[2017-11-14] MEDS: Levothyroxine 25 MCG TAB PO SCH (05:44)
[2017-11-14 05:47] LABS: BLOOD UREA NITROGEN 9 mg/dl (9-20); CALCIUM 9.1 mg/dL (8.4-10.2); GFR AFRICAN-AMERICAN > 60; GFR NON-AFRICAN AMERICAN > 60
[2017-11-14] MEDS: Enoxaparin 60 mg Syringe SC SCH ×2 (08:21→21:00)
[2017-11-14] MEDS: Omega-3-Acid Ethyl Esters 1 GM Cap PO SCH ×2 (08:21→16:50)
[2017-11-14] MEDS: Pantoprazole 40 mg EC Tab PO SCH (08:22)
[2017-11-14] MEDS: Cilostazol 100 mg Tab UD PO SCH ×2 (08:22→16:49)
[2017-11-14] MEDS ORDERED: levoFLOXacin 750 mg in D5W 150 ML BAG IVPB SCH (09:00)
[2017-11-14] MEDS ORDERED: levoFLOXacin 750 mg in D5W 750 MG/150 ML BAG IVPB SCH (09:00)
[2017-11-14] MEDS: levoFLOXacin 750 mg in D5W 750 MG/150 ML BAG IVPB SCH (10:49)
--- NOTE | 2017-11-14 11:13 | CARD ---
APPROVED REPORT EXAM: Two-dimensional and M-mode echocardiogram with Doppler and color Doppler. Other Information Quality : GoodRhythm : NSR INDICATION Pulmonary Embolism 2D DIMENSIONS IVSd1.17 (0.7-1.1cm)LVDd3.41 (3.9-5.9cm) LVOT Diameter2.08 (1.8-2.4cm)PWd0.83 (0.7-1.1cm) IVSs1.30 (0.8-1.2cm)LVDs2.35 (2.5-4.0cm) FS (%) 31.2 %PWs1.30 (0.8-1.2cm) M-Mode DIMENSIONS Left Atrium (MM)3.13 (2.5-4.0cm)IVSd0.97 (0.7-1.1cm) Aortic Root3.11 (2.2-3.7cm)LVDd4.35 (4.0-5.6cm) Aortic Cusp Exc.2.07 (1.5-2.0cm)PWd1.08 (0.7-1.1cm) IVSs1.30 cmFS (%) 38 % LVDs2.69 (2.0-3.8cm)PWs1.30 cm Mitral Valve E/A ratio0.0 TDI E/Lateral E'0.0E/Medial E'0.0 Pulmonary Valve PV Peak Dixgwoto04.8cm/s LEFT VENTRICLE The left ventricle is normal size. There is normal left ventricular wall thickness. The left ventricular function is normal. The left ventricular ejection fraction is within the normal range. The Ejection Fraction is 65-70%. There is normal LV segmental wall motion. The left ventricular diastolic function is normal. RIGHT VENTRICLE The right ventricle is normal size. The right ventricular systolic function is normal. ATRIA The left atrium size is normal. The right atrium size is normal. AORTIC VALVE The aortic valve is normal in structure. No aortic regurgitation is present. There is no aortic valvular stenosis. MITRAL VALVE The mitral valve is normal in structure. There is no mitral valve stenosis. There is no mitral valve regurgitation noted. TRICUSPID VALVE The tricuspid valve is normal in structure. There is no tricuspid valve regurgitation noted. PULMONIC VALVE The pulmonary valve is normal in structure. There is no pulmonic valvular regurgitation. GREAT VESSELS The aortic root is normal in size. The IVC is normal in size and collapses >50% with inspiration. PERICARDIAL EFFUSION The pericardium appears normal. <Conclusion> The left ventricle is normal size. The left ventricular function is normal. The left ventricular ejection fraction is within the normal range. The Ejection Fraction is 65-70%.
[2017-11-14 18:18] LABS: URINE BILIRUBIN NEGATIVE (NEGATIVE); URINE BLOOD LARGE (NEGATIVE); URINE CLARITY CLOUDY (Clear); URINE COLOR YELLOW (YELLOW); URINE GLUCOSE (UA) NEG (Normal); URINE LEUKOCYTE ESTERASE NEG Leu/uL (Negative); URINE PROTEIN NEGATIVE (NEGATIVE); URINE UROBILINOGEN 0.2-1.0 mg/dL (0.2-1.0)
--- NOTE | 2017-11-14 22:55 | CP.PCM.PN ---
Subjective - Date & Time of Evaluation Date of Evaluation: 11/14/17 Time of Evaluation: 12:50 - Subjective Subjective: Seen and examined at the bed side. Appetite better today. Continue to cough productive of yellowish sputum. Explained to the patient and spouse the risks associated with Blood clot [place] , and also discussed the IVC filter associated IVC Thrombosis given the young age. Patient remains high risk for VTE due to Left AKA and high risk for DVT ad PE, and will benefit from the IVC filter. Patient and family agree with the paln. Objective - Vital Signs/Intake and Output Vital Signs (last 24 hours): Temp Pulse Resp BP Pulse Ox 98.8 F 98 H 20 120/84 92 L 11/14/17 20:17 11/14/17 21:00 11/14/17 20:17 11/14/17 20:17 11/14/17 15:34 - Medications Medications: Current Medications Alprazolam (Xanax) 0.25 mg PO Q12 PRN PRN Reason: Anxiety Stop: 11/20/17 11:49 Aspirin (Ecotrin) 81 mg PO DAILY [facility] Last Admin: 11/14/17 08:21 Dose: 81 mg Atorvastatin Calcium (Lipitor) 40 mg PO DAILY [facility] Last Admin: 11/14/17 08:21 Dose: 40 mg Cilostazol (Pletal) 100 mg PO BID [facility] Last Admin: 11/14/17 16:49 Dose: 100 mg Clopidogrel Bisulfate (Plavix) 75 mg PO DAILY [facility] Last Admin: 11/14/17 08:22 Dose: 75 mg Enoxaparin Sodium (Lovenox) 45 mg SC Q12 [facility] PRN Reason: Protocol Last Admin: 11/14/17 21:00 Dose: 45 mg Gabapentin (Neurontin) 1,200 mg PO BID [facility] Last Admin: 11/14/17 16:49 Dose: 1,200 mg Levofloxacin/Dextrose (Levaquin 750mg) 750 mg in 150 mls @ 100 mls/hr IVPB DAILY [facility] Last Admin: 11/14/17 10:49 Dose: 100 mls/hr Levothyroxine Sodium (Synthroid) 25 mcg PO DAILY@0630 [facility] Last Admin: 11/14/17 05:44 Dose: 25 mcg Lisinopril (Zestril) 2.5 mg PO DAILY [facility] Last Admin: 11/14/17 08:24 Dose: 2.5 mg Metformin HCl (Glucophage) 500 mg PO BID [facility] Last Admin: 11/14/17 16:49 Dose: Not Given Mirtazapine (Remeron) 7.5 mg PO HS [facility] Last Admin: 11/14/17 20:59 Dose: 7.5 mg Morphine Sulfate (Morphine) 4 mg IVP Q4 PRN PRN Reason: Pain, severe (8-10) Last Admin: 11/14/17 19:01 Dose: 4 mg Bvlcv-4-Crem Ethyl Esters (Lovaza) 1 gm PO BID [facility] Last Admin: 11/14/17 16:50 Dose: 1 gm Pantoprazole Sodium (Protonix Ec Tab) 40 mg PO DAILY [facility] Last Admin: 11/14/17 08:22 Dose: 40 mg Zolpidem Tartrate (Ambien) 5 mg PO DAILY PRN PRN Reason: Sleep Last Admin: 11/14/17 20:59 Dose: 5 mg - Labs Labs: 11/14/17 04:20 11/14/17 04:20 PT 12.0 Seconds (9.8-13.1) 11/12/17 22:15 INR 1.1 (0.9-1.2) 11/12/17 22:15 APTT 29.8 Seconds (25.6-37.1) 11/12/17 22:15 - Constitutional Appears: No Acute Distress, Chronically Ill - Head Exam Head Exam: ATRAUMATIC, NORMAL INSPECTION, NORMOCEPHALIC - Eye Exam Eye Exam: EOMI, Normal appearance, PERRL Pupil Exam: NORMAL ACCOMODATION, PERRL - ENT Exam ENT Exam: Mucous Membranes Moist, Normal Exam - Neck Exam Neck Exam: Full ROM, Normal Inspection. absent: Lymphadenopathy - Respiratory Exam Respiratory Exam: Clear to Ausculation Bilateral, NORMAL BREATHING PATTERN - Cardiovascular Exam Cardiovascular Exam: REGULAR RHYTHM, +S1, +S2. absent: Murmur - GI/Abdominal Exam GI & Abdominal Exam: Soft, Normal Bowel Sounds. absent: Tenderness - Extremities Exam Extremities Exam: Full ROM, Normal Capillary Refill, Normal Inspection. absent : Joint Swelling, Pedal Edema - Back Exam Back Exam: Full ROM, NORMAL INSPECTION - Neurological Exam Neurological Exam: Alert, Awake, CN II-XII Intact, Normal Gait, Oriented x3 - Psychiatric Exam Psychiatric exam: Normal Affect, Normal Mood - Skin Skin Exam: Dry, Intact, Normal Color, Warm Assessment and Plan (1) Pneumonia Assessment & Plan: IVF IV Azithromycin and Rocephin Tylenol PRN Status: Acute (2) DVT, bilateral lower limbs Assessment & Plan: B/L Pulmonary Embolism Lovenox IVF Pain Medication PRN O2 Via NC NPO for IVC Filter Status: Acute (3) Chronic back pain Status: Chronic (4) HLD (hyperlipidemia) Status: Acute (5) HTN (hypertension) Status: Acute (6) Pulmonary embolism Status: Acute (7) DM2 (diabetes mellitus, type 2) Status: Chronic (8) Poor appetite Status: Chronic
[2017-11-15] MEDS: Morphine 4 MG/ML VIAL IVP PRN ×3 (02:24→13:35)
[2017-11-15] MEDS ORDERED: Dextrose 5%/0.9% NS 1,000 ML IV SCH (05:45)
[2017-11-15] MEDS: Levothyroxine 25 MCG TAB PO SCH (05:59)
[2017-11-15] MEDS: Pantoprazole 40 mg EC Tab PO SCH ×2 (08:42→08:54)
[2017-11-15] MEDS: Enoxaparin 60 mg Syringe SC SCH (08:47)
[2017-11-15] MEDS: Omega-3-Acid Ethyl Esters 1 GM Cap PO SCH (08:48)
[2017-11-15] MEDS: levoFLOXacin 750 mg in D5W 750 MG/150 ML BAG IVPB SCH (08:50)
[2017-11-15] MEDS: Cilostazol 100 mg Tab UD PO SCH (08:54)
[2017-11-15] MEDS ORDERED: Iodixanol 320 MG/ML 100 ML BOTTLE IV ONE (11:42)
[2017-11-15] MEDS ORDERED: Iodixanol 320 mg/ml 50 ml Sol IV ONE (11:43)
[2017-11-15] MEDS ORDERED: Lidocaine 1% Inj (20ml) ONE (11:44)
--- NOTE | 2017-11-15 12:30 | PCM.SURG1 ---
Surgeon's Initial Post Op Note - Surgeon's Notes Surgeon: Lee Rucker MD Drill Sergeant: None Type of Anesthesia: Local Pre-Operative Diagnosis: b/l PE/DVT, non-compliant w/ anticoagulation meds Operative Findings: patent IVC, no thrombus or caval anomaly Post-Operative Diagnosis: same Operation Performed: Infrarenal retrievable IVC filter placement Specimen/Specimens Removed: n/a Estimated Blood Loss: EBL {In ML}: 5 Date of Surgery/Procedure: 11/15/17 Time of Surgery/Procedure: 12:15
[2017-11-15 13:11] VITALS: BP 119/77; PULSE 107; RESP 20; TEMP 97.9; O2SAT 96
--- NOTE | 2017-11-15 14:30 | VASCULAR ---
PROCEDURE: INFERIOR VENA CAVA FILTER INSERTION CLINICAL HISTORY: 42-year-old male with bilateral PA and DVT and history of noncompliance with anti coagulation is referred to interventional radiology for inferior vena cava filter insertion. COMPARISON: CT scan of the chest and lower extremity duplicate dated 11/13/2017 PROCEDURE: 1. Insertion of IVC filter. PRE-PROCEDURE FINDINGS: 1. Patent right internal jugular vein. 2. Patent inferior vena cava without filling defects, IVC duplication or other caval anomaly. POST-PROCEDURE FINDINGS: 1. Successful deployment of infrarenal retrievable IVC filter. INTERVENTIONAL RADIOLOGIST: Lee Rucker M.D. (the attending was present for the entire procedure) ANESTHESIA: None. MEDICATION: Lidocaine 1% for local subcutaneous analgesia. CONTRAST: 15 mL contrast. COMPLICATIONS: None. RADIATION DOSE: Fluoroscopy Time: 185.3 seconds DAP: 40.74 mGy PROCEDURE DESCRIPTION AND FINDINGS: The risks, benefits, alternatives and possible complications of the procedure were fully discussed; all questions were answered and informed consent was obtained. The patient was brought into the interventional suite and a pre-procedure 'time-out' was performed. The patient was placed on the fluoroscopy table in the supine position. The right neck was prepped and draped in the usual sterile fashion. Maximum sterile barrier precautions were maintained throughout the entire procedure. Preliminary ultrasound images of the right neck vasculature demonstrate patency of the right internal jugular vein. Following subcutaneous infiltration of 1% lidocaine for local analgesia, under ultrasound guidance, a 21-gauge needle was advanced into the right internal jugular vein with real-time visualization of needle entry. The ultrasound images were permanently recorded and submitted to the PACS. A 0.018 guidewire was advanced centrally. A 5 [place] micropuncture sheath was advanced over the guidewire. The inner portion of the sheath and guidewire were removed and exchanged for a 0.035 guidewire. The outer micropuncture sheath was exchanged over the guidewire for the filter delivery sheath. The right common iliac vein was selected and digital subtraction venography was performed which demonstrated a patent inferior vena cava without filling defects, evidence of IVC duplication or other caval anomaly. The renal vein inflow was identified bilaterally. The filter was deployed below the renal vein inflow. The sheath was then removed. Adequate hemostasis was achieved utilizing manual compression. A sterile adhesive dressing was applied. The patient tolerated the procedure well without immediate post-procedure complications and was transferred back to the floor in stable condition. IMPRESSION: SUCCESSFUL INSERTION OF INFRARENAL RETRIEVABLE IVC FILTER (ARGON OPTION ELITE)
--- NOTE | 2017-11-17 23:39 | CP.PCM.DIS ---
Provider - Provider Date of Admission: 11/13/17 03:03 Attending physician: Ortiz Frederick MD Time Spent in preparation of Discharge (in minutes): 35 Diagnosis - Discharge Diagnosis (1) DVT, bilateral lower limbs Status: Acute Comment: S/P IVC Filter. Pradaxa 75mg BID (2) DM2 (diabetes mellitus, type 2) Status: Chronic Comment: Metformin 500mg BID (3) HTN (hypertension) Status: Acute (4) Pneumonia Status: Acute Comment: D/C IV abx. [place] on Z-Pack (5) Pulmonary embolism Status: Acute Priority: High (6) Poor appetite Status: Chronic Hospital Course - Lab Results Lab Results: Micro Results 11/13/17 03:11 Blood Blood Culture - Preliminary NO GROWTH AFTER 4 DAYS 11/13/17 02:41 Blood Blood Culture - Preliminary NO GROWTH AFTER 4 DAYS Most Recent Lab Values WBC 5.5 K/uL (4.8-10.8) 11/14/17 04:20 RBC 3.88 Mil/uL (4.40-5.90) L 11/14/17 04:20 Hgb 10.2 g/dL (12.0-18.0) L 11/14/17 04:20 Hct 31.5 % (35.0-51.0) L 11/14/17 04:20 MCV 81.2 fl (80.0-94.0) 11/14/17 04:20 MCH 26.3 pg (27.0-31.0) L 11/14/17 04:20 MCHC 32.4 g/dL (33.0-37.0) L 11/14/17 04:20 RDW 18.2 % (11.5-14.5) H 11/14/17 04:20 Plt Count 276 K/uL (130-400) 11/14/17 04:20 MPV 8.3 fl (7.2-11.7) 11/14/17 04:20 Neut % (Auto) 55.5 % (50.0-75.0) 11/14/17 04:20 Lymph % (Auto) 34.9 % (20.0-40.0) 11/14/17 04:20 [place] % (Auto) 7.4 % (0.0-10.0) 11/14/17 04:20 Eos % (Auto) 1.8 % (0.0-4.0) 11/14/17 04:20 Baso % (Auto) 0.4 % (0.0-2.0) 11/14/17 04:20 Neut # (Auto) 3.0 K/uL (1.8-7.0) 11/14/17 04:20 Lymph # (Auto) 1.9 K/uL (1.0-4.3) 11/14/17 04:20 [place] # (Auto) 0.4 K/uL (0.0-0.8) 11/14/17 04:20 Eos # (Auto) 0.1 K/uL (0.0-0.7) 11/14/17 04:20 Baso # (Auto) 0.0 K/uL (0.0-0.2) 11/14/17 04:20 PT 12.0 Seconds (9.8-13.1) 11/12/17 22:15 INR 1.1 (0.9-1.2) 11/12/17 22:15 APTT 29.8 Seconds (25.6-37.1) 11/12/17 22:15 D-Dimer, Quantitative 2892 ng/mlDDU (0-230) H 11/12/17 22:15 pCO2 42 mm/Hg (35-45) 11/12/17 00:00 pO2 84 mm/Hg (80-100) 11/12/17 00:00 HCO3 28.0 mmol/L (21-28) 11/12/17 00:00 ABG pH 7.44 (7.35-7.45) 11/12/17 00:00 ABG Total CO2 29.8 mmol/L (22-28) H 11/12/17 00:00 ABG O2 Saturation 99.8 % (95-98) H 11/12/17 00:00 ABG Base Excess 3.9 mmol/L (-2.0-3.0) H 11/12/17 00:00 Prabhakar Test Yes 11/12/17 00:00 ABG Potassium 4.3 mmol/L (3.6-5.2) 11/12/17 00:00 A-a O2 Difference 13.0 mm/Hg 11/12/17 00:00 Sodium 139.0 mmol/L (132-148) 11/12/17 00:00 Chloride 106.0 mmol/L (98-107) 11/12/17 00:00 Glucose 116 mg/dL (75-110) H 11/12/17 00:00 Lactate 0.5 mmol/L (0.7-2.1) L 11/12/17 00:00 FiO2 21.0 % 11/12/17 00:00 Sodium 145 mmol/l (132-148) 11/14/17 04:20 Potassium 3.9 MMOL/L (3.6-5.0) 11/14/17 04:20 Chloride 103 mmol/L (98-107) 11/14/17 04:20 Carbon Dioxide 27 mmol/L (22-30) 11/14/17 04:20 Anion Gap 19 (10-20) 11/14/17 04:20 BUN 9 mg/dl (9-20) 11/14/17 04:20 Creatinine 0.6 mg/dl (0.8-1.5) L 11/14/17 04:20 Est GFR ( Amer) > 60 11/14/17 04:20 Est GFR (Non-Af Amer) > 60 11/14/17 04:20 POC Glucose (mg/dL) 115 mg/dL (65-110) H 11/15/17 16:23 Random Glucose 67 mg/dL (75-110) L 11/14/17 04:20 Calcium 9.1 mg/dL (8.4-10.2) 11/14/17 04:20 Phosphorus 4.5 mg/dl (2.5-4.5) 11/12/17 22:15 Magnesium 2.1 MG/DL (1.6-2.3) 11/12/17 22:15 Total Bilirubin 0.7 mg/dl (0.2-1.3) 11/12/17 22:15 AST 43 U/L (17-59) 11/12/17 22:15 ALT 63 U/L (21-72) 11/12/17 22:15 Alkaline Phosphatase 525 U/L (38-126) H D 11/12/17 22:15 Troponin I < 0.0120 ng/mL (0.00-0.120) 11/12/17 22:15 Total Protein 8.8 G/DL (6.3-8.2) H 11/12/17 22:15 Albumin 3.9 g/dL (3.5-5.0) 11/12/17 22:15 Globulin 4.8 gm/dL (2.2-3.9) H 11/12/17 22:15 Albumin/Globulin Ratio 0.8 (1.0-2.1) L 11/12/17 22:15 Lipase 28 U/L (23-300) 11/12/17 22:15 Arterial Blood Potassium 4.3 mmol/L (3.6-5.2) 11/12/17 00:00 Urine Color Yellow (YELLOW) 11/14/17 18:00 Urine Clarity Cloudy (Clear) 11/14/17 18:00 Urine pH 5.0 (5.0-8.0) 11/14/17 18:00 Ur Specific [place] 1.013 (1.003-1.030) 11/14/17 18:00 Urine Protein Negative mg/dL (NEGATIVE) 11/14/17 18:00 Urine Glucose (UA) Neg mg/dL (Normal) 11/14/17 18:00 Urine Ketones Negative mg/dL (NEGATIVE) 11/14/17 18:00 Urine Blood Large (NEGATIVE) 11/14/17 18:00 Urine Nitrate Negative (NEGATIVE) 11/14/17 18:00 Urine Bilirubin Negative (NEGATIVE) 11/14/17 18:00 Urine Urobilinogen 0.2-1.0 mg/dL (0.2-1.0) 11/14/17 18:00 Ur Leukocyte Esterase Neg [place]/uL (Negative) 11/14/17 18:00 Urine RBC (Auto) 72 /hpf (0-3) H 11/14/17 18:00 Urine Microscopic WBC 2 /hpf (0-5) 11/14/17 18:00 Discharge Exam - Head Exam Head Exam: ATRAUMATIC, NORMOCEPHALIC - Eye Exam Eye Exam: EOMI, Normal appearance, PERRL Pupil Exam: NORMAL ACCOMODATION, PERRL - Neck Exam Neck exam: Full Rom, Normal Inspection - Respiratory Exam Respiratory Exam: Clear to PA & Lateral, NORMAL BREATHING PATTERN - GI/Abdominal Exam GI & Abdominal Exam: Normal Bowel Sounds - Extremities Exam Extremities exam: normal capillary refill Additional comments: Left BKA - Back Exam Back exam: absent: CVA tenderness (L), CVA tenderness (R) - Neurological Exam Neurological exam: Alert, CN II-XII Intact, Normal Gait, Oriented x3, Reflexes Normal - Psychiatric Exam Psychiatric exam: Normal Affect, Normal Mood - Skin Skin Exam: Dry, Intact, Normal Color, Warm Discharge Plan - Discharge Medications Prescriptions: Ferrous Sulfate 325 mg PO TID #90 tablet Dabigatran [Pradaxa] 75 mg PO BID #60 cap Mirtazapine [Remeron] 7.5 mg PO HS #30 tab Acetaminophen with Codeine [Tylenol with Codeine #3 Tablet] 1 each PO Q8 #20 tablet Azithromycin [Zithromax Tri-Roger] 500 mg PO DAILY #5 tablet - Follow Up Plan Condition: FAIR Disposition: HOME/ ROUTINE Instructions: Pneumonia, Adult (DC), Pulmonary Embolism (Blood Clot in the Lungs) (DC) Additional Instructions: folllow up with in 1-2 weeks follow up with on 11/22/17 at 1:00pm Referrals: Cabrera Meraz MD [Medical Doctor] - Samm Gamino MD [Staff Provider] - Ortiz Frederick MD [Staff Provider] -
--- NOTE | 2017-11-18 00:15 | CP.PCM.HP ---
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 Patient reports it originally started in the upper back but now he has pain/spasm in the lower, left back. Patient took Motrin with minimal improvement at 10 AM. Seen here for similar symptoms Sunday and Sunday and given Morphine which he reports is the only thing that helps. Last two visits, he was offered admission, but his refused. He saw an orthopedist Sunday as a follow up and was given prescription for Oxycodone. It was not filled because doctor's ANH number was not on script. He states he sees Dr. Maciel in [place] and was referred to pain management in [place]. He has an appointment this week. Otherwise: (-) paresthesias, (-) weakness, (-) saddle anesthesia (-) acute bowel or bladder dysfunction, (-) fever. Past Patient History - Tetanus Immunizations Tetanus Immunization: Unknown - Past Medical History & Family History Past Medical History?: Yes - Past Social History Smoking Status: Never Smoked - CARDIAC Hx Cardiac Disorders: Yes Hx Hypercholesterolemia: Yes Hx Hypertension: Yes - PULMONARY Hx Respiratory Disorders: No - NEUROLOGICAL Hx Neurological Disorder: No - HEENT Hx HEENT Problems: No - RENAL Hx Chronic Kidney Disease: No - ENDOCRINE/METABOLIC Hx Endocrine Disorders: Yes Hx Diabetes Mellitus Type 2: Yes - HEMATOLOGICAL/ONCOLOGICAL Hx Blood Disorders: No Hx AIDS: No Hx Human Immunodeficiency Virus (HIV): No - INTEGUMENTARY Hx Dermatological Problems: No - MUSCULOSKELETAL/RHEUMATOLOGICAL Hx Musculoskeletal Disorders: Yes Hx Falls: No Other/Comment: 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, 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 - GASTROINTESTINAL Hx Gastrointestinal Disorders: No - GENITOURINARY/GYNECOLOGICAL Hx Genitourinary Disorders: No - PSYCHIATRIC Hx Psychophysiologic Disorder: Yes Hx Anxiety: Yes Hx Substance Use: No - SURGICAL HISTORY Hx Surgeries: Yes Hx Appendectomy: Yes Hx Tonsillectomy: Yes - ANESTHESIA Hx Anesthesia: Yes Hx Anesthesia Reactions: No Hx Malignant Hyperthermia: No Has any member of the family had a problem w/ anesthesia?: No Meds Home Medications: Home Medication List Medication Instructions Recorded Confirmed Type Acetaminophen with Codeine 1 each PO Q8 #20 tablet 11/15/17 Rx [Tylenol with Codeine #3 Tablet] Azithromycin [Zithromax Tri-Roger] 500 mg PO DAILY #5 tablet 11/15/17 Rx Dabigatran [Pradaxa] 75 mg PO BID #60 cap 11/15/17 Rx Ferrous Sulfate 325 mg PO TID #90 tablet 11/15/17 Rx Mirtazapine [Remeron] 7.5 mg PO HS #30 tab 11/15/17 Rx Allergies/Adverse Reactions: Allergies Allergy/AdvReac Type Severity Reaction Status Date / Time No Known Allergies Allergy Verified 11/12/17 03:05 Results - Vital Signs Recent Vital Signs: Last Vital Signs Temp 97.9 F 11/15/17 13:10 Pulse 107 H 11/15/17 13:10 Resp 20 11/15/17 13:10 BP 119/77 11/15/17 13:10 Pulse Ox 96 11/15/17 13:10 - Labs Result Diagrams: 11/14/17 04:20 11/14/17 04:20 Assessment & Plan (1) Pneumonia Status: Acute (2) DVT, bilateral lower limbs Status: Acute (3) Chronic back pain Status: Chronic (4) HLD (hyperlipidemia) Status: Acute (5) HTN (hypertension) Status: Acute (6) Pulmonary embolism Status: Acute Priority: High (7) DM2 (diabetes mellitus, type 2) Status: Chronic (8) Poor appetite Status: Chronic
== END 2017-11-15 17:21 | disposition home or self-care (01) | DRG 167 ==
LOC: H.ER 19:47 → H.ERHOLD 11-13 03:03 → H.TEL 11-13 08:27
PROVIDERS: ADMIT Internal Medicine; ATTEND Internal Medicine
PROC: 06H03DZ Insertion of Intraluminal Device into Inferior Vena Cava, Percutaneous Approach (ICD-10-PCS; principal; 2017-11-15)
DX: I26.99 Other pulmonary embolism without acute cor pulmonale (principal); I82.413 Acute embolism and thrombosis of femoral vein, bilateral; Z89.612 Acquired absence of left leg above knee; E03.9 Hypothyroidism, unspecified; E11.9 Type 2 diabetes mellitus without complications; I10 Essential (primary) hypertension; E78.00 Pure hypercholesterolemia, unspecified; Z91.14 Patient's other noncompliance with medication regimen; Z79.01 Long term (current) use of anticoagulants; Z89.421 Acquired absence of other right toe(s); F41.9 Anxiety disorder, unspecified

== ENCOUNTER 2017-12-22 03:26 | Emergency (ER) | payer MEDICARE, MEDICAID ==
[2017-12-22 03:31] VITALS: BMI 21.5
[2017-12-22] MEDS ORDERED: Morphine 5 MG/ML SYRINGE IM STA (04:44)
--- NOTE | 2017-12-22 05:50 | ED PDOC ---
HPI: Trauma/Fall - HPI Time Seen by Provider: 12/22/17 03:39 Chief Complaint (Nursing): Trauma Chief Complaint (Provider): Head Injury History Per: Patient History/Exam Limitations: no limitations Onset/Duration Of Symptoms: Hrs Associated Symptoms: denies: Dizziness, LOC Additional Complaint(s): Jason Nolen is a 42 year old male with a past medical history of peripheral vascular disease, hypertension, hypercholesterolemia, diabetes and pulmonary embolism who is presenting to the ER with complaints of headache associated with neck and back pain, onset 12 hours ago s/p head injury and fall from wheelchair. Patient states that the wheelchair flipped over and he hit his head on the ground. He also reports chronic back pain for which he takes Tylenol and Codeine. He denies any chest pain, dizziness, or loss of consciousness. Of note, patient has left leg amputated. PMD: none provided Past Medical History Reviewed: Historical Data, Nursing Documentation, Vital Signs Vital Signs: Last Vital Signs Temp 98 F 12/22/17 03:35 Pulse 82 12/22/17 03:35 Resp 16 12/22/17 03:35 BP 130/81 12/22/17 03:35 Pulse Ox 97 12/22/17 03:35 - Medical History PMH: Anxiety, Diabetes, HTN, Hypercholesterolemia, Hypothyroidism Denies: HIV, Chronic Kidney Disease - Surgical History Surgical History: Appendectomy, Tonsillectomy - Family History Family History: States: Unknown Family Hx - Immunization History Hx Tetanus Toxoid Vaccination: Yes Hx Influenza Vaccination: Yes Hx Pneumococcal Vaccination: No - Home Medications Home Medications: Ambulatory Orders Medication Instructions Recorded ALPRAZolam [Xanax] 0.25 mg PO Q12 PRN 11/13/17 Aspirin [Ecotrin] 81 mg PO DAILY 11/13/17 Atorvastatin [Lipitor] 40 mg PO DAILY 11/13/17 Cilostazol [Pletal] 100 mg PO BID 11/13/17 Clopidogrel [Plavix] 75 mg PO DAILY 11/13/17 Gabapentin 1,200 mg PO BID 11/13/17 Levothyroxine [Synthroid] 25 mcg PO DAILY 11/13/17 Lisinopril [Zestril] 2.5 mg PO DAILY 11/13/17 [id number]-3-[id number] Ethyl Esters 1 GM 2 cap PO BID 11/13/17 [Lovaza] Pantoprazole Sodium [Protonix] 40 mg PO DAILY 11/13/17 Zolpidem [Ambien] 5 mg PO DAILY PRN 11/13/17 metFORMIN [glucOPHAGE] 500 mg PO BID 11/13/17 Acetaminophen with Codeine 1 each PO Q8 #20 tablet 11/15/17 [Tylenol with Codeine #3 Tablet] Azithromycin [Zithromax Tri-Roger] 500 mg PO DAILY #5 tablet 11/15/17 Dabigatran [Pradaxa] 75 mg PO BID #60 cap 11/15/17 Ferrous Sulfate 325 mg PO TID #90 tablet 11/15/17 Mirtazapine [Remeron] 7.5 mg PO HS #30 tab 11/15/17 traMADol [Ultram] 50 mg PO QID #16 tab 12/22/17 - Allergies Allergies/Adverse Reactions: Allergies Allergy/AdvReac Type Severity Reaction Status Date / Time No Known Allergies Allergy Verified 12/22/17 03:34 Review of Systems ROS Statement: Except As Marked, All Systems Reviewed And Found Negative Cardiovascular: Negative for: Chest Pain Musculoskeletal: Positive for: Neck Pain, Back Pain Neurological: Positive for: Headache. Negative for: Dizziness, Other (loss of consciousness) Physical Exam - Reviewed Nursing Documentation Reviewed: Yes Vital Signs Reviewed: Yes - Physical Exam Appears: Positive for: Non-toxic, Uncomfortable Head Exam: Positive for: ATRAUMATIC, NORMAL INSPECTION, NORMOCEPHALIC Skin: Positive for: Normal Color, Warm, Dry Eye Exam: Positive for: EOMI, Normal appearance, PERRL Neck: Positive for: Normal Cardiovascular/Chest: Positive for: Regular Rate, Rhythm. Negative for: Murmur Respiratory: Positive for: Normal Breath Sounds. Negative for: Respiratory Distress Gastrointestinal/Abdominal: Positive for: Normal Exam, Soft. Negative for: Tenderness Back: Positive for: Normal Inspection. Negative for: L CVA Tenderness, R CVA Tenderness, Vertebral Tenderness Extremity: Positive for: Normal ROM, Other (left leg amputated). Negative for: Deformity, Swelling Neurologic/Psych: Positive for: Alert, Oriented. Negative for: Motor/Sensory Deficits - ECG O2 Sat by Pulse Oximetry: 97 (RA) Pulse Ox Interpretation: Normal Medical Decision Making Medical Decision Making: Time: 4:44 Impression: Head Injury, Chronic Back Pain Plan: --CT Cervical Spine --CT Head --Morphine 5 mg IM --Morphine 4 mg IM Scribe Attestation: Documented by Corazon Felton, acting as a scribe for Andi Frances MD. Provider Scribe Attestation: All medical record entries made by the Scribe were at my direction and personally dictated by me. I have reviewed the chart and agree that the record accurately reflects my personal performance of the history, physical exam, medical decision making, and the department course for this patient. I have also personally directed, reviewed, and agree with the discharge instructions and disposition. Disposition - Clinical Impression Clinical Impression: Fall, Head injury - Patient ED Disposition Is Patient to be Admitted: Transfer of Care - Disposition Referrals: Miesha Soriano [Outside] Disposition: Transfer of Care Disposition Time: 07:00 Condition: STABLE Prescriptions: traMADol [Ultram] 50 mg PO QID #16 tab Instructions: Preventing Falls Print Language: MALAGASY Patient Signed Over To: Joselyn Blancas Handoff Comments: Pending CT results
--- NOTE | 2017-12-22 07:48 | CT ---
EXAM: CT Head Without Intravenous Contrast CLINICAL HISTORY: 42 years old, male; Injury or trauma; Fall; Initial encounter; Blunt trauma (contusions or hematomas); Consciousness not specified; Additional info: Head injury TECHNIQUE: Axial computed tomography images of the head/brain without intravenous contrast. All CT scans at this facility use one or more dose reduction techniques, viz.: automated exposure control; ma/kV adjustment per patient size (including targeted exams where dose is matched to indication; i.e. head); or iterative reconstruction technique. 302 images are submitted. Axial images are submitted in soft tissue and bone windows. Coronal and sagittal reformatted images were created and reviewed. COMPARISON: No relevant prior studies available. FINDINGS: Artifacts: Limited due to motion and misregistration artifacts. Brain: Cerebral and cerebellar volume loss. Patchy hypodensity is seen in the periventricular and subcortical white matter. No hemorrhage. Ventricles: Unremarkable. No ventriculomegaly. Bones/joints: Unremarkable. No acute fracture. Soft tissues: Unremarkable. Sinuses: There is near-complete opacification of right sphenoid sinus. Mastoid air cells: Patchy left mastoid disease. Mild patchy sinus disease. Orbits: The visualized portion of left globe appears intact. The right lobe is not well seen. IMPRESSION: No evidence of an acute intracranial hemorrhage, midline shift or mass effect is identified.
--- NOTE | 2017-12-22 08:03 | CT ---
EXAM: CT Cervical Spine Without Intravenous Contrast CLINICAL HISTORY: 42 years old, male; Injury or trauma; Fall; Initial encounter; Blunt trauma; Additional info: Neck pain TECHNIQUE: Axial computed tomography images of the cervical spine without intravenous contrast. All CT scans at this facility use one or more dose reduction techniques, viz.: automated exposure control; ma/kV adjustment per patient size (including targeted exams where dose is matched to indication; i.e. head); or iterative reconstruction technique. 708 images are submitted.Sagittal , axial and coronal MPR reformatted images are submitted in soft tissue and bone windows. COMPARISON: No relevant prior studies available. FINDINGS: Vertebrae: Unremarkable. No acute fracture. Discs/spinal canal/neural foramina: No acute findings. No spinal canal stenosis. Soft tissues: Unremarkable. Mastoid air cells: Patchy left mastoid disease. Moderate to severe right sphenoid sinus disease. Esophagus: Nonspecific distention of cervical esophagus with intraluminal debris. This can represent delayed emptying versus gastroesophageal reflux. Lung apices: Patchy infiltration of bilateral lung apices. Correlation with patient's hydration status is recommended. Other findings: Nonspecific nuchal ligament calcification or ossification. IMPRESSION: 1. Patchy infiltration of bilateral lung apices. Correlation with patient's hydration status is recommended. 2. There is no acute fracture of cervical spine.
--- NOTE | 2017-12-22 08:30 | ED PDOC ---
- ECG O2 Sat by Pulse Oximetry: 97 (RA) Medical Decision Making Medical Decision Making: Time: 07 --Patient was endorsed to provider by Dr. Andi Frances. Pending CT results and re-eval. Time: 746 --CT head FINDINGS: Artifacts: Limited due to motion and misregistration artifacts. Brain: Cerebral and cerebellar volume loss. Patchy hypodensity is seen in the periventricular and subcortical white matter. No hemorrhage. Ventricles: Unremarkable. No ventriculomegaly. Bones/joints: Unremarkable. No acute fracture. Soft tissues: Unremarkable. Sinuses: There is near-complete opacification of right sphenoid sinus. Mastoid air cells: Patchy left mastoid disease. Mild patchy sinus disease. Orbits: The visualized portion of left globe appears intact. The right lobe is not well seen. IMPRESSION: No evidence of an acute intracranial hemorrhage, midline shift or mass effect is identified. Time: 08 --CT C-spine FINDINGS: Vertebrae: Unremarkable. No acute fracture. Discs/spinal canal/neural foramina: No acute findings. No spinal canal stenosis. Soft tissues: Unremarkable. Mastoid air cells: Patchy left mastoid disease. Moderate to severe right sphenoid sinus disease. Esophagus: Nonspecific distention of cervical esophagus with intraluminal debris. This can represent delayed emptying versus gastroesophageal reflux. Lung apices: Patchy infiltration of bilateral lung apices. Correlation with patient's hydration status is recommended. Other findings: Nonspecific nuchal ligament calcification or ossification. IMPRESSION: 1. Patchy infiltration of bilateral lung apices. Correlation with patient's hydration status is recommended. 2. There is no acute fracture of cervical spine. Scribe Attestation: Documented by Vania Matute, acting as a scribe for Joselyn Blancas MD. Provider Scribe Attestation: All medical record entries made by the Scribe were at my direction and personally dictated by me. I have reviewed the chart and agree that the record accurately reflects my personal performance of the history, physical exam, medical decision making, and the department course for this patient. I have also personally directed, reviewed, and agree with the discharge instructions and disposition. CT's reviewed: no acute findings Disposition Doctor Will See Patient In The: Office Counseled Patient/Family Regarding: Diagnosis, Need For Followup - Clinical Impression Clinical Impression: Fall - POA Present On Arrival: Falls Or Trauma - Disposition Referrals: Miesha Soriano [Outside] Disposition: Routine/Home Disposition Time: 09:45 Condition: STABLE Instructions: Preventing Falls Forms: [facility] (Yakut) Print Language: BURMESE
[2017-12-22 09:09] VITALS: RESP 19
[2017-12-22 10:57] VITALS: BP 110/78; PULSE 78; TEMP 98
[2017-12-24 11:44] VITALS: O2SAT 97
== END 2017-12-22 11:05 | disposition home or self-care (01) ==
LOC: H.ER 03:26
DX: S09.90XA Unspecified injury of head, initial encounter (principal); E03.9 Hypothyroidism, unspecified; E11.9 Type 2 diabetes mellitus without complications; E78.00 Pure hypercholesterolemia, unspecified; G89.29 Other chronic pain; I10 Essential (primary) hypertension; Z79.01 Long term (current) use of anticoagulants; Z79.82 Long term (current) use of aspirin; Z79.84 Long term (current) use of oral hypoglycemic drugs; R91.8 Other nonspecific abnormal finding of lung field; W05.0XXA Fall from non-moving wheelchair, initial encounter
CPT/HCPCS: 70450; 72125; 96372; 99284; J1885; J2270

== ENCOUNTER 2018-12-27 10:02 | Emergency (ER) | payer MEDICARE, MEDICAID ==
[2018-12-27 10:20] VITALS: BMI 23.6
[2018-12-27 10:22] VITALS: O2SAT 97
[2018-12-27 11:37] LABS: BASO # 0.1 K/uL (0.0-0.2); BASO % 0.8 % (0.0-2.0); EOS # 0.1 K/uL (0.0-0.7); EOS % 2.3 % (0.0-4.0); LYMPH # 1.6 K/uL (1.0-4.3); LYMPH % 25.3 % (20.0-40.0); MEAN CELL VOLUME 86.8 fl (80.0-94.0); MEAN CORPUSCULAR HEMOGLOBIN 28.1 pg (27.0-31.0); MEAN CORPUSCULAR HGB CONC 32.4 g/dL (33.0-37.0); MEAN PLATELET VOLUME 10.1 fl (7.2-11.7); MONO # 0.4 K/uL (0.0-0.8); MONO % 6.2 % (0.0-10.0); NEUT # 4.3 K/uL (1.8-7.0); NEUT % 65.4 % (50.0-75.0); NRBC % 0.1 % (0.0-0.0); RBC 4.56 Mil/uL (4.40-5.90); WHITE BLOOD COUNT 6.5 K/uL (4.8-10.8)
[2018-12-27 11:38] LABS: INR 0.9
[2018-12-27 11:41] LABS: HEMOGLOBIN 12.8 g/dL (12.0-18.0); PARTIAL THROMBOPLASTIN TIME 35.7 Seconds (25.6-37.1)
[2018-12-27 11:47] LABS: PROTHROMBIN TIME 9.8 Seconds (9.8-13.1)
[2018-12-27 11:48] LABS: ALB/GLOB RATIO 1.3 (1.0-2.1); ALBUMIN 3.9 g/dL (3.5-5.0); ALT/SGPT 49 U/L (21-72); AST/SGOT 32 U/L (17-59); BLOOD UREA NITROGEN 27 mg/dl (9-20); CALCIUM 10.3 mg/dL (8.4-10.2); GFR NON-AFRICAN AMERICAN > 60
--- NOTE | 2018-12-27 12:10 | ED PDOC ---
HPI: Back Time Seen by Provider: 12/27/18 10:22 Chief Complaint (Nursing): Back Pain Chief Complaint (Provider): Back Pain History Per: Patient History/Exam Limitations: no limitations Onset/Duration Of Symptoms: Days Current Symptoms Are (Timing): Still Present Severity: Severe Additional Complaint(s): 43 year old male with a past medical history of type 1 diabetes, left above knee amputation, peripheral vascular disease, and IVC filter who is presenting to the ED for evaluation of back pain worsening since yesterday. Patient states that he takes multiple anticoagulants and has a history of chronic back pain but this pain is moderate to severe and worse than usual pain. He reports that he has been taking Mobic without relief and states that pain radiates to chest. Patient complains of trouble sleeping but denies any nausea, vomiting, or diaphoresis. PMD: Dr. Frederick Past Medical History Reviewed: Historical Data, Nursing Documentation, Vital Signs Vital Signs: Last Vital Signs Temp Pulse 92 H 12/27/18 10:21 Resp 20 12/27/18 10:21 BP 124/81 12/27/18 10:21 Pulse Ox 97 12/27/18 10:21 Primary Care Physician: Ortiz Frederick MD - Medical History PMH: Anemia, Anxiety, Diabetes, HTN, Hypercholesterolemia, Hypothyroidism Denies: HIV, Chronic Kidney Disease - Surgical History Surgical History: Appendectomy, Tonsillectomy Other surgeries: left above knee amputation - Family History Family History: States: Unknown Family Hx - Social History Current smoker - smoking cessation education provided: No Alcohol: None Drugs: Denies - Immunization History Hx Tetanus Toxoid Vaccination: Yes Hx Influenza Vaccination: Yes Hx Pneumococcal Vaccination: No - Home Medications Home Medications: Ambulatory Orders Medication Instructions Recorded ALPRAZolam [Xanax] 0.25 mg PO Q12 PRN 11/13/17 Aspirin [Ecotrin] 81 mg PO DAILY 11/13/17 Atorvastatin [Lipitor] 40 mg PO DAILY 11/13/17 Cilostazol [Pletal] 100 mg PO BID 11/13/17 Clopidogrel [Plavix] 75 mg PO DAILY 11/13/17 Gabapentin 1,200 mg PO BID 11/13/17 Levothyroxine [Synthroid] 25 mcg PO DAILY 11/13/17 Lisinopril [Zestril] 2.5 mg PO DAILY 11/13/17 [id number] Ethyl Esters 1 GM 2 cap PO BID 11/13/17 [Lovaza] Pantoprazole Sodium [Protonix] 40 mg PO DAILY 11/13/17 Zolpidem [Ambien] 5 mg PO DAILY PRN 11/13/17 metFORMIN [glucOPHAGE] 500 mg PO BID 11/13/17 Acetaminophen with Codeine 1 each PO Q8 #20 tablet 11/15/17 [Tylenol with Codeine #3 Tablet] Azithromycin [Zithromax Tri-Roger] 500 mg PO DAILY #5 tablet 11/15/17 Dabigatran [Pradaxa] 75 mg PO BID #60 cap 11/15/17 Ferrous Sulfate 325 mg PO TID #90 tablet 11/15/17 Mirtazapine [Remeron] 7.5 mg PO HS #30 tab 11/15/17 traMADol [Ultram] 50 mg PO QID #16 tab 12/22/17 Cyclobenzaprine [Cyclobenzaprine 10 mg PO TID PRN #15 tab 12/27/18 HCl] Lidocaine 5% [Lidoderm] 1 ea TD QAM #10 patch 12/27/18 - Allergies Allergies/Adverse Reactions: Allergies Allergy/AdvReac Type Severity Reaction Status Date / Time No Known Allergies Allergy Verified 12/22/17 03:34 Review of Systems ROS Statement: Except As Marked, All Systems Reviewed And Found Negative Constitutional: Negative for: Sweats Cardiovascular: Positive for: Chest Pain Gastrointestinal: Negative for: Nausea, Vomiting Musculoskeletal: Positive for: Back Pain Physical Exam - Reviewed Nursing Documentation Reviewed: Yes Vital Signs Reviewed: Yes - Physical Exam Appears: Positive for: Non-toxic, No Acute Distress Head Exam: Positive for: ATRAUMATIC, NORMAL INSPECTION, NORMOCEPHALIC Skin: Positive for: Normal Color, Warm, DRY Eye Exam: Positive for: Normal appearance, EOMI, PERRL, Other (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 Negative for: Murmur Respiratory: Positive for: Normal Breath Sounds. Negative for: Respiratory Distress Gastrointestinal/Abdominal: Positive for: Normal Exam, Soft. Negative for: Tenderness Back: Positive for: Normal Inspection. Negative for: L CVA Tenderness, R CVA Tenderness, Vertebral Tenderness Extremity: Positive for: Other (left above knee amputation ) Neurological/Psych: Positive for: Awake, Alert, Normal Tone, Oriented. Negative for: Motor/Sensory Deficits - Laboratory Results Result Diagrams: 12/27/18 11:10 12/27/18 11:10 Lab Results: PT 9.8 Seconds (9.8-13.1) 12/27/18 11:10 INR 0.9 12/27/18 11:10 APTT 35.7 Seconds (25.6-37.1) 12/27/18 11:10 Troponin I < 0.0120 ng/mL (0.00-0.120) 12/27/18 11:10 Total Bilirubin 0.4 mg/dl (0.2-1.3) 12/27/18 11:10 AST 32 U/L (17-59) 12/27/18 11:10 ALT 49 U/L (21-72) 12/27/18 11:10 Alkaline Phosphatase 65 U/L (38-126) 12/27/18 11:10 Total Protein 6.8 G/DL (6.3-8.2) 12/27/18 11:10 Albumin 3.9 g/dL (3.5-5.0) 12/27/18 11:10 Globulin 2.9 gm/dL (2.2-3.9) 12/27/18 11:10 Albumin/Globulin Ratio 1.3 (1.0-2.1) 12/27/18 11:10 - ECG O2 Sat by Pulse Oximetry: 97 (RA) Pulse Ox Interpretation: Normal Medical Decision Making Medical Decision Making: Time: 11:10 Impression: 43 year old male with acute on chronic back pain Plan: --EKG --CMP --Creatine Phosphokinase --Urine Drug Screen --Troponin --ED Urine Dipstick --CBC --Coags --CXR --Morphine 4 mg IVP 13:45 Patient states that pain initially improved but pain increased again to moderate-severe rating. Additional morphine ordered for patient. 14:43 patient reports marketed improvement in symptoms. Provider discussed the option of staying for further pain management but patient declined. He will be discharged home. Scribe Attestation: Documented by Corazon Felton, acting as a scribe for William Cardenas MD. Provider Scribe Attestation: All medical record entries made by the Scribe were at my direction and per sonally dictated by me. I have reviewed the chart and agree that the record accurately reflects my personal performance of the history, physical exam, medical decision making, and the department course for this patient. I have also personally directed, reviewed, and agree with the discharge instructions and disposition. Disposition - Clinical Impression Clinical Impression: Back pain - Patient ED Disposition Is Patient to be Admitted: No - Disposition Referrals: Ortiz Frederick MD [Primary Care Provider] - Disposition: Routine/Home Disposition Time: 14:45 Condition: IMPROVED Prescriptions: Cyclobenzaprine [Cyclobenzaprine HCl] 10 mg PO TID PRN #15 tab PRN Reason: Muscle Pain Lidocaine 5% [Lidoderm] 1 ea TD QAM #10 patch Instructions: Low Back Pain in Adults, Upper Back Pain Forms: [facility] (Tunisian)
--- NOTE | 2018-12-27 13:23 | RAD ---
Date of service: 12/27/2018 HISTORY: Back pain, chest pain. COMPARISON: 11/12/2017. FINDINGS: LUNGS: No active pulmonary disease. PLEURA: No significant pleural effusion identified, no pneumothorax apparent. CARDIOVASCULAR: No atherosclerotic calcification present Normal. OSSEOUS STRUCTURES: No significant abnormalities. VISUALIZED UPPER ABDOMEN: Normal. OTHER FINDINGS: None. IMPRESSION: No active disease. No significant interval change compared to the prior examination(s).
[2018-12-27] MEDS ORDERED: Morphine 4 MG/ML VIAL ONE (14:08)
[2018-12-27] MEDS ORDERED: Lidocaine 5% Patch TD STA (14:43)
[2018-12-27] MEDS ORDERED: Lidocaine 5% Patch TD ONE (15:06)
[2018-12-27 15:17] VITALS: BP 110/66; PULSE 82; RESP 19
--- NOTE | 2018-12-27 18:26 | CARD ---
APPROVED REPORT Date of service: 12/27/2018 EKG Measurement Heart [id number] <Conclusion> Sinus rhythm with 1st degree AV block with fusion complexes Nonspecific intraventricular block Abnormal ECG
== END 2018-12-27 14:39 | disposition home or self-care (01) ==
LOC: H.ER 10:02 → SUPCPDRO 10:02 → H.ER 14:39
DX: M54.9 Dorsalgia, unspecified (principal); E10.51 Type 1 diabetes mellitus with diabetic peripheral angiopathy without gangrene; E03.9 Hypothyroidism, unspecified; E78.00 Pure hypercholesterolemia, unspecified; G89.29 Other chronic pain; I10 Essential (primary) hypertension; Z79.01 Long term (current) use of anticoagulants; Z79.4 Long term (current) use of insulin; Z89.612 Acquired absence of left leg above knee
CPT/HCPCS: 71045; 80053; 82550; 82948; 84484; 85025; 85610; 85730; 93005; 96374; 96376; 99284; J2270

== ENCOUNTER 2019-01-26 12:41 | Emergency (ER) | payer MEDICARE, MEDICAID ==
[2019-01-26 12:42] VITALS: BMI 23.6
[2019-01-26 12:57] VITALS: RESP 18
[2019-01-26] MEDS ORDERED: Lidocaine 0.5% PF (50 ml) Inj INJ ONE (13:15)
--- NOTE | 2019-01-26 13:20 | ED PDOC ---
HPI: General Adult Time Seen by Provider: 01/26/19 13:17 Chief Complaint (Nursing): Abnormal Skin Integrity Chief Complaint (Provider): abscess History Per: Patient (43 y/o male h/o Insulin dependent diabetes here with right inguinal abscess s/p I&D 4 days and subsequent repacking 2 days ago here for evaluation of non-resolving abscess. No fevers/chills. Has not been taking anti-coagulants due to concern regarding abscess.) Past Medical History Reviewed: Historical Data, Nursing Documentation, Vital Signs Vital Signs: Last Vital Signs Temp 97.7 F 01/26/19 12:56 Pulse 77 01/26/19 12:56 Resp 18 01/26/19 12:56 BP 131/85 01/26/19 12:56 Pulse Ox 99 01/26/19 12:56 Primary Care Provider: Ortiz Frederick - Medical History PMH: Anemia, Anxiety, Diabetes, HTN, Hypercholesterolemia, Hypothyroidism Denies: HIV, Chronic Kidney Disease Other PMH: on pradaxa/plavix/pletal for vascular disease - Surgical History Surgical History: Appendectomy, Tonsillectomy - Family History Family History: States: Unknown Family Hx - Immunization History Hx Tetanus Toxoid Vaccination: Yes Hx Influenza Vaccination: Yes Hx Pneumococcal Vaccination: No - Home Medications Home Medications: Ambulatory Orders Medication Instructions Recorded ALPRAZolam [Xanax] 0.25 mg PO Q12 PRN 11/13/17 Aspirin [Ecotrin] 81 mg PO DAILY 11/13/17 Atorvastatin [Lipitor] 40 mg PO DAILY 11/13/17 Cilostazol [Pletal] 100 mg PO BID 11/13/17 Clopidogrel [Plavix] 75 mg PO DAILY 11/13/17 Gabapentin 1,200 mg PO BID 11/13/17 Levothyroxine [Synthroid] 25 mcg PO DAILY 11/13/17 Lisinopril [Zestril] 2.5 mg PO DAILY 11/13/17 [id number] Ethyl Esters 1 GM 2 cap PO BID 11/13/17 [Lovaza] Pantoprazole Sodium [Protonix] 40 mg PO DAILY 11/13/17 Zolpidem [Ambien] 5 mg PO DAILY PRN 11/13/17 metFORMIN [glucOPHAGE] 500 mg PO BID 11/13/17 Acetaminophen with Codeine 1 each PO Q8 #20 tablet 11/15/17 [Tylenol with Codeine #3 Tablet] Azithromycin [Zithromax Tri-Roger] 500 mg PO DAILY #5 tablet 11/15/17 Dabigatran [Pradaxa] 75 mg PO BID #60 cap 11/15/17 Ferrous Sulfate 325 mg PO TID #90 tablet 11/15/17 Mirtazapine [Remeron] 7.5 mg PO HS #30 tab 11/15/17 traMADol [Ultram] 50 mg PO QID #16 tab 12/22/17 Cyclobenzaprine [Cyclobenzaprine 10 mg PO TID PRN #15 tab 12/27/18 HCl] Lidocaine 5% [Lidoderm] 1 ea TD QAM #10 patch 12/27/18 traMADol [Ultram] 50 mg PO Q8 PRN #10 tab 01/26/19 - Allergies Allergies/Adverse Reactions: Allergies Allergy/AdvReac Type Severity Reaction Status Date / Time No Known Allergies Allergy Verified 01/26/19 12:53 Review of Systems ROS Statement: Except As Marked, All Systems Reviewed And Found Negative Physical Exam - Reviewed Nursing Documentation Reviewed: Yes Vital Signs Reviewed: Yes - Physical Exam Appears: Positive for: Well, Non-toxic, No Acute Distress Head Exam: Positive for: ATRAUMATIC, NORMAL INSPECTION, NORMOCEPHALIC Skin: Positive for: Warm. Negative for: Normal Color (2.5 cm right inguinal abscess with minimal foul smelling discharge. No surrounding erythema noted.) Eye Exam: Positive for: EOMI, Normal appearance, PERRL ENT: Positive for: Normal ENT Inspection Neck: Positive for: Normal, Painless ROM Cardiovascular/Chest: Positive for: Regular Rate, Rhythm Respiratory: Positive for: CNT, Normal Breath Sounds Gastrointestinal/Abdominal: Positive for: Normal Exam, Soft Back: Positive for: Normal Inspection Extremity: Positive for: Normal ROM Neurological/Psych: Positive for: Awake, Alert, Normal Tone - Laboratory Results Result Diagrams: 01/26/19 13:31 01/26/19 13:31 - ECG O2 Sat by Pulse Oximetry: 99 - Progress ED Course And Treament: NS 2 LITERS ORDERED VBG INITIAL NOTED WITH LACTATE 2.5 WOUND CX SENT TORADOL 15MG IV X 1 DOSE AFTER 1 LITER, BLOOD GLUCOSE NOTED 340. LACTATE 1.9 ON VBG. MORPHINE 4 MG IV X 1 DOSE SEEN BY [facility]IST[facility] ON CONSULT FOR DR. JONES. ABSCESS EXPLORED AND REPACKED. PATIENT TO CONTINUE ON CLINDAMYCIN AND F/U OUTPATIENT WITH SURGERY Disposition - Clinical Impression Clinical Impression: Hyperglycemia, Abscess - Patient ED Disposition Is Patient to be Admitted: No - Disposition Referrals: Demarcus Jones MD [Medical Doctor] - Matt Guerrier MD [Staff Provider] - Disposition: Routine/Home Disposition Time: 16:56 Condition: FAIR Prescriptions: traMADol [Ultram] 50 mg PO Q8 PRN #10 tab PRN Reason: Pain, Severe (8-10) Instructions: Hyperglycemia, Adult, Skin Abscess
[2019-01-26 13:35] LABS: BASO # 0.1 K/uL (0.0-0.2); BASO % 0.9 % (0.0-2.0); EOS # 0.1 K/uL (0.0-0.7); EOS % 1.7 % (0.0-4.0); HEMOGLOBIN 13.8 g/dL (12.0-18.0); LYMPH # 1.8 K/uL (1.0-4.3); LYMPH % 33.2 % (20.0-40.0); MEAN CELL VOLUME 86.8 fl (80.0-94.0); MEAN CORPUSCULAR HEMOGLOBIN 28.4 pg (27.0-31.0); MEAN CORPUSCULAR HGB CONC 32.7 g/dL (33.0-37.0); MEAN PLATELET VOLUME 9.8 fl (7.2-11.7); MONO # 0.4 K/uL (0.0-0.8); MONO % 6.6 % (0.0-10.0); NEUT # 3.2 K/uL (1.8-7.0); NEUT % 57.6 % (50.0-75.0); NRBC % 0.2 % (0.0-0.0); RBC 4.86 Mil/uL (4.40-5.90); RED CELL DISTRIBUTION WIDTH 15.4 % (11.5-14.5); WHITE BLOOD COUNT 5.6 K/uL (4.8-10.8)
[2019-01-26 13:38] LABS: INR 0.9
[2019-01-26 13:47] LABS: ALB/GLOB RATIO 1.2 (1.0-2.1); ALBUMIN 4.1 g/dL (3.5-5.0); ALT/SGPT 48 U/L (21-72); AST/SGOT 50 U/L (17-59); BLOOD UREA NITROGEN 22 mg/dl (9-20); GFR NON-AFRICAN AMERICAN > 60
[2019-01-26] MEDS ORDERED: Lidocaine Hydrochloride 1% 10 ML ONE (13:54)
[2019-01-26] MEDS ORDERED: Sodium Chloride 0.9% 2,000 ML IV STA (14:03)
[2019-01-26] MEDS ORDERED: Insulin Regular 100 units/ml IVP ONE (14:04)
[2019-01-26] MEDS ORDERED: Insulin Regular 100 units/ml ONE (14:11)
[2019-01-26 14:21] LABS: VENOUS BLOOD GAS BASE EXCESS 1.1 mmol/L (0.0-2.0); VENOUS BLOOD GAS PCO2 55 mmHg (40-60); VENOUS BLOOD GAS PO2 23 mm/Hg (30-55); VENOUS BLOOD PH 7.32 (7.32-7.43)
[2019-01-26 14:22] LABS: PARTIAL THROMBOPLASTIN TIME 18.2 Seconds (25.6-37.1)
[2019-01-26 14:28] LABS: URINE BILIRUBIN NEGATIVE (NEGATIVE); URINE BLOOD NEGATIVE (NEGATIVE); URINE CLARITY CLEAR (Clear); URINE COLOR STRAW (YELLOW); URINE GLUCOSE (UA) >=500 mg/dL (NEGATIVE); URINE LEUKOCYTE ESTERASE NEG Leu/uL (Negative); URINE PROTEIN NEGATIVE (NEGATIVE); URINE UROBILINOGEN 0.2-1.0 mg/dL (0.2-1.0)
[2019-01-26 16:16] LABS: VENOUS BLOOD GAS BASE EXCESS -0.3 mmol/L (0.0-2.0); VENOUS BLOOD GAS PCO2 55 mmHg (40-60); VENOUS BLOOD GAS PO2 25 mm/Hg (30-55)
[2019-01-26] MEDS ORDERED: Povidone Iodine Topical 10% Sol ONE (16:19)
[2019-01-26] MEDS ORDERED: Povidone Iodine Oint 10% Foilpak UD ONE (16:19)
[2019-01-26] MEDS ORDERED: Morphine 4 MG/ML VIAL ONE (16:29)
[2019-01-26 17:08] VITALS: BP 126/74; PULSE 74; TEMP 97.9; O2SAT 100
--- NOTE | 2019-01-26 17:15 | CP.PCM.CON ---
<Curt Alba - Last Filed: 01/26/19 17:08> History of Present Illness - History of Present Illness History of Present Illness: Surgery Consult Note- Dr. Bliss Reason for Consult: Right Groin Abscess 43M pmhx significant for IDDM, HTN, Hyperthyroidism presents to [facility] ED with Right groin abscess. Patient went to urgent care clinic last Sunday and underwent bedside I&D. Returned to clinic today and was told to go the Emergency room. During examination patient states foul smelling discharge and tenderness around area. Denies fevers, chills, chest pain, shortness of breath, changes in Urinary, bowel habits. PMH: Stated Above PSH: L. AKA, appendectomy, tonsilectomy, R Toes ampuation ALL: NKDA SocialHx: denies tobacco, etoh, recreational drug use FH: non-contributory Review of Systems - Review of Systems All systems: reviewed and no additional remarkable complaints except - Constitutional Constitutional: As Per HPI Past Patient History - Infectious Disease Hx of Infectious Diseases: None - Tetanus Immunizations Tetanus Immunization: Unknown - Past Medical History & Family History Past Medical History?: Yes - Past Social History Smoking Status: Never Smoked - CARDIAC Hx Hypercholesterolemia: Yes Hx Hypertension: Yes - PULMONARY Hx Respiratory Disorders: No - NEUROLOGICAL Hx Neurological Disorder: No - HEENT Hx HEENT Problems: No - RENAL Hx Chronic Kidney Disease: No - ENDOCRINE/METABOLIC Hx Hypothyroidism: Yes - HEMATOLOGICAL/ONCOLOGICAL Hx Anemia: Yes Hx Human Immunodeficiency Virus (HIV): No - INTEGUMENTARY Hx Dermatological Problems: No - MUSCULOSKELETAL/RHEUMATOLOGICAL Hx Musculoskeletal Disorders: Yes Hx Falls: No Other/Comment: 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, 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 - GASTROINTESTINAL Hx Gastrointestinal Disorders: No - GENITOURINARY/GYNECOLOGICAL Hx Genitourinary Disorders: No - PSYCHIATRIC Hx Anxiety: Yes - SURGICAL HISTORY Hx Appendectomy: Yes Hx Tonsillectomy: Yes - ANESTHESIA Hx Anesthesia: Yes Hx Anesthesia Reactions: No Hx Malignant Hyperthermia: No Meds Home Medications: Home Medication List Medication Instructions Recorded Confirmed Type traMADol [Ultram] 50 mg PO Q8 PRN #10 tab 01/26/19 Rx Allergies/Adverse Reactions: Allergies Allergy/AdvReac Type Severity Reaction Status Date / Time No Known Allergies Allergy Verified 01/26/19 12:53 Physical Exam - Constitutional Appears: Non-toxic, No Acute Distress, Chronically Ill - Head Exam Head Exam: ATRAUMATIC - Eye Exam Eye Exam: EOMI. absent: PERRL, Scleral icterus Pupil Exam: Irregular - ENT Exam ENT Exam: Mucous Membranes Dry - Respiratory Exam Respiratory Exam: NORMAL BREATHING PATTERN. absent: Accessory Muscle Use, Respiratory Distress - Cardiovascular Exam Cardiovascular Exam: REGULAR RHYTHM. absent: Bradycardia, Tachycardia - GI/Abdominal Exam GI & Abdominal Exam: Soft. absent: Distended, Firm, Guarding, Hernia, Tenderness Additional comments: Right Groin abscess open and actively draining sero-purulent fluid Wound explored at bedside, w/ loculation broken up Packed w/ Iodiform /" packing and dry guaze - Psychiatric Exam Psychiatric exam: Normal Affect - Skin Skin Exam: Intact, Warm Results - Vital Signs Recent Vital Signs: Last Vital Signs Temp 97.9 F 01/26/19 17:05 Pulse 74 01/26/19 17:05 Resp 18 01/26/19 17:05 BP 126/74 01/26/19 17:05 Pulse Ox 100 01/26/19 17:05 - Labs Result Diagrams: 01/26/19 13:31 01/26/19 13:31 Labs: Laboratory Results - last 24 hr 01/26/19 01/26/19 01/26/19 13:31 13:31 13:31 WBC 5.6 RBC 4.86 Hgb 13.8 Hct 42.2 MCV 86.8 MCH 28.4 MCHC 32.7 L RDW 15.4 H Plt Count 215 MPV 9.8 Neut % (Auto) 57.6 Lymph % (Auto) 33.2 [place] % (Auto) 6.6 Eos % (Auto) 1.7 Baso % (Auto) 0.9 Neut # (Auto) 3.2 Lymph # (Auto) 1.8 [place] # (Auto) 0.4 Eos # (Auto) 0.1 Baso # (Auto) 0.1 PT 10.0 INR 0.9 APTT 18.2 L pO2 VBG pH VBG pCO2 VBG HCO3 VBG Total CO2 VBG O2 Sat (Calc) VBG Base Excess VBG Potassium A-a O2 Difference Glucose Lactate FiO2 Crit Value Called To Crit Value Called By Crit Value Read Back Blood Gas Notified Time Sodium 135 Potassium 5.3 H Chloride 102 Carbon Dioxide 21 L Anion Gap 17 BUN 22 H Creatinine 0.7 L Est GFR ( Amer) > 60 Est GFR (Non-Af Amer) > 60 POC Glucose (mg/dL) Random Glucose 483 H* D Calcium 10.0 Total Bilirubin 0.7 AST 50 ALT 48 Alkaline Phosphatase 86 Total Protein 7.6 Albumin 4.1 Globulin 3.5 Albumin/Globulin Ratio 1.2 Venous Blood Potassium Urine Color Urine Clarity Urine pH Ur Specific [place] Urine Protein Urine Glucose (UA) Urine Ketones Urine Blood Urine Nitrate Urine Bilirubin Urine Urobilinogen Ur Leukocyte Esterase Urine RBC (Auto) Urine Microscopic WBC 01/26/19 01/26/19 01/26/19 14:14 14:17 15:05 WBC RBC Hgb Hct MCV MCH MCHC RDW Plt Count MPV Neut % (Auto) Lymph % (Auto) [place] % (Auto) Eos % (Auto) Baso % (Auto) Neut # (Auto) Lymph # (Auto) [place] # (Auto) Eos # (Auto) Baso # (Auto) PT INR APTT pO2 23 L VBG pH 7.32 VBG pCO2 55 VBG HCO3 24.1 VBG Total CO2 30.0 H VBG O2 Sat (Calc) 48.0 VBG Base Excess 1.1 VBG Potassium 4.5 A-a O2 Difference 58.0 Glucose 500 H* D Lactate 2.5 H FiO2 21.0 Crit Value Called To Dr carito conner Crit Value Called By 14 Crit Value Read Back Y Blood Gas Notified Time 1421 Sodium 134.0 Potassium Chloride 101.0 Carbon Dioxide Anion Gap BUN Creatinine Est GFR ( Amer) Est GFR (Non-Af Amer) POC Glucose (mg/dL) 338 H Random Glucose Calcium Total Bilirubin AST ALT Alkaline Phosphatase Total Protein Albumin Globulin Albumin/Globulin Ratio Venous Blood Potassium 4.5 Urine Color Straw Urine Clarity Clear Urine pH 6.0 Ur Specific [place] 1.030 Urine Protein Negative Urine Glucose (UA) >=500 Urine Ketones Negative Urine Blood Negative Urine Nitrate Negative Urine Bilirubin Negative Urine Urobilinogen 0.2-1.0 Ur Leukocyte Esterase Neg Urine RBC (Auto) 1 Urine Microscopic WBC < 1 01/26/19 01/26/19 15:54 16:55 WBC RBC Hgb Hct MCV MCH MCHC RDW Plt Count MPV Neut % (Auto) Lymph % (Auto) [place] % (Auto) Eos % (Auto) Baso % (Auto) Neut # (Auto) Lymph # (Auto) [place] # (Auto) Eos # (Auto) Baso # (Auto) PT INR APTT pO2 25 L VBG pH 7.30 L VBG pCO2 55 VBG HCO3 23.3 VBG Total CO2 28.8 H VBG O2 Sat (Calc) 47.9 VBG Base Excess -0.3 L VBG Potassium 4.3 A-a O2 Difference Glucose 340 H Lactate 1.9 FiO2 21.0 Crit Value Called To Crit Value Called By Crit Value Read Back Blood Gas Notified Time Sodium 140.0 Potassium Chloride 106.0 Carbon Dioxide Anion Gap BUN Creatinine Est GFR ( Amer) Est GFR (Non-Af Amer) POC Glucose (mg/dL) 299 H Random Glucose Calcium Total Bilirubin AST ALT Alkaline Phosphatase Total Protein Albumin Globulin Albumin/Globulin Ratio Venous Blood Potassium 4.3 Urine Color Urine Clarity Urine pH Ur Specific [place] Urine Protein Urine Glucose (UA) Urine Ketones Urine Blood Urine Nitrate Urine Bilirubin Urine Urobilinogen Ur Leukocyte Esterase Urine RBC (Auto) Urine Microscopic WBC Assessment & Plan - Assessment and Plan (Free Text) Assessment: 43M w/ Right Groin Abscess Plan: Actively draining keep area clean and dry packing w/ Iodiform 09/06" packing to allow continued drainage can shower continue w/ Abx no acute surgical intervention at this time follow up in clinic w/ Dr. Bliss d/w case in detail w/ Dr. Izaiah Alba PGY2 <Demarcus Bliss - Last Filed: 01/26/19 18:55> Results - Vital Signs Recent Vital Signs: Last Vital Signs Temp 97.9 F 01/26/19 17:05 Pulse 74 01/26/19 17:05 Resp 18 01/26/19 17:05 BP 126/74 01/26/19 17:05 Pulse Ox 100 01/26/19 17:05 - Labs Result Diagrams: 01/26/19 13:31 01/26/19 13:31 Labs: Laboratory Results - last 24 hr 01/26/19 01/26/19 01/26/19 13:31 13:31 13:31 WBC 5.6 RBC 4.86 Hgb 13.8 Hct 42.2 MCV 86.8 MCH 28.4 MCHC 32.7 L RDW 15.4 H Plt Count 215 MPV 9.8 Neut % (Auto) 57.6 Lymph % (Auto) 33.2 [place] % (Auto) 6.6 Eos % (Auto) 1.7 Baso % (Auto) 0.9 Neut # (Auto) 3.2 Lymph # (Auto) 1.8 [place] # (Auto) 0.4 Eos # (Auto) 0.1 Baso # (Auto) 0.1 PT 10.0 INR 0.9 APTT 18.2 L pO2 VBG pH VBG pCO2 VBG HCO3 VBG Total CO2 VBG O2 Sat (Calc) VBG Base Excess VBG Potassium A-a O2 Difference Glucose Lactate FiO2 Crit Value Called To Crit Value Called By Crit Value Read Back Blood Gas Notified Time Sodium 135 Potassium 5.3 H Chloride 102 Carbon Dioxide 21 L Anion Gap 17 BUN 22 H Creatinine 0.7 L Est GFR ( Amer) > 60 Est GFR (Non-Af Amer) > 60 POC Glucose (mg/dL) Random Glucose 483 H* D Calcium 10.0 Total Bilirubin 0.7 AST 50 ALT 48 Alkaline Phosphatase 86 Total Protein 7.6 Albumin 4.1 Globulin 3.5 Albumin/Globulin Ratio 1.2 Venous Blood Potassium Urine Color Urine Clarity Urine pH Ur Specific [place] Urine Protein Urine Glucose (UA) Urine Ketones Urine Blood Urine Nitrate Urine Bilirubin Urine Urobilinogen Ur Leukocyte Esterase Urine RBC (Auto) Urine Microscopic WBC 01/26/19 01/26/19 01/26/19 14:14 14:17 15:05 WBC RBC Hgb Hct MCV MCH MCHC RDW Plt Count MPV Neut % (Auto) Lymph % (Auto) [place] % (Auto) Eos % (Auto) Baso % (Auto) Neut # (Auto) Lymph # (Auto) [place] # (Auto) Eos # (Auto) Baso # (Auto) PT INR APTT pO2 23 L VBG pH 7.32 VBG pCO2 55 VBG HCO3 24.1 VBG Total CO2 30.0 H VBG O2 Sat (Calc) 48.0 VBG Base Excess 1.1 VBG Potassium 4.5 A-a O2 Difference 58.0 Glucose 500 H* D Lactate 2.5 H FiO2 21.0 Crit Value Called To Dr carito conner Crit Value Called By 14 Crit Value Read Back Y Blood Gas Notified Time 1421 Sodium 134.0 Potassium Chloride 101.0 Carbon Dioxide Anion Gap BUN Creatinine Est GFR ( Amer) Est GFR (Non-Af Amer) POC Glucose (mg/dL) 338 H Random Glucose Calcium Total Bilirubin AST ALT Alkaline Phosphatase Total Protein Albumin Globulin Albumin/Globulin Ratio Venous Blood Potassium 4.5 Urine Color Straw Urine Clarity Clear Urine pH 6.0 Ur Specific [place] 1.030 Urine Protein Negative Urine Glucose (UA) >=500 Urine Ketones Negative Urine Blood Negative Urine Nitrate Negative Urine Bilirubin Negative Urine Urobilinogen 0.2-1.0 Ur Leukocyte Esterase Neg Urine RBC (Auto) 1 Urine Microscopic WBC < 1 01/26/19 01/26/19 15:54 16:55 WBC RBC Hgb Hct MCV MCH MCHC RDW Plt Count MPV Neut % (Auto) Lymph % (Auto) [place] % (Auto) Eos % (Auto) Baso % (Auto) Neut # (Auto) Lymph # (Auto) [place] # (Auto) Eos # (Auto) Baso # (Auto) PT INR APTT pO2 25 L VBG pH 7.30 L VBG pCO2 55 VBG HCO3 23.3 VBG Total CO2 28.8 H VBG O2 Sat (Calc) 47.9 VBG Base Excess -0.3 L VBG Potassium 4.3 A-a O2 Difference Glucose 340 H Lactate 1.9 FiO2 21.0 Crit Value Called To Crit Value Called By Crit Value Read Back Blood Gas Notified Time Sodium 140.0 Potassium Chloride 106.0 Carbon Dioxide Anion Gap BUN Creatinine Est GFR ( Amer) Est GFR (Non-Af Amer) POC Glucose (mg/dL) 299 H Random Glucose Calcium Total Bilirubin AST ALT Alkaline Phosphatase Total Protein Albumin Globulin Albumin/Globulin Ratio Venous Blood Potassium 4.3 Urine Color Urine Clarity Urine pH Ur Specific [place] Urine Protein Urine Glucose (UA) Urine Ketones Urine Blood Urine Nitrate Urine Bilirubin Urine Urobilinogen Ur Leukocyte Esterase Urine RBC (Auto) Urine Microscopic WBC Assessment & Plan - Assessment and Plan (Free Text) Plan: 43yo M referred to ED for evalution of right groin abscess which was ID at a urgent care center. Pt here for evaluation, area of ID with packing in place. minimal drainage from right ground. -cont wound care -finish course of Abx -no surgical intervention
== END 2019-01-26 17:00 | disposition home or self-care (01) ==
LOC: H.ER 12:41
DX: E11.65 Type 2 diabetes mellitus with hyperglycemia (principal); L02.214 Cutaneous abscess of groin; B96.89 Other specified bacterial agents as the cause of diseases classified elsewhere; D64.9 Anemia, unspecified; E03.9 Hypothyroidism, unspecified; E05.90 Thyrotoxicosis, unspecified without thyrotoxic crisis or storm; E78.00 Pure hypercholesterolemia, unspecified; I10 Essential (primary) hypertension; Z79.01 Long term (current) use of anticoagulants; Z79.4 Long term (current) use of insulin; Z89.612 Acquired absence of left leg above knee
CPT/HCPCS: 80053; 81003; 82803; 82948; 85025; 85610; 85730; 87070; 96374; 96375; 99284; J1885; J2270; J7030